=== PATIENT | female | born 1960 | race Caucasian/White ===

== ENCOUNTER 2022-07-19 08:45 | Outpatient (CLI) | payer OTHER, SELFPAY ==
--- OUTSIDE RECORDS SUMMARY | 2022-07-19 08:49 | XMS_ITS | Referral Summary ---
Author Name Unknown Organization [facility] Address [address] [place] [address]- Care Team Providers Care Maori Liaison Adviser Name Role Phone PCP, Out of State Primary Care Physician Unavail able Encounter [facility]_FIN [id number] Date(s): 05/29/19 - 05/30/19 [facility] [address] 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) - Discharge Disposition: Home/self care Attending Physician: Viraj Venegas DO Admitting Physician: Viraj Venegas DO Vital Signs Most recent to oldest [Reference Range]: 1 2 Living Situation Lives with spouse (05/29/19 11:18 PM) Sensory Deficits None (05/29/19 11:18 PM) Pain Scale Used Numeric Rating Scale (05/29/19 11:18 PM) Temperature PO [36-37.5 deg C] 36.7 deg C (05/29/19 11:18 PM) Heart Rate [51-119 bpm] 87 bpm (05/30/19 1:15 AM) 94 bpm (05/29/19 11:18 PM) Blood Pressure [91-139/50-90 mm Hg] 121/ 82mm Hg (05/30/19 1:15 AM) 128/84mm Hg (05/29/19 11:18 PM) Resp Rate (Monitor) [13-20 Breaths/Min] 16 Breaths/Min (05/30/19 1:15 AM) 20 Breaths/Min (05/29/19 11:18 PM) SPO2 [87-100 %] 98 % (05/30/19 1:15 AM) 96 % (05/29/19 11:18 PM) Oxygen Method Room air (05/29/19 11:18 PM) Glucose Level [70-99 mg/dL] 176 mg/dL *H* (05/29/19 11:34 PM) Height 170.18 cm (05/29/19 11:18 PM) Drug Calc Weight (kg) 125.8 kg (05/29/19 11:18 PM) Weight Method Actual (05/29/19 11:18 PM) BMI 43.44 kg/m2 (05/29/19 11:18 PM) Problem List Condition Effective Dates Status Health Status Inform ant Hypertension(Confirmed) Active Seasonal allergies(Confirmed) Active Allergies, Adverse Reactions, Alerts Substance Reaction Severity Status penicillin Unknown Unknown Active sulfa drugs Unknown Unknown Active Medications aspirin 81 mg, Tab, Chew, PO, Daily, Qty: 0 Tab, 0, Maintenance Start Date: 05/29/19 Status: Ordered Flonase 0.05 mg/inh nasal spray 0, Maintenance Start Date: 05/29/19 Status: Ordered hydrochlorothiazide-losartan 12.5/50 mg 0, Maintenance Start Date: 05/29/19 Status: Ordered Mirapex 0.125 mg, Tab, PO, BID, Qty: 90 Tab, 0, Maintenance Start Date: 05/29/19 Status: Ordered omeprazole 20 mg, Cap, PO, qDay, Qty: 90 Cap, 0, Maintenance Start Date: 05/29/19 Status: Ordered Pulmicort Flexhaler 90 mcg/inh 0, Maintenance Start Date: 05/29/19 Status: Ordered ZyrTEC 10 mg, Tab, PO, qDay, PRN, Allergy symptoms, Qty: 30 Tab, 0, Maintenance Start Date: 05/29/19 Status: Ordered Results Most recent to oldest [Reference Range]: 1 B-Natriuretic Peptide [0.0-100.0 pg/mL] 4.5 pg/mL (05/29/19 11:34 PM) CBC Scan Auto Diff (05/29/19 11:34 PM) Lymphs [10.0-55.0 %] 19.8 % (05/29/19 11:34 PM) Monos. [0.0-15.0 %] 5.3 % (05/29/19 11:34 PM) Baso. [0.0-3.0 %] 0.8 % (05/29/19 11:34 PM) Neuts [35.0-80.0 %] 71.6 % (05/29/19 11:34 PM) Eos. [0.0-9.0 %] 2.5 % (05/29/19 11:34 PM) Glucose Level [70-99 mg/dL] 176 mg/dL *H* (05/29/19 11:34 PM) AST [5-34 Units/L] 21 Units/L (05/29/19 11:34 PM) ABS Neut [1.7-8.6 thousand/uL] 7.9 thous and/uL (05/29/19 11:34 PM) eGFR Non- Am 52 mL/min/1.73m2 *NA* (05/29/19 11:34 PM) eGFR Afr/Amer >60 mL/min/1.73m2 *NA* (05/29/19 11:34 PM) A/G Ratio [0.8-1.6] 1.1 (05/29/19 11:34 PM) ABS Baso [0.0-0.3 thousand/uL] 0.1 thous and/uL (05/29/19 11:34 PM) ABS Eos [0.0-1.0 thousand/uL] 0.3 thousa nd/uL (05/29/19 11:34 PM) ABS Lymph [0.5-5.9 thousand/uL] 2.2 thou sand/uL (05/29/19 11:34 PM) ABS Emmet [0.0-1.6 thousand/uL] 0.6 thous and/uL (05/29/19 11:34 PM) Albumin [3.4-5.0 gm/dL] 3.9 gm/dL (05/29/19 11:34 PM) Alkphos [40-150 Units/L] 77 Units/L (05/29/19 11:34 PM) ALT [0-55 Units/L] 26 Units/L (05/29/19 11:34 PM) Anion Gap [5-15] 15 (05/29/19 11:34 PM) Bili Total [0.2-1.2 mg/dL] 0.4 mg/dL (05/29/19:34 PM) BUN [10-20 mg/dL] 22 mg/dL *H* (05/29/19 PM) Chloride [98-107 mmol/L] 102 mmol/L (05/29/1934 PM) CO2 [22-29 mmol/L] 24 mmol/L (05/29/19 PM) Creatinine [0.57-1.11 mg/dL] 1.08 mg/dL (05/29/1934 PM) Globulin [2.5-4.1 gm/dL] 3.7 gm/dL (05/29/19 PM) Hct [37.0-47.0 %] 40.3 % (05/29/19 PM) Hgb [11.5-16.0 gm/dL] 13.2 gm/dL (05/29/19 PM) Lipase [8.0-78.0 Units/L] 34.0 Units/L (05/29/19 PM) MCH [27.0-34.0 pg] 30.0 pg (05/29/19:34 PM) MCHC [32.0-37.0 gm/dL] 32.8 gm/dL (05/29/19: PM) MCV [80.0-100.0 fL] 91.5 fL (05/29/19: PM) Mg [1.6-2.6 mg/dL] 1.9 mg/dL (05/29/19 PM) Plt [130-400 thousand/uL] 399 thousand/u L (05/29/19 PM) Protein, Total [6.4-8.3 gm/dL] 7.6 gm/dL (05/29/1934 PM) RBC [4.00-5.40 million/uL] 4.41 million/ uL (05/29/19 PM) RDW [11.5-16.0 %] 14.3 % (05/29/19 PM) Sodium [134-144 mmol/L] 137 mmol/L (3/4/20 11:34 PM) Troponin I [<=0.30 ng/mL] 0.00 ng/mL (05/29/19 11:34 PM) WBC [4.8-10.8 thousand/uL] 11.0 thousand /uL *H* (05/29/19 11:34 PM) Potassium [3.5-5.1 mmol/L] 4.1 mmol/L (05/29/19 11:34 PM) Calcium [8.4-10.2 mg/dL] 10.0 mg/dL (05/29/19 11:34 PM) Social History Social History Type Response Smoking Status Never (less than 100 in lifetime) entered on: 05/29/19 Hospital Discharge Instructions Patient Education 05/29/2019 21:13:55 Near-Syncope Near-Syncope The cause of your symptoms is unclear. We discussed admission to the hospital for further evaluation and monitoring for any arrhythmia (irregular heartbeat) or other cardiac cause of your symptoms. You have declined this. If you have any worsening symptoms or change your mind please return to the ER immediately. Near-syncope is when you suddenly become weak or dizzy, or you feel like you might pass out (faint). During an episode of near-syncope, you may: ??? Feel dizzy or light-headed. ??? Feel nauseous. ??? See all white or all black in your field of vision. ??? Have cold, clammy skin. This condition is caused by a sudden decrease in blood flow to the brain. This decrease can result from various causes, but most of those causes are not dangerous. However, near-syncope can be a signof a serious medical problem, so it is important to seek medical care. If you fainted, get medical help right away.Call your local emergency services (911 in the [place] Do not drive yourself to the hospital. Follow these instructions at home: Pay attention to any changes in your symptoms. Take these actions to help with your condition: ??? Have someone stay with you until you feel stable. ??? Do not drive, use machinery, or play sports until your health care provider says it is okay. ??? Keep all follow-up visits as told by your health care provider. This is important. ??? If you start to feel like you might faint, lie down right away and raise (elevate) your feet above the level of your heart. Breathe deeply and steadily. Wait until all of the symptoms have passed. ??? Drink enough fluid to keep your urine clear or pale yellow. ??? If you are taking blood pressure or heart medicine, get up slowly and take several minutes to sit and then stand. This can reduce dizziness. ??? Take [id number] and prescription medicines only as told by your health care provider. Get help right away if: ??? You have a severe headache. ??? You have unusual pain in your chest, abdomen, or back. ??? You are bleeding from your mouth or rectum, or you have black or tarry stool. ??? You have a very fast or irregular heartbeat (palpitations). ??? You faint once or repeatedly. ??? You have a seizure. ??? You are confused. ??? You have trouble walking. ??? You have severe weakness. ??? You have vision problems. These symptoms may represent a serious problem that is an emergency. Do not wait to see if your symptoms will go away. Get medical help right away. Call your local emergency services (911 in the [place] Do not drive yourself to the hospital. This information is not intended to replace advice given to you by your health care provider. Make sure you discuss any questions you have with your health care provider. Document Released: 03/13/2006 Document Revised: 04/25/2017 Document Reviewed: 11/25/2015 [employer] Interactive Patient Education ?? 2019 [employer] Follow Up Care 05/29/2019 21:13:55 With:Follow with your PCP or our PCP on-call for recheck. Address:Unknown When:1 to 3 days Comments:Bring copies of lab results Call for follow up appointment Return to ED if symptoms worsen With:Eduarda Lucas Address: [address] [place] [address] [phone] Business (1) When:1 to 3 days Comments:Bring copies of lab results Call for follow up appointment Return to ED if symptoms worsen With:Out of State PCP Address:Unknown When:1 to 3 days
--- OUTSIDE RECORDS SUMMARY | 2022-07-19 08:49 | XMS_ITS | Continuity of Care Document ---
Author Name Unknown Organization [facility] [place] [facility] [address] [place] [address]- Care Team Providers Care Grit Removal Operator Name Role Phone PCP, Out of State Primary Care Physician Unavail able Encounter RICKIE [id number] Date(s): 03/27/99 - 04/07/20 [facility] [place] [facility] [address] [place] [address]- [facility] Allergies, Adverse Reactions, Alerts Substance Reaction Severity [...] 0, Maintenance Start Date: 05/29/19 Status: Ordered Problem List Condition Effective Dates Status Health Status Inform ant Hypertension(Confirmed) Active Seasonal allergies(Confirmed) Active Social History Social History Type Response Smoking Status Never (less than 100 in lifetime) entered on: 05/29/19 Sex
--- OUTSIDE RECORDS SUMMARY | 2022-07-19 08:49 | XMS_ITS | Continuity of Care Document ---
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 Name Role Phone Formerly [facility] Unavailable Unavailable Problems Problem Status Onset Date Classification Date Reported Comments Source Hypertensive disorder, systemic arterial (disorder) Active 04/08/2020 [facility] Internal Medicine [facility] Seasonal allergy (disorder) Active 04/08/2020 [facility] Internal [facility] Syncope and collapse 06/07/2019 [facility] Essential (primary) hypertension 06/07/2019 [facility] Type 2 diabetes mellitus without complications 06/06/2019 [facility] Other halfway (current) drug therapy 06/07/2019 [facility] Allergy status to penicillin 06/07/2019 [facility] Allergy status to sulfonamides status 06/07/2019 [facility] 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 06/07/2019 [facility] Medications Medication Details Route Status Patient Instructions Ordering Provider Order Date Source 60 ACTUAT Budesonide 0.08 MG/ACTUAT Dry Powder Inhaler [Pulmicort] 0, Maintenance Active 2019 [facility] Pulmicort Flexhaler 90 mcg/inh 0, Maintenance Active 2019 [facility] Internal [facility] Fluticasone propionate 0.05 MG/ACTUAT Metered Dose Nasal [place] [Flonase] 0, Maintenance Active 2019 [facility] Aspirin 81 mg, Tab, Chew, PO, Daily, Qty: 0 Tab, 0, Maintenance Active 2019 [facility] Internal [facility] Omeprazole 20 mg, Cap, PO, qDay, Qty: 90 Cap, 0, Maintenance Active 2019 [facility] Internal [facility] Hydrochlorothiazide 12.5 MG / Losartan Potassium 50 MG Oral Tablet 0, Maintenance Active 2019 [facility] Mirapex 0.125 mg, Tab, PO, BID, Qty: 90 Tab, 0, Maintenance Active 2019 [facility] Zyrtec 10 mg, Tab, PO, qDay, PRN, Allergy symptoms, Qty: 30 Tab, 0, Maintenance Active 2019 [facility] Allergies, Adverse Reactions, Alerts Substance Category Reaction Severity Reaction type Status Date Reported Comments Source penicillin Assertion Unknown Unknown Drug allergy Active [facility] sulfa drugs Assertion Unknown Unknown Drug allergy Active [facility] penicillin Assertion Unknown Drug allergy Active [facility] Internal [facility] sulfa drugs Assertion Unknown Drug allergy Active [facility] Internal [facility] Results Order Name Results Value Reference Range Date Interpretation Comments Source CMP Sodium 137 134 - 144 05/29 [facility] CMP Potassium 4.1 3.5 - 5.1 05/29 [facility] CMP Chloride 102 98 - 107 05/29 [facility] CMP CO2 24 22 - 29 05/29 [facility] CMP Glucose Level 176 70 - 99 05/29 [facility] [place] [employer] (ADA) Guidelines: Optimal fasting blood glucose is below 100 mg/dL. A person with pre-diabetes has a fasting blood glucose of 100-125. [facility] CMP BUN 22 10 - 20 05/29 [facility] CMP Creatinine 1.08 0.57 - 1.11 05/29 Result is ID-GC/MS standardized [facility] CMP Anion Gap 15 5 - 15 03/05 /2020 [facility] CMP Calcium 10.0 8.4 - 10.2 05/29 [facility] CMP Protein, Total 7.6 6.4 - 8.3 05/29 [facility] CMP Albumin 3.9 3.4 - 5.0 05/29 [facility] CMP Alkphos 77 40 - 150 05/29 [facility] CMP ALT 26 0 - 55 05/29 [facility] CMP AST 21 5 - 34 05/29 [facility] CMP Bili Total 0.4 0.2 - 1.2 05/29 [facility] CMP eGFR Non- Am 52 05/29 NA NORMALIZED FOR ID-GC/MS STANDARDIZED CREATININE (NON-AF AMR=NON-, AF AMR=) KIDNEY DAMAGE STAGES FROM [facility] ---- STAGE 1 and 2 >60 mL/min/1.73 square meters STAGE 3 30-59 mL/min/1.73 square meters STAGE 4 15-29 mL/min/1.73 square meters STAGE 5 <14 mL/min/1.73 square meters [facility] CMP eGFR Afr/Amer >60 05/29 NA NORMALIZED FOR ID-GC/MS STANDARDIZED CREATININE (NON-AF AMR=NON-, AF AMR=) KIDNEY DAMAGE STAGES FROM [facility] ---- STAGE 1 and 2 >60 mL/min/1.73 square meters STAGE 3 30-59 mL/min/1.73 square meters STAGE 4 15-29 mL/min/1.73 square meters STAGE 5 <14 mL/min/1.73 square meters [facility] CMP Globulin 3.7 2.5 - 4.1 05/29 [facility] CMP A/G Ratio 1.1 0.8 - 1.6 05/29 [facility] CMP Drug Calc Weight (kg) 125.800 05/29 [facility] CMP Height (cm) 170.180 05/29 - Unless otherwise noted, tests performed at the following location: - [facility] Lipase Lipase 34.0 8.0 - 78.0 05/29 - Unless otherwise noted, tests performed at the following location: - [facility] Mg Mg 1.9 1.6 - 2.6 05/29 - Unless otherwise noted, tests performed at the following location: - [facility] Troponin-I Troponin I 0.00 - <=0.30 05/29 - Unless otherwise noted, tests performed at the following location: - [facility] BNP B-Natriureti c Peptide 4.5 0.0 - 100.0 05/29 - Unless otherwise noted, tests performed at the following location: - [facility] CBC w/Diff WBC 11.0 4.8 - 10.8 05/29 H [facility] CBC w/Diff RBC 4.41 4.00 - 5.40 05/29 [facility] CBC w/Diff Hgb 13.2 11.5 - 16.0 05/29 [facility] CBC w/Diff Hct 40.3 37.0 - 47.0 05/29 [facility] CBC w/Diff MCV 91.5 80.0 - 100.0 05/29 [facility] CBC w/Diff MCH 30.0 27.0 - 34.0 05/29 [facility] CBC w/Diff MCHC 32.8 32.0 - 37.0 05/29 [facility] CBC w/Diff RDW 14.3 11.5 - 16.0 05/29 [facility] CBC w/Diff Plt 399 130 - 400 05/29 [facility] CBC w/Diff Neuts 71.6 35.0 - 80.0 05/29 [facility] CBC w/Diff Lymphs 19.8 10.0 - 55.0 05/29 [facility] CBC w/Diff Monos. 5.3 0.0 - 15.0 05/29 [facility] CBC w/Diff Eos. 2.5 0.0 - 9.0 05/29 [facility] CBC w/Diff Baso. 0.8 0.0 - 3.0 05/29 [facility] CBC w/Diff ABS Neut 7.9 1.7 - 8.6 05/29 [facility] CBC w/Diff ABS Lymph 2.2 0.5 - 5.9 05/29 [facility] CBC w/Diff ABS Treutlen 0.6 0.0 - 1.6 05/29 [facility] CBC w/Diff ABS Eos 0.3 0.0 - 1.0 05/29 [facility] CBC w/Diff ABS Baso 0.1 0.0 - 0.3 05/29 [facility] CBC w/Diff CBC Scan Auto Diff 05/29 - Unless otherwise noted, tests performed at the following location: - [facility] D Dimer Qt D-Dimer, Quant. 0.34 0.00 - 0.50 05/29 This D-dimer assay is FDA-approved to be used as a negative predictor of venous thromboembolism with a cutoff of <0.50 ug/mL FEU. Clinical correlation required. - Unless otherwise noted, tests performed at the following location: - [facility] Cardiac Troponin I 0.00 <=0.30 ng/mL 03/05 /2020 [facility] Cardiac B-Natriureti c Peptide 4.5 0.0 - 100.0 05/29 [facility] CBC CBC Scan Auto Diff (05/29/19 11:34 PM) 05/29 [facility] CBC WBC 11.0 4.8 - 10.8 05/29 [facility] CBC RBC 4.41 4.00 - 5.40 05/29 [facility] CBC Hgb 13.2 11.5 - 16.0 05/29 [facility] CBC Hct 40.3 37.0 - 47.0 05/29 [facility] CBC MCV 91.5 80.0 - 100.0 05/29 [facility] CBC MCH 30.0 27.0 - 34.0 05/29 [facility] CBC MCHC 32.8 32.0 - 37.0 05/29 [facility] CBC RDW 14.3 11.5 - 16.0 05/29 [facility] CBC Plt 399 130 - 400 05/29 [facility] CBC Neuts 71.6 35.0 - 80.0 05/29 [facility] CBC Lymphs 19.8 10.0 - 55.0 05/29 [facility] CBC Monos. 5.3 0.0 - 15.0 05/29 [facility] CBC Eos. 2.5 0.0 - 9.0 05/29 [facility] CBC Baso. 0.8 0.0 - 3.0 05/29 [facility] CBC ABS Neut 7.9 1.7 - 8.6 05/29 [facility] CBC ABS Lymph 2.2 0.5 - 5.9 05/29 [facility] CBC ABS Tre[place]len 0.6 0.0 - 1.6 05/29 [facility] CBC ABS Eos 0.3 0.0 - 1.0 05/29 [facility] CBC ABS Baso 0.1 0.0 - 0.3 05/29 [facility] General Chemistry Lipase 34.0 8.0 - 78.0 05/29 [facility] General Chemistry Mg 1.9 1.6 - 2.6 05/29 [facility] General Chemistry Glucose Level 176 70 - 99 05/29 [facility] General Chemistry BUN 22 10 - 20 05/29 [facility] General Chemistry Creatinine 1.08 0.57 - 1.11 05/29 [facility] General Chemistry Sodium 137 134 - 144 05/29 [facility] General Chemistry Potassium 4.1 3.5 - 5.1 05/29 [facility] General Chemistry Chloride 102 98 - 107 05/29 [facility] General Chemistry CO2 24 22 - 29 05/29 [facility] General Chemistry Calcium 10.0 8.4 - 10.2 05/29 [facility] General Chemistry Protein, Total 7.6 6.4 - 8.3 05/29 [facility] General Chemistry Albumin 3.9 3.4 - 5.0 05/29 [facility] General Chemistry AST 21 5 - 34 05/29 [facility] General Chemistry ALT 26 0 - 55 05/29 [facility] General Chemistry Alkphos 77 40 - 150 05/29 [facility] General Chemistry Bili Total 0.4 0.2 - 1.2 05/29 [facility] General Chemistry Anion Gap 15 5 - 15 05/29 [facility] General Chemistry Globulin 3.7 2.5 - 4.1 05/29 [facility] General Chemistry A/G Ratio 1.1 0.8 - 1.6 05/29 [facility] General Chemistry eGFR Non- Am 52 05/29 [facility] General Chemistry eGFR Afr/Amer >60 05/29 [facility] Diagnostic Reports Report Value Date Source XR Chest 2 Views Reason For Exam Atypical Chest Pain EXAM: XR Chest 2 Views CLINICAL HISTORY: Atypical Chest Pain EXAM: XR Chest 2 Views. CLINICAL HISTORY: Atypical Chest Pain. ADDITIONAL HISTORY: None. TECHNIQUE: Frontal and lateral views of the chest were obtained. FINDINGS: LUNGS: The lungs are grossly clear. No evidence of pneumonia. No pleural effusion. No evidence of pneumothorax. HEART/MEDIASTINUM: The heart is grossly normal in size and morphology. The pulmonary vasculature is grossly normal. OSSEOUS STRUCTURES: The bones are grossly intact. No acute displaced fracture is seen. IMPRESSION: 1. No radiographic evidence of acute cardiopulmonary process. 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: Ac : 1960 Requested By: Jeramie Arce Order Number: [id number] Reading MD: Jefry GUERRA Measurements Intervals Compton Rate: 88 P: 38 PA: 124 QRS: 30 QRSD: 90 T: 19 QT: 356 QTc: 432 Severity: Normal ECG Interpretive Statements SINUS RHYTHM Normal ECG No previous ECG available for comparison Electronically Signed On 05-30-2019 14:31:14 MST by Jefry GUERRA 05/30/2019 [facility] Electrocardiogram Stationary ECG Study [facility] [address] [place] [id number] Test Date: 2019-05-29 Pat Name: MAT LUCIA Department: Room: Gender: F Animal Therapist: tf : 1960 Requested By: Dano Andersen Order Number: [id number] Reading MD: Woodrow Browne MD Measurements Intervals Compton Rate: 91 P: 33 PA: 141 QRS: 39 QRSD: 92 T: 24 QT: 366 QTc: 452 Severity: Normal ECG Interpretive Statements SINUS RHYTHM Normal ECG No previous ECG available for comparison Electronically Signed On 06-05-2019 23:09:41 MST by Woodrow Browne MD 05/30/2019 [facility] Consultation Notes Results Value Date Source ED Physician Notes Patient: MAT LUCIA (EV) Age: 59 years Sex: F : 1960 Associated Diagnoses: None Author: Viraj Pedersen DO Addendum Teaching-Supervisory Addendum-Brief I participated in the following activities of this patients care: the medical history, the physical exam, medical decision making. I personally performed: supervision of the patient's care, the medical history, the physical exam, the medical decision making. The case was discussed with: the physician ophthalmic assistant. Evaluation and management service: I agree with the evaluation and management decisions made in this patient's care. Results interpretation: I agree with the study interpretation in this patient's care. Notes: 59-year-old female who presents with a near syncopal episode. She had no time had a actual loss of consciousness. She was seen in urgent care at 843 pm and stated that this occurred shortly before presenting there. She had been out to eat earlier and had some alcohol. She suddenly became flushed and felt as though she was going to pass out. She complained of jaw pain. She denies any associated chest pain or shortness of breath. Physical exam she is morbidly obese. Review of the urgent care note she was slightly hypotensive at 93/65 but she was not tachycardic her heart rate was just at 100. In our ED blood pressure was 128/84 with a pulse of 94. Awake and alert. Eyes are PERRLA. Cardiac is regular lungs are clear abdomen is soft. Neurologic speech clear and fluent. EKG done at 2253 sinus at a rate of 88 inverted T wave in lead III no gross evidence for ischemia or infarct, no evidence for malignant arrhythmia intervals are grossly unremarkable. Compton is normal. Chest x-ray no obvious infiltrates effusions bony abnormalities wide mediastinum or free air. Obese 59-year-old female with a history of hypertension who presents with a near syncopal episode. I checked orthostatics on her laying she was 127/73 with a heart rate of 97 standing she was 113/79 with a heart rate of 107. Cardiac is regular lungs are clear abdomen soft extremities are without clubbing cyanosis or edema. Neurologic speech clear fluent mentation is appropriate. Given the documented mild hypotension at the urgent care with this unexplained jaw pain and her risk factors I felt that prudent course of action would be observation. Although this may be something benign such as some intravascular volume depletion certainly concern for arrhythmia or atypical ACS is high in the concern list. I had a lengthy discussion with her and her their preference is to go home she states that it has been a number of hours since she had the symptoms and she feels perfectly fine at present. I explained to her she needs to have a very low threshold to return to the ED if she changes her mind or has any worsening symptoms she assured me that she would.. Electronically Signed By: Viraj Pedersen DO On 05/30/19 00:58 Co Signature By: Modify Signature By: Viraj Pedersen DO On 05/30/19 00:58 05/30/2019 [facility] ED Physician Notes Patient: MAT LUCIA (EV) Age: 59 years Sex: F : 1960 Associated Diagnoses: None Author: Henry Vargas Physician Commutator Tester Basic Information Time seen: Provider Initial Contact Time 05/29/2019 23:00. Patient information:: near syncope. History of Present Illness The patient presents with near syncope. This is a 59 year old female with a history of HTN who presents to the emergency department for evaluation after a near-syncopal episode this evening. Shortly after dinner the patient began feeling hot in a way that felt different from what sometimes experiences with hot flashes. She then noticed some stiffness in her jaw. While sitting in the car the patient then began to feel nauseous and clammy. She states that her vision suddenly started to go black and she felt as if she may experience a loss of consciousness. She was evaluated at an urgent care facility shortly afterward where her blood pressure was found to be decreased from her baseline at 93/65. She was advised to visit the emergency department for further evaluation. Upon ED arrival symptoms have improved. She denies chest pain or palpitations. No shortness of breath. Denies headache. Otherwise no associated symptoms. . Review of Systems Constitutional symptoms: Sweats. Skin symptoms: Negative except as documented in HPI. ENMT symptoms: Negative except as documented in HPI. Respiratory symptoms: Negative except as documented in HPI. Cardiovascular symptoms: Syncope (near). Gastrointestinal symptoms: Nausea. Genitourinary symptoms: Negative except as documented in HPI. Musculoskeletal symptoms: Negative except as documented in HPI. Neurologic symptoms: Vision changes. Hematologic/Lymphatic symptoms: Negative except as documented in HPI. Health Status Allergies: Allergic Reactions (Selected) Unknown Penicillin- Unknown. Sulfa drugs- Unknown.. Medications: Include Documented Meds (Selected) Documented Medications Documented Flonase 0.05 mg/inh nasal spray: 0 Refill(s) Mirapex: 0.125 mg, PO, BID, 90 Tab, 0 Refill(s) Pulmicort Flexhaler 90 mcg/inh: 0 Refill(s) ZyrTEC: 10 mg, PO, qDay, PRN: Allergy symptoms, 30 Tab, 0 Refill(s) aspirin: 81 mg, PO, Daily, 0 Tab, 0 Refill(s) hydrochlorothiazide-losartan 12.5/50 m Refill(s) omeprazole: 20 mg, PO, qDay, 90 Cap, 0 Refill(s), per nurse's notes. Immunizations: Per nurse's notes. Past Medical/ Family/ Social History Medical history Cardiovascular: hypertension, no deep venous thrombosis, no hyperlipidemia. Endocrine: no diabetes. Surgical history: no appendectomy, no cholecystectomy. Family history: not significant. Social history: Social and Psychosocial Habits Alcohol 05/29/2019 Use: Current Home/Environment 05/29/2019 Tenriism restrictions/concerns: None Feels unsafe at home: No Substance Abuse 05/29/2019 Use: Denies Tobacco 05/29/2019 Tobacco Use: Never (less than 100 in l , Alcohol use: Denies, Tobacco use: Denies, Drug use: Denies. Problem list: Per nurse's notes. Physical Examination Vital Signs Vital-Signs 05/29/2019 21:00 MST NIBP Systolic 107 mm Hg Normal NIBP Diastolic 73 mm Hg Normal 05/29/2019 20:43 MST SPO2 95 % Normal Heart Rate 100 bpm Normal NIBP Systolic 93 mm Hg Normal NIBP Diastolic 65 mm Hg Normal Resp Rate (Monitor) 14 Breaths/Min Normal Temperature Temporal Artery 36.5 deg C Normal Pain Intensity 0 Pain Scale Used Numeric Rating Scale . Measurements 05/29/2019 20:43 MST Drug Calc Weight (kg) 120.181 kg BMI 41.5 kg/m2 Height 170.18 cm Height In 67 Inch Weight lb 265 lbs . SPO2 05/29/2019 20:43 MST SPO2 95 % Normal . General: Alert, no acute distress, speaks full sentences, answers questions appropriately. Skin: Warm, dry, pink, intact, no pallor, no rash, normal for ethnicity, Not cyanotic, Head: Normocephalic, atraumatic. Neck: Supple, trachea midline, no tenderness, no nuchal rigidity. Eye: Pupils are equal, round and reactive to light, extraocular movements are intact, normal conjunctiva, vision unchanged, Anicteric. Ears, nose, mouth and throat: Oral mucosa moist, Throat: Normal. Cardiovascular: Regular rate and rhythm, No murmur, Normal peripheral perfusion, No edema. Respiratory: Lungs are clear to auscultation, respirations are non-labored, breath sounds are equal, Symmetrical chest wall expansion. Gastrointestinal: Soft, Nontender, Non distended, Normal bowel sounds. Back: Nontender, No CVA tenderness. Musculoskeletal: Normal ROM, normal strength, no tenderness, no swelling, no deformity. Neurological: Alert and oriented to person, place, time, and situation, No focal neurological deficit observed, CN II-XII intact, normal sensory observed, normal motor observed, normal speech observed, normal coordination observed. Psychiatric: Cooperative, appropriate mood and affect. Medical Decision Making Orders Launch Order Profile (Selected) Inpatient Orders Ordered (Dispatched) BNP (B-Type Natriuretic Peptide): CBC w/Diff* (man diff if indicated): CMP: D-Dimer Quantitative: Lipase Level: Magnesium (Mg) Level: Troponin-I: Ordered (Exam Ordered) CXR 2 Views: Completed EKG: . Reexamination/ Reevaluation Interventions: Patient's labs and x-ray and EKG were discussed. We recommend that she come into the hospital for observation and further evaluation. The patient at this time does not want to stay. We did discuss this with her if this gets worse or changes that she needs to return to emergency room for admission.. Impression and Plan Near syncope Plan Condition: Improved, Stable. Disposition: Discharged: to home. Patient was given the following educational materials: Near-Syncope. Follow up with: Follow with your PCP or our PCP on-call for recheck. Within 1 to 3 days Bring copies of lab results Call for follow up appointment Return to ED if symptoms worsen; Eduarda Lucas Within 1 to 3 days Bring copies of lab results Call for follow up appointment Return to ED if symptoms worsen; Out of State PCP Within 1 to 3 days. Counseled: Patient, Family. Notes: Jewels Willard scribe, am scribing for, and in the presence of, Henry Vargas PA-C. This chart is electronically signed by myself, angela Farah. Henry Willard PA-C, personally performed the services described in this documentation, as scribed by Jewels Lopez in my presence, and it is both accurate and complete , SEEN IN CONJUNCTION WITH DR. VIRAJ PEDERSEN (SEE ADDITIONAL NOTE FROM PHYSICIAN) . Electronically Signed By: Henry Vargas Physician Commutator Tester On 05/30/19 01:04 Co Signature By: Viraj Pedersen DO On 05/31/19 23:40 Modify Signature By: Henry Vargas Physician Commutator Tester On 05/30/19 01:04 05/30/2019 [facility] ED Physician Notes Patient: MAT LUCIA (EV) Age: 59 years Sex: F : 1960 Associated Diagnoses: None Author: Huyen Perdomo PA-C Basic Information Time seen: Provider Initial Contact Time 05/29/2019 21:05. History source: Patient, spouse. Arrival mode: Private vehicle. History limitation: None. Additional information: Chief Complaint (ST) Chief Complaint ED: blurred vision 05/29/19 20:43, Subjective Nursing Assessment: started when having dinner, got clammy and hot, dizzy, nauseated, twinges of jaw pain, Sx have mostly resolved 05/29/19 20:43 . History of Present Illness The patient presents with syncope, near syncope, dizziness and clammy, vision loss, jaw aches. The onset was just prior to arrival. The course/duration of symptoms is improving. The location where the incident occurred was in the street. The exacerbating factor is none. The relieving factor is none. Risk factors consist of hypertension, diabetes mellitus and obesity. Prior episodes: none. Therapy today: none. Preceding symptoms: lightheaded. Associated symptoms: nausea, denies fever and denies headache. Associated injury to the none. Additional history: 59 y/o femae with HTN and DM flew to [place] yesterday, and is here visiting family. She was outside much of the day, went to dinner with family, was feeling well, had two margaritas and while still seated at restaurant noticed her jaw acheing. She then felt clammy and 'hot', followed by lightheaded and feeling weak, not spinning. SHe went outside for fresh air, sat for 5 minutes, felt nauseaous, got in car to leave and while traveling had vision blurred then went black for a few minutes. she came here for evaluation. No HX of heart issues, is on RX for HTN and for DM Family HX Neg for CAD or CVA She has been feeling well, this BP is low for her , she states she has been drinking and eating normally.. Review of Systems Additional review of systems information: All other systems reviewed and otherwise negative. Health Status Allergies: Allergic Reactions (Selected) Unknown Penicillin- Unknown. Sulfa drugs- Unknown.. Medications: Include Documented Meds (Selected) Documented Medications Documented Flonase 0.05 mg/inh nasal spray: 0 Refill(s) Mirapex: 0.125 mg, PO, BID, 90 Tab, 0 Refill(s) Pulmicort Flexhaler 90 mcg/inh: 0 Refill(s) ZyrTEC: 10 mg, PO, qDay, PRN: Allergy symptoms, 30 Tab, 0 Refill(s) aspirin: 81 mg, PO, Daily, 0 Tab, 0 Refill(s) hydrochlorothiazide-losartan 12.5/50 m Refill(s) omeprazole: 20 mg, PO, qDay, 90 Cap, 0 Refill(s). Immunizations: Per nurse's notes. Menstrual history: Per nurse's notes. Past Medical/ Family/ Social History Medical history: All Problems Hypertension / [id number] / Confirmed Seasonal allergies / [id number] / Confirmed. Surgical history: No active procedure history items have been selected or recorded.. Family history: No family history items have been selected or recorded.. Social history: Social and Psychosocial Habits Alcohol 05/29/2019 Use: Current Home/Environment 05/29/2019 Tenriism restrictions/concerns: None Feels unsafe at home: No Substance Abuse 05/29/2019 Use: Denies Tobacco 05/29/2019 Tobacco Use: Never (less than 100 in l , Family/social situation: , intact family. Physical Examination Vital Signs Vital-Signs 05/29/2019 20:43 MST SPO2 95 % Normal Heart Rate 100 bpm Normal NIBP Systolic 93 mm Hg Normal NIBP Diastolic 65 mm Hg Normal Resp Rate (Monitor) 14 Breaths/Min Normal Temperature Temporal Artery 36.5 deg C Normal Pain Intensity 0 Pain Scale Used Numeric Rating Scale . Measurements 05/29/2019 20:43 MST Drug Calc Weight (kg) 120.181 kg BMI 41.5 kg/m2 Height 170.18 cm Height In 67 Inch Weight lb 265 lbs . SPO2 05/29/2019 20:43 MST SPO2 95 % Normal . General: Alert, no acute distress, morbid obesity, states she is feeling okay now, vision is normal , no pains. Skin: Warm, dry, pink, intact. Cardiovascular: Regular rate and rhythm, Normal peripheral perfusion, Edema: Bilateral, pedal, 1+. Respiratory: Lungs are clear to auscultation, respirations are non-labored, breath sounds are equal, Symmetrical chest wall expansion. Neurological: Alert and oriented to person, place, time, and situation. Psychiatric: Cooperative. Medical Decision Making Differential Diagnosis: Near syncope, orthostatic hypotension, vasovagal episode. Rationale: probable vaso vagal episode, consider dehydration , however with Medical HX and recent air travel I feel she would benefit from further medical evaluation , she agrees, to take her to [facility] by POV. Electrocardiogram: Rate 91, normal sinus rhythm, No ST-T changes, no ectopy, normal PA and QRS intervals. Impression and Plan Near syncope ([id number], Discharge, Medical) Plan Condition: Stable. Disposition: Discharged: Time 05/29/2019 21:33:00, to home. Patient was given the following educational materials: Near-Syncope, Ebtq-se-Chkl. Follow up with: GO directly to [facility]- ER for evaluation and care Within As soon as possible. Counseled: Patient, Family, Regarding diagnosis, Regarding diagnostic results, Regarding prescription, Patient indicated understanding of instructions. Orders: Launch Orders Admit/Transfer/Discharge: Discharge (Order Processing): 05/29/2019 21:34 MST, Now, Transfer to other Hospital, POV to [facility]. Electronically Signed By: Huyen Perdomo PA-C On 05/29/19 21:34 Co Signature By: Dano Andersen DO On 05/30/19 17:09 Modify Signature By: 05/30/2019 [facility] [facility] Vital Signs Vital Sign Value Date Comments Source Systolic (mm Hg) 121 05/30/2019 [facility] Diastolic (mm Hg) 82 05/30/2019 [facility] Respiratory Rate 16 Breaths/Min 05/30/2019 [facility] SPO2 98 05/30/2019 [facility] Heart Rate (bpm) 87 05/30/2019 [facility] Glucose Level (mg/dL) 176 05/30/2019 [facility] Sensory Deficits None (05/29/19 11:18 PM) 05/30/2019 [facility] Temperature (c) 36.7 05/30/2019 [facility] Systolic (mm Hg) 128 05/30/2019 [facility] Diastolic (mm Hg) 84 05/30/2019 [facility] Heart Rate (bpm) 94 05/30/2019 [facility] Respiratory Rate 20 Breaths/Min 05/30/2019 [facility] SPO2 96 05/30/2019 [facility] Oxygen Method Room air (05/29/19 11:18 PM) 05/30/2019 [facility] Pain Scale Numeric Rating Scale (05/29/19 11:18 PM) 05/30/2019 [facility] Living Situation Lives with spouse (05/29/19 11:18 PM) 05/30/2019 [facility] Height (cm) 170.18 05/30/2019 [facility] Weight Method Actual (05/29/19 11:18 PM) 05/30/2019 [facility] Drug Calc Weight (kg) 125.8 05/30/2019 [facility] BMI 43.44 05/30/2019 [facility] Systolic (mm Hg) 107 05/30[facility] Diastolic (mm Hg) 73 05[facility]30[facility] Sensory Deficits None (05/29/19 8:43 PM) 05/30/2019 [facility] Temperature (c) 36.5 05/30/2019 [facility] Systolic (mm Hg) 93 05/30/[address] [facility] Diastolic (mm Hg) 65 05/30/[address] [facility] Heart Rate (bpm) 100 05/30/2019 [facility] Respiratory Rate 14 Breaths/Min 05/30/2019 [facility] SPO2 95 05/30/[facility] Pain Scale Numeric Rating Scale (05/29/19 8:43 PM) 05/30/2019 [facility] Height (cm) 170.18 05/30/2019 [facility] Drug Calc Weight (kg) 120.181 05/30/2019 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 [id number] 03/27 [facility] Internal Medicine [facility] Emergency [id number] Agusto fernandes 05/29 [facility] Emergency [id number] Viraj Allenoud 05/29 [facility] Social History Social History Date Source Social History TypeResponse Smoking Status Never (less than 100 in lifetime) entered on: 05/29/19 05/30/2019 [facility] Care Social History TypeResponse Smoking Status Never (less than 100 in lifetime) entered on: 05/29/19 05/30/2019 [facility] nter Social History TypeResponse Smoking Status Never (less than 100 in lifetime) entered on: 05/29/19 Sex 05/30/2019 [facility] Internal Medicine - tKary Alvarado's Assessment and Plan Result Assessment and Plan Date Source Assessment and Plan No data available fo r this section 04/08/2020 [facility] Internal Medicine [facility] Assessment and Plan No data available fo r this section 05/30/2019 [facility] Assessment and Plan No data available fo r this section 05/30/2019 [facility] Urgent [facility]
--- OUTSIDE RECORDS SUMMARY | 2022-07-19 08:49 | XMS_ITS | Referral Summary ---
Author Name Unknown Organization [facility] Address [address] [address]- Care Team Providers Care Brand Development Manager Name Role Phone PCP, Out of State Primary Care Physician Unavail able Encounter EVSA_FIN [id number] Date(s): 05/29/19 - 05/29/19 [facility] [address] [address]- [facility] Encounter Diagnosis Near syncope(Discharge Diagnosis) - 05/29/19 Discharge Disposition: Home/self care Attending Physician: Agusto Mcdowell MD Vital Signs Most recent to oldest [Reference Range]: 1 2 Sensory Deficits None (05/29/19 8:43 PM) Pain Scale Used Numeric Rating Scale (05/29/19 8:43 PM) Temperature Temporal Artery [36.4-38.1 d eg C] 36.5 deg C (05/29/19 8:43 PM) Heart Rate [51-119 bpm] 100 bpm (05/29/19 8:43 PM) Blood Pressure [91-139/50-90 mm Hg] 107/ 73mm Hg (05/29/19 9:00 PM) 93/65mm Hg (05/29/19 8:43 PM) Resp Rate (Monitor) [13-20 Breaths/Min] 14 Breaths/Min (05/29/19 8:43 PM) SPO2 [87-100 %] 95 % (05/29/19 8:43 PM) Height 170.18 cm (05/29/19 8:43 PM) Drug Calc Weight (kg) 120.181 kg (05/29/19 8:43 PM) BMI 41.5 kg/m2 (05/29/19 8:43 PM) Problem List Condition Effective Dates Status [...] 0, Maintenance Start Date: 05/29/19 Status: Ordered Social History Social History Type Response Smoking Status Never (less than 100 in lifetime) entered on: 05/29/19 Hospital Discharge Instructions Patient Education 05/29/2019 19:30:13 Near-Syncope, Kfqo-fy-Xqez Near-Syncope Near-syncope is when you suddenly get weak or dizzy, or you feel like you might pass out (faint). This is due to a lack of blood flow to the brain. During an episode of near-syncope, you may: ??? Feel dizzy or light-headed. ??? Feel sick to your stomach (nauseous). ??? See all white or all black. ??? Have cold, clammy skin. This condition is caused by a sudden decrease in blood flow to the brain. This decrease can result from various causes, but most of those causes are not dangerous. However, near-syncope may be a signof a serious medical problem, so it is important to seek medical care. Follow these instructions at home: Pay attention to any changes in your symptoms. Take these actions to help with your condition: ??? Have someone stay with you until you feel stable. ??? Talk with your doctor about your symptoms. You may need to have testing to understand the causeof your near-syncope. ??? Do not drive, use machinery, or play sports until your doctor says it is okay. ??? Keep all follow-up visits as told by your doctor. This is important. ??? If you start to feel like you might pass out, lie down right away and raise (elevate) your feetabove the level of your heart. Breathe deeply and steadily. Wait until all of the symptoms are gone. ??? Drink enough fluid to keep your pee (urine) pale yellow. Medicines ??? If you are taking blood pressure or heart medicine, get up slowly and spend many minutes getting ready to sit and then stand. This can help with dizziness. ??? Take xcgd-hgt-cnpzuia and prescription medicines only as told by your doctor. Get help right away if you: ??? Have a seizure. ??? Have pain in your: ? Chest. ? Tummy, ? Back. ??? Faint. ??? Have a bad headache. ??? Are bleeding from your mouth or butt. ??? Have black or tarry poop (stool). ??? Have a very fast or uneven heartbeat (palpitations). ??? Are confused. ??? Have trouble walking. ??? Are very weak. ??? Have trouble seeing. These symptoms may represent a serious problem that is an emergency. Do not wait to see if your symptoms will go away. Get medical help right away. Call your local emergency services (911 in the [place] Do not drive yourself to the hospital. Summary ??? Near-syncope is when you suddenly get weak or dizzy, or you feel like you might pass out. ??? This condition is caused by a lack of blood flow to the brain. ??? Near-syncope may be a sign of a serious medical problem, so it is important to seek medical care. This information is not intended to replace advice given to you by your health care provider. Make sure you discuss any questions you have with your health care provider. Document Released: 08/29/2008 Document Revised: 11/06/2018 Document Reviewed: 11/25/2015 [employer] Interactive Patient Education ?? 2019 [employer]. Follow Up Care 05/29/2019 19:30:13 With:GO directly to [facility]- ER for evaluation and care Address:Unknown When:As soon as possible
--- OUTSIDE RECORDS SUMMARY | 2022-07-19 08:49 | XMS_ITS | Referral Summary ---
Author Name Unknown Organization [facility] Address [address] [address]- Care Team Providers Care Airways Control Specialist Name Role Phone PCP, Out of State Primary Care Physician Unavail able Encounter EVSA_FIN [id number] Date(s): 05/29/19 - 05/29/19 [facility] [address] [address]- [facility] Encounter Diagnosis Near syncope(Discharge Diagnosis) - 05/29/19 [...] Discharge Instructions Patient Education 05/29/2019 19:30:13 Near-Syncope, Qtih-oj-Rwxy Near-Syncope Near-syncope is when you suddenly get [...] This can help with dizziness. ??? Take fgxx-imh-zgztwgp and prescription medicines only as told by [...] 08/29/2008 Document Revised: 11/06/2018 Document Reviewed: 11/25/2015 [employer] Interactive Patient Education ?? 2019 [employer]. Follow Up Care 05/29/2019 19:30:13 With:GO directly to [facility]- ER for evaluation and care Address:Unknown When:As soon as possible
--- OUTSIDE RECORDS SUMMARY | 2022-07-19 08:49 | XMS_ITS | Referral Summary ---
Author Name Unknown Organization [facility] Car e Address [address] [address]- Care Team Providers Care Child Development Consultant Name Role Phone PCP, Out of State Primary Care Physician Unavail able Encounter EVSA_FIN [id number] Date(s): 05/29/19 - 05/29/19 [facility] [address] [id number] Encounter Diagnosis Near syncope(Discharge Diagnosis) - 05/29/19 Syncope and collapse(Discharge Diagnosis) - Essential (primary) hypertension(Discharge Diagnosis) - Type 2 diabetes mellitus without complications(Discharge Diagnosis) - Other shelter (current) drug therapy(Discharge Diagnosis) - Allergy status to penicillin(Discharge Diagnosis) - Allergy status to sulfonamides status(Discharge Diagnosis) - Discharge Disposition: Home/self care Attending Physician: Agusto [...] Discharge Instructions Patient Education 05/29/2019 19:30:13 Near-Syncope, Orhb-hb-Wuhz Near-Syncope Near-syncope is when you suddenly get [...] This can help with dizziness. ??? Take udft-evl-kghaoqs and prescription medicines only as told by [...] 08/29/2008 Document Revised: 11/06/2018 Document Reviewed: 11/25/2015 [employer] Interactive Patient Education ?? 2019 [employer] Follow Up Care 05/29/2019 19:30:13 With:GO directly to [facility] ER for evaluation and care Address:Unknown When:As soon as possible
--- NOTE | 2022-07-19 09:15 | CRLHL7_ITS ---
For Patients: As a result of the Century Cures Act, medical imaging exams and procedure reports are released immediately into your electronic medical record. You may view this report before your referring provider. If you have questions, please contact your health care provider. INDICATION: RIGHT breast mass upper outer quadrant 10 o`clock position 10 cm from the nipple. Abnormal-appearing RIGHT axillary lymph nodes. Ultrasound-guided biopsy and clip placement for further evaluation. PROCEDURE: Informed consent was obtained. Benefits and risks were discussed. The patient agreed to proceed. Risks included pain, bleeding, infection, and the possibility of an unsuccessful or nondiagnostic procedure. The possibility of clip placement was also discussed. The patient agreed to proceed. Dexter protocol was followed. TIME-OUT conducted just prior to starting procedure confirmed patient identity, site/side, procedure, patient position, and availability of correct equipment. Pause for cause was performed. Utilizing sterile technique and 1 percent lidocaine for local anesthetic, an 18-gauge Temno device was utilized for biopsy purposes. There were three adjacent lymph nodes each demonstrating cortical thickening and cortical lobulation. One of these lymph nodes was evaluated and deemed possible for biopsy. Utilizing sterile technique and 1 percent lidocaine for local anesthetic, five passes were made with the 18-gauge Temno device. The patient tolerated the procedure well. No immediate complications. A post biopsy clip placement was performed. IMPRESSION: Technically successful ultrasound-guided RIGHT axillary lymph node biopsy. Final pathology is pending. ACR not applicable Dictated by Artie West MD @ 07/19/2022 11:37:22 AM ----- ADDENDUM ----- Addendum: The final pathology result indicates metastatic carcinoma to the biopsied lymph node. This is concordant with the imaging findings. Dictated by Artie West MD @ Jul 19 2022 11:27AM Signed by:?Artie West MD @07/19/2022 11:47:11 AM (Electronically Signed)
--- NOTE | 2022-07-19 09:15 | CRLHL7_ITS ---
For Patients: As a result of the Century Cures Act, medical imaging exams and procedure reports are released immediately into your electronic medical record. You may view this report before your referring provider. If you have questions, please contact your health care provider. ULTRASOUND-GUIDED RIGHT BREAST BIOPSY WITH CLIP PLACEMENT INDICATION: RIGHT breast mass. TECHNIQUE: Ultrasound-guided RIGHT breast biopsy. Informed consent was obtained. Benefits and risks were discussed. The risks included pain, bleeding, infection, and the possibility of an unsuccessful or nondiagnostic biopsy. Post biopsy clip placement was also discussed. The patient agreed to proceed. [place] protocol was followed. TIME-OUT conducted just prior to starting procedure confirmed patient identity, site/side, procedure, patient position, and availability of correct equipment. Pause for cause was performed. Utilizing sterile technique 1 percent lidocaine for local anesthetic, an 18-gauge Bard biopsy gun was utilized for biopsy of an ill-defined hypoechoic shadowing lesion in the upper outer RIGHT breast 10 o`clock position 10 cm from the nipple. Eight passes were made. Dough Cutter tissue samples were obtained. A post biopsy clip was placed. The patient tolerated this biopsy well. No immediate complications. The final pathology is pending. IMPRESSION: Technically successful ultrasound-guided biopsy of a hypoechoic shadowing lesion in the upper outer RIGHT breast 10 o`clock position 10 cm from the nipple. Final pathology is pending. ACR not applicable Dictated by: Artie West MD @07/19/2022 11:25:26 AM jj/Dictated by: Artie West MD @ 07/19/2022 11:25:00 AM ----- ADDENDUM ----- Addendum: The final pathology indicates invasive lobular carcinoma Rosanna grade 2 of 3 with a Rosanna score 6 of 9. This is concordant and with the imaging findings. Dictated by Artie West MD @ Jul 19 2022 11:25AM Signed by:?Artie West MD @07/19/2022 11:47:34 AM (Electronically Signed)
--- NOTE | 2022-07-19 10:00 | CRLHL7_ITS ---
For Patients: As a result of the Cures Act, medical imaging exams and procedure reports are released immediately into your electronic medical record. You may view this report before your referring provider. If you have questions, please contact your health care provider. POST-BIOPSY RIGHT MAMMOGRAM FOR CLIP PLACEMENT INDICATION: Follow up RIGHT breast biopsy. Follow-up RIGHT axillary lymph node biopsy. TECHNIQUE: Unilateral RIGHT breast mammogram for clip placement. CC and ML views were obtained. FINDINGS: A clip is identified within one of the mildly prominent RIGHT axillary lymph nodes. A second clip was placed in the upper-outer quadrant RIGHT breast 10 o`clock position 10 cm from the nipple. The lesion biopsied in question is not well seen on this post-procedure mammogram given that there is some perilesional hemorrhage in the upper outer RIGHT breast. IMPRESSION: Biopsy clips as described. ACR not applicable Dictated by: Artie West MD @07/19/2022 11:28:42 AM jj/Dictated by: Artie West MD @ 07/19/2022 11:28:00 AM (Electronically Signed)
== END 2022-07-19 08:46 | disposition home or self-care (01) ==
LOC: US 08:46
PROVIDERS: PCP Physician Assistant; Visit Provider Physician Assistant
DX: N63.10 Unspecified lump in the right breast, unspecified quadrant (principal); C50.911 Malignant neoplasm of unspecified site of right female breast; R92.8 Other abnormal and inconclusive findings on diagnostic imaging of breast; C77.3 Secondary and unspecified malignant neoplasm of axilla and upper limb lymph nodes
CPT/HCPCS: 19083; 38505; 76942; 77065; 88305; 88360; 88361; 88377; A4648; A4649

== ENCOUNTER 2022-07-27 09:57 | Outpatient (CLI) | payer OTHER, SELFPAY ==
--- NOTE | 2022-07-27 10:15 | CRLHL7_ITS ---
For Patients: As a result of the 21st Century Cures Act, medical imaging exams and procedure reports are released immediately into your electronic medical record. You may view this report before your referring provider. If you have questions, please contact your health care provider. BILATERAL BREAST MRI WITHOUT AND WITH GADOLINIUM CLINICAL HISTORY: 62-year-old female newly diagnosed right breast invasive lobular carcinoma with right axillary metastasis INDICATION FOR BREAST MRI: (1) Staging of newly diagnosed breast cancer and screening of contralateral breast. Regional lymph nodes will also be assessed. COMPARISON STUDIES: Mammogram and ultrasound dated 07/19/2022 CONTRAST: 15 cc dotarem TECHNIQUE: The patient was positioned prone using a breast coil. Multiple imaging sequences were obtained using 1-1.5 mm thick slices with no gap. The image sequences include T2-weighted STIR in the axial plane, T1-weighted nonfat-saturated gradient echo in the axial plane, pre- and post-contrast T1-weighted FLASH 3D with fat suppression in the axial plane, and T1-weighted FLASH high resolution 3D with fat suppression in the sagittal plane. Image post-processing was performed on a [employer] workstation. Complex 3D rendering including maximum intensity projections (MIPS) and volumetric renderings were obtained to optimize visualization of the extent of pathology and relationship to the nipple, skin, and chest wall. This aids in determining feasibility of breast conservation surgery. Subtraction, multiplanar reconstruction, mean curve determination, and angiogenesis mapping were also performed. The study was technically adequate. FINDINGS: Amount of Fibroglandular Tissue: Scattered fibroglandular tissue. Breast Background Enhancement: Moderate. RIGHT Breast: Mass and non mass enhancement in the right upper outer 10 cm x 7.3 8.6 cm with washout kinetic curve. This includes the area of biopsied cancer. The biopsy clip is questionably seen along the lateral, superior, mid aspect of the area of enhancement. Multiple abnormal axillary lymph nodes in the right axilla including the biopsied lymph node which measures 1.7 x 2.1 centimeters. Largest lymph node measures 3.6 x 1.7 centimeters. At least 3 or 4 other abnormal lymph nodes are seen. 2nd largest lymph node measures 1.5 x 3 centimeters. No abnormal axillary lymph nodes on the left. LEFT Breast: No suspicious findings. IMPRESSIONS AND RECOMMENDATIONS: 1. Mass and non mass enhancement in the right upper outer breast spanning 10 centimeters x 7.3 x 8.6 centimeters in the anterior to posterior breast reflecting the biopsied cancer. Biopsy clip questionably seen along the lateral, superior mid aspect of the ring of enhancement. If the patient wishes for breast conservation 2nd site MRI biopsy recommended. Biopsy could be performed along the anterior aspect of the enhancement. 2. Multiple abnormal right axillary level 1 and level 2 lymph nodes which includes the biopsied lymph node. 3. No suspicious findings within the left breast. No abnormal axillary lymph nodes on the left. Surgical on oncological management per referring physician. BI-RADS: 6 Dictated by Patricia Sharp MD @ 07/28/2022 9:01:39 AM (Electronically Signed)
== END 2022-07-27 09:58 | disposition home or self-care (01) ==
LOC: MRI 09:58
PROVIDERS: PCP Family Medicine; Visit Provider Surgery
DX: C50.411 Malignant neoplasm of upper-outer quadrant of right female breast (principal); C77.3 Secondary and unspecified malignant neoplasm of axilla and upper limb lymph nodes
CPT/HCPCS: 77049; C8908; C8937; A9575

== ENCOUNTER 2022-08-15 07:24 | Day surgery (SDC) | payer OTHER, SELFPAY ==
[2022-08-15 07:45] VITALS: BMI 45.1
[2022-08-15 07:51] VITALS: BP 147/88; PULSE 80; RESP 16; TEMP 36.4; O2SAT 94
[2022-08-15] MEDS: SODIUM CHLORIDE 0.9 % (FLUSH) 10 ML SYRINGE IVF (08:10)
[2022-08-15] MEDS: LACTATED RINGERS 1000 ML 1,000 ML 100 ML IV (08:10)
--- NOTE | 2022-08-15 08:32 | W.ANESCHARGE ---
Anesthesia Charges Start Date/Time Anesthesia Start Date: 08/15/22 Anesthesia Start Time: 09:15 Stop Date/Time Anesthesia Stop Date: 08/15/22 Anesthesia Stop Time: 10:22
--- NOTE | 2022-08-15 08:45 | CRLHL7_ITS ---
For Patients: As a result of the Cures Act, medical imaging exams and procedure reports are released immediately into your electronic medical record. You may view this report before your referring provider. If you have questions, please contact your health care provider. Indication: Port-A-Cath placement Technique: Single fluoroscopic image of the upper chest. Fluoroscopic time 1 minute 26.8 seconds. IMPRESSION: Fluoroscopic guidance for Port-A-Cath placement. Dictated by Wesley Connor MD @ 08/15/2022 10:13:21 AM (Electronically Signed)
--- NOTE | 2022-08-15 09:01 | PM.GSCN ---
History of Present Illness Consult details Date Seen: 08/15/22 Consult date: 08/15/22 Narrative: The patient is a 62-year-old female with right-sided breast cancer metastatic to her axillary lymph nodes. She is here today for port placement for neoadjuvant chemotherapy. She has never had a port before. She does not take blood thinners. No chest pain or shortness of breath. She does have possibly a lipoma in her subcutaneous tissue on the right upper chest. 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 - Chondromalacia, unspecified site (ICD-10) Adenomatous polyp of colon ?D12.6 - Benign neoplasm of colon, unspecified (ICD-10) Vitamin D deficiency ?E55.9 - Vitamin D deficiency, unspecified (ICD-10) Restless leg syndrome ?G25.81 - Restless legs syndrome (ICD-10) Allergic asthma ?J45.909 - Unspecified asthma, uncomplicated (ICD-10) Seasonal allergies ?J30.2 - Other seasonal allergic rhinitis (ICD-10) Dyslipidemia ?E78.5 - Hyperlipidemia, unspecified (ICD-10) Hypertension ?I10 - Essential (primary) hypertension (ICD-10) Surgical History (Updated 08/11/22 @ 12:41 by Bharti Roper RN) History of dilation and curettage ?Z98.890 - Other specified postprocedural states (ICD-10) History of ankle surgery ?Z98.890 - Other specified postprocedural states (ICD-10) Social History Smoking Status: Former smoker How often do you have a drink containing alcohol: 2-4 times a month Alcohol type: beer and hard liquor How many standard drinks containing alcohol do you have on a typical day: 1 or 2 How often do you have six or more drinks on one occasion: Never AUDIT-C Alcohol total score: 2 Non-prescribed substance use: denies use Caffeine: Yes (1-2c/day) Are you using contraception or practicing any form of control: No Meds Home Medications and Allergies Home Medications Medication Instructions Recorded Confirmed Type CBD oil PO 08/08/22 History acetaminophen 500 mg oral powder 1,000 mg PO Q6H PRN 08/08/22 08/15/22 History packet (Tylenol Extra Strength) albuterol sulfate 90 mcg/actuation 90 mcg inhalation QID PRN 08/08/22 08/15/22 History aerosol inhaler allergy shots subcut (via wearable injectr) 08/08/22 08/08/22 History blood sugar diagnostic (Accu-Chek #10 ea 08/08/22 08/08/22 History Guide test strips) ezetimibe 10 mg tablet 10 mg PO DAILY 08/08/22 08/15/22 History fluticasone furoate 200 1 inh inhalation DAILY 08/08/22 08/15/22 History mcg/actuation blister powder for inhalation (Arnuity Ellipta) hydrochlorothiazide 25 mg tablet 25 mg PO DAILY 08/08/22 08/15/22 History ibuprofen 200 mg tablet (Advil) 400 - 600 mg PO Q6H 08/08/22 08/15/22 History lancets (Accu-Chek Softclix #100 ea 08/08/22 08/08/22 History Lancets) lisinopril 40 mg tablet 40 mg PO DAILY 08/08/22 08/15/22 History omeprazole 20 mg capsule,delayed 20 mg PO DAILY 08/08/22 08/15/22 History release ropinirole 0.25 mg tablet 0.25 mg PO QPM 08/08/22 08/15/22 History ropinirole 1 mg tablet 1 mg PO QPM 08/08/22 08/15/22 History fexofenadine 180 mg tablet 180 mg PO DAILY 08/15/22 08/15/22 History (Sole Allergy) fluticasone propionate 50 1 spray intranasal DAILY PRN 08/15/22 08/15/22 History mcg/actuation nasal spray,suspension (24 Hour Allergy Relief) Allergies Allergy/AdvReac Type Severity Reaction Status Date / Time hope Allergy Severe Anaphalytic Verified 08/15/22 07:39 levofloxacin [From Levaquin] Allergy Mild Verified 08/15/22 07:39 Penicillins Allergy Mild Verified 08/15/22 07:39 Wtzwnxb-BUN-RlA Reductase Allergy Mild Verified 08/15/22 07:39 Inhibitor Sulfa (Sulfonamide AdvReac Intermediate Rash Verified 08/15/22 07:39 Antibiotics) Exam Narrative: Exam Narrative: General: No acute distress CV: Regular rate and rhythm Chest: Rubbery mass just medial to the sternum on the right upper chest. Respiratory: Clear to auscultation bilaterally Const: Vital Signs, click to edit/add: Vital Signs - 24 hr 08/15/22 07:51 Temperature 97.6 F Pulse Rate 80 Respiratory Rate 16 Blood Pressure 147/88 H Pulse Oximetry 94 Oxygen Delivery Me thod Room Air Results Labs Labs: All other labs normal. Imaging Additional studies: CT chest abdomen pelvis images reviewed. No abnormal anatomy or lung pathology which would interfere with port placement. Assessment and Plan Assessment and plan (1) Chemotherapy management, encounter for: Status: Acute (2) Invasive lobular carcinoma of breast in female: Status: Acute Plan The patient is a 62-year-old female who presents today for port placement. We discussed risks and benefits of the pre it seizure including anesthesia complication, bleeding, infection, port malfunction and pneumothorax. She has agreed to proceed and signed informed consent. There are no contraindications to proceeding.
[2022-08-15] MEDS: CLINDAMYCIN 900 MG/50 ML-D5W IVPB (09:25)
[2022-08-15] MEDS: BUPIVACAINE 0.5 % 10 ML VIAL INJECTION (09:38)
[2022-08-15] MEDS: LIDOCAINE 1% MDV 20 ML INJECTION (09:38)
[2022-08-15 10:20] VITALS: BP 122/74; PULSE 83; RESP 16; TEMP 36.3; O2SAT 94
--- NOTE | 2022-08-15 10:23 | W.ANESCHARGE ---
Anesthesia Charges Start Date/Time Anesthesia Start Date: 08/15/22 Anesthesia Start Time: 09:15 Stop Date/Time Anesthesia Stop Date: 08/15/22 Anesthesia Stop Time: 10:22
--- NOTE | 2022-08-15 10:26 | P.GSOP_ITS ---
Operative Note Date of procedure: 08/15/22 Pre-op diagnosis: Right breast cancer metastatic to axillary lymph nodes Post-op diagnosis: Same Type of Procedure: Right IJ port placement with ultrasound and fluoroscopic guidance. Indications: The patient is a 62-year-old female who presents for port placement for right breast cancer which was found to be metastatic to her axillary lymph nodes. After discussion of options she agreed to proceed with port placement. Procedure Description: After discussing the risks and benefits of the procedure, the patient signed informed consent.? The operative site was marked and the patient was brought to the operating room and placed on the operating table in supine position.? Care was taken to pad the patient's pressure points.?? The patient was then given sedation by anesthesia.?? The operative site was then prepped and draped in the usual sterile fashion.? A time-out was then performed. The patient's right internal jugular vein was visualized using ultrasound. Local anesthetic was injected into the skin overlying the vein. This was accessed percutaneously using ultrasound guidance, confirming location in the vein with nonpulsatile dark blood. Using Seldinger technique, a guidewire was threaded through the needle. A skin abdi was made around the wire. Next, local anesthetic was injected into the skin below the clavicle and along the proposed tract to the neck incision. A skin incision was then made with a 15 blade and a pocket created in the subcutaneous tissue with cautery. A tunneler was then used to thread the catheter from the chest wall pocket to the neck incision. Once this was done fluoroscopy was brought into the field. A mounting machine operator film was shot and it showed that the wire was extending to the left crossing midline all the way into the left subclavian vein. Using fluoroscopy, I pulled the wire back to the IJ/SVC junction on the right and attempted to advance it, however it continued to want to go across the midline to the left. I removed the needle and the wire and again, using ultrasound attempted to access the jugular vein. This was again done easily, confirming presence in the vein by aspirating dark nonpulsatile blood. This time, advancing the wire with fluoroscopy, and making sure that the needle was aimed more laterally, I was able to easily advance the wire in to the IVC. Over the wire the tract was dilated using fluoroscopy. The wire and the dilator were then removed leaving the sheath in the vein. Through this, the catheter was threaded. Using fluoroscopy, the catheter was positioned into the distal SVC. The catheter was noted to flush and aspirate easily. The catheter was then connected to the port. The port was placed in the pocket and secured in place with 2 0 Prolene sutures. It was noted to flush and aspirate easily. The skin was closed with absorbable suture. Sterile dressings were applied. The port was then accessed and left this way for chemotherapy later today. Instrument sponge and needle counts were correct at the end of the case. The patient was woken and taken to the PACU in stable condition. ? The patient tolerated the procedure well. Findings: Right IJ power port placed in the low SVC. Implants: Right IJ PowerPort Anesthesia: MAC Surgeon: Tasha Crouch MD Estimated blood loss (mL): 10 Condition: stable Disposition: PACU
--- NOTE | 2022-08-15 10:27 | CRLHL7_ITS ---
For Patients: As a result of the Cures Act, medical imaging exams and procedure reports are released immediately into your electronic medical record. You may view this report before your referring provider. If you have questions, please contact your health care provider. INDICATION: Status post port placement TECHNIQUE: Chest 1 view COMPARISON: 08/04/2022 CT FINDINGS: Right IJ approach Port-A-Cath is present with the tip in the distal SVC. No pneumothorax or pleural effusion. Mediastinum similar. IMPRESSION: Placement of Port-A-Cath without pneumothorax. Dictated by Wesley Connor MD @ 08/15/2022 3:21:08 PM (Electronically Signed)
[2022-08-15 10:30] VITALS: BP 118/83; PULSE 80; RESP 16; O2SAT 95
[2022-08-15 10:48] VITALS: BP 129/84; PULSE 78; RESP 16; O2SAT 94
[2022-08-15 11:00] VITALS: BP 127/84; PULSE 80; RESP 16; O2SAT 95
[2022-08-15] MEDS: ACETAMINOPHEN 325 MG TABLET 650 MG PO (11:09)
--- NOTE | 2022-08-15 11:27 | SUR.PHASEII ---
Patient taken to [facility] at 1020, port remained accessed at d/c.
== END 2022-08-15 11:20 | disposition home or self-care (01) ==
PROVIDERS: PCP Family Medicine; Visit Provider Surgery
PROC: (CPT 36561; principal; 2022-08-15 08:45)
DX: Z45.2 Encounter for adjustment and management of vascular access device (principal); C50.911 Malignant neoplasm of unspecified site of right female breast; C77.3 Secondary and unspecified malignant neoplasm of axilla and upper limb lymph nodes; Z17.0 Estrogen receptor positive status [ER+]
CPT/HCPCS: 36561; 00532; 36415; 36591; 71045; 76000; 80053; 82962; 85025; 96376; 96377; 96411; 96413; 99211; 99215; G0463; J2506; J9000; J9073; A9270; C1788; J1100; J1453; J2250; J2405; J2469; J2704; J3010; J3490; J7050; J7120; S0020; S0077

== ENCOUNTER 2022-10-10 08:59 | Outpatient (CLI) | payer OTHER, SELFPAY ==
--- OUTSIDE RECORDS SUMMARY | 2022-10-10 09:03 | XMS_ITS | Continuity of Care Document ---
Author Name Work4[facility] Work4[facility] Care Team Providers Care Clinical Data Associate Name Role Phone Formerly [facility], [facility] Unavailable Unavailable Problems Problem Status Onset Date Classification Date Reported Comments Source Hypertensive disorder, systemic arterial (disorder) Active 04/08/2020 [facility] Internal Medicine [facility] Seasonal allergy (disorder) Active 04/08/2020 [facility] Internal [facility] Syncope and collapse 06/07/2019 [facility] [place] Essential (primary) hypertension 06/07/2019 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 [place] Allergy status to penicillin 06/07/2019 [facility] [place] Allergy status to sulfonamides status 06/07/2019 [facility] [place] long-term (current) use of aspirin 06/07/2019 [facility] Medications Medication Details Route Status Patient Instructions Ordering Provider Order Date Source 60 ACTUAT Budesonide 0.08 MG/ACTUAT Dry Powder Inhaler [Pulmicort] 0, Maintenance Active 2019 [facility] Pulmicort Flexhaler 90 mcg/inh 0, Maintenance Active 2019 [facility] Internal Medicine [facility] Fluticasone propionate 0.05 MG/ACTUAT Metered Dose Nasal [place] [Flonase] 0, Maintenance Active 2019 [facility] Aspirin 81 mg, Tab, Chew, PO, Daily, Qty: 0 Tab, 0, Maintenance Active 2019 [facility] Omeprazole 20 mg, Cap, PO, qDay, Qty: 90 Cap, 0, Maintenance Active 2019 [facility] Hydrochlorothiazide 12.5 MG / Losartan Potassium 50 MG Oral Tablet 0, Maintenance Active 2019 [facility] Mirapex 0.125 mg, Tab, PO, BID, Qty: 90 Tab, 0, Maintenance Active 2019 [facility] Zyrtec 10 mg, Tab, PO, qDay, PRN, Allergy symptoms, Qty: 30 Tab, 0, Maintenance Active 2019 [facility] Allergies, Adverse Reactions, Alerts Substance Category Reaction Severity Reaction type Status Date Reported Comments Source penicillin Assertion Unknown Unknown Drug allergy Active [facility] sulfa drugs Assertion Unknown Unknown Drug allergy Active [facility] Results Order Name Results Value Reference Range Date Interpretation Comments Source CMP Sodium 137 134 - 144 05/29 [facility] [place] CMP Potassium 4.1 3.5 - 5.1 05/29 [facility] [place] CMP Chloride 102 98 - 107 05/29 [facility] [place] CMP CO2 24 22 - 29 05/29 [facility] [place] CMP Glucose Level 176 70 - 99 05/29 [facility] [place] [employer] (ADA) Guidelines: Optimal fasting blood glucose is below 100 mg/dL. A person with pre-diabetes has a fasting blood glucose of 100-125. [facility] [place] CMP BUN 22 10 - 20 05/29 H [facility] [place] CMP Creatinine 1.08 0.57 - 1.11 05/29 Result is ID-GC/MS standardized [facility] [place] CMP Anion Gap 15 5 - 15 05/29 [facility] [place] CMP Calcium 10.0 8.4 - 10.2 05/29 [facility] [place] CMP Protein, Total 7.6 6.4 - 8.3 05/29 [facility] [place] CMP Albumin 3.9 3.4 - 5.0 05/29 [facility] [place] CMP Alkphos 77 40 - 150 05/29 [facility] [place] CMP ALT 26 0 - 55 05/29 [facility] [place] CMP AST 21 5 - 34 05/29 [facility] [place] CMP Bili Total 0.4 0.2 - 1.2 05/29 [facility] [place] CMP eGFR Non- Am 52 05/29 NA NORMALIZED FOR ID-GC/MS STANDARDIZED CREATININE (NON-AF AMR=NON-, AF AMR=) KIDNEY DAMAGE STAGES FROM [facility] ---- STAGE 1 and 2 >60 mL/min/1.73 square meters STAGE 3 30-59 mL/min/1.73 square meters STAGE 4 15-29 mL/min/1.73 square meters STAGE 5 <14 mL/min/1.73 square meters [facility] [place] CMP eGFR Afr/Amer >60 05/29 NA NORMALIZED FOR ID-GC/MS STANDARDIZED CREATININE (NON-AF AMR=NON-, AF AMR=) KIDNEY DAMAGE STAGES FROM [facility] ---- STAGE 1 and 2 >60 mL/min/1.73 square meters STAGE 3 30-59 mL/min/1.73 square meters STAGE 4 15-29 mL/min/1.73 square meters STAGE 5 <14 mL/min/1.73 square meters [facility] [place] CMP Globulin 3.7 2.5 - 4.1 05/29 [facility] [place] CMP A/G Ratio 1.1 0.8 - 1.6 05/29 [facility] [place] CMP Drug Calc Weight (kg) 125.800 05/29 [facility] [place] CMP Height (cm) 170.180 05/29 - Unless otherwise noted, tests performed at the following location: - [facility] [place] Lipase Lipase 34.0 8.0 - 78.0 05/29 - Unless otherwise noted, tests performed at the following location: - [facility] [place] Mg Mg 1.9 1.6 - 2.6 05/29 - Unless otherwise noted, tests performed at the following location: - [facility] [place] Troponin-I Troponin I 0.00 - <=0.30 05/29 - Unless otherwise noted, tests performed at the following location: - [facility] [place] BNP B-Natriureti c Peptide 4.5 0.0 - 100.0 05/29 - Unless otherwise noted, tests performed at the following location: - [facility] [place] CBC w/Diff WBC 11.0 4.8 - 10.8 05/29 H [facility] [place] CBC w/Diff RBC 4.41 4.00 - 5.40 05/29 [facility] [place] CBC w/Diff Hgb 13.2 11.5 - 16.0 05/29 [facility] [place] CBC w/Diff Hct 40.3 37.0 - 47.0 05/29 [facility] [place] CBC w/Diff MCV 91.5 80.0 - 100.0 05/29 [facility] [place] CBC w/Diff MCH 30.0 27.0 - 34.0 05/29 [facility] [place] CBC w/Diff MCHC 32.8 32.0 - 37.0 05/29 [facility] [place] CBC w/Diff RDW 14.3 11.5 - 16.0 05/29 [facility] [place] CBC w/Diff Plt 399 130 - 400 05/29 [facility] [place] CBC w/Diff Neuts 71.6 35.0 - 80.0 05/29 [facility] [place] CBC w/Diff Lymphs 19.8 10.0 - 55.0 05/29 [facility] [place] CBC w/Diff Monos. 5.3 0.0 - 15.0 05/29 [facility] [place] CBC w/Diff Eos. 2.5 0.0 - 9.0 05/29 [facility] [place] CBC w/Diff Baso. 0.8 0.0 - 3.0 05/29 [facility] [place] CBC w/Diff ABS Neut 7.9 1.7 - 8.6 05/29 [facility] [place] CBC w/Diff ABS Lymph 2.2 0.5 - 5.9 05/29 [facility] [place] CBC w/Diff ABS [place] 0.6 0.0 - 1.6 05/29 [facility] [place] CBC w/Diff ABS Eos 0.3 0.0 - 1.0 05/29 [facility] [place] CBC w/Diff ABS Baso 0.1 0.0 - 0.3 05/29 [facility] [place] CBC w/Diff CBC Scan Auto Diff 05/29 - Unless otherwise noted, tests performed at the following location: - [facility] [place] D Dimer Qt D-Dimer, Quant. 0.34 0.00 - 0.50 05/29 This D-dimer assay is FDA-approved to be used as a negative predictor of venous thromboembolism with a cutoff of <0.50 ug/mL FEU. Clinical correlation required. - Unless otherwise noted, tests performed at the following location: - [facility] [place] Cardiac Troponin I 0.00 <=0.30 ng/mL 05/29 [facility] [place] Cardiac B-Natriureti c Peptide 4.5 0.0 - 100.0 05/29 [facility] [place] CBC CBC Scan Auto Diff (05/29/19 11:34 PM) 05/29 [facility] [place] CBC WBC 11.0 4.8 - 10.8 05/29 [facility] [place] CBC RBC 4.41 4.00 - 5.40 05/29 [facility] [place] CBC Hgb 13.2 11.5 - 16.0 05/29 [facility] [place] CBC Hct 40.3 37.0 - 47.0 05/29 [facility] [place] CBC MCV 91.5 80.0 - 100.0 05/29 [facility] [place] CBC MCH 30.0 27.0 - 34.0 05/29 [facility] [place] CBC MCHC 32.8 32.0 - 37.0 05/29 [facility] [place] CBC RDW 14.3 11.5 - 16.0 05/29 [facility] [place] CBC Plt 399 130 - 400 05/29 [facility] [place] CBC Neuts 71.6 35.0 - 80.0 05/29 [facility] [place] CBC Lymphs 19.8 10.0 - 55.0 05/29 [facility] [place] CBC Monos. 5.3 0.0 - 15.0 05/29 [facility] [place] CBC Eos. 2.5 0.0 - 9.0 05/29 [facility] [place] CBC Baso. 0.8 0.0 - 3.0 05/29 [facility] [place] CBC ABS Neut 7.9 1.7 - 8.6 05/29 [facility] [place] CBC ABS Lymph 2.2 0.5 - 5.9 05/29 [facility] [place] CBC ABS [place] 0.6 0.0 - 1.6 05/29 [facility] [place] CBC ABS Eos 0.3 0.0 - 1.0 05/29 [facility] [place] CBC ABS Baso 0.1 0.0 - 0.3 05/29 [facility] [place] General Chemistry Lipase 34.0 8.0 - 78.0 05/29 [facility] [place] General Chemistry Mg 1.9 1.6 - 2.6 05/29 [facility] [place] General Chemistry Glucose Level 176 70 - 99 05/29 [facility] [place] General Chemistry BUN 22 10 - 20 05/29 [facility] [place] General Chemistry Creatinine 1.08 0.57 - 1.11 05/29 [facility] [place] General Chemistry Sodium 137 134 - 144 05/29 [facility] [place] General Chemistry Potassium 4.1 3.5 - 5.1 05/29 [facility] [place] General Chemistry Chloride 102 98 - 107 05/29 [facility] [place] General Chemistry CO2 24 22 - 29 05/29 [facility] [place] General Chemistry Calcium 10.0 8.4 - 10.2 05/29 [facility] [place] General Chemistry Protein, Total 7.6 6.4 - 8.3 05/29 [facility] [place] General Chemistry Albumin 3.9 3.4 - 5.0 05/29 [facility] [place] General Chemistry AST 21 5 - 34 05/29 [facility] [place] General Chemistry ALT 26 0 - 55 05/29 [facility] [place] General Chemistry Alkphos 77 40 - 150 05/29 [facility] [place] General Chemistry Bili Total 0.4 0.2 - 1.2 05/29 [facility] [place] General Chemistry Anion Gap 15 5 - 15 05/29 [facility] [place] General Chemistry Globulin 3.7 2.5 - 4.1 05/29 [facility] [place] General Chemistry A/G Ratio 1.1 0.8 - 1.6 05/29 [facility] [place] General Chemistry eGFR Non- Am 52 05/29 [facility] [place] General Chemistry eGFR Afr/Amer >60 05/29 [facility] [place] Diagnostic Reports Report Value Date Source XR [...] N A L * * * 05/30/2019 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 Evaluation and management service: I agree [...] for malignant arrhythmia intervals are grossly unremarkable. Grayling is normal. Chest x-ray no obvious infiltrates [...] Viraj Pedersen DO On 05/30/19 00:58 05/30/2019 [facility] [place] ED Physician Notes Patient: MAT LUCIA (EV) Age: 59 years Sex: F : 1960 Associated Diagnoses: None Author: Henry Vargas Physician Houseperson Basic Information Time seen: Provider Initial Contact [...] Habits Alcohol 05/29/2019 Use: Current Home/Environment 05/29/2019 Orthodoxy restrictions/concerns: None Feels unsafe at home: No [...] . Electronically Signed By: Henry Vargas Physician Houseperson On 05/30/19 01:04 Co Signature By: Viraj Pedersen DO On 05/31/19 23:40 Modify Signature By: Henry Vargas Physician Houseperson On 05/30/19 01:04 05/30/2019 [facility] [place] ED Physician Notes Patient: MAT LUCIA (EV) [...] femae with HTN and DM flew to [place] yesterday, and is here visiting family. She [...] History Medical history: All Problems Hypertension / [id number] / Confirmed Seasonal allergies / [id number] / Confirmed. Surgical history: No active procedure history items have been selected or recorded.. Family history: No family history items have been selected or recorded.. Social history: Social and Psychosocial Habits Alcohol 05/29/2019 Use: Current Home/Environment 05/29/2019 Orthodoxy restrictions/concerns: None Feels unsafe at home: No [...] , she agrees, to take her to [facility] by POV. Electrocardiogram: Rate 91, normal sinus rhythm, No ST-T changes, no ectopy, normal SD and QRS intervals. Impression and Plan Near syncope ([id number], Discharge, Medical) Plan Condition: Stable. Disposition: Discharged: Time 05/29/2019 21:33:00, to home. Patient was given the following educational materials: Near-Syncope, [id number]. Follow up with: GO directly to [facility]- ER for evaluation and care Within As soon as possible. Counseled: Patient, Family, Regarding diagnosis, Regarding diagnostic results, Regarding prescription, Patient indicated understanding of instructions. Orders: Launch Orders Admit/Transfer/Discharge: Discharge (Order Processing): 05/29/2019 21:34 MST, Now, Transfer to other Hospital, POV to [facility]. Electronically Signed By: Huyen Perdomo PA-C On 05/29/19 21:34 Co Signature By: Dano Andersen DO On 05/30/19 17:09 Modify Signature By: 05/30/2019 [facility] [facility] Vital Signs Vital Sign Value Date Comments Source Systolic (mm Hg) 121 05/30/2019 [facility] [place] Diastolic (mm Hg) 82 05/30/2019 [facility] Respiratory Rate 16 Breaths/Min 05/30/2019 [facility] SPO2 98 05/30/2019 [facility] Heart Rate (bpm) 87 05/30/2019 [facility] [place] Glucose Level (mg/dL) 176 05/30/2019 [facility] Sensory Deficits None (05/29/19 11:18 PM) 05/30/2019 [facility] [place] Temperature (c) 36.7 05/30/2019 [facility] [place] Systolic (mm Hg) 128 05/30/2019 [facility] [place] Diastolic (mm Hg) 84 05/30/2019 [facility] Heart Rate (bpm) 94 05/30/2019 [facility] [place] Respiratory Rate 20 Breaths/Min 05/30/2019 [facility] SPO2 96 05/30/2019 [facility] Oxygen Method Room air (05/29/19 11:18 PM) 05/30/2019 [facility] [place] Pain Scale Numeric Rating Scale (05/29/19 11:18 PM) 05/30/2019 [facility] [place] Living Situation Lives with spouse (05/29/19 11:18 PM) 05/30/2019 [facility] [place] Height (cm) 170.18 05/30/2019 [facility] Weight Method Actual (05/29/19 11:18 PM) 05/30/2019 [facility] [place] Drug Calc Weight (kg) 125.8 05/30/2019 [facility] BMI 43.44 05/30/2019 [facility] Systolic (mm Hg) 107 05/30/2019 [facility] Diastolic (mm Hg) 73 05/30/2019 [facility] Sensory Deficits None (05/29/19 8:43 PM) 05/30/2019 [facility] Temperature (c) 36.5 05/30/2019 [facility] Systolic (mm Hg) 93 05/30/2019 [facility] Diastolic (mm Hg) 65 05/30/2019 [facility] Urgent [facility] Heart Rate (bpm) 100 05/30/2019 [facility] Respiratory Rate 14 Breaths/Min 05/30/2019 [facility] SPO2 95 05/30/2019 [facility] Pain Scale Numeric Rating Scale (05/29/19 8:43 PM) 05/30/2019 [facility] Car e Height (cm) 170.18 05/30/2019 [facility] Urg ent Care Drug Calc Weight (kg) 120.181 05/30/2019 [facility] BMI 41.5 05/30/2019 [facility] Encounters Location Location Details Encounter Type Encounter Number Reason For Visit Attending Provider ADM Date DC Date Status Source [facility] Internal Medicine [facility]' History EXHIBIT PREPARATOR [id number] 03/27 [facility] Internal Medicine [facility] Emergency [id number] Agusto Whitneyjenna fernandes 05/29 [facility] Urgent Care [facility] [place] Emergency [id number] Viraj Allenoud 05/29 [facility] [place] Social History Social History Date Source Social History TypeResponse Smoking Status Never (less than 100 in lifetime) entered on: 05/29/19 05/30/2019 [facility] Care Social History TypeResponse Smoking Status Never (less than 100 in lifetime) entered on: 05/29/19 05/30/2019 [facility] nter Social History TypeResponse Smoking Status Never (less than 100 in lifetime) entered on: 05/29/19 Sex 05/30/2019 [facility] - Internal Medicine - S tKary Alvarado's Assessment and Plan Result Assessment and Plan Date Source Assessment and Plan No data available fo r this section 04/08/2020 [facility] Internal Medicine [facility]'s Assessment and Plan No data available fo r this section 05/30/2019 [facility] [place] Assessment and Plan No data available fo r this section 05/30/2019 [facility]
--- NOTE | 2022-10-10 09:15 | CRLHL7_ITS ---
For Patients: As a result of the Century Cures Act, medical imaging exams and procedure reports are released immediately into your electronic medical record. You may view this report before your referring provider. If you have questions, please contact your health care provider. INDICATION: Lobular carcinoma RIGHT breast. Four cycles of chemotherapy. Followup. TECHNIQUE : Directed RIGHT axillary ultrasound with this radiologist present. FINDINGS: The previously biopsied RIGHT axillary lymph node is now smaller. It measures 2.5 x 1.1 x 1.4 cm previously 2.1 x 4.7 cm. The cortex today measures 0.5 cm previously nearly 1 cm. There is a biopsy clip within this lymph node. There are a few other adjacent smaller lymph nodes nearby. Multiple enlarged lymph nodes were identified on the prior CT 08/04/2022. IMPRESSION: Smaller RIGHT axillary lymph node status post chemotherapy. A biopsy clip is in place. ACR not applicable Dictated by Artie West MD @ 10/10/2022 12:52:03 PM (Electronically Signed)
--- NOTE | 2022-10-10 09:15 | CRLHL7_ITS ---
For Patients: As a result of the Cures Act, medical imaging exams and procedure reports are released immediately into your electronic medical record. You may view this report before your referring provider. If you have questions, please contact your health care provider. RIGHT BREAST ULTRASOUND INDICATION: RIGHT breast cancer. Biopsy proven lobular carcinoma. Evaluate response to chemotherapy. Four cycles. TECHNIQUE: Ultrasound of the RIGHT breast with this radiologist present. COMPARISON: Mammogram July 05, 2022. Correlation is made with a RIGHT breast biopsy July 19, 2022. FINDINGS: The RIGHT breast is carefully scanned from the 8:00 to 12:00 position. Skip Operator images were obtained. Ill-defined heterogeneous breast tissue without a discrete mass. The biopsy clip placed previously cannot be identified despite multiple attempts. Specifically, at the 10 o`clock position 10 cm from the nipple, there is an area of relative subtle shadowing but no discrete mass can be measured. These findings were discussed in detail with the patient. IMPRESSION: 1. The biopsy clip in the upper outer RIGHT breast 10 o`clock position 10 cm from the nipple cannot be identified. 2. Heterogeneous and hypoechoic ill-defined breast tissue without a discrete measurable mass. ACR not applicable. A lay language report of this examination will be provided to the patient. Dictated by: Artie West MD @10/10/2022 10:51:54 AM PT/Dictated by: Artie West MD @ 10/10/2022 10:51:00 AM (Electronically Signed)
== END 2022-10-10 09:00 | disposition home or self-care (01) ==
PROVIDERS: PCP Family Medicine; Visit Provider Physician Assistant
DX: C50.911 Malignant neoplasm of unspecified site of right female breast (principal)
CPT/HCPCS: 76642; 76882

== ENCOUNTER 2022-12-14 09:27 | Outpatient (CLI) | payer OTHER, SELFPAY ==
--- OUTSIDE RECORDS SUMMARY | 2022-12-14 09:30 | XMS_ITS | Continuity of Care Document ---
Author Name Unknown Organization [facility] Address [address] [place] [address] Phone Care Team Providers Care Telephone Information Supervisor Name Role Phone Chay Engel DO Unavailable Unavailable Results Test Name Date and Time Measure Units Reference Range Abnormal Flag Status Comments Panel Description: Calcium, Serum Final Calcium, Serum 18:06:00 9.3 mg/dL 8.7-10.2 Final Panel Description: Aldolase Final Aldolase 18:06:00 4.3 U/L 1.2-7.6 Final Panel Description: LIBERTAD Dir+LIBERTAD IFA Final LIBERTAD Direct 18:06:00 Negative Negative Final Antinuclear Antibodies, IFA 18:06:00 Negative Final Negative <1:80 Borderline 1:80 Positive >1:80 Panel Description: Lyme, Total Ab Test/Reflex F inal Lyme IgG/IgM Ab 18:06:00 <0.91 index 0.00-0.90 Final Negative <0.91 Equivocal 0.91 - 1.09 Positive >1.09 Note: The CDC currently advises that Western blot testing be performed following all equivocal or positive EIA results. Final diagnosis should include appropriate clinical findings and a positive EIA which is also positive by Western blot. Lyme Ab Interp.,EIA 18:06:00 Comment Final Lyme Ab Interp.,EIA 18:06:00 Comment Final Panel Description: Vitamin D, 25-Hydroxy Final Vitamin D, 25-Hydroxy 18:06:00 9.5 ng/mL 30.0-100.0 L Final Vitamin D deficiency has been defined by the [place] of[employer] and an Endocrine Society practice guideline as alevel of serum 25-OH vitamin D less than 20 ng/mL (1,2).The Endocrine Society went on to further define vitamin Dinsufficiency as a level between 21 and 29 ng/mL (2).1. IOM ([place] of [employer]). 2010. Dietary reference intakes for calcium and D. [place]: The National Academies Press.2. Tylor MF, Yu WILKINS, Vy CASSIDY, et al. Evaluation, treatment, and prevention of vitamin D deficiency: an Endocrine Society clinical practice guideline. JCEM. 2010; 96(7):1911-30. .Effective May 30, 2011, Vitamin D, 25 Hydroxy specimen requirements will change to serum only. Panel Description: CPK Final CK 012 12:25:00 81 U/L 26-140 Final Advance Directives Directive Yes / No Effective Date File Name No Information Encounters Encounter Description Practice Location Reason(s) For Visit Diagnoses Date Provider Providers Copied on Encounter [facility], [address], [place], [place], [facility], tel:[phone] No Information 3 Toro Cartwright. [facility] [address], [place], [address], . tel:[phone] Family History Family Member Type Diagnosis Age At Onset No Information Payers Payer name Insurance type Covered alliance party ID Authoriza tion(s) No Information Social History Type Description Quantity Date Captured Comments Sex Female Smoking Status No Information Chief Complaint And Reason For Visit No Information Reason For Referral Reason For Referral No Information History Of Present Illness Encounter Date Complaint History Of Prese nt Illness No Information Functional Status Date Functional Assessmen t No Information Instructions Date Instruction Additional Infor mation No Information Assessments Type Assessment Date No Information Patient Care Teams Name Effective Dates (start - stop) Status Members No Information
--- OUTSIDE RECORDS SUMMARY | 2022-12-14 09:30 | XMS_ITS | Continuity of Care Document ---
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 Name Role Phone [facility] Unavailable Unavailable Problems Problem Status Onset Date Classification Date Reported Comments Source Hypertensive disorder, systemic arterial (disorder) Active 04/08/2020 [facility] Internal Medicine [facility] Seasonal allergy (disorder) Active 04/08/2020 [facility] Internal [facility] Syncope and collapse 06/07/2019 [facility] Essential (primary) hypertension 06/07/2019 [facility] Type 2 diabetes mellitus without complications 06/06/2019 [facility] Other screw cutter (current) drug therapy 06/07/2019 [facility] Allergy status to penicillin 06/07/2019 [facility] Allergy status to sulfonamides status 06/07/2019 [facility] retirement (current) use of aspirin 06/07/2019 [facility] Medications Medication Details Route Status Patient Instructions Ordering Provider Order Date Source 60 ACTUAT Budesonide 0.08 MG/ACTUAT Dry Powder Inhaler [Pulmicort] 0, Maintenance Active 2019 [facility] Pulmicort Flexhaler 90 mcg/inh 0, Maintenance Active 2019 [facility] Internal Medicine [facility] Fluticasone propionate 0.05 MG/ACTUAT Metered Dose Nasal [place] [Flonase] 0, Maintenance Active 2019 [facility] Aspirin 81 mg, Tab, Chew, PO, Daily, Qty: 0 Tab, 0, Maintenance Active 2019 [facility] Omeprazole 20 mg, Cap, PO, qDay, Qty: 90 Cap, 0, Maintenance Active 2019 [facility] Hydrochlorothiazide 12.5 MG / Losartan Potassium 50 MG Oral Tablet 0, Maintenance Active 2019 [facility] Mirapex 0.125 mg, Tab, PO, BID, Qty: 90 Tab, 0, Maintenance Active 2019 [facility] Zyrtec 10 mg, Tab, PO, qDay, PRN, Allergy symptoms, Qty: 30 Tab, 0, Maintenance Active 2019 [facility] Allergies, Adverse Reactions, Alerts Substance Category Reaction Severity Reaction type Status Date Reported Comments Source penicillin Assertion Unknown Unknown Drug allergy Active [facility] sulfa drugs Assertion Unknown Unknown Drug allergy Active [facility] Results Order Name Results Value Reference Range Date Interpretation Comments Source CMP Sodium 137 134 - 144 05/29 [facility] CMP Potassium 4.1 3.5 - 5.1 05/29 [facility] CMP Chloride 102 98 - 107 05/29 [facility] CMP CO2 24 22 - 29 05/29 [facility] CMP Glucose Level 176 70 - 99 05/29 [facility] [place] [employer] (ADA) Guidelines: Optimal fasting blood glucose is below 100 mg/dL. A person with pre-diabetes has a fasting blood glucose of 100-125. [facility] CMP BUN 22 10 - 20 05/29 H [facility] CMP Creatinine 1.08 0.57 - 1.11 05/29 Result is ID-GC/MS standardized [facility] CMP Anion Gap 15 5 - 15 05/29 [facility] CMP Calcium 10.0 8.4 - 10.2 05/29 [facility] CMP Protein, Total 7.6 6.4 - 8.3 05/29 [facility] CMP Albumin 3.9 3.4 - 5.0 05/29 [facility] CMP Alkphos 77 40 - 150 05/29 [facility] CMP ALT 26 0 - 55 05/29 [facility] CMP AST 21 5 - 34 05/29 [facility] CMP Bili Total 0.4 0.2 - 1.2 05/29 [facility] CMP eGFR Non- Am 52 05/29 NA NORMALIZED FOR ID-GC/MS STANDARDIZED CREATININE (NON-AF AMR=NON-, AF AMR=) KIDNEY DAMAGE STAGES FROM [facility] ---- STAGE 1 and 2 >60 mL/min/1.73 square meters STAGE 3 30-59 mL/min/1.73 square meters STAGE 4 15-29 mL/min/1.73 square meters STAGE 5 <14 mL/min/1.73 square meters [facility] CMP eGFR Afr/Amer >60 05/29 NA NORMALIZED FOR ID-GC/MS STANDARDIZED CREATININE (NON-AF AMR=NON-, AF AMR=) KIDNEY DAMAGE STAGES FROM [facility] ---- STAGE 1 and 2 >60 mL/min/1.73 square meters STAGE 3 30-59 mL/min/1.73 square meters STAGE 4 15-29 mL/min/1.73 square meters STAGE 5 <14 mL/min/1.73 square meters [facility] CMP Globulin 3.7 2.5 - 4.1 05/29 [facility] CMP A/G Ratio 1.1 0.8 - 1.6 05/29 [facility] CMP Drug Calc Weight (kg) 125.800 05/29 [facility] CMP Height (cm) 170.180 05/29 - Unless otherwise noted, tests performed at the following location: - [facility] Lipase Lipase 34.0 8.0 - 78.0 05/29 - Unless otherwise noted, tests performed at the following location: - [facility] Mg Mg 1.9 1.6 - 2.6 05/29 - Unless otherwise noted, tests performed at the following location: - [facility] Troponin-I Troponin I 0.00 - <=0.30 05/29 - Unless otherwise noted, tests performed at the following location: - [facility] BNP B-Natriureti c Peptide 4.5 0.0 - 100.0 05/29 - Unless otherwise noted, tests performed at the following location: - [facility] CBC w/Diff WBC 11.0 4.8 - 10.8 05/29 H [facility] CBC w/Diff RBC 4.41 4.00 - 5.40 05/29 [facility] CBC w/Diff Hgb 13.2 11.5 - 16.0 05/29 [facility] CBC w/Diff Hct 40.3 37.0 - 47.0 05/29 [facility] CBC w/Diff MCV 91.5 80.0 - 100.0 05/29 [facility] CBC w/Diff MCH 30.0 27.0 - 34.0 05/29 [facility] CBC w/Diff MCHC 32.8 32.0 - 37.0 05/29 [facility] CBC w/Diff RDW 14.3 11.5 - 16.0 05/29 [facility] CBC w/Diff Plt 399 130 - 400 05/29 [facility] CBC w/Diff Neuts 71.6 35.0 - 80.0 05/29 [facility] CBC w/Diff Lymphs 19.8 10.0 - 55.0 05/29 [facility] CBC w/Diff Monos. 5.3 0.0 - 15.0 05/29 [facility] CBC w/Diff Eos. 2.5 0.0 - 9.0 05/29 [facility] CBC w/Diff Baso. 0.8 0.0 - 3.0 05/29 [facility] CBC w/Diff ABS Neut 7.9 1.7 - 8.6 05/29 [facility] CBC w/Diff ABS Lymph 2.2 0.5 - 5.9 05/29 [facility] CBC w/Diff ABS [place] 0.6 0.0 - 1.6 05/29 [facility] CBC w/Diff ABS Eos 0.3 0.0 - 1.0 05/29 [facility] CBC w/Diff ABS Baso 0.1 0.0 - 0.3 05/29 [facility] CBC w/Diff CBC Scan Auto Diff 05/29 - Unless otherwise noted, tests performed at the following location: - [facility] D Dimer Qt D-Dimer, Quant. 0.34 0.00 - 0.50 05/29 This D-dimer assay is FDA-approved to be used as a negative predictor of venous thromboembolism with a cutoff of <0.50 ug/mL FEU. Clinical correlation required. - Unless otherwise noted, tests performed at the following location: - [facility] Cardiac Troponin I 0.00 <=0.30 ng/mL 05/29 [facility] Cardiac B-Natriureti c Peptide 4.5 0.0 - 100.0 05/29 [facility] CBC CBC Scan Auto Diff (05/29/19 11:34 PM) 05/29 [facility] CBC WBC 11.0 4.8 - 10.8 05/29 [facility] CBC RBC 4.41 4.00 - 5.40 05/29 [facility] CBC Hgb 13.2 11.5 - 16.0 05/29 [facility] CBC Hct 40.3 37.0 - 47.0 05/29 [facility] CBC MCV 91.5 80.0 - 100.0 05/29 [facility] CBC MCH 30.0 27.0 - 34.0 05/29 [facility] CBC MCHC 32.8 32.0 - 37.0 05/29 [facility] CBC RDW 14.3 11.5 - 16.0 05/29 [facility] CBC Plt 399 130 - 400 05/29 [facility] CBC Neuts 71.6 35.0 - 80.0 05/29 [facility] CBC Lymphs 19.8 10.0 - 55.0 05/29 [facility] CBC Monos. 5.3 0.0 - 15.0 05/29 [facility] CBC Eos. 2.5 0.0 - 9.0 05/29 [facility] CBC Baso. 0.8 0.0 - 3.0 05/29 [facility] CBC ABS Neut 7.9 1.7 - 8.6 05/29 [facility] CBC ABS Lymph 2.2 0.5 - 5.9 05/29 [facility] CBC ABS [place] 0.6 0.0 - 1.6 05/29 [facility] CBC ABS Eos 0.3 0.0 - 1.0 05/29 [facility] CBC ABS Baso 0.1 0.0 - 0.3 05/29 [facility] General Chemistry Lipase 34.0 8.0 - 78.0 05/29 [facility] General Chemistry Mg 1.9 1.6 - 2.6 05/29 [facility] General Chemistry Glucose Level 176 70 - 99 05/29 [facility] General Chemistry BUN 22 10 - 20 05/29 [facility] General Chemistry Creatinine 1.08 0.57 - 1.11 05/29 [facility] General Chemistry Sodium 137 134 - 144 05/29 [facility] General Chemistry Potassium 4.1 3.5 - 5.1 05/29 [facility] General Chemistry Chloride 102 98 - 107 05/29 [facility] General Chemistry CO2 24 22 - 29 05/29 [facility] General Chemistry Calcium 10.0 8.4 - 10.2 05/29 [facility] General Chemistry Protein, Total 7.6 6.4 - 8.3 05/29 [facility] General Chemistry Albumin 3.9 3.4 - 5.0 05/29 [facility] General Chemistry AST 21 5 - 34 05/29 [facility] General Chemistry ALT 26 0 - 55 05/29 [facility] General Chemistry Alkphos 77 40 - 150 05/29 [facility] General Chemistry Bili Total 0.4 0.2 - 1.2 05/29 [facility] General Chemistry Anion Gap 15 5 - 15 05/29 [facility] General Chemistry Globulin 3.7 2.5 - 4.1 05/29 [facility] General Chemistry A/G Ratio 1.1 0.8 - 1.6 05/29 [facility] General Chemistry eGFR Non- Am 52 05/29 [facility] General Chemistry eGFR Afr/Amer >60 05/29 [facility] Diagnostic Reports Report Value Date Source XR [...] N A L * * * 05/30/2019 [facility] Electrocardiogram Ordered in ED- [facility] Stationary ECG Study CRM [address] [place] [address] Test Date: 2019-05-29 Pat Name: MAT LUCIA Department: Room: Gender: F 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 : 1960 Requested By: Jeramie Arce Order Number: [id number] Reading MD: Jefry GUERRA Measurements Intervals [place] Rate: 88 P: 38 VT: 124 QRS: 30 QRSD: 90 T: 19 QT: 356 QTc: 432 Severity: Normal ECG Interpretive Statements SINUS RHYTHM Normal ECG No previous ECG available for comparison Electronically Signed On 05-30-2019 14:31:14 MST by Jefry GUERRA 05/30/2019 [facility] Electrocardiogram Stationary ECG Study AUC [address] [place] [id number] Test Date: 2019-05-29 Pat Name: MAT LUCIA Department: Room: Gender: F 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 Evaluation and management service: I agree [...] for malignant arrhythmia intervals are grossly unremarkable. [place] is normal. Chest x-ray no obvious infiltrates [...] Viraj Pedersen DO On 05/30/19 00:58 05/30/2019 [facility] ED Physician Notes Patient: MAT LUCIA (EV) Age: 59 years Sex: F : 1960 Associated Diagnoses: None Author: Henry Vargas Physician Scale Tank Operator Basic Information Time seen: Provider Initial Contact [...] Habits Alcohol 05/29/2019 Use: Current Home/Environment 05/29/2019 Rastafari restrictions/concerns: None Feels unsafe at home: No [...] . Electronically Signed By: Henry Vargas Physician Scale Tank Operator On 05/30/19 01:04 Co Signature By: Viraj Pedersen DO On 05/31/19 23:40 Modify Signature By: Henry Vargas Physician Scale Tank Operator On 05/30/19 01:04 05/30/2019 [facility] ED Physician Notes Patient: MAT LUCIA (EV) [...] femae with HTN and DM flew to [place] yesterday, and is here visiting family. She [...] History Medical history: All Problems Hypertension / [id number] / Confirmed Seasonal allergies / [id number] / Confirmed. Surgical history: No active procedure history items have been selected or recorded.. Family history: No family history items have been selected or recorded.. Social history: Social and Psychosocial Habits Alcohol 05/29/2019 Use: Current Home/Environment 05/29/2019 Rastafari restrictions/concerns: None Feels unsafe at home: No [...] , she agrees, to take her to [facility] by POV. Electrocardiogram: Rate 91, normal sinus rhythm, No ST-T changes, no ectopy, normal VT and QRS intervals. Impression and Plan Near syncope ([id number], Discharge, Medical) Plan Condition: Stable. Disposition: Discharged: Time 05/29/2019 21:33:00, to home. Patient was given the following educational materials: Near-Syncope, [id number]. Follow up with: GO directly to [facility]- ER for evaluation and care Within As soon as possible. Counseled: Patient, Family, Regarding diagnosis, Regarding diagnostic results, Regarding prescription, Patient indicated understanding of instructions. Orders: Launch Orders Admit/Transfer/Discharge: Discharge (Order Processing): 05/29/2019 21:34 MST, Now, Transfer to other Hospital, POV to [facility]. Electronically Signed By: Huyen Perdomo PA-C On 05/29/19 21:34 Co Signature By: Dano Andersen DO On 05/30/19 17:09 Modify Signature By: 05/30/2019 [facility] [facility] Vital Signs Vital Sign Value Date Comments Source Systolic (mm Hg) 121 05/30/2019 [facility] Diastolic (mm Hg) 82 05/30/2019 [facility] Respiratory Rate 16 Breaths/Min 05/30/2019 [facility] SPO2 98 05/30/2019 [facility] Heart Rate (bpm) 87 05/30/2019 [facility] Glucose Level (mg/dL) 176 05/30/2019 [facility] Sensory Deficits None (05/29/19 11:18 PM) 05/30/2019 [facility] Temperature (c) 36.7 05/30/2019 [facility] Systolic (mm Hg) 128 05/30/2019 [facility] Diastolic (mm Hg) 84 05/30/2019 [facility] Heart Rate (bpm) 94 05/30/2019 [facility] Respiratory Rate 20 Breaths/Min 05/30/2019 [facility] SPO2 96 05/30/2019 [facility] Oxygen Method Room air (05/29/19 11:18 PM) 05/30/2019 [facility] Pain Scale Numeric Rating Scale (05/29/19 11:18 PM) 05/30/2019 [facility] Living Situation Lives with spouse (05/29/19 11:18 PM) 05/30/2019 [facility] Height (cm) 170.18 05/30/2019 [facility] Weight Method Actual (05/29/19 11:18 PM) 05/30/2019 [facility] Drug Calc Weight (kg) 125.8 05/30/2019 [facility] BMI 43.44 05/30/2019 [facility] Systolic (mm Hg) 107 05/30/2019 [facility] Diastolic (mm Hg) 73 05/30/2019 [facility] Sensory Deficits None (05/29/19 8:43 PM) 05/30/2019 [facility] Temperature (c) 36.5 05/30/2019 [facility] Systolic (mm Hg) 93 05/30/2019 [facility] Diastolic (mm Hg) 65 05/30/2019 [facility] Heart Rate (bpm) 100 05/30/2019 [facility] Respiratory Rate 14 Breaths/Min 05/30/[facility] SPO2 95 05/30/2019 [facility] Pain Scale Numeric Rating Scale (05/29/19 8:43 PM) 05/30/2019 [facility] Height (cm) 170.18 05/30/2019 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 Emergency [id number] Viraj Allenoud 05/29 [facility] Social History Social History Date Source Social History TypeResponse Smoking Status Never (less than 100 in lifetime) entered on: 05/29/19 05/30/2019 [facility] Care Social History TypeResponse Smoking Status Never (less than 100 in lifetime) entered on: 05/29/19 05/30/2019 [facility] nter Social History TypeResponse Smoking Status Never (less than 100 in lifetime) entered on: 05/29/19 Sex 05/30/2019 [facility] Internal Medicine - S tKary Alvarado's Assessment and Plan Result Assessment and Plan Date Source Assessment and Plan No data available fo r this section 04/08/2020 [facility] Internal Medicine [facility]'s Assessment and Plan No data available fo r this section 05/30/2019 [facility] Assessment and Plan No data available fo r this section 05/30/2019 [facility]
--- NOTE | 2022-12-14 09:45 | CRLHL7_ITS ---
For Patients: As a result of the Cures Act, medical imaging exams and procedure reports are released immediately into your electronic medical record. You may view this report before your referring provider. If you have questions, please contact your health care provider. DIGITAL DIAGNOSTIC RIGHT MAMMOGRAM WITH COMPUTER-AIDED DETECTION CLINICAL HISTORY: RIGHT breast malignancy follow-up. COMPARISON: MRI 07/27/2022, mammogram 07/05/2022. TECHNIQUE: Digital RIGHT mammogram in two projections. CAD utilized. BREAST COMPOSITION: There are areas of scattered fibroglandular density. FINDINGS: Decreased size mass within the upper outer quadrant of the RIGHT breast. Biopsy clip is located superficial to the large mass. The biopsy clip is unchanged compared to the breast MRI. Decreased adenopathy in the RIGHT axilla. IMPRESSION: Post neoadjuvant chemotherapy changes to the RIGHT breast mass and the RIGHT axillary lymph nodes. Biopsy clip is located superficial to the large mass and unchanged. Because of the large area of suspicious enhancement on the MRI, I would favor mastectomy rather than conservative treatment with lumpectomy. If lumpectomy is considered, I would recommend a repeat breast MRI and breast MRI-guided biopsies to evaluate residual disease elsewhere within the breast. RECOMMENDATIONS: Appropriate treatment recommended. Discussed at length with the patient. BI-RADS Category 6: Known Biopsy-Proven Malignancy A lay language report of this examination will be provided to the patient. Dictated by Wesley Connor MD @ 12/14/2022 12:00:59 PM mellissa/Dictated by: Wesley Connor MD @ 12/14/2022 12:00:00 PM (Electronically Signed)
== END 2022-12-14 09:28 | disposition home or self-care (01) ==
LOC: MAMMO 09:28
PROVIDERS: PCP Family Medicine; Visit Provider Surgery
DX: N63.10 Unspecified lump in the right breast, unspecified quadrant (principal); R92.8 Other abnormal and inconclusive findings on diagnostic imaging of breast
CPT/HCPCS: 77065

== ENCOUNTER 2022-12-26 08:30 | Outpatient (RCR) | payer OTHER, SELFPAY ==
--- NOTE | 2022-08-09 12:37 | URNOTE ---
Request received for authorization for?Doxorubicin (J9000), Cyclophosphamide (J9070), Pegfilgrastim (J2506) Palonosetron (Taxol) (J9267), Fosaprepitant (J1453) Palonosetron (J2469). Prior authorization is approved 08/15/22 to 08/16/2023 per [facility]-Ref#[id number].
[2022-08-10 14:43] LABS: Basophils Absolute Auto 0.04 K/uL (0.00-0.30); Basophils Percent Auto 0.4 % (0.0-3.0); Eosinophils Absolute Auto 0.29 K/uL (0.00-0.50); Eosinophils Percent Auto 2.8 % (0.0-7.0); Hematocrit 40.3 % (33.0-51.0); Hemoglobin* 13.1 gm/dL (12.0-16.0); Immature Granulocytes Abs Auto 0.06 K/uL (0.00-0.30); Immature Granulocytes Pct Auto 0.6 %; Lymphocytes Absolute Auto 2.37 K/uL (0.90-2.90); Lymphocytes Percent Auto 22.7 % (20-44); Mean Corpuscular HGB Conc 33 gm/dL (32-36); Mean Corpuscular Hemoglobin 29 pg (26-34); Mean Corpuscular Volume 89 fL (80-100); Monocytes Percent Auto 6.8 % (0.0-11.0); Neutrophils Absolute Auto 6.97 K/uL (1.7-7.0); Neutrophils Percent Auto 66.7 % (42.0-72.0); Platelet Count* 412 K/uL (140-440); RDW Coefficient of Variation % 13.9 % (11.5-15.5); Red Blood Count 4.52 m/uL (4.00-5.20); White Blood Count* 10.44 K/uL (4.50-11.00)
[2022-08-10 14:55] LABS: Albumin* 4.6 g/dL (3.3-5.0); Chloride* 101 mmol/L (96-114); Sodium* 138 mmol/L (135-149)
[2022-08-10 14:57] LABS: Creatinine* 0.6 mg/dL (0.5-1.5); Est. Creatinine Clearance* 54.61; Estimated Glomerular Filt Rate 101 ml/min
[2022-08-10 14:58] LABS: Alanine Aminotransferase* 26 U/L (4-35); Alkaline Phosphatase* 66 U/L (40-150); Aspartate Amino Transferase* 22 U/L (12-35); Bilirubin Total* 0.6 mg/dL (0.1-1.5); Blood Urea Nitrogen* 15 mg/dL (7-30); Carbon Dioxide* 26 mmol/L (20-32); Glucose* 156 mg/dL (60-115)
[2022-08-10 14:59] LABS: Calcium* 9.5 mg/dL (8.4-10.6)
[2022-08-10 15:04] LABS: Slide Review Reflex No
--- NOTE | 2022-08-10 16:39 | ONC.NURNOTE ---
I met with patient and her spouse for chemotherapy teaching. Contents of the chemotherapy binder were discussed. Side effects of chemotherapy reviewed. Patient instructed on what to report to MD and how to contact the provider during office hours and after hours. All of patients questions were answered. Patient verbalizes understanding of plan and will call with questions or concerns.
[2022-08-15 11:20] VITALS: BP 141/84; PULSE 83; RESP 16; TEMP 36.1; O2SAT 97
[2022-08-15] MEDS: PALONOSETRON 0.25 MG/5 ML inj IV (13:04)
[2022-08-15] MEDS: dexAMETHasone 10 MG in 0.9 % SODIUM CHLORIDE 100 ml 100 ML 404 MG IVPB (13:04)
[2022-08-15] MEDS: FOSAPREPITANT 150 MG inj 150 MG in 0.9 % SODIUM CHLORIDE 250 ml 250 ML 510 MG IVPB (13:28)
[2022-08-15] MEDS: DOXOrubicin 2 MG/ML inj 150 MG IVP (14:10)
[2022-08-15 15:15] VITALS: BP 130/74; PULSE 79; RESP 16; TEMP 36.1; O2SAT 97
[2022-08-15 15:45] VITALS: BP 130/74; PULSE 76; RESP 14; TEMP 36.1; O2SAT 97
--- NOTE | 2022-08-15 16:03 | ONC.NURNOTE ---
1120 Arrived to [facility] post port placement via w/c. Alert and oriented, vs wnl. steady when up to void at 1230. ls clear. heart reg. dressing dry and intact. port accessed in OR. flushes well. good blood return. denies nausea or emesis. denies pain. antonieta po. 1515 Cytoxan just finished. pt states feels a bit foggy. wavey. vs wnl. denies any nausea or other discomfort. denies airway issues. LS clear. NS hung at 100cc hr. Debbie THOMAS did see and assess pt. vs rechecked at 1540. wnl. pt feeling 90 percent better. 1610 pt states feels normal. port deaccessed and pt discharged to home with .
--- NOTE | 2022-08-16 12:29 | ONC.NURNOTE ---
Day after 1st chemo check in: Pt feeling well overall. She notes insomnia overnight, describing this as something she's been managing the last several weeks with her PCP, Dr. Cooper. She sleeps in bed until 1-3am and then moves to her recliner. This morning she woke herself up snoring, citing that it is difficult to bring her CPAP to the recliner, but stephane will set up her portable CPAP to have ready to go by the recliner. Reviewed that this is also a common side effect of IV Dex premed. Pt notes she did have some nausea this morning. After waking, she took her Omeprazole on an empty stomach per usual, then had nausea after a bit. She took prochlorperazine per her antiemetic calendar with relief and was able to eat oatmeal and blueberries for breakfast. She notes low appetite; encourage to eat small snacks throughout the day and to continue prochloperazine with addition of ondansetron to alternate next 1-2 days. She reports her port site is feeling tender but not painful. She notices the tenderness when she was showering/washing her hair and with tasks like cooking. Otherwise she is feeling well. Petar On-Pro intact. Pt to call with any questions.
[2022-08-29 08:18] VITALS: BP 123/82; PULSE 90; RESP 16; TEMP 36.3; O2SAT 95
[2022-08-29 08:34] LABS: Basophils Percent Auto 0.6 % (0.0-3.0); Eosinophils Percent Auto 0.8 % (0.0-7.0); Hematocrit 36.9 % (33.0-51.0); Hemoglobin* 12.1 gm/dL (12.0-16.0); Immature Granulocytes Pct Auto 22.1 %; Lymphocytes Percent Auto 15.1 % (20-44); Mean Corpuscular HGB Conc 33 gm/dL (32-36); Mean Corpuscular Hemoglobin 29 pg (26-34); Mean Corpuscular Volume 89 fL (80-100); Monocytes Percent Auto 5.3 % (0.0-11.0); Neutrophils Percent Auto 56.1 % (42.0-72.0); Platelet Count* 284 K/uL (140-440); RDW Coefficient of Variation % 14.2 % (11.5-15.5); Red Blood Count 4.17 m/uL (4.00-5.20); White Blood Count* 11.81 K/uL (4.50-11.00)
[2022-08-29 08:39] LABS: Slide Review Reflex Yes
[2022-08-29 08:47] LABS: Albumin* 4.2 g/dL (3.3-5.0); Chloride* 100 mmol/L (96-114); Potassium* 3.7 mmol/L (3.6-5.1); Sodium* 137 mmol/L (135-149)
[2022-08-29 08:50] LABS: Alanine Aminotransferase* 26 U/L (4-35); Alkaline Phosphatase* 67 U/L (40-150); Aspartate Amino Transferase* 23 U/L (12-35); Bilirubin Total* 0.3 mg/dL (0.1-1.5); Blood Urea Nitrogen* 17 mg/dL (7-30); Carbon Dioxide* 27 mmol/L (20-32); Creatinine* 0.5 mg/dL (0.5-1.5); Est. Creatinine Clearance* 54.61; Estimated Glomerular Filt Rate 106 ml/min; Glucose* 181 mg/dL (60-115); Total Protein* 7.1 g/dL (6.0-8.3)
[2022-08-29 08:51] LABS: Calcium* 8.9 mg/dL (8.4-10.6)
[2022-08-29 09:04] LABS: Slide Review Acceptable Review (Acceptable)
[2022-08-29] MEDS: PALONOSETRON 0.25 MG/5 ML inj IV (10:44)
[2022-08-29] MEDS: dexAMETHasone 10 MG in 0.9 % SODIUM CHLORIDE 100 ml 100 ML 404 MG IVPB (10:44)
[2022-08-29] MEDS: diphenhydrAMINE 25 MG CAPSULE PO (10:45)
[2022-08-29] MEDS: FOSAPREPITANT 150 MG inj 150 MG in 0.9 % SODIUM CHLORIDE 250 ml 250 ML 510 MG IVPB (11:05)
[2022-08-29] MEDS: DOXOrubicin 2 MG/ML inj 150 MG IVP (11:51)
[2022-08-30 09:47] LABS: Magnesium* 1.6 mg/dL (1.5-2.6)
[2022-09-12 08:46] LABS: Basophils Percent Auto 0.7 % (0.0-3.0); Eosinophils Percent Auto 0.4 % (0.0-7.0); Hematocrit 33.7 % (33.0-51.0); Hemoglobin* 11.1 gm/dL (12.0-16.0); Immature Granulocytes Pct Auto 23.5 %; Lymphocytes Percent Auto 10.6 % (20-44); Mean Corpuscular HGB Conc 33 gm/dL (32-36); Mean Corpuscular Hemoglobin 30 pg (26-34); Mean Corpuscular Volume 90 fL (80-100); Neutrophils Percent Auto 57.8 % (42.0-72.0); Platelet Count* 267 K/uL (140-440); Red Blood Count 3.76 m/uL (4.00-5.20); White Blood Count* 11.46 K/uL (4.50-11.00)
[2022-09-12 08:58] LABS: Slide Review Reflex No
[2022-09-12 09:08] LABS: Chloride* 102 mmol/L (96-114); Sodium* 132 mmol/L (135-149)
[2022-09-12 09:09] LABS: Potassium* 3.7 mmol/L (3.6-5.1)
[2022-09-12 09:11] LABS: Alanine Aminotransferase* 24 U/L (4-35); Alkaline Phosphatase* 75 U/L (40-150); Aspartate Amino Transferase* 23 U/L (12-35); Bilirubin Total* 0.3 mg/dL (0.1-1.5); Blood Urea Nitrogen* 11 mg/dL (7-30); Carbon Dioxide* 27 mmol/L (20-32); Creatinine* 0.6 mg/dL (0.5-1.5); Est. Creatinine Clearance* 50.37; Estimated Glomerular Filt Rate 101 ml/min; Glucose* 175 mg/dL (60-115); Total Protein* 6.7 g/dL (6.0-8.3)
[2022-09-12 09:12] LABS: Calcium* 8.7 mg/dL (8.4-10.6)
[2022-09-12] MEDS: dexAMETHasone 10 MG in 0.9 % SODIUM CHLORIDE 100 ml 100 ML 404 MG IVPB (10:42)
[2022-09-12] MEDS: PALONOSETRON 0.25 MG/5 ML inj IV (10:42)
[2022-09-12] MEDS: diphenhydrAMINE 25 MG CAPSULE PO (10:43)
[2022-09-12] MEDS: FOSAPREPITANT 150 MG inj 150 MG in 0.9 % SODIUM CHLORIDE 250 ml 250 ML 800 MG IVPB (11:01)
[2022-09-12] MEDS: DOXOrubicin 2 MG/ML inj 150 MG IVP (11:32)
[2022-09-14 11:25] VITALS: BP 137/82; PULSE 96; RESP 18; TEMP 36.6; O2SAT 96
[2022-09-14] MEDS: 0.9 % SODIUM CHLORIDE 1000 ml 1,000 ML IV (11:57)
--- NOTE | 2022-09-21 12:41 | URNOTE ---
Request received for authorization for?Paclitaxel ([id number]). Prior authorization is approved start 10/13/2022 to 10/14/2023, per [facility] Ref#[id number].
--- NOTE | 2022-09-23 13:03 | ONC.NURNOTE ---
Pt called reporting sore areas in bilateal nares d/t CPAP nasal pillows. She would occasionally get this soreness prior to chemo and would treat with 3-4x/day saline nasal rinses. She tried this yesterday and notes improvement today. Encouraged pt to continue saline rinses of nares QID for prevention, suggesting nasal sprays vs Pierre Med pot for ease of use at this frequency. Also, recommended pt try Aquaphor to sores in the day time. She notes she has had a non-medicated saline gel in the past to use in conjunction with her CPAP and may also try that. Pt to notify if signs of infection.
[2022-09-28 08:30] VITALS: BP 129/86; PULSE 85; RESP 16; TEMP 35.9; O2SAT 98
[2022-09-28 08:46] LABS: Basophils Percent Auto 2.8 % (0.0-3.0); Eosinophils Percent Auto 2.1 % (0.0-7.0); Hematocrit 34.2 % (33.0-51.0); Hemoglobin* 11.1 gm/dL (12.0-16.0); Lymphocytes Percent Auto 27.3 % (20-44); Mean Corpuscular HGB Conc 33 gm/dL (32-36); Mean Corpuscular Hemoglobin 30 pg (26-34); Mean Corpuscular Volume 91 fL (80-100); Monocytes Percent Auto 22.3 % (0.0-11.0); Neutrophils Percent Auto 40.5 % (42.0-72.0); Platelet Count* 355 K/uL (140-440); RDW Coefficient of Variation % 16.8 % (11.5-15.5); Red Blood Count 3.75 m/uL (4.00-5.20); White Blood Count* 2.82 K/uL (4.50-11.00)
[2022-09-28 08:57] LABS: Slide Review Reflex Yes
[2022-09-28 09:05] LABS: Albumin* 4.1 g/dL (3.3-5.0); Chloride* 100 mmol/L (96-114)
[2022-09-28 09:06] LABS: Potassium* 4.2 mmol/L (3.6-5.1); Sodium* 137 mmol/L (135-149)
[2022-09-28 09:08] LABS: Bilirubin Total* 0.3 mg/dL (0.1-1.5); Carbon Dioxide* 30 mmol/L (20-32); Creatinine* 0.6 mg/dL (0.5-1.5); Est. Creatinine Clearance* 50.37; Estimated Glomerular Filt Rate 101 ml/min; Total Protein* 6.9 g/dL (6.0-8.3)
[2022-09-28 09:09] LABS: Alanine Aminotransferase* 25 U/L (4-35); Alkaline Phosphatase* 62 U/L (40-150); Aspartate Amino Transferase* 21 U/L (12-35); Blood Urea Nitrogen* 11 mg/dL (7-30); Calcium* 9.1 mg/dL (8.4-10.6); Glucose* 185 mg/dL (60-115)
[2022-09-28] MEDS: diphenhydrAMINE 25 MG CAPSULE PO (09:32)
[2022-09-28] MEDS: PALONOSETRON 0.25 MG/5 ML inj IV (09:40)
[2022-09-28] MEDS: dexAMETHasone 10 MG in 0.9 % SODIUM CHLORIDE 100 ml 100 ML 420 MG IVPB (09:40)
[2022-09-28] MEDS: FOSAPREPITANT 150 MG inj 150 MG in 0.9 % SODIUM CHLORIDE 250 ml 250 ML 510 MG IVPB (10:00)
[2022-09-28 10:50] LABS: Slide Review Acceptable Review (Acceptable)
[2022-09-28] MEDS: DOXOrubicin 2 MG/ML inj 150 MG IVP (10:52)
[2022-10-13 08:34] LABS: Basophils Absolute Auto 0.09 K/uL (0.00-0.30); Basophils Percent Auto 0.9 % (0.0-3.0); Eosinophils Absolute Auto 0.05 K/uL (0.00-0.50); Eosinophils Percent Auto 0.5 % (0.0-7.0); Hematocrit 33.3 % (33.0-51.0); Hemoglobin* 10.9 gm/dL (12.0-16.0); Immature Granulocytes Abs Auto 1.89 K/uL (0.00-0.30); Immature Granulocytes Pct Auto 19.3 %; Mean Corpuscular HGB Conc 33 gm/dL (32-36); Mean Corpuscular Hemoglobin 30 pg (26-34); Mean Corpuscular Volume 92 fL (80-100); Monocytes Percent Auto 7.3 % (0.0-11.0); Neutrophils Absolute Auto 6.15 K/uL (1.7-7.0); Platelet Count* 247 K/uL (140-440); RDW Coefficient of Variation % 17.3 % (11.5-15.5); Red Blood Count 3.64 m/uL (4.00-5.20); White Blood Count* 9.77 K/uL (4.50-11.00)
[2022-10-13 08:53] LABS: Albumin* 4.2 g/dL (3.3-5.0); Chloride* 100 mmol/L (96-114); Potassium* 3.7 mmol/L (3.6-5.1); Sodium* 135 mmol/L (135-149)
[2022-10-13 08:55] LABS: Creatinine* 0.5 mg/dL (0.5-1.5); Est. Creatinine Clearance* 50.37; Estimated Glomerular Filt Rate 106 ml/min
[2022-10-13 08:56] LABS: Alanine Aminotransferase* 24 U/L (4-35); Alkaline Phosphatase* 67 U/L (40-150); Aspartate Amino Transferase* 23 U/L (12-35); Bilirubin Total* 0.3 mg/dL (0.1-1.5); Blood Urea Nitrogen* 13 mg/dL (7-30); Calcium* 8.6 mg/dL (8.4-10.6); Carbon Dioxide* 27 mmol/L (20-32); Glucose* 205 mg/dL (60-115); Total Protein* 6.9 g/dL (6.0-8.3)
[2022-10-13 09:04] LABS: Slide Review Reflex No
[2022-10-13] MEDS: ONDANSETRON 2 MG/ML inj 8 MG IVP (09:56)
[2022-10-13] MEDS: dexAMETHasone 20 MG in 0.9 % SODIUM CHLORIDE 100 ml 100 ML 420 MG IVPB (09:56)
[2022-10-13] MEDS: FAMOTIDINE 20 MG, diphenhydrAMINE 50 MG in 0.9 % SODIUM CHLORIDE 100 ml 100 ML 315 MG IVPB (10:15)
--- NOTE | 2022-10-14 14:18 | ONC.NURNOTE ---
Called pt to f/u [address] [place] [address] yesterday. Pt is feeling well overall. She reports her nausea is managing better with the alternation of Compazine and Zofran. She feels she has a good routine with foods she can eat to manage nausea. She will call with any concerns.
[2022-10-19 08:37] VITALS: BP 116/79; PULSE 105; RESP 16; TEMP 35.9; O2SAT 96
[2022-10-19 08:45] LABS: Basophils Absolute Auto 0.06 K/uL (0.00-0.30); Basophils Percent Auto 0.9 % (0.0-3.0); Eosinophils Absolute Auto 0.03 K/uL (0.00-0.50); Eosinophils Percent Auto 0.5 % (0.0-7.0); Hematocrit 32.2 % (33.0-51.0); Hemoglobin* 10.9 gm/dL (12.0-16.0); Immature Granulocytes Abs Auto 0.09 K/uL (0.00-0.30); Immature Granulocytes Pct Auto 1.4 %; Lymphocytes Percent Auto 12.8 % (20-44); Mean Corpuscular HGB Conc 34 gm/dL (32-36); Mean Corpuscular Hemoglobin 31 pg (26-34); Mean Corpuscular Volume 91 fL (80-100); Monocytes Percent Auto 8.2 % (0.0-11.0); Neutrophils Percent Auto 76.2 % (42.0-72.0); Platelet Count* 364 K/uL (140-440); RDW Coefficient of Variation % 17.2 % (11.5-15.5); Red Blood Count 3.55 m/uL (4.00-5.20); White Blood Count* 6.46 K/uL (4.50-11.00)
[2022-10-19 09:00] LABS: Slide Review Reflex No
[2022-10-19 09:02] LABS: Albumin* 4.2 g/dL (3.3-5.0)
[2022-10-19 09:03] LABS: Chloride* 99 mmol/L (96-114); Potassium* 3.8 mmol/L (3.6-5.1); Sodium* 134 mmol/L (135-149)
[2022-10-19 09:05] LABS: Bilirubin Total* 0.5 mg/dL (0.1-1.5); Carbon Dioxide* 26 mmol/L (20-32); Creatinine* 0.6 mg/dL (0.5-1.5); Est. Creatinine Clearance* 50.37; Estimated Glomerular Filt Rate 101 ml/min
[2022-10-19 09:06] LABS: Alanine Aminotransferase* 27 U/L (4-35); Alkaline Phosphatase* 61 U/L (40-150); Aspartate Amino Transferase* 22 U/L (12-35); Blood Urea Nitrogen* 15 mg/dL (7-30); Calcium* 9.2 mg/dL (8.4-10.6); Glucose* 214 mg/dL (60-115)
[2022-10-19] MEDS: dexAMETHasone 20 MG in 0.9 % SODIUM CHLORIDE 100 ml 100 ML 408 MG IVPB (09:51)
[2022-10-19] MEDS: ONDANSETRON 2 MG/ML inj 8 MG IVP (09:51)
[2022-10-19] MEDS: FAMOTIDINE 20 MG, diphenhydrAMINE 50 MG in 0.9 % SODIUM CHLORIDE 100 ml 100 ML 412 MG IVPB (10:12)
[2022-10-19] MEDS: SODIUM CHLORIDE 0.9 % (FLUSH) 10 ML SYRINGE IVF (10:41)
[2022-10-19] MEDS: 0.9 % SODIUM CHLORIDE 250 ml IV (10:41)
[2022-10-31 10:22] VITALS: BP 137/86; PULSE 83; RESP 16; TEMP 36.3; O2SAT 96
[2022-10-31 10:41] LABS: Basophils Absolute Auto 0.06 K/uL (0.00-0.30); Basophils Percent Auto 1.1 % (0.0-3.0); Eosinophils Absolute Auto 0.22 K/uL (0.00-0.50); Hemoglobin* 10.7 gm/dL (12.0-16.0); Immature Granulocytes Abs Auto 0.09 K/uL (0.00-0.30); Immature Granulocytes Pct Auto 1.6 %; Lymphocytes Percent Auto 14.1 % (20-44); Mean Corpuscular HGB Conc 32 gm/dL (32-36); Mean Corpuscular Hemoglobin 30 pg (26-34); Mean Corpuscular Volume 94 fL (80-100); Monocytes Percent Auto 10.4 % (0.0-11.0); Neutrophils Absolute Auto 3.75 K/uL (1.7-7.0); Neutrophils Percent Auto 68.8 % (42.0-72.0); Platelet Count* 331 K/uL (140-440); RDW Coefficient of Variation % 18.6 % (11.5-15.5); Red Blood Count 3.53 m/uL (4.00-5.20); White Blood Count* 5.46 K/uL (4.50-11.00)
[2022-10-31 10:44] LABS: Slide Review Reflex No
[2022-10-31 10:54] LABS: Chloride* 105 mmol/L (96-114); Potassium* 3.2 mmol/L (3.6-5.1); Sodium* 137 mmol/L (135-149)
[2022-10-31 10:56] LABS: Creatinine* 0.6 mg/dL (0.5-1.5); Est. Creatinine Clearance* 50.37; Estimated Glomerular Filt Rate 101 ml/min
[2022-10-31 10:57] LABS: Alanine Aminotransferase* 32 U/L (4-35); Alkaline Phosphatase* 59 U/L (40-150); Aspartate Amino Transferase* 26 U/L (12-35); Bilirubin Total* 0.5 mg/dL (0.1-1.5); Blood Urea Nitrogen* 10 mg/dL (7-30); Calcium* 8.7 mg/dL (8.4-10.6); Carbon Dioxide* 27 mmol/L (20-32); Glucose* 136 mg/dL (60-115); Total Protein* 6.7 g/dL (6.0-8.3)
[2022-10-31] MEDS: POTASSIUM CHLORIDE 10 MEQ/100 ML PIGGYBACK 100 MEQ IVPB ×2 (12:06→13:10)
[2022-10-31] MEDS: dexAMETHasone 20 MG in 0.9 % SODIUM CHLORIDE 100 ml 100 ML 408 MG IVPB (14:40)
[2022-10-31] MEDS: ONDANSETRON 2 MG/ML inj 8 MG IVP (14:40)
[2022-10-31] MEDS: POTASSIUM CHLORIDE 10 MEQ CAPSULE ER 20 MEQ PO (15:11)
[2022-10-31] MEDS: FAMOTIDINE 20 MG, diphenhydrAMINE 50 MG in 0.9 % SODIUM CHLORIDE 100 ml 100 ML 309 MG IVPB (15:13)
[2022-10-31] MEDS: SODIUM CHLORIDE 0.9 % (FLUSH) 10 ML SYRINGE IVF (16:32)
[2022-10-31] MEDS: 0.9 % SODIUM CHLORIDE 250 ml IV (16:33)
--- NOTE | 2022-10-31 18:13 | ONC.NURNOTE ---
states history orf restless legs. Just returned from long ride in car last night. states joints ache. . usual swollen lt ankle. serum K 3.[address] Zapata and Debbie Ramos APRN. Pt received 20meq Kcl Iv over 2 hr then 20meq po before treatment. Ok to treat per Dr. Curry after potassium. Pt antonieta well.
[2022-11-07 08:18] VITALS: BP 133/83; PULSE 86; RESP 18; TEMP 36.6; O2SAT 97
[2022-11-07 08:43] LABS: Basophils Absolute Auto 0.06 K/uL (0.00-0.30); Basophils Percent Auto 0.7 % (0.0-3.0); Eosinophils Absolute Auto 0.28 K/uL (0.00-0.50); Eosinophils Percent Auto 3.3 % (0.0-7.0); Hematocrit 35.4 % (33.0-51.0); Hemoglobin* 11.7 gm/dL (12.0-16.0); Immature Granulocytes Pct Auto 1.2 %; Lymphocytes Percent Auto 12.4 % (20-44); Mean Corpuscular HGB Conc 33 gm/dL (32-36); Mean Corpuscular Hemoglobin 31 pg (26-34); Mean Corpuscular Volume 94 fL (80-100); Monocytes Percent Auto 6.2 % (0.0-11.0); Neutrophils Percent Auto 76.2 % (42.0-72.0); Platelet Count* 348 K/uL (140-440); RDW Coefficient of Variation % 17.7 % (11.5-15.5); Red Blood Count 3.76 m/uL (4.00-5.20); White Blood Count* 8.38 K/uL (4.50-11.00)
[2022-11-07 08:49] LABS: Slide Review Reflex No
[2022-11-07 09:01] LABS: Albumin* 4.2 g/dL (3.3-5.0)
[2022-11-07 09:02] LABS: Chloride* 102 mmol/L (96-114); Potassium* 3.8 mmol/L (3.6-5.1); Sodium* 135 mmol/L (135-149)
[2022-11-07 09:04] LABS: Aspartate Amino Transferase* 26 U/L (12-35); Bilirubin Total* 0.6 mg/dL (0.1-1.5); Carbon Dioxide* 26 mmol/L (20-32); Creatinine* 0.6 mg/dL (0.5-1.5); Est. Creatinine Clearance* 52.49; Estimated Glomerular Filt Rate 101 ml/min; Total Protein* 7.2 g/dL (6.0-8.3)
[2022-11-07 09:05] LABS: Alanine Aminotransferase* 34 U/L (4-35); Alkaline Phosphatase* 63 U/L (40-150); Blood Urea Nitrogen* 14 mg/dL (7-30); Calcium* 9.2 mg/dL (8.4-10.6); Glucose* 130 mg/dL (60-115)
[2022-11-07 10:01] LABS: Magnesium* 1.7 mg/dL (1.5-2.6)
[2022-11-07] MEDS: ONDANSETRON 2 MG/ML inj 8 MG IVP (10:56)
[2022-11-07] MEDS: dexAMETHasone 20 MG in 0.9 % SODIUM CHLORIDE 100 ml 100 ML 408 MG IVPB (10:56)
[2022-11-07] MEDS: FAMOTIDINE 20 MG, diphenhydrAMINE 25 MG in 0.9 % SODIUM CHLORIDE 100 ml 100 ML 410 MG IVPB (11:16)
[2022-11-14 08:32] VITALS: BP 124/79; PULSE 81; RESP 18; TEMP 36.2; O2SAT 95
[2022-11-14 08:56] LABS: Basophils Absolute Auto 0.04 K/uL (0.00-0.30); Basophils Percent Auto 0.6 % (0.0-3.0); Eosinophils Absolute Auto 0.18 K/uL (0.00-0.50); Eosinophils Percent Auto 2.7 % (0.0-7.0); Hematocrit 35.9 % (33.0-51.0); Hemoglobin* 11.6 gm/dL (12.0-16.0); Immature Granulocytes Abs Auto 0.07 K/uL (0.00-0.30); Immature Granulocytes Pct Auto 1.1 %; Mean Corpuscular HGB Conc 32 gm/dL (32-36); Mean Corpuscular Hemoglobin 31 pg (26-34); Mean Corpuscular Volume 96 fL (80-100); Neutrophils Percent Auto 75.6 % (42.0-72.0); Platelet Count* 368 K/uL (140-440); Red Blood Count 3.75 m/uL (4.00-5.20); White Blood Count* 6.62 K/uL (4.50-11.00)
[2022-11-14 09:03] LABS: Slide Review Reflex No
[2022-11-14 09:06] LABS: Albumin* 4.2 g/dL (3.3-5.0); Chloride* 102 mmol/L (96-114); Sodium* 136 mmol/L (135-149)
[2022-11-14 09:08] LABS: Creatinine* 0.6 mg/dL (0.5-1.5); Est. Creatinine Clearance* 52.49; Estimated Glomerular Filt Rate 101 ml/min
[2022-11-14 09:09] LABS: Alanine Aminotransferase* 36 U/L (4-35); Alkaline Phosphatase* 60 U/L (40-150); Aspartate Amino Transferase* 29 U/L (12-35); Bilirubin Total* 0.6 mg/dL (0.1-1.5); Blood Urea Nitrogen* 21 mg/dL (7-30); Carbon Dioxide* 24 mmol/L (20-32); Total Protein* 7.1 g/dL (6.0-8.3)
[2022-11-14 09:10] LABS: Glucose* 160 mg/dL (60-115)
[2022-11-14] MEDS: ONDANSETRON 2 MG/ML inj 8 MG IVP (09:58)
[2022-11-14] MEDS: 0.9 % SODIUM CHLORIDE 250 ml IV (09:58)
[2022-11-14] MEDS: SODIUM CHLORIDE 0.9 % (FLUSH) 10 ML SYRINGE IVF (09:59)
[2022-11-14] MEDS: dexAMETHasone 20 MG in 0.9 % SODIUM CHLORIDE 100 ml 100 ML 408 MG IVPB (10:02)
[2022-11-14] MEDS: FAMOTIDINE 20 MG, diphenhydrAMINE 25 MG in 0.9 % SODIUM CHLORIDE 100 ml 100 ML 410 MG IVPB (10:20)
[2022-11-14 11:18] LABS: Anion Gap 10 mEq/L (7-15)
--- NOTE | 2022-11-14 12:09 | ONC.NURNOTE ---
Pt here for #5 weekly Taxol. Attached below is Debbie Ramos APRN's note from last week with multifactorial plan. Plan changes for this week: Myalgias: Severity improved but starting earlier, ~3pm beginning 2nd day after chemo and continuing until next chemo. Denies restlessness in legs, cites increased achiness in Bilat LE extremity joints and right hand/wrist. New plan: 1300: Tramadol/Tylenol 500mg 1800: Requip 2mg 1900: Tramadol/Tylenol 500mg 0100: Tramadol/Tylenol 500mg Continue 1-2 doses 500mg Tylenol and 400mg Ibuprofen alternating with above schedule as needed; pt has used ~1x/daily this week. Continue Claritin in AM and Sole in PM. Omit Medrol Dosepak. May restart at 1/2 dose (as previously used) if needed. Diabetes: Metformin will increase from 500mg daily to 500mg BID on 11/17. AM blood sugars this week: 135, 146, 142, 156, 129. Pt to continue to monitor AM levels. Restless Legs: Continue increased dose of Requip 2mg. Denies mucositis, peripheral neuropathy and constipation; will continue to monitor with current plan. Excerpt from Debbie Ramos APRN's note from 11/07 visit last week: Plan Proceed with dose 4 of 12 weekly paclitaxel treatments today. - tramadol 1 tab mid-afternoon in anticipation of worsening daily leg pains and restless leg syndrome. Continue with requip around 6pm and another dose of tramadol at bedtime. OK to take tylenol with tramadol for additive pain control Max tylenol in 24 hours is 3000mg or 6 tabs. Refill for tramadol sent to pharmacy on file. - continue with medrol dose pack at half dose as previously prescribed by Dr. Curry. Refill sent to pharmacy on file. - continue to work with Dr. Cooper as she titrates her metformin, considering that she is also taking low dose methylprednisolone. - continue to work with Dr. Cooper as she titrates requip to help manage her restless leg syndrome. - continue with antihistamines for adjunct pain control in addition to seasonal allergy management. - continue with good oral hygiene and soda or salt water rinses prn. 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 - Senna colace prn constipation. OK to add miralax if needed. Push fluids and fresh fruit.
[2022-11-17 19:43] LABS: Calcium* 9.1 mg/dL (8.4-10.6)
[2022-11-21 08:33] VITALS: BP 117/78; PULSE 98; RESP 16; TEMP 35.9; O2SAT 95
[2022-11-21 08:57] LABS: Basophils Absolute Auto 0.03 K/uL (0.00-0.30); Basophils Percent Auto 0.5 % (0.0-3.0); Eosinophils Absolute Auto 0.13 K/uL (0.00-0.50); Eosinophils Percent Auto 2.1 % (0.0-7.0); Hematocrit 34.5 % (33.0-51.0); Hemoglobin* 11.3 gm/dL (12.0-16.0); Immature Granulocytes Abs Auto 0.09 K/uL (0.00-0.30); Immature Granulocytes Pct Auto 1.5 %; Lymphocytes Percent Auto 15.9 % (20-44); Mean Corpuscular HGB Conc 33 gm/dL (32-36); Mean Corpuscular Hemoglobin 31 pg (26-34); Mean Corpuscular Volume 95 fL (80-100); Monocytes Percent Auto 8.1 % (0.0-11.0); Neutrophils Absolute Auto 4.42 K/uL (1.7-7.0); Neutrophils Percent Auto 71.9 % (42.0-72.0); Platelet Count* 372 K/uL (140-440); RDW Coefficient of Variation % 16.2 % (11.5-15.5); Red Blood Count 3.63 m/uL (4.00-5.20); White Blood Count* 6.15 K/uL (4.50-11.00)
[2022-11-21 09:02] LABS: Slide Review Reflex No
[2022-11-21 09:15] LABS: Chloride* 98 mmol/L (96-114)
[2022-11-21 09:16] LABS: Albumin* 4.2 g/dL (3.3-5.0); Potassium* 4.3 mmol/L (3.6-5.1); Sodium* 134 mmol/L (135-149)
[2022-11-21 09:19] LABS: Alanine Aminotransferase* 40 U/L (4-35); Alkaline Phosphatase* 62 U/L (40-150); Anion Gap 8 mEq/L (7-15); Aspartate Amino Transferase* 28 U/L (12-35); Bilirubin Total* 0.5 mg/dL (0.1-1.5); Blood Urea Nitrogen* 17 mg/dL (7-30); Calcium* 9.6 mg/dL (8.4-10.6); Carbon Dioxide* 28 mmol/L (20-32); Creatinine* 0.6 mg/dL (0.5-1.5); Est. Creatinine Clearance* 52.49; Estimated Glomerular Filt Rate 101 ml/min; Glucose* 118 mg/dL (60-115); Total Protein* 7.2 g/dL (6.0-8.3)
[2022-11-21] MEDS: dexAMETHasone 20 MG in 0.9 % SODIUM CHLORIDE 100 ml 100 ML 408 MG IVPB (09:57)
[2022-11-21] MEDS: ONDANSETRON 2 MG/ML inj 8 MG IVP (09:57)
[2022-11-21] MEDS: FAMOTIDINE 20 MG, diphenhydrAMINE 25 MG in 0.9 % SODIUM CHLORIDE 100 ml 100 ML 309 MG IVPB (10:31)
[2022-11-21] MEDS: 0.9 % SODIUM CHLORIDE 250 ml IV (13:45)
[2022-11-21] MEDS: SODIUM CHLORIDE 0.9 % (FLUSH) 10 ML SYRINGE IVF (13:46)
[2022-11-29 09:44] LABS: Eosinophils Percent Auto 2.7 % (0.0-7.0); Hematocrit 34.5 % (33.0-51.0); Hemoglobin* 11.3 gm/dL (12.0-16.0); Immature Granulocytes Pct Auto 3.1 %; Lymphocytes Percent Auto 17.1 % (20-44); Mean Corpuscular HGB Conc 33 gm/dL (32-36); Mean Corpuscular Hemoglobin 31 pg (26-34); Mean Corpuscular Volume 96 fL (80-100); Monocytes Percent Auto 8.2 % (0.0-11.0); Neutrophils Percent Auto 67.9 % (42.0-72.0); Platelet Count* 326 K/uL (140-440); RDW Coefficient of Variation % 15.9 % (11.5-15.5); Red Blood Count 3.61 m/uL (4.00-5.20); White Blood Count* 4.15 K/uL (4.50-11.00)
[2022-11-29 09:47] LABS: Slide Review Reflex Yes
[2022-11-29 10:10] LABS: Albumin* 4.2 g/dL (3.3-5.0)
[2022-11-29 10:11] LABS: Chloride* 100 mmol/L (96-114); Sodium* 134 mmol/L (135-149)
[2022-11-29 10:13] LABS: Anion Gap 7 mEq/L (7-15); Aspartate Amino Transferase* 33 U/L (12-35); Bilirubin Total* 0.5 mg/dL (0.1-1.5); Carbon Dioxide* 27 mmol/L (20-32); Creatinine* 0.6 mg/dL (0.5-1.5); Est. Creatinine Clearance* 52.49; Estimated Glomerular Filt Rate 101 ml/min; Total Protein* 7.2 g/dL (6.0-8.3)
[2022-11-29 10:14] LABS: Alanine Aminotransferase* 41 U/L (4-35); Alkaline Phosphatase* 64 U/L (40-150); Blood Urea Nitrogen* 9 mg/dL (7-30); Calcium* 9.6 mg/dL (8.4-10.6); Glucose* 157 mg/dL (60-115)
[2022-11-29 10:33] LABS: Slide Review Acceptable Review (Acceptable)
[2022-11-29] MEDS: ONDANSETRON 2 MG/ML inj 8 MG IVP (11:33)
[2022-11-29] MEDS: dexAMETHasone 20 MG in 0.9 % SODIUM CHLORIDE 100 ml 100 ML 420 MG IVPB (11:33)
[2022-11-29] MEDS: FAMOTIDINE 20 MG, diphenhydrAMINE 25 MG in 0.9 % SODIUM CHLORIDE 100 ml 100 ML 420 MG IVPB (12:00)
[2022-11-29] MEDS: SODIUM CHLORIDE 0.9 % (FLUSH) 10 ML SYRINGE IVF (14:00)
[2022-12-05 09:26] VITALS: BP 133/82; PULSE 107; RESP 16; TEMP 36.4; O2SAT 95
[2022-12-05 09:45] LABS: Basophils Absolute Auto 0.05 K/uL (0.00-0.30); Basophils Percent Auto 0.9 % (0.0-3.0); Eosinophils Absolute Auto 0.07 K/uL (0.00-0.50); Eosinophils Percent Auto 1.3 % (0.0-7.0); Hematocrit 34.6 % (33.0-51.0); Hemoglobin* 11.6 gm/dL (12.0-16.0); Immature Granulocytes Abs Auto 0.12 K/uL (0.00-0.30); Immature Granulocytes Pct Auto 2.1 %; Lymphocytes Percent Auto 15.4 % (20-44); Mean Corpuscular HGB Conc 34 gm/dL (32-36); Mean Corpuscular Hemoglobin 32 pg (26-34); Mean Corpuscular Volume 94 fL (80-100); Monocytes Percent Auto 6.8 % (0.0-11.0); Neutrophils Percent Auto 73.5 % (42.0-72.0); Platelet Count* 359 K/uL (140-440); Red Blood Count 3.67 m/uL (4.00-5.20)
[2022-12-05] MEDS: SODIUM CHLORIDE 0.9 % (FLUSH) 10 ML SYRINGE IVF ×2 (09:45→12:45)
[2022-12-05 09:55] LABS: Slide Review Reflex No
[2022-12-05 10:25] LABS: Albumin* 4.2 g/dL (3.3-5.0); Chloride* 98 mmol/L (96-114); Sodium* 134 mmol/L (135-149)
[2022-12-05 10:27] LABS: Bilirubin Total* 0.5 mg/dL (0.1-1.5); Creatinine* 0.6 mg/dL (0.5-1.5); Est. Creatinine Clearance* 52.49; Estimated Glomerular Filt Rate 101 ml/min
[2022-12-05 10:28] LABS: Alanine Aminotransferase* 39 U/L (4-35); Alkaline Phosphatase* 61 U/L (40-150); Anion Gap 10 mEq/L (7-15); Aspartate Amino Transferase* 28 U/L (12-35); Blood Urea Nitrogen* 13 mg/dL (7-30); Calcium* 9.5 mg/dL (8.4-10.6); Carbon Dioxide* 26 mmol/L (20-32); Glucose* 120 mg/dL (60-115); Total Protein* 7.3 g/dL (6.0-8.3)
[2022-12-05] MEDS: 0.9 % SODIUM CHLORIDE 250 ml IV (10:45)
[2022-12-05] MEDS: ONDANSETRON 2 MG/ML inj 8 MG IVP (11:01)
[2022-12-05] MEDS: dexAMETHasone 20 MG in 0.9 % SODIUM CHLORIDE 100 ml 100 ML 420 MG IVPB (11:01)
[2022-12-05] MEDS: FAMOTIDINE 20 MG, diphenhydrAMINE 25 MG in 0.9 % SODIUM CHLORIDE 100 ml 100 ML 420 MG IVPB (11:19)
[2022-12-13 08:30] VITALS: BP 114/76; PULSE 106; RESP 16; TEMP 36.6; O2SAT 96
[2022-12-13 08:40] LABS: Basophils Percent Auto 0.9 % (0.0-3.0); Eosinophils Percent Auto 1.6 % (0.0-7.0); Hematocrit 33.3 % (33.0-51.0); Hemoglobin* 11.1 gm/dL (12.0-16.0); Lymphocytes Percent Auto 15.3 % (20-44); Mean Corpuscular HGB Conc 33 gm/dL (32-36); Mean Corpuscular Hemoglobin 32 pg (26-34); Mean Corpuscular Volume 95 fL (80-100); Monocytes Percent Auto 8.6 % (0.0-11.0); Neutrophils Percent Auto 71.1 % (42.0-72.0); Platelet Count* 368 K/uL (140-440); RDW Coefficient of Variation % 14.8 % (11.5-15.5); Red Blood Count 3.51 m/uL (4.00-5.20); White Blood Count* 5.69 K/uL (4.50-11.00)
[2022-12-13 08:41] LABS: Basophils Absolute Auto 0.05 K/uL (0.00-0.30); Eosinophils Absolute Auto 0.09 K/uL (0.00-0.50); Immature Granulocytes Abs Auto 0.14 K/uL (0.00-0.30); Immature Granulocytes Pct Auto 2.5 %; Neutrophils Absolute Auto 4.05 K/uL (1.7-7.0)
[2022-12-13 08:53] LABS: Albumin* 4.2 g/dL (3.3-5.0); Chloride* 101 mmol/L (96-114); Potassium* 3.7 mmol/L (3.6-5.1); Slide Review Reflex No; Sodium* 135 mmol/L (135-149)
[2022-12-13 08:56] LABS: Alanine Aminotransferase* 41 U/L (4-35); Alkaline Phosphatase* 60 U/L (40-150); Anion Gap 10 mEq/L (7-15); Aspartate Amino Transferase* 34 U/L (12-35); Bilirubin Total* 0.5 mg/dL (0.1-1.5); Blood Urea Nitrogen* 15 mg/dL (7-30); Carbon Dioxide* 24 mmol/L (20-32); Creatinine* 0.7 mg/dL (0.5-1.5); Est. Creatinine Clearance* 52.49; Estimated Glomerular Filt Rate 98 ml/min; Glucose* 134 mg/dL (60-115); Total Protein* 7.3 g/dL (6.0-8.3)
[2022-12-13 08:57] LABS: Calcium* 9.2 mg/dL (8.4-10.6)
[2022-12-13] MEDS: FAMOTIDINE 20 MG, diphenhydrAMINE 25 MG in 0.9 % SODIUM CHLORIDE 100 ml 100 ML 307.5 MG IVPB (09:39)
[2022-12-13] MEDS: dexAMETHasone 20 MG in 0.9 % SODIUM CHLORIDE 100 ml 100 ML 408 MG IVPB (09:40)
[2022-12-13] MEDS: ONDANSETRON 2 MG/ML inj 8 MG IVP (09:40)
[2022-12-13] MEDS: SODIUM CHLORIDE 0.9 % (FLUSH) 10 ML SYRINGE IVF (10:50)
[2022-12-13] MEDS: HEPARIN 500 UNIT/5 ML SYRINGE IVF (10:51)
[2022-12-13] MEDS: 0.9 % SODIUM CHLORIDE 250 ml IV (12:44)
[2022-12-19 09:37] LABS: Basophils Absolute Auto 0.05 K/uL (0.00-0.30); Basophils Percent Auto 0.9 % (0.0-3.0); Eosinophils Absolute Auto 0.09 K/uL (0.00-0.50); Eosinophils Percent Auto 1.6 % (0.0-7.0); Hematocrit 33.2 % (33.0-51.0); Hemoglobin* 11.2 gm/dL (12.0-16.0); Immature Granulocytes Pct Auto 1.8 %; Lymphocytes Percent Auto 16.4 % (20-44); Mean Corpuscular HGB Conc 34 gm/dL (32-36); Mean Corpuscular Hemoglobin 32 pg (26-34); Mean Corpuscular Volume 93 fL (80-100); Monocytes Percent Auto 7.1 % (0.0-11.0); Neutrophils Percent Auto 72.2 % (42.0-72.0); Platelet Count* 378 K/uL (140-440); RDW Coefficient of Variation % 14.4 % (11.5-15.5); Red Blood Count 3.56 m/uL (4.00-5.20); White Blood Count* 5.61 K/uL (4.50-11.00)
[2022-12-19 09:38] LABS: Slide Review Reflex No
[2022-12-19 09:55] LABS: Albumin* 4.2 g/dL (3.3-5.0); Chloride* 98 mmol/L (96-114); Potassium* 3.5 mmol/L (3.6-5.1); Sodium* 137 mmol/L (135-149)
[2022-12-19 09:57] LABS: Creatinine* 0.6 mg/dL (0.5-1.5); Est. Creatinine Clearance* 52.49; Estimated Glomerular Filt Rate 101 ml/min
[2022-12-19 09:58] LABS: Alanine Aminotransferase* 44 U/L (4-35); Alkaline Phosphatase* 64 U/L (40-150); Anion Gap 11 mEq/L (7-15); Aspartate Amino Transferase* 32 U/L (12-35); Bilirubin Total* 0.6 mg/dL (0.1-1.5); Blood Urea Nitrogen* 13 mg/dL (7-30); Calcium* 9.5 mg/dL (8.4-10.6); Carbon Dioxide* 28 mmol/L (20-32); Total Protein* 7.1 g/dL (6.0-8.3)
[2022-12-19 10:35] LABS: Glucose* 107 mg/dL (60-115)
[2022-12-19] MEDS: ONDANSETRON 2 MG/ML inj 8 MG IVP (11:16)
[2022-12-19] MEDS: dexAMETHasone 20 MG in 0.9 % SODIUM CHLORIDE 100 ml 100 ML 408 MG IVPB (11:16)
[2022-12-19] MEDS: HEPARIN 500 UNIT/5 ML SYRINGE IVF (11:17)
[2022-12-19] MEDS: 0.9 % SODIUM CHLORIDE 250 ml IV (11:17)
[2022-12-19] MEDS: SODIUM CHLORIDE 0.9 % (FLUSH) 10 ML SYRINGE IVF (11:17)
[2022-12-19] MEDS: FAMOTIDINE 20 MG, diphenhydrAMINE 25 MG in 0.9 % SODIUM CHLORIDE 100 ml 100 ML 309 MG IVPB (11:42)
[2022-12-19] MEDS: PACLITAXEL IV (12:07)
[2022-12-19] MEDS: IN LINE IV (12:07)
[2022-12-19] MEDS: MICRON FILTER SET IV (12:07)
[2022-12-19] MEDS: TUBING PRIMARY IV (12:07)
[2022-12-19] MEDS: [UNRECOGNIZED DRUG - OTHER] IV (12:07)
== END 2023-02-04 23:59 | disposition home or self-care (01) ==
LOC: CCIC 08:30
PROVIDERS: Clinical Nurse Specialist; Internal Medicine Hematology & Oncology; PCP Family Medicine; Referring Provider Family Medicine; Visit Provider Physician Assistant
DX: C50.911 Malignant neoplasm of unspecified site of right female breast (principal); Z17.0 Estrogen receptor positive status [ER+]
CPT/HCPCS: 36415; 36591; 80053; 83735; 85025; 96360; 96361; 96366; 96374; 96376; 96377; 96401; 96409; 96411; 96413; 96417; 99204; 99211; 99212; 99214; 99215; G0463; J2506; J9000; J9070; J9073; A9270; J1100; J1200; J1453; J1642; J2405; J2469; J3480; J7030; J7050; J9267; S0028

== ENCOUNTER 2023-01-24 06:27 | Inpatient (IN) | payer OTHER, SELFPAY ==
[2023-01-24] VITALS (20 sets, daily range): BP systolic 108–144; BP diastolic 69–95; PULSE 88–101; RESP 14–18; TEMP 36.1–37.4; O2SAT 90–99; BMI 48.1
--- NOTE | 2023-01-24 | CRLHL7_ITS ---
For Patients: As a result of the Cures Act, medical imaging exams and procedure reports are released immediately into your electronic medical record. You may view this report before your referring provider. If you have questions, please contact your health care provider. PLEASE SEE ULTRASOUND-GUIDED RIGHT BREAST WIRE LOCALIZATION PERFORMED SAME DAY CRL:[email or web address] malloy/Dictated by: Wesley Connor MD @ 01/24/2023 9:43:00 AM (Electronically Signed)
--- OUTSIDE RECORDS SUMMARY | 2023-01-24 06:30 | XMS_ITS | Continuity of Care Document ---
Author Name [facility] Care Team Providers Care Trauma Manager Name Role Phone [facility] Unavailable Unavailable Problems Problem Status Onset Date Classification Date Reported Comments Source Hypertensive disorder, systemic arterial (disorder) Active 04/08/2020 [facility] Internal Medicine [facility] Seasonal allergy (disorder) Active 04/08/2020 [facility] Internal [facility] Syncope and collapse 06/07/2019 [facility] Essential (primary) hypertension 06/07/2019 [facility] Type 2 diabetes mellitus without complications 06/06/2019 [facility] 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 06/07/2019 [facility] Allergy status to penicillin 06/07/2019 [facility] Allergy status to sulfonamides status 06/07/2019 [facility] shelter (current) use of aspirin 06/07/2019 [facility] Medications Medication Details Route Status Patient Instructions Ordering Provider Order Date Source 60 ACTUAT Budesonide 0.08 MG/ACTUAT Dry Powder Inhaler [Pulmicort] 0, Maintenance Active 2019 [facility] Pulmicort Flexhaler 90 mcg/inh 0, Maintenance Active 2019 [facility] Internal Medicine [facility] Fluticasone propionate 0.05 MG/ACTUAT Metered Dose Nasal [place] [Flonase] 0, Maintenance Active 2019 [facility] Aspirin 81 mg, Tab, Chew, PO, Daily, Qty: 0 Tab, 0, Maintenance Active 2019 [facility] Omeprazole 20 mg, Cap, PO, qDay, Qty: 90 Cap, 0, Maintenance Active 2019 [facility] Hydrochlorothiazide 12.5 MG / Losartan Potassium 50 MG Oral Tablet 0, Maintenance Active 2019 [facility] Mirapex 0.125 mg, Tab, PO, BID, Qty: 90 Tab, 0, Maintenance Active 2019 [facility] Zyrtec 10 mg, Tab, PO, qDay, PRN, Allergy symptoms, Qty: 30 Tab, 0, Maintenance Active 2019 [facility] Allergies, Adverse Reactions, Alerts Substance Category Reaction Severity Reaction type Status Date Reported Comments Source penicillin Assertion Unknown Unknown Drug allergy Active [facility] sulfa drugs Assertion Unknown Unknown Drug allergy Active [facility] Results Order Name Results Value Reference Range Date Interpretation Comments Source CMP Sodium 137 134 - 144 05/29 [facility] CMP Potassium 4.1 3.5 - 5.1 05/29 [facility] CMP Chloride 102 98 - 107 05/29 [facility] CMP CO2 24 22 - 29 05/29 [facility] CMP Glucose Level 176 70 - 99 05/29 [facility] [place] [employer] (ADA) Guidelines: Optimal fasting blood glucose is below 100 mg/dL. A person with pre-diabetes has a fasting blood glucose of 100-125. [facility] CMP BUN 22 10 - 20 05/29 H [facility] CMP Creatinine 1.08 0.57 - 1.11 05/29 Result is ID-GC/MS standardized [facility] CMP Anion Gap 15 5 - 15 05/29 [facility] CMP Calcium 10.0 8.4 - 10.2 05/29 [facility] CMP Protein, Total 7.6 6.4 - 8.3 05/29 [facility] CMP Albumin 3.9 3.4 - 5.0 05/29 [facility] CMP Alkphos 77 40 - 150 05/29 [facility] CMP ALT 26 0 - 55 05/29 [facility] CMP AST 21 5 - 34 05/29 [facility] CMP Bili Total 0.4 0.2 - 1.2 05/29 [facility] CMP eGFR Non- Am 52 05/29 NA NORMALIZED FOR ID-GC/MS STANDARDIZED CREATININE (NON-AF AMR=NON-, AF AMR=) KIDNEY DAMAGE STAGES FROM THE [facility] ---- STAGE 1 and 2 >60 mL/min/1.73 square meters STAGE 3 30-59 mL/min/1.73 square meters STAGE 4 15-29 mL/min/1.73 square meters STAGE 5 <14 mL/min/1.73 square meters [facility] CMP eGFR Afr/Amer >60 05/29 NA NORMALIZED FOR ID-GC/MS STANDARDIZED CREATININE (NON-AF AMR=NON-, AF AMR=) KIDNEY DAMAGE STAGES FROM THE [facility] ---- STAGE 1 and 2 >60 mL/min/1.73 square meters STAGE 3 30-59 mL/min/1.73 square meters STAGE 4 15-29 mL/min/1.73 square meters STAGE 5 <14 mL/min/1.73 square meters [facility] CMP Globulin 3.7 2.5 - 4.1 05/29 [facility] CMP A/G Ratio 1.1 0.8 - 1.6 05/29 [facility] CMP Drug Calc Weight (kg) 125.800 05/29 [facility] CMP Height (cm) 170.180 05/29 - Unless otherwise noted, tests performed at the following location: - [facility] Lipase Lipase 34.0 8.0 - 78.0 05/29 - Unless otherwise noted, tests performed at the following location: - [facility] Mg Mg 1.9 1.6 - 2.6 05/29 - Unless otherwise noted, tests performed at the following location: - [facility] Troponin-I Troponin I 0.00 - <=0.30 05/29 - Unless otherwise noted, tests performed at the following location: - [facility] BNP B-Natriureti c Peptide 4.5 0.0 - 100.0 05/29 - Unless otherwise noted, tests performed at the following location: - [facility] CBC w/Diff WBC 11.0 4.8 - 10.8 05/29 H [facility] CBC w/Diff RBC 4.41 4.00 - 5.40 05/29 [facility] CBC w/Diff Hgb 13.2 11.5 - 16.0 05/29 [facility] CBC w/Diff Hct 40.3 37.0 - 47.0 05/29 [facility] CBC w/Diff MCV 91.5 80.0 - 100.0 05/29 [facility] CBC w/Diff MCH 30.0 27.0 - 34.0 05/29 [facility] CBC w/Diff MCHC 32.8 32.0 - 37.0 05/29 [facility] CBC w/Diff RDW 14.3 11.5 - 16.0 05/29 [facility] CBC w/Diff Plt 399 130 - 400 05/29 [facility] CBC w/Diff Neuts 71.6 35.0 - 80.0 05/29 [facility] CBC w/Diff Lymphs 19.8 10.0 - 55.0 05/29 [facility] CBC w/Diff Monos. 5.3 0.0 - 15.0 05/29 [facility] CBC w/Diff Eos. 2.5 0.0 - 9.0 05/29 [facility] CBC w/Diff Baso. 0.8 0.0 - 3.0 05/29 [facility] CBC w/Diff ABS Neut 7.9 1.7 - 8.6 05/29 [facility] CBC w/Diff ABS Lymph 2.2 0.5 - 5.9 05/29 [facility] CBC w/Diff ABS [place] 0.6 0.0 - 1.6 05/29 [facility] CBC w/Diff ABS Eos 0.3 0.0 - 1.0 05/29 [facility] CBC w/Diff ABS Baso 0.1 0.0 - 0.3 05/29 [facility] CBC w/Diff CBC Scan Auto Diff 05/29 - Unless otherwise noted, tests performed at the following location: - [facility] D Dimer Qt D-Dimer, Quant. 0.34 0.00 - 0.50 05/29 This D-dimer assay is FDA-approved to be used as a negative predictor of venous thromboembolism with a cutoff of <0.50 ug/mL FEU. Clinical correlation required. - Unless otherwise noted, tests performed at the following location: - [facility] Cardiac Troponin I 0.00 <=0.30 ng/mL 05/29 [facility] Cardiac B-Natriureti c Peptide 4.5 0.0 - 100.0 05/29 [facility] CBC CBC Scan Auto Diff (05/29/19 11:34 PM) 05/29 [facility] CBC WBC 11.0 4.8 - 10.8 05/29 [facility] CBC RBC 4.41 4.00 - 5.40 05/29 [facility] CBC Hgb 13.2 11.5 - 16.0 05/29 [facility] CBC Hct 40.3 37.0 - 47.0 05/29 [facility] CBC MCV 91.5 80.0 - 100.0 05/29 [facility] CBC MCH 30.0 27.0 - 34.0 05/29 [facility] CBC MCHC 32.8 32.0 - 37.0 05/29 [facility] CBC RDW 14.3 11.5 - 16.0 05/29 [facility] CBC Plt 399 130 - 400 05/29 [facility] CBC Neuts 71.6 35.0 - 80.0 05/29 [facility] CBC Lymphs 19.8 10.0 - 55.0 05/29 [facility] CBC Monos. 5.3 0.0 - 15.0 05/29 [facility] CBC Eos. 2.5 0.0 - 9.0 05/29 [facility] CBC Baso. 0.8 0.0 - 3.0 05/29 [facility] CBC ABS Neut 7.9 1.7 - 8.6 05/29 [facility] CBC ABS Lymph 2.2 0.5 - 5.9 05/29 [facility] CBC ABS [place] 0.6 0.0 - 1.6 05/29 [facility] CBC ABS Eos 0.3 0.0 - 1.0 05/29 [facility] CBC ABS Baso 0.1 0.0 - 0.3 05/29 [facility] General Chemistry Lipase 34.0 8.0 - 78.0 05/29 [facility] General Chemistry Mg 1.9 1.6 - 2.6 05/29 [facility] General Chemistry Glucose Level 176 70 - 99 05/29 [facility] General Chemistry BUN 22 10 - 20 05/29 [facility] General Chemistry Creatinine 1.08 0.57 - 1.11 05/29 [facility] General Chemistry Sodium 137 134 - 144 05/29 [facility] General Chemistry Potassium 4.1 3.5 - 5.1 05/29 [facility] General Chemistry Chloride 102 98 - 107 05/29 [facility] General Chemistry CO2 24 22 - 29 05/29 [facility] General Chemistry Calcium 10.0 8.4 - 10.2 05/29 [facility] General Chemistry Protein, Total 7.6 6.4 - 8.3 05/29 [facility] General Chemistry Albumin 3.9 3.4 - 5.0 05/29 [facility] General Chemistry AST 21 5 - 34 05/29 [facility] General Chemistry ALT 26 0 - 55 05/29 [facility] General Chemistry Alkphos 77 40 - 150 05/29 [facility] General Chemistry Bili Total 0.4 0.2 - 1.2 05/29 [facility] General Chemistry Anion Gap 15 5 - 15 05/29 [facility] General Chemistry Globulin 3.7 2.5 - 4.1 05/29 [facility] General Chemistry A/G Ratio 1.1 0.8 - 1.6 05/29 [facility] General Chemistry eGFR Non- Am 52 05/29 [facility] General Chemistry eGFR Afr/Amer >60 05/29 [facility] Diagnostic Reports Report Value Date Source [...] N A L * * * 05/30/2019 [facility] Electrocardiogram Ordered in ED- [facility] Stationary ECG Study CRM [address] [place] [address] Test Date: 2019-05-29 Pat Name: MAT LUCIA Department: Room: 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1960 Requested By: Jeramie Arce Order Number: [id number] Reading MD: Jefry GUERRA Measurements Intervals [place] Rate: 88 P: 38 [place]: 124 QRS: 30 QRSD: 90 T: 19 QT: 356 QTc: 432 Severity: Normal ECG Interpretive Statements SINUS RHYTHM Normal ECG No previous ECG available for comparison Electronically Signed On 05-30-2019 14:31:14 MST by Jefry GUERRA 05/30/2019 [facility] Electrocardiogram Stationary ECG Study AUC [address] [place] [address] Test Date: 2019-05-29 Pat Name: MAT LUCIA Department: Room: 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 Evaluation and management service: I agree [...] for malignant arrhythmia intervals are grossly unremarkable. [place] is normal. Chest x-ray no obvious infiltrates [...] Viraj Pedersen DO On 05/30/19 00:58 05/30/2019 [facility] ED Physician Notes Patient: MAT LUCIA (EV) Age: 59 years Sex: F : 1960 Associated Diagnoses: None Author: Henry Vargas Physician Saw Grinder Basic Information Time seen: Provider Initial Contact [...] . Electronically Signed By: Henry Vargas Physician Saw Grinder On 05/30/19 01:04 Co Signature By: Viraj Pedersen DO On 05/31/19 23:40 Modify Signature By: Henry Vargas Physician Saw Grinder On 05/30/19 01:04 05/30/2019 [facility] ED Physician Notes Patient: MAT LUCIA [...] femae with HTN and DM flew to [place] yesterday, and is here visiting family. She [...] History Medical history: All Problems Hypertension / [id number] / Confirmed Seasonal allergies / [id number] / Confirmed. Surgical history: No active procedure [...] , she agrees, to take her to [facility] by POV. Electrocardiogram: Rate 91, normal sinus rhythm, No ST-T changes, no ectopy, normal [place] and QRS intervals. Impression and Plan Near syncope ([id number], Discharge, Medical) Plan Condition: Stable. Disposition: Discharged: Time 05/29/2019 21:33:00, to home. Patient was given the following educational materials: Near-Syncope, [id number]. Follow up with: GO directly to [facility]- ER for evaluation and care Within As soon as possible. Counseled: Patient, Family, Regarding diagnosis, Regarding diagnostic results, Regarding prescription, Patient indicated understanding of instructions. Orders: Launch Orders Admit/Transfer/Discharge: Discharge (Order Processing): 05/29/2019 21:34 MST, Now, Transfer to other Hospital, POV to [facility]. Electronically Signed By: Huyen Perdomo PA-C On 05/29/19 21:34 Co Signature By: Dano Andersen DO On 05/30/19 17:09 Modify Signature By: 05/30/2019 [facility] Vital Signs Vital Sign Value Date Comments Source Systolic (mm Hg) 121 05/30/2019 [facility] Diastolic (mm Hg) 82 05/30/2019 [facility] Respiratory Rate 16 Breaths/Min 05/30/2019 [facility] SPO2 98 05/30/2019 [facility] Heart Rate (bpm) 87 05/30/2019 [facility] Glucose Level (mg/dL) 176 05/30/2019 [facility] Sensory Deficits None (05/29/19 11:18 PM) 05/30/2019 [facility] Temperature (c) 36.7 05/30/2019 [facility] Systolic (mm Hg) 128 05/30/2019 [facility] Diastolic (mm Hg) 84 05/30/2019 [facility] Heart Rate (bpm) 94 05/30/2019 [facility] Respiratory Rate 20 Breaths/Min 05/30/2019 [facility] SPO2 96 05/30/2019 [facility] Oxygen Method Room air (05/29/19 11:18 PM) 05/30/2019 [facility] Pain Scale Numeric Rating Scale (05/29/19 11:18 PM) 05/30/2019 [facility] Living Situation Lives with spouse (05/29/19 11:18 PM) 05/30/2019 [facility] Height (cm) 170.18 05/30/2019 [facility] Weight Method Actual (05/29/19 11:18 PM) 05/30/2019 [facility] Drug Calc Weight (kg) 125.8 05/30/2019 [facility] BMI 43.44 05/30/2019 [facility] Systolic (mm Hg) 107 05/30/2019 [facility] Diastolic (mm Hg) 73 [facility] Sensory Deficits None (05/29/19 8:43 PM) 05/30/2019 [facility] Temperature (c) 36.5 05/30/[facility] Systolic (mm Hg) 93 05/30[facility]2019 [facility] Diastolic (mm Hg) 65 05/30/2019 [facility] Heart Rate (bpm) 100 05/30/2019 [facility] Respiratory Rate 14 Breaths/Min 05/30/2019 [facility] SPO2 95 05/30[facility] Pain Scale Numeric Rating Scale (05/29/19 8:43 PM) 05/30/2019 [facility] Height (cm) 170.18 05/30/2019 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 Emergency [id number] Viraj Allenoud 05/29 [facility] Social History Social History Date Source Social History TypeResponse Smoking Status Never (less than 100 in lifetime) entered on: 05/29/19 05/30/2019 [facility] Care Social History TypeResponse Smoking Status Never (less than 100 in lifetime) entered on: 05/29/19 05/30/2019 [facility] nter Social History TypeResponse Smoking Status Never (less than 100 in lifetime) entered on: 05/29/19 Sex 05/30/2019 [facility] - S tKary Alvarado's Assessment and Plan Result Assessment and Plan Date Source Assessment and Plan No data available fo r this section 04/08/2020 [facility] Internal Medicine [facility]'s Assessment and Plan No data available fo r this section 05/30/2019 [facility] Assessment and Plan No data available fo r this section 05/30/2019 [facility]
--- OUTSIDE RECORDS SUMMARY | 2023-01-24 06:30 | XMS_ITS | Continuity of Care Document ---
Author Name Unknown Organization [facility] Address [address] [address] [place] [address] Phone Care Team Providers Care Photovoltaic Technician Name Role Phone Ramakrishna Rodriguez MD Unavailable Unavailable Advance Directives Directive Yes / No Effective Date File Name No Information Encounters Encounter Description Practice Location Reason(s) For Visit Diagnoses Date Provider Providers Copied on Encounter [facility], [address] [address], [place], [place], [id number], [place] tel:[phone] [facility] No Information Michael Durbin. [address], [place], [place], [id number] , [place]. tel:[phone] Referring Provider: Kavitha CHAVEZ , [address] [place], [address]. tel:[phone] Family History Family Member Type Diagnosis Age At Onset No Information Payers Payer name Insurance type Covered libertarian ID Authoriza tion(s) No Information Social History [...]
--- OUTSIDE RECORDS SUMMARY | 2023-01-24 06:30 | XMS_ITS | Continuity of Care Document ---
Author Name Unknown Organization [facility] Address [address] [place] [address] Phone Care Team Providers Care Production Lead Name Role Phone Chay Engel DO Unavailable [...] D deficiency has been defined by the [place] ofMedicine and an Endocrine Society practice guideline as alevel of serum 25-OH vitamin D less than 20 ng/mL (1,2).The Endocrine Society went on to further define vitamin Dinsufficiency as a level between 21 and 29 ng/mL (2).1. IOM ([place] of Medicine). 2010. Dietary reference intakes for [...] [facility], [address], [place], [place], [facility], tel:[phone] No Information 3 Toro Cartwright. [facility] [address], [place], [address], . tel:[phone] Family History Family Member Type Diagnosis Age [...]
--- NOTE | 2023-01-24 08:00 | CRLHL7_ITS ---
For Patients: As a result of the Century Cures Act, medical imaging exams and procedure reports are released immediately into your electronic medical record. You may view this report before your referring provider. If you have questions, please contact your health care provider. 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 Injection for sentinel lymph node scintigraphy. FINDINGS: The on-site staff obtained informed consent. The on-site staff discussed the risks and benefits of the procedure. The patient agreed to proceed. The on-site staff utilized sterile technique. Subsequently, 820 microcuries technetium filtered sulfur colloid was injected within an intradermal location superior and lateral to the right nipple-areolar complex. The patient tolerated the injection well. No immediate complications. No subsequent imaging. IMPRESSION: Technically successful right breast injection for sentinel lymph node scintigraphy. Dictated by Artie West MD @ 01/24/2023 1:49:18 PM (Electronically Signed)
--- NOTE | 2023-01-24 08:05 | SUR.PREOP ---
0800: PATIENT WAITING TO SEE DR. ANGELES BEFORE BEING TAKEN TO [facility]
--- NOTE | 2023-01-24 08:15 | CRLHL7_ITS ---
For Patients: As a result of the Cures Act, medical imaging exams and procedure reports are released immediately into your electronic medical record. You may view this report before your referring provider. If you have questions, please contact your health care provider. RIGHT AXILLARY LYMPH NODE WIRE LOCALIZATION USING ULTRASOUND GUIDANCE CLINICAL HISTORY: Breast cancer, presents for mastectomy and axillary node dissection. LATERALITY: RIGHT axilla. LESION: Enlarged RIGHT axillary lymph node previously biopsied. LOCALIZATION WIRE: [place] hookwire. TECHNIQUE: The localization wire was placed using real-time ultrasound guidance with image documentation. Medial-lateral digital mammogram was obtained after localization wire placement. CONSENT and TIME OUT: The procedure, risks, and alternatives were explained to the patient and a consent was signed. [place] Protocol was followed including pre-procedure verification that relevant information/documentation was available, reviewed and properly matched to the patient; consent accurate and complete; and equipment and supplies available. Time Out was conducted just prior to starting procedure to verify the four required elements: patient identity, correct side/site marked (if applicable), procedure, relevant images/results properly labeled and displayed (if applicable). PROCEDURE: The skin was prepped with ChloraPrep. 6 cc 1 percent lidocaine used for local anesthesia. The localization wire was placed within or near the targeted RIGHT axillary lymph node lesion using ultrasound guidance. The patient tolerated the procedure well. PROXIMITY OF WIRE TO LESION: The wire is within the lesion. IMPRESSION: Successful RIGHT axillary lymph node wire localization. ACR not applicable Dictated by Wesley Connor MD @ 01/24/2023 9:42:45 AM jj/Dictated by: Wesley Connor MD @ 01/24/2023 9:42:00 AM (Electronically Signed)
[2023-01-24] MEDS: ISOSULFAN BLUE 5 ML VIAL INJECTION (09:45)
[2023-01-24] MEDS: CEFAZOLIN 1 GM inj 3 GM IVP (10:00)
[2023-01-24] MEDS: LACTATED RINGERS 1000 ML 1,000 ML 100 ML IV (10:30)
--- NOTE | 2023-01-24 11:41 | CRLHL7_ITS ---
For Patients: As a result of the Cures Act, medical imaging exams and procedure reports are released immediately into your electronic medical record. You may view this report before your referring provider. If you have questions, please contact your health care provider. RIGHT BREAST SPECIMEN RADIOGRAPH CLINICAL HISTORY: RIGHT breast cancer, axillary node dissection. COMPARISON: 10/10/2022. FINDINGS: Two views of the specimen demonstrate the biopsied lymph node, the biopsy clip and the localization wire. IMPRESSION: The specimen contains the biopsied lymph node, biopsy clip and the localization wire. ACR not applicable Dictated by Wesley Connor MD @ 01/24/2023 12:23:09 PM jj/Dictated by: Wesley Connor MD @ 01/24/2023 12:23:00 PM (Electronically Signed)
--- NOTE | 2023-01-24 12:18 | W.ANESCHARGE ---
Anesthesia Charges Start Date/Time Anesthesia Start Date: 01/24/23 Anesthesia Start Time: 09:35 Stop Date/Time Anesthesia Stop Date: 01/24/23 Anesthesia Stop Time: 14:32
--- NOTE | 2023-01-24 12:19 | W.PM.NB ---
Nerve Block Nerve Block Time Seen by Provider: 09:40 Date Seen: 01/24/23 Type of block requested by surgeon for post-operative analgesia: intercostal (PECS 1 & 2) and intercostal add on Side: bilateral Time out performed: Yes Verification of patient name: Yes Verification of date of : Yes Site marking: site marked Name of person performing procedure: Henrique Continuous monitoring Was continuous monitoring of O2 sat, B/P, quality assurance monitor body, recorded every 15 minutes?: Yes Procedure Checklist: sterile prep, needles and gloves Ultrasound guided. Images saved: Yes Medications given in 5ml increments after negative aspiration: Marcaine %: 0.25 mL: 30 Needle gauge: 20 and Exparel mL: 20 Needle gauge: 20 Patient tolerated procedure well: Yes Block Charges Block Charge (with Pro Fee): Intercostal Nerve Block Use of Ultrasound Machine for Block: Yes- US Guidance/pain block
--- NOTE | 2023-01-24 13:49 | W.ANESCHARGE ---
Anesthesia Charges Start Date/Time Anesthesia Start Date: 01/24/23 Anesthesia Start Time: 09:35 Stop Date/Time Anesthesia Stop Date: 01/24/23 Anesthesia Stop Time: 14:32
--- NOTE | 2023-01-24 14:44 | P.GSOP_ITS ---
Operative Note Pre-op diagnosis: 1. Right invasive lobular carcinoma metastatic to right axilla s/p neoadjuvant chemotherapy. Post-op diagnosis: Same Type of Procedure: 1. Left prophylactic matti wing mastectomy. 2. Right therapeutic matti wing mastectomy. 3. Excision of previously biopsied wire localized right axillary node. 4. Right sentinel lymph node biopsy. 5. Right axillary node dissection. Indications: 62-year-old female with right breast invasive lobular carcinoma diagnosed in June 2022 s/p neoadjuvant chemotherapy was seen in clinic for discussion of surgical treatment her breast cancer. Patient's right breast cancer was located at 10:00 10 cm from the nipple and was characterized as 2.4 x 2.0 spiculated lesion. Pathology showed this to be invasive lobular carcinoma with associated LCIS, ER/IN positive and HER2 negative. She also had enlarged right axillary lymph nodes, and biopsy of one of the larger nodes showed metastatic focus of lobular carcinoma measuring up to 9 mm. Patient's bilateral breast MRI in July 2022 showed mass and non-mass enhancement in the right upper outer breast that was measuring 10 x 7.3 cm. The biopsy clip was questionably seen along the lateral right and mid aspect of the area of enhancement. Patient also had right lymphadenopathy. Patient's neoadjuvant chemotherapy was stopped short of one treatment due to side effects of chemo. Discussion of surgical options was held with the patient. Patient elected to proceed with bilateral mastectomy without reconstruction and right sentinel lymph node biopsy. We were also planning to excise the right axillary lymph node that was previously biopsied. The procedure was discussed in detail. The risks associated procedure including infection, bleeding, the need for additional procedures, and lymphedema were all discussed with the patient. 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 Procedure Description: After discussing the risks and benefits of the procedure, the patient signed informed consent.? The operative site was marked and the patient was brought to the operating room and placed on the operating table in supine position.? Care was taken to pad the patient's pressure points.?? The patient was then intubated by anesthesia.??Bilateral PEC blocks were administered by Anesthesia. The operative site was then prepped and draped in the usual sterile fashion.? A time-out was then performed. I first proceeded with the left prophylactic matti wing mastectomy. An elliptical skin incision was made in the left breast along the previously marked incisions around the nipple-areolar complex using a scalpel. This incision was carried laterally to the superior flank to create Matti wing mastectomy.? Dermis was divided with cautery.? Rakes and Sincere retractors were used for retraction throughout the case.? Skin flaps were developed circumferentially in a relatively avascular placed between subcutaneous fat and breast tissue using manual traction between the skin flaps and breast tissue.? Dissection was performed to just below the clavicle superiorly, to the lateral border of pectoralis major muscle laterally, to the sternal border medially, and to the inframammary fold inferiorly.? Laterally the skin and subcutaneous fat was dissected down to the muscle fascia. This was included with the mastectomy. All of the dissection was done with cautery. Hemostasis throughout the case was achieved with cautery and Vicryl ties. An enlarged but soft to palpation lymph node was identified in the left axilla. This was excised with cautery and sent to pathology. ? When the breast tissue was dissected circumferentially, it was then removed in a medial to lateral fashion from Pectoralis using electrocautery. The pectoralis major fascia was included with the specimen. The specimen was labeled for orientation with a single stitch at 12:00 and sent to pathology. On gross examination by pathology no abnormalities were noted in the left breast. Mastectomy cavity was irrigated with normal saline.? Hemostasis was achieved with cautery.? A 15F Jas drain was placed inferior and lateral to the breast through a small stab incision and secured in place with nylon suture. The edges of surgical incision were re-approximated using interrupted 2-0 and 3-0 Vicryl sutures.? The skin was closed with a running subcuticular 4-0 Monocryl stitch. I then proceeded with the right therapeutic mastectomy. Similarly, an marshall ptical skin incision was made in the right breast along the previously marked incisions around the nipple-areolar complex using a scalpel. This incision was carried laterally to the superior flank to create Matti wing mastectomy.? Dermis was divided with cautery.? Rakes and Sincere retractors were used for retraction throughout the case.? Skin flaps were developed circumferentially in a relatively avascular placed between subcutaneous fat and breast tissue using manual traction between the skin flaps and breast tissue.? Dissection was performed to just below the clavicle superiorly, to the lateral border of pectoralis major muscle laterally, to the sternal border medially, and to the inframammary fold inferiorly.? Laterally, the skin and subcutaneous fat was dissected down to the muscle fascia. This was included with the mastectomy. All of the dissection was done with cautery. Hemostasis throughout the case was achieved with cautery and Vicryl ties. I then proceeded with excision of the previously biopsied right axillary lymph node that was wire localized preoperatively by Radiology. Axillary fat was divided with cautery. The dissection was guided by the wire down to the axill marlon tissue that was firm on palpation. The axillary tissue around the wire was excised with cautery. The lymph node was firm on palpation. This was sent to mammography to confirm presence of the clip and the wire, and both of them were confirmed by mammography. The lymph node was then sent to pathology for frozen section. I then proceeded with right axillary sentinel lymph node biopsy. Radioactive tracer was personally injected by me near the right nipple at least an hour prior to patient's surgery. Five ml (milliliters) of Lymphazurin blue was personally injected by me near the right nipple for sentinel lymph node identification. A Nitish counter was brought onto the field in the right axilla through the mastectomy incision to identify the best area for the sentinel node biopsy. Weeks seek no was noted in the right axilla. However matted firm to palpation nodes were palpable. I was finally able to find a lymph node with a count of 126. This was excised with cautery and sent to pathology as sentinel lymph node 1. This node was not green. Axillary nancy tissue was examined again with the Nitish counter and and no additional significant signal was identified. Additional enlarged right axillary node was palpated. This was excised with cautery and sent to pathology. No radioactive signal was noted in this node. Hemostasis was achieved with cautery. Additional enlarged firm to palpation lymph node was excised and sent to pathology for frozen section. While pathology was examined in the lymph nodes, we proceeded with removing the right breast off the pectoralis fascia. This was done with cautery. The right breast was then marked with a stitch at 12:00 and sent to pathology for examination of margins. When the breast was removed, it was sent to pathology. Pathologist was able to identify the tumor and felt that the margins were negative. The sentinel lymph node and previously biopsied right axillary nodes were examined grossly and was frozen section and both contained evidence of cancer cells. Given this finding, I elected to proceed with axillary node dissection on the right. The superior border of the axilla was identified as a right axillary vein. Axillary fat below the axillary vein was placed under tension and carefully dissected off with cautery. Axillary fat posterior to the pectoralis minor was also pulled out and dissected off to be included with the specimen. Thoracodorsal bundle was identified and retracted laterally. Long thoracic nerve was identified medially and was overlying serratus anterior muscle. This was left undisturbed. Care was taken not to injure those structures during the dissection. The attempts were made to spare the intercostal brachial cutaneous nerves during this dissection but I was not able to spare those. Axillary fat was then further mobilized with cautery and when it was free, it was then removed. This was sent to pathology as the right axillary node dissection. Two drains were placed in the right axillary space and the right mastectomy space through a separate skin incisions just inferior to the lateral mastectomy incision. The lateral right drain was the axillary drain. The drains were secured in place with nylon sutures. The mastectomy cavity was then irrigated with normal saline. Hemostasis was achieved with cautery. The incision was then closed in layers with interrupted 2-0 in 3-0 Vicryl sutures. The skin was closed with a running 4-0 Monocryl stitch. Steri-Strips were placed over bilateral mastectomy incisions. The incisions were then covered with Kerlix fluffs and ABD pads. The drain sponges were placed under the drains, and the chest was wrapped with an Mack wrap. All counts were correct at the end of the case. The patient tolerated this procedure well and was transferred to the?PACU in stable condition. Findings: Matted firm to palpation right axillary nodes. Frozen section confirmed presence of tumor in the axillary nodes. Anesthesia: GETA Surgeon: Dawson Marshall MD Estimated blood loss (mL): 30 Additional Specimen Information: 1. Left breast (2254 g). 2. Left axillary lymph node. 3. Previously biopsied right axillary node (wire localized). 4. Right axillary sentinel lymph node #1. 5. Right breast (2354 g). 6. Additional enlarged right axillary node. 7. Right axillary node dissection. Condition: stable Disposition: PACU Date of procedure: 01/24/23
--- NOTE | 2023-01-24 15:28 | P.IMCN_ITS ---
Date of Consult Patient: [facility] Patient Consult date: 01/24/23 Requesting Physician: General Surgery Primary Care Provider: Lyly Cooper, Consult Narrative Reason for consult: Medical management Narrative: Evita Benjamin is a 62 year old female past medical history significant for diabetes mellitus with neuropathy, hypertension, dyslipidemia, restless legs syndrome, allergic asthma, right breast cancer is POD#0 s/p bilateral mastectomy with right sentinel lymph node biopsy and Right axillary node dissection (Dr. Marshall). Patient reports pain is currently 2/10 with mild burning pain. Is still tired postoperatively. Denies nausea or vomiting. Tolerating ice chips. Review of Systems Narrative: Insert review of systems PFSH PFSH Medical History Peripheral sensory neuropathy due to type 2 diabetes mellitus ?E11.42 - Type 2 diabetes mellitus with diabetic polyneuropathy (ICD-10) Cataract ?H26.9 - Unspecified cataract (ICD-10) Primary cancer of right breast ?C50.911 - Malignant neoplasm of unspecified site of right female breast (ICD-10) Osteopenia ?M85.80 - Other specified disorders of bone density and structure, unspecified site (ICD-10) Controlled diabetes mellitus ?E11.9 - Type 2 diabetes mellitus without complications (ICD-10) Synovial cyst ?M71.30 - Other bursal cyst, unspecified site (ICD-10) Chondromalacia ?M94.20 - Chondromalacia, unspecified site (ICD-10) Adenomatous polyp of colon ?D12.6 - Benign neoplasm of colon, unspecified (ICD-10) Vitamin D deficiency ?E55.9 - Vitamin D deficiency, unspecified (ICD-10) Restless leg syndrome ?G25.81 - Restless legs syndrome (ICD-10) Allergic asthma ?J45.909 - Unspecified asthma, uncomplicated (ICD-10) Seasonal allergies ?J30.2 - Other seasonal allergic rhinitis (ICD-10) Dyslipidemia ?E78.5 - Hyperlipidemia, unspecified (ICD-10) Hypertension ?I10 - Essential (primary) hypertension (ICD-10) Surgical History [place] teeth extracted ?K08.409 - Partial loss of teeth, unspecified cause, unspecified class (ICD- 10) H/O detached retina repair ?Z98.890 - Other specified postprocedural states (ICD-10) ?Z86.69 - Personal history of other diseases of the nervous system and sense organs (ICD-10) H/O cataract extraction ?Z98.49 - Cataract extraction status, unspecified eye (ICD-10) History of dilation and curettage ?Z98.890 - Other specified postprocedural states (ICD-10) History of ankle surgery ?Z98.890 - Other specified postprocedural states (ICD-10) Family History Father Multiple myeloma Social History Narrative: Social history 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 She lives [place] with her . They have 2 adult sons and 5 grandchildren; they all live within a few hours of her home. She quit smoking 30 years ago and previously had only smoked socially in bars. She has 1-2 drinks a month. No vaping, tobacco use, other drug use. Physical activity is limited by si gnificant ankle pain; she ambulates with a cane as needed. Smoking Status: Former smoker How often do you have a drink containing alcohol: 2-4 times a month Alcohol type: beer and hard liquor How many standard drinks containing alcohol do you have on a typical day: 1 or 2 How often do you have six or more drinks on one occasion: Never AUDIT-C Alcohol total score: 2 Non-prescribed substance use: denies use Caffeine: Yes (1-2c/day) Are you using contraception or practicing any form of control: No Meds Home Medications and Allergies Home Medications Medication Instructions Recorded Confirmed Type CBD oil PO 08/08/22 12/19/22 History acetaminophen 500 mg oral powder 1,000 mg PO Q6H PRN 08/08/22 01/24/23 History packet (Tylenol Extra Strength) albuterol sulfate 90 mcg/actuation 90 mcg inhalation QID PRN 08/08/22 01/20/23 History aerosol inhaler ezetimibe 10 mg tablet 10 mg PO HS 08/08/22 01/24/23 History fluticasone furoate 200 1 inh inhalation DAILY 08/08/22 01/20/23 History mcg/actuation blister powder for inhalation (Arnuity Ellipta) hydrochlorothiazide 25 mg tablet 25 mg PO DAILY 08/08/22 01/20/23 History lisinopril 40 mg tablet 40 mg PO DAILY 08/08/22 01/20/23 History omeprazole 20 mg capsule,delayed 20 mg PO DAILY 08/08/22 01/24/23 History release fexofenadine 180 mg tablet 180 mg PO DAILY 08/15/22 01/20/23 History (Sole Allergy) loratadine 10 mg tablet (Claritin) 10 mg PO DAILY PRN 11/07/22 01/24/23 History ropinirole 1 mg tablet 2 mg PO QPM 11/07/22 01/20/23 History metformin 500 mg tablet 1,000 mg PO BIDWM 11/29/22 01/24/23 History aspirin 81 mg tablet,delayed 81 mg PO DAILY 01/24/23 01/24/23 History release (Adult Aspirin Regimen) gabapentin 100 mg capsule 100 - 300 mg PO TID 01/24/23 01/24/23 History ropinirole 0.25 mg tablet 0.25 mg PO QPM PRN 01/24/23 01/24/23 History Allergies Allergy/AdvReac Type Severity Reaction Status Date / Time hope Allergy Severe Anaphalytic Verified 01/24/23 06:57 levofloxacin [From Levaquin] Allergy Mild Verified 01/24/23 06:57 Penicillins Allergy Mild Verified 01/24/23 06:57 [id number] Reductase Allergy Mild Verified 01/24/23 06:57 Inhibitor Sulfa (Sulfonamide AdvReac Intermediate Rash Verified 01/24/23 06:57 Antibiotics) Exam Narrative: Exam Narrative: PHYSICAL EXAM General: Lying in bed, in no acute distress HEENT: Normocephalic, atraumatic, sclera white, EOMI, oral mucosa moist Cardiovascular: RRR, S1S2. Pulmonary: CTA bilaterally without rhonchi, rales, expiratory wheezes. No dyspnea. Chest: Drains in place with serosanguineous drainage. Postoperative dressings in place, dry. Abdominal: Soft, nondistended, NTTP Neurological: Alert, answering questions appropriately, cranial nerves intact, no focal findings Extremities: No gross joint deformity or swelling. AROMI. Neurovascularly intact Skin: Warm, dry. Const: Vital Signs, click to edit/add: Vital Signs - 24 hr 01/24/23 07:53 01/24/23 14:27 01/24/23 14:30 Temperature 99.2 F 97.8 F Pulse Rate 100 98 94 Respiratory Rate 16 16 16 Blood Pressure 129/94 H 110/69 108/71 Pulse Oximetry 93 98 93 Oxygen Delivery Me thod Room Air Nasal Cannula Nasal Cannula Oxygen Flow Rate 4 4 01/24/23 14:35 01/24/23 14:40 01/24/23 14:45 Temperature Pulse Rate 96 94 98 Respiratory Rate 16 14 16 Blood Pressure 118/78 124/78 130/78 Pulse Oximetry 99 97 98 Oxygen Delivery Me thod Nasal Cannula Nasal Cannula Nasal Cannula Oxygen Flow Rate 4 4 2 01/24/23 14:50 01/24/23 14:55 01/24/23 15:00 Temperature Pulse Rate 100 100 100 Respiratory Rate 16 16 16 Blood Pressure 127/83 129/79 136/79 Pulse Oximetry 93 99 99 Oxygen Delivery Me thod Nasal Cannula Nasal Cannula Room Air Oxygen Flow Rate 2 2 Assessment and Plan Assessment and plan (1) Invasive lobular carcinoma of breast in female: Problem comment: -Right invasive lobular carcinoma metastatic to right axilla s/p neoadjuvant chemotherapy -POD#0 s/p bilateral mastectomy and Right sentinel lymph node biopsy, Right axillary node dissection -perioperative management, including pain management, and discharge recommendations per General surgery Status: Acute (2) Controlled diabetes mellitus: Problem comment: -with peripheral neuropathy. Does not routinely check blood sugars at home, A1c reported as <7 -diabetic diet when tolerated, glucose checks ACHS, low insulin sliding scale if needed -hold metformin Status: Acute (3) Hypertension: Problem comment: -blood pressure is appropriate postoperatively -home meds include lisinopril - may resume tomorrow. Plan to resume hydrochlorothiazide upon discharge Status: Acute (4) Allergic asthma: Problem comment: -encourage postoperative pulmonary hygiene, incentive spirometry, pulse oximetry checks Status: Acute Assessment and Plan: Additional chronic medical comorbidities including dyslipidemia, seasonal allergies, restless leg syndrome-continued on scheduled home medications. Otherwise plan to resume home medications upon discharge. Hospital Medicine will sign off at this time. Available for questions or concerns as they arise.
[2023-01-24] MEDS: HYDROmorphone 0.5 mg/0.5 ml inj IVP (16:10)
[2023-01-24] MEDS: ONDANSETRON 2 MG/ML inj IVP (16:19)
[2023-01-24] MEDS: ROPINIROLE HCL 1 MG TABLET 2 MG PO (18:33)
--- NOTE | 2023-01-24 19:49 | PC.NURSE ---
End of Shift.. Patient arrived to the unit @ 1520... Post bilateral mastectomy.. wrap in place... 3 LULA drains 2 on the R and 1 on the L... drainage recorded in Electronic health record... No nausea.. tolerating intake no nausea.. Administered Diluadid 1x.. with nausea after so Zofran was given... Ice pack to chest.. Varela is patent and draining blue urine.... Iv is infusing @ 100 ML hr in L Hand. Restricted extremity BP in L arm only. Patient's and sister are in the room.. they watched me strip her LULA and empty them and put them back to suction.. NO reports of pain this evening when at rest.
[2023-01-24] MEDS: GABAPENTIN 100 MG CAPSULE PO (21:06)
[2023-01-24] MEDS: MAGNESIUM OXIDE 400 MG TABLET PO (21:07)
[2023-01-24] MEDS: ACETAMINOPHEN 325 MG TABLET 650 MG PO (21:11)
--- NOTE | 2023-01-24 22:55 | PC.NURSE ---
Shift note 19-23: Pt with moderate amt of bloody drainage around L LULA site @ 1999, drsg changed, when checked again @ 2229, just scant amt noted. IV infiltrated to L radha, ok stopping fluids as po intake/UOP more than adequate, infiltration caught early as just a small amount swelling under IV site which was mostly gone 2 hours later.
[2023-01-25] MEDS: HYDROCODONE-ACETAMIN 5-325 MG 1 TAB PO (02:51)
[2023-01-25 02:55] VITALS: BP 142/81; PULSE 91; RESP 16; TEMP 36.9; O2SAT 95
[2023-01-25] MEDS: OMEPRAZOLE 20 MG CAPSULE DR PO (06:44)
--- NOTE | 2023-01-25 07:51 | PC.NURSE ---
Pt is alert and oriented x3. Pt reports 4/10 pain in left and right breast, managed with PRN medications and ice pack. Pt's chest dressings are CDI and ASHLY wraps around chest with scant dried blood on left side at bottom of ASHLY wrap.?Pt has 3 LULA drains that are patent and draining, with bloody and drainage, left LULA had some blood clots in drain. Pt?s chan catheter is patent and draining, urine is green.?Pt is up ad artur in room, and tolerating regular diet. Pt slept intermittently throughout night.?
[2023-01-25 08:00] VITALS: BP 135/91; PULSE 112; RESP 16; TEMP 37.1; O2SAT 96
--- NOTE | 2023-01-25 08:57 | PM.GSPN ---
Subjective Subjective Date Seen: 01/25/23 Interval history: Patient is doing well. Her pain is controlled with pain medication. Her drains had minimal output. She had good urine output overnight. Patient complains of crampy abdominal pain. She feels like she needs to have a bowel movement. Last bowel movement was 2 days ago. Exam Narrative: Exam Narrative: Chest: Bilateral mastectomy incisions are with dry Steri-Strips. There were no expanding hematomas in bilateral mastectomy incisions. The drains with minimal amount of bloody serosanguineous drainage. Const: Vital Signs, click to edit/add: Vital Signs - 24 hr 01/24/23 14:27 01/24/23 14:30 01/24/23 14:35 Temperature 97.8 F Pulse Rate 98 94 96 Pulse Rate [Right Pulse Oximeter] Respiratory Rate 16 16 16 Blood Pressure 110/69 108/71 118/78 Blood Pressure [Le ft Arm] Pulse Oximetry 98 93 99 Oxygen Delivery Me thod Nasal Cannula Nasal Cannula Nasal Cannula Oxygen Flow Rate 4 4 4 01/24/23 14:40 01/24/23 14:45 01/24/23 14:50 Temperature Pulse Rate 94 98 100 Pulse Rate [Right Pulse Oximeter] Respiratory Rate 14 16 16 Blood Pressure 124/78 130/78 127/83 Blood Pressure [Le ft Arm] Pulse Oximetry 97 98 93 Oxygen Delivery Me thod Nasal Cannula Nasal Cannula Nasal Cannula Oxygen Flow Rate 4 2 2 01/24/23 14:55 01/24/23 15:00 01/24/23 15:00 Temperature 97.0 F L Pulse Rate 100 100 94 Pulse Rate [Right Pulse Oximeter] Respiratory Rate 16 16 16 Blood Pressure 129/79 136/79 Blood Pressure [Le ft Arm] 134/89 Pulse Oximetry 99 99 Oxygen Delivery Me thod Nasal Cannula Room Air Nasal Cannula Oxygen Flow Rate 2 3 01/24/23 15:45 01/24/23 16:00 01/24/23 16:15 Temperature 97.0 F L 97.0 F L 97.0 F L Pulse Rate Pulse Rate [Right Pulse Oximeter] 89 90 Respiratory Rate 18 16 16 Blood Pressure Blood Pressure [Le ft Arm] 132/87 141/91 H 136/95 H Pulse Oximetry 93 98 93 Oxygen Delivery Me thod Nasal Cannula Nasal Cannula Room Air Oxygen Flow Rate 3 2 01/24/23 16:30 01/24/23 17:00 01/24/23 17:30 Temperature 97.0 F L 97.0 F L 97.0 F L Pulse Rate Pulse Rate [Right Pulse Oximeter] 90 93 96 Respiratory Rate 16 16 16 Blood Pressure Blood Pressure [Le ft Arm] 133/89 132/88 143/88 H Pulse Oximetry 93 96 98 Oxygen Delivery Me thod Room Air Room Air Room Air Oxygen Flow Rate 0 01/24/23 18:30 01/24/23 19:00 01/24/23 20:00 Temperature 97.3 F L 97.4 F L 97.7 F Pulse Rate Pulse Rate [Right Pulse Oximeter] 95 101 H 98 Respiratory Rate 18 18 18 Blood Pressure Blood Pressure [Le ft Arm] 137/91 H 144/88 H 137/79 Pulse Oximetry 95 97 98 Oxygen Delivery Me thod Room Air Room Air Room Air Oxygen Flow Rate 01/24/23 21:00 01/24/23 23:45 01/25/23 02:55 Temperature 98.6 F 99.3 F 98.4 F Pulse Rate Pulse Rate [Right Pulse Oximeter] 88 92 91 Respiratory Rate 18 18 16 Blood Pressure Blood Pressure [Le ft Arm] 142/78 H 123/75 142/81 H Pulse Oximetry 94 90 95 Oxygen Delivery Me thod Room Air Room Air Room Air Oxygen Flow Rate Progress Note: A&P Assessment and plan (1) S/P bilateral mastectomy: Status: Acute Plan 62-year-old female s/p bilateral mastectomy and right axillary node dissection POD 1. Patient is doing well postoperatively. We will add senna and milk of magnesia given patient's constipation. We will remove her Varela catheter today. Patient has a history of hypokalemia and hypomagnesemia. Will check her labs today and if those are normal, possibly home discharge today. I will also restart her home dose of hydrochlorothiazide.
[2023-01-25 09:36] LABS: Chloride* 97 mmol/L (96-114)
[2023-01-25 09:37] LABS: Potassium* 3.9 mmol/L (3.6-5.1); Sodium* 137 mmol/L (135-149)
[2023-01-25 09:39] LABS: Creatinine* 0.8 mg/dL (0.5-1.5); Est. Creatinine Clearance* 50.37; Estimated Glomerular Filt Rate 83 ml/min
[2023-01-25 09:40] LABS: Anion Gap 13 mEq/L (7-15); Blood Urea Nitrogen* 13 mg/dL (7-30); Calcium* 8.7 mg/dL (8.4-10.6); Carbon Dioxide* 27 mmol/L (20-32); Glucose* 138 mg/dL (60-115); Magnesium* 2.5 mg/dL (1.5-2.6)
[2023-01-25] MEDS: SENNOSIDES/DOCUSATE TABLET 2 TAB PO (09:50)
[2023-01-25] MEDS: GABAPENTIN 100 MG CAPSULE PO (09:51)
[2023-01-25] MEDS: lisinopriL 20 MG TABLET 40 MG PO (09:51)
[2023-01-25] MEDS: MAGNESIUM OXIDE 400 MG TABLET PO (09:51)
[2023-01-25] MEDS: hydroCHLOROthiazide 25 MG TABLET PO (09:51)
[2023-01-25] MEDS: ACETAMINOPHEN 325 MG TABLET 650 MG PO (09:52)
[2023-01-25 12:00] VITALS: BP 114/73; PULSE 94; RESP 16; TEMP 36.8; O2SAT 95
--- NOTE | 2023-01-25 14:10 | PC.NURSE ---
Discharge note: Pt alert and oriented, vitals stable, on RA. Pt rates pain 1-4/10 this shift, PRN Tylenol admin, pt declined need for PRN [place] this shift. Ice pack applied to chest throughout day, effective in treating pt's pain. Pt up SBA to bathroom. Chan removed, catheter tip intact, in AM, pt able to void 600ml within a couple hours after chan removal. Pt pleasant and cooperative. Wound dressing supplies given to pt, instructions provided to pt, pt's and pt's [id number], all questions answered for discharge paperwork, including LULA cares. Drainage recording chart given to pt as well. Pt denies concerns w/ d/c. Pt given WC ride to private car and d/c home.
--- NOTE | 2023-01-25 14:27 | P.DS_ITS ---
DS: Providers Provider Date Seen: 01/25/23 Date of admission: 01/24/23 06:27 Primary care physician: Lyly Cooper DO Admitting Clinician: Dawson Marshall MD Attending Physician on discharge: Dawson Marshall MD DS: Diagnosis Discharge Diagnosis (1) S/P bilateral mastectomy: Status: Acute DS: Summary Hospital Course Hospital Course: Patient was admitted to the hospital after she underwent bilateral mastectomy and right axillary node dissection. Patient did well postoperatively. Her drains had minimal amount of output. She did not have any expanding hematomas. Pain was controlled with p.o. medication. She was tolerating regular diet. Time Spent with Patient Time attestation: Total time spent providing and/or coordinating discharge services: Exam Narrative: Exam Narrative: Chest: Bilateral mastectomy incisions are healing well and covered by clean Steri-Strips. There is no evidence of expanding hematoma. LULA drains with minimal amount of bloody serosanguineous fluid. Const: Vital Signs, click to edit/add: Vital Signs - 24 hr 01/24/23 14:30 01/24/23 14:35 01/24/23 14:40 Temperature Pulse Rate 94 96 94 Pulse Rate [Right Pulse Oximeter] Respiratory Rate 16 16 14 Blood Pressure 108/71 118/78 124/78 Blood Pressure [Le ft Arm] Pulse Oximetry 93 99 97 Oxygen Delivery Me thod Nasal Cannula Nasal Cannula Nasal Cannula Oxygen Flow Rate 4 4 4 01/24/23 14:45 01/24/23 14:50 01/24/23 14:55 Temperature Pulse Rate 98 100 100 Pulse Rate [Right Pulse Oximeter] Respiratory Rate 16 16 16 Blood Pressure 130/78 127/83 129/79 Blood Pressure [Le ft Arm] Pulse Oximetry 98 93 99 Oxygen Delivery Me thod Nasal Cannula Nasal Cannula Nasal Cannula Oxygen Flow Rate 2 2 2 01/24/23 15:00 01/24/23 15:00 01/24/23 15:45 Temperature 97.0 F L 97.0 F L Pulse Rate 100 94 Pulse Rate [Right Pulse Oximeter] 89 Respiratory Rate 16 16 18 Blood Pressure 136/79 Blood Pressure [Le ft Arm] 134/89 132/87 Pulse Oximetry 99 93 Oxygen Delivery Me thod Room Air Nasal Cannula Nasal Cannula Oxygen Flow Rate 3 3 01/24/23 16:00 01/24/23 16:15 01/24/23 16:30 Temperature 97.0 F L 97.0 F L 97.0 F L Pulse Rate Pulse Rate [Right Pulse Oximeter] 90 90 Respiratory Rate 16 16 16 Blood Pressure Blood Pressure [Le ft Arm] 141/91 H 136/95 H 133/89 Pulse Oximetry 98 93 93 Oxygen Delivery Me thod Nasal Cannula Room Air Room Air Oxygen Flow Rate 2 01/24/23 17:00 01/24/23 17:30 01/24/23 18:30 Temperature 97.0 F L 97.0 F L 97.3 F L Pulse Rate Pulse Rate [Right Pulse Oximeter] 93 96 95 Respiratory Rate 16 16 18 Blood Pressure Blood Pressure [Le ft Arm] 132/88 143/88 H 137/91 H Pulse Oximetry 96 98 95 Oxygen Delivery Me thod Room Air Room Air Room Air Oxygen Flow Rate 0 01/24/23 19:00 01/24/23 20:00 01/24/23 21:00 Temperature 97.4 F L 97.7 F 98.6 F Pulse Rate Pulse Rate [Right Pulse Oximeter] 101 H 98 88 Respiratory Rate 18 18 18 Blood Pressure Blood Pressure [Le ft Arm] 144/88 H 137/79 142/78 H Pulse Oximetry 97 98 94 Oxygen Delivery Me thod Room Air Room Air Room Air Oxygen Flow Rate 01/24/23 23:45 01/25/23 02:55 01/25/23 08:00 Temperature 99.3 F 98.4 F Pulse Rate Pulse Rate [Right Pulse Oximeter] 92 91 112 H Respiratory Rate 18 16 16 Blood Pressure Blood Pressure [Le ft Arm] 123/75 142/81 H Pulse Oximetry 90 95 Oxygen Delivery Me thod Room Air Room Air Oxygen Flow Rate 01/25/23 08:00 01/25/23 12:00 Temperature 98.8 F 98.2 F Pulse Rate Pulse Rate [Right Pulse Oximeter] 112 H 94 Respiratory Rate 16 16 Blood Pressure Blood Pressure [Le ft Arm] 135/91 H 114/73 Pulse Oximetry 96 95 Oxygen Delivery Me thod Room Air Room Air Oxygen Flow Rate 0 DS: Data Data Completed and Pending Labs on day of discharge: Labs from last 24 hours 01/25/23 09:17 Sodium 137 Potassium 3.9 Chloride 97 Carbon Dioxide 27 Anion Gap 13 BUN 13 Creatinine 0.8 Estimated Creat Clear 50.37 Estimated GFR 83 Glucose 138 H Calcium 8.7 Magnesium 2.5 Discharge Plan Discharge Disposition: Home, Self-Care Date of Admission: 01/24/23 06:27 Attending Provider on Discharge: Dawson Marshall Primary Care Provider: Lyly Cooper Condition: Stable Anticipated Discharge Date/Time: 01/25/23 10:10 Discharge Medications: New hydrocodone-acetaminophen 5-325 mg tablet 1 tab PO Q6H PRN (Reason: pain) Qty: 25 0RF Continued magnesium oxide 400 mg magnesium tablet 400 mg PO BID Qty: 60 6RF albuterol sulfate 90 mcg/actuation HFA aerosol inhaler 90 mcg inhalation QID PRN Arnuity Ellipta 200 mcg/actuation blister with device 1 inh inhalation DAILY ezetimibe 10 mg tablet 10 mg PO HS lisinopril 40 mg tablet 40 mg PO DAILY hydrochlorothiazide 25 mg tablet 25 mg PO DAILY omeprazole 20 mg capsule,delayed release(DR/EC) 20 mg PO DAILY CBD oil PO Tylenol Extra Strength 500 mg powder in packet 1,000 mg PO Q6H PRN ropinirole 1 mg tablet 2 mg PO QPM prochlorperazine maleate [Compazine] 5 mg tablet 5 mg PO Q4-6H PRN (Reason: nausea and vomiting) Qty: 60 0RF ondansetron HCl 4 mg tablet 4 mg PO Q6H PRN (Reason: nausea and vomiting) Qty: 60 0RF loratadine [Claritin] 10 mg tablet 10 mg PO DAILY PRN metformin 500 mg tablet 1,000 mg PO BIDWM ropinirole 0.25 mg tablet 0.25 mg PO QPM PRN gabapentin 100 mg capsule 100 - 300 mg PO TID Rx Instructions: 100mg BID, 300MG HS aspirin [Adult Aspirin Regimen] 81 mg tablet,delayed release (DR/EC) 81 mg PO DAILY fexofenadine [Sole Allergy] 180 mg tablet 180 mg PO DAILY Discontinued tramadol 50 mg tablet 50 mg PO Q6H PRN (Reason: pain) Qty: 60 0RF Discharge Orders: Discharge Order (Routine); Ordered 01/25/23 Ordered By: Dawson Marshall Patient Education: Hydrocodone/Acetaminophen (By mouth), Jovan-Alfaro Drain Care (DC), Deep Sedation (DC), Mastectomy (DC), Post-Operative Instructions: Breast Surgery Activity Level: No strenuous activity Activity Detail: Avoid lifting your right arm above the shoulder level or lifting anything more than 10 lb with the right arm for 4 weeks. Discharge Diet: Regular Follow Up Appointments: Dawson Marshall MD [Staff Physician] - 02/06/23 1:00 pm ([facility] for follow-up.) Forms: [facility] Info Instructions Discharge Comments: Patient should continue taking laxatives such as MiraLax daily and senna twice a day until she has bowel movements every day or every other day. She can then start to wean off laxatives. Patient should do drain stripping with family member assistance at least 3 times a day. Please provide patient with dressing supplies to do daily dressing changes to her chest and drains. Patient should continue keeping her chest wrapped all the time until follow-up appointment in clinic.
== END 2023-01-25 13:55 | disposition home or self-care (01) | DRG 580 ==
PROVIDERS: Admitting Provider Surgery; PCP Family Medicine; Visit Provider Surgery
PROC: 0HTV0ZZ Resection of Bilateral Breast, Open Approach (ICD-10-PCS; CPT 19303; principal; 2023-01-24 09:00)
PROC: 0HTV0ZZ Resection of Bilateral Breast, Open Approach (ICD-10-PCS; CPT 19303; 2023-01-24 09:00)
DX: C50.411 Malignant neoplasm of upper-outer quadrant of right female breast (principal); C77.3 Secondary and unspecified malignant neoplasm of axilla and upper limb lymph nodes; Z17.0 Estrogen receptor positive status [ER+]; G89.18 Other acute postprocedural pain; E11.42 Type 2 diabetes mellitus with diabetic polyneuropathy; I10 Essential (primary) hypertension; G25.81 Restless legs syndrome; J45.909 Unspecified asthma, uncomplicated; E78.5 Hyperlipidemia, unspecified; Z79.84 Long term (current) use of oral hypoglycemic drugs; K59.00 Constipation, unspecified
CPT/HCPCS: 19303; 38525; 10035; 1610; 36415; 38792; 404; 64420; 76942; 77065; 80048; 82962; 83735; 88307; 88309; 88342; A9270; A9541; C1769; C9290; J0330; J0665; J0690; J1100; J1170; J2250; J2371; J2405; J2704; J3010; J3490; J7120

== ENCOUNTER 2023-03-02 08:37 | Outpatient (CLI) | payer OTHER, SELFPAY ==
--- OUTSIDE RECORDS SUMMARY | 2023-03-02 08:40 | XMS_ITS | Continuity of Care Document ---
[facility] Name [facility] Care Team Providers Care Engineer Rf Deployment Name Role Phone [facility] Unavailable Unavailable Problems Problem Status Onset Date Classification Date Reported Comments Source Hypertensive disorder, systemic arterial (disorder) Active 04/08/2020 [facility] Internal Medicine [facility] Seasonal allergy (disorder) Active 04/08/2020 [facility] Internal [facility] Syncope and collapse 06/07/2019 [facility] Essential (primary) hypertension 06/07/2019 [facility] Type 2 diabetes mellitus without complications 06/06/2019 [facility] 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 06/07/2019 [facility] Allergy status to penicillin 06/07/2019 [facility] Allergy status to sulfonamides status 06/07/2019 [facility] prison (current) use of aspirin 06/07/2019 [facility] Medications Medication Details Route Status Patient Instructions Ordering Provider Order Date Source 60 ACTUAT Budesonide 0.08 MG/ACTUAT Dry Powder Inhaler [Pulmicort] 0, Maintenance Active 2019 [facility] Pulmicort Flexhaler 90 mcg/inh 0, Maintenance Active 2019 [facility] Internal Medicine [facility] Fluticasone propionate 0.05 MG/ACTUAT Metered Dose Nasal [place] [Flonase] 0, Maintenance Active 2019 [facility] Aspirin 81 mg, Tab, Chew, PO, Daily, Qty: 0 Tab, 0, Maintenance Active 2019 [facility] Omeprazole 20 mg, Cap, PO, qDay, Qty: 90 Cap, 0, Maintenance Active 2019 [facility] Hydrochlorothiazide 12.5 MG / Losartan Potassium 50 MG Oral Tablet 0, Maintenance Active 2019 [facility] Mirapex 0.125 mg, Tab, PO, BID, Qty: 90 Tab, 0, Maintenance Active 2019 [facility] Zyrtec 10 mg, Tab, PO, qDay, PRN, Allergy symptoms, Qty: 30 Tab, 0, Maintenance Active 2019 [facility] Allergies, Adverse Reactions, Alerts Substance Category Reaction Severity Reaction type Status Date Reported Comments Source penicillin Assertion Unknown Unknown Drug allergy Active [facility] sulfa drugs Assertion Unknown Unknown Drug allergy Active [facility] Results Order Name Results Value Reference Range Date Interpretation Comments Source CMP Sodium 137 134 - 144 05/29 [facility] CMP Potassium 4.1 3.5 - 5.1 05/29 [facility] CMP Chloride 102 98 - 107 05/29 [facility] CMP CO2 24 22 - 29 05/29 [facility] CMP Glucose Level 176 70 - 99 05/29 [facility] [place] [employer] (ADA) Guidelines: Optimal fasting blood glucose is below 100 mg/dL. A person with pre-diabetes has a fasting blood glucose of 100-125. [facility] CMP BUN 22 10 - 20 05/29 H [facility] CMP Creatinine 1.08 0.57 - 1.11 05/29 Result is ID-GC/MS standardized [facility] CMP Anion Gap 15 5 - 15 05/29 [facility] CMP Calcium 10.0 8.4 - 10.2 05/29 [facility] CMP Protein, Total 7.6 6.4 - 8.3 05/29 [facility] CMP Albumin 3.9 3.4 - 5.0 05/29 [facility] CMP Alkphos 77 40 - 150 05/29 [facility] CMP ALT 26 0 - 55 05/29 [facility] CMP AST 21 5 - 34 05/29 [facility] CMP Bili Total 0.4 0.2 - 1.2 05/29 [facility] CMP eGFR Non- Am 52 05/29 NA NORMALIZED FOR ID-GC/MS STANDARDIZED CREATININE (NON-AF AMR=NON-, AF AMR=) KIDNEY DAMAGE STAGES FROM THE [facility] ---- STAGE 1 and 2 >60 mL/min/1.73 square meters STAGE 3 30-59 mL/min/1.73 square meters STAGE 4 15-29 mL/min/1.73 square meters STAGE 5 <14 mL/min/1.73 square meters [facility] CMP eGFR Afr/Amer >60 05/29 NA NORMALIZED FOR ID-GC/MS STANDARDIZED CREATININE (NON-AF AMR=NON-, AF AMR=) KIDNEY DAMAGE STAGES FROM [facility] ---- STAGE 1 and 2 >60 mL/min/1.73 square meters STAGE 3 30-59 mL/min/1.73 square meters STAGE 4 15-29 mL/min/1.73 square meters STAGE 5 <14 mL/min/1.73 square meters [facility] CMP Globulin 3.7 2.5 - 4.1 05/29 [facility] CMP A/G Ratio 1.1 0.8 - 1.6 05/29 [facility] CMP Drug Calc Weight (kg) 125.800 05/29 [facility] CMP Height (cm) 170.180 05/29 - Unless otherwise noted, tests performed at the following location: - [facility] Lipase Lipase 34.0 8.0 - 78.0 05/29 - Unless otherwise noted, tests performed at the following location: - [facility] Mg Mg 1.9 1.6 - 2.6 05/29 - Unless otherwise noted, tests performed at the following location: - [facility] Troponin-I Troponin I 0.00 - <=0.30 05/29 - Unless otherwise noted, tests performed at the following location: - [facility] BNP B-Natriureti c Peptide 4.5 0.0 - 100.0 05/29 - Unless otherwise noted, tests performed at the following location: - [facility] CBC w/Diff WBC 11.0 4.8 - 10.8 05/29 H [facility] CBC w/Diff RBC 4.41 4.00 - 5.40 05/29 [facility] CBC w/Diff Hgb 13.2 11.5 - 16.0 05/29 [facility] CBC w/Diff Hct 40.3 37.0 - 47.0 05/29 [facility] CBC w/Diff MCV 91.5 80.0 - 100.0 05/29 [facility] CBC w/Diff MCH 30.0 27.0 - 34.0 05/29 [facility] CBC w/Diff MCHC 32.8 32.0 - 37.0 05/29 [facility] CBC w/Diff RDW 14.3 11.5 - 16.0 05/29 [facility] CBC w/Diff Plt 399 130 - 400 05/29 [facility] CBC w/Diff Neuts 71.6 35.0 - 80.0 05/29 [facility] CBC w/Diff Lymphs 19.8 10.0 - 55.0 05/29 [facility] CBC w/Diff Monos. 5.3 0.0 - 15.0 05/29 [facility] CBC w/Diff Eos. 2.5 0.0 - 9.0 05/29 [facility] CBC w/Diff Baso. 0.8 0.0 - 3.0 05/29 [facility] CBC w/Diff ABS Neut 7.9 1.7 - 8.6 05/29 [facility] CBC w/Diff ABS Lymph 2.2 0.5 - 5.9 05/29 [facility] CBC w/Diff ABS [place] 0.6 0.0 - 1.6 05/29 [facility] CBC w/Diff ABS Eos 0.3 0.0 - 1.0 05/29 [facility] CBC w/Diff ABS Baso 0.1 0.0 - 0.3 05/29 [facility] CBC w/Diff CBC Scan Auto Diff 05/29 - Unless otherwise noted, tests performed at the following location: - [facility] D Dimer Qt D-Dimer, Quant. 0.34 0.00 - 0.50 05/29 This D-dimer assay is FDA-approved to be used as a negative predictor of venous thromboembolism with a cutoff of <0.50 ug/mL FEU. Clinical correlation required. - Unless otherwise noted, tests performed at the following location: - [facility] Cardiac Troponin I 0.00 <=0.30 ng/mL 05/29 [facility] Cardiac B-Natriureti c Peptide 4.5 0.0 - 100.0 05/29 [facility] CBC CBC Scan Auto Diff (05/29/19 11:34 PM) 05/29 [facility] CBC WBC 11.0 4.8 - 10.8 05/29 [facility] CBC RBC 4.41 4.00 - 5.40 05/29 [facility] CBC Hgb 13.2 11.5 - 16.0 05/29 [facility] CBC Hct 40.3 37.0 - 47.0 05/29 [facility] CBC MCV 91.5 80.0 - 100.0 05/29 [facility] CBC MCH 30.0 27.0 - 34.0 05/29 [facility] CBC MCHC 32.8 32.0 - 37.0 05/29 [facility] CBC RDW 14.3 11.5 - 16.0 05/29 [facility] CBC Plt 399 130 - 400 05/29 [facility] CBC Neuts 71.6 35.0 - 80.0 05/29 [facility] CBC Lymphs 19.8 10.0 - 55.0 05/29 [facility] CBC Monos. 5.3 0.0 - 15.0 05/29 [facility] CBC Eos. 2.5 0.0 - 9.0 05/29 [facility] CBC Baso. 0.8 0.0 - 3.0 05/29 [facility] CBC ABS Neut 7.9 1.7 - 8.6 05/29 [facility] CBC ABS Lymph 2.2 0.5 - 5.9 05/29 [facility] CBC ABS [place] 0.6 0.0 - 1.6 05/29 [facility] CBC ABS Eos 0.3 0.0 - 1.0 05/29 [facility] CBC ABS Baso 0.1 0.0 - 0.3 05/29 [facility] General Chemistry Lipase 34.0 8.0 - 78.0 05/29 [facility] General Chemistry Mg 1.9 1.6 - 2.6 05/29 [facility] General Chemistry Glucose Level 176 70 - 99 05/29 [facility] General Chemistry BUN 22 10 - 20 05/29 [facility] General Chemistry Creatinine 1.08 0.57 - 1.11 05/29 [facility] General Chemistry Sodium 137 134 - 144 05/29 [facility] General Chemistry Potassium 4.1 3.5 - 5.1 05/29 [facility] General Chemistry Chloride 102 98 - 107 05/29 [facility] General Chemistry CO2 24 22 - 29 05/29 [facility] General Chemistry Calcium 10.0 8.4 - 10.2 05/29 [facility] General Chemistry Protein, Total 7.6 6.4 - 8.3 05/29 [facility] General Chemistry Albumin 3.9 3.4 - 5.0 05/29 [facility] General Chemistry AST 21 5 - 34 05/29 [facility] General Chemistry ALT 26 0 - 55 05/29 [facility] General Chemistry Alkphos 77 40 - 150 05/29 [facility] General Chemistry Bili Total 0.4 0.2 - 1.2 05/29 [facility] General Chemistry Anion Gap 15 5 - 15 05/29 [facility] General Chemistry Globulin 3.7 2.5 - 4.1 05/29 [facility] General Chemistry A/G Ratio 1.1 0.8 - 1.6 05/29 [facility] General Chemistry eGFR Non- Am 52 05/29 [facility] General Chemistry eGFR Afr/Amer >60 05/29 [facility] Diagnostic Reports Report Value Date Source XR [...] N A L * * * 05/30/2019 [facility] Electrocardiogram Ordered in ED- [facility] Stationary ECG Study CRM [id number] [place] [address] Test Date: 2019-05-29 Pat Name: MAT LUCIA Department: Room: Gender: F Emergency Medical Technician: Ac : 1960 Requested By: Jeramie Arce Order Number: [id number] Reading MD: Jefry GUERRA Measurements Intervals [place] Rate: 88 P: 38 MA: 124 QRS: 30 QRSD: 90 T: 19 QT: 356 QTc: 432 Severity: Normal ECG Interpretive Statements SINUS RHYTHM Normal ECG No previous ECG available for comparison Electronically Signed On 05-30-2019 14:31:14 MST by Jefry GUERRA 05/30/2019 [facility] Electrocardiogram Stationary ECG Study AUC [address] [place] [id number] Test Date: 2019-05-29 Pat Name: MAT LUCIA Department: Room: Gender: F Emergency Medical Technician: tf : 1960 Requested By: Dano Andersen Order Number: [id number] Reading MD: Woodrow Browne MD Measurements Intervals [place] Rate: 91 P: 33 MA: 141 QRS: 39 QRSD: 92 T: 24 QT: 366 QTc: 452 Severity: Normal ECG Interpretive Statements SINUS RHYTHM Normal ECG No previous ECG available for comparison Electronically Signed On 06-05-2019 23:09:41 MST by Woodrow Browne MD 05/30/2019 [facility] [facility] Consultation Notes Results [...] The case was discussed with: the physician laboratory assistant. Evaluation and management service: I agree [...] for malignant arrhythmia intervals are grossly unremarkable. [place]iance is normal. Chest x-ray no obvious infiltrates [...] Viraj Pedersen DO On 05/30/19 00:58 05/30/2019 [facility] ED Physician Notes Patient: MAT LUCIA (EV) Age: 59 years Sex: F : 1960 Associated Diagnoses: None Author: Henry Vargas Physician Field Contact Person Basic Information Time seen: Provider Initial Contact [...] Habits Alcohol 05/29/2019 Use: Current Home/Environment 05/29/2019 Confucianism restrictions/concerns: None Feels unsafe at home: No [...] . Electronically Signed By: Henry Vargas Physician Field Contact Person On 05/30/19 01:04 Co Signature By: Viraj Pedersen DO On 05/31/19 23:40 Modify Signature By: Henry Vargas Physician Field Contact Person On 05/30/19 01:04 05/30/2019 [facility] ED Physician Notes Patient: MAT LUCIA (EV) [...] femae with HTN and DM flew to [place] yesterday, and is here visiting family. She [...] History Medical history: All Problems Hypertension / [id number] / Confirmed Seasonal allergies / [id number] / Confirmed. Surgical history: No active procedure history items have been selected or recorded.. Family history: No family history items have been selected or recorded.. Social history: Social and Psychosocial Habits Alcohol 05/29/2019 Use: Current Home/Environment 05/29/2019 Confucianism restrictions/concerns: None Feels unsafe at home: No [...] , she agrees, to take her to [facility] by POV. Electrocardiogram: Rate 91, normal sinus rhythm, No ST-T changes, no ectopy, normal MA and QRS intervals. Impression and Plan Near syncope ([id number] R55, Discharge, Medical) Plan Condition: Stable. Disposition: Discharged: Time 05/29/2019 21:33:00, to home. Patient was given the following educational materials: Near-Syncope, [facility]. Follow up with: GO directly to [facility]- ER for evaluation and care Within As soon as possible. Counseled: Patient, Family, Regarding diagnosis, Regarding diagnostic results, Regarding prescription, Patient indicated understanding of instructions. Orders: Launch Orders Admit/Transfer/Discharge: Discharge (Order Processing): 05/29/2019 21:34 MST, Now, Transfer to other Hospital, POV to [facility]. Electronically Signed By: Huyen Perdomo PA-C On 05/29/19 21:34 Co Signature By: Dano Andersen DO On 05/30/19 17:09 Modify Signature By: 05/30/2019 [facility] [facility] Vital Signs Vital Sign Value Date Comments Source Systolic 121 mm[Hg] 05/30/2019 [facility] Diastolic 82 mm[Hg] 05/30/2019 [facility] Respiratory Rate 16 Breaths/Min 05/30/2019 [facility] SPO2 98 % 05/30/2019 [facility] Heart Rate 87 bpm 05/30/2019 [facility] Glucose Level 176 mg/dL 05/30/2019 [facility] Sensory Deficits None (05/29/19 11:18 PM) 05/30/2019 [facility] Temperature PO 36.7 Nelly 05/30/2019 [facility] Systolic 128 mm[Hg] 05/30/2019 [facility] Diastolic 84 mm[Hg] 05/30/2019 [facility] Heart Rate 94 bpm 05/30/2019 [facility] Respiratory Rate 20 Breaths/Min 05/30/2019 [facility] SPO2 96 % 05/30/2019 [facility] Oxygen Method Room air (05/29/19 11:18 PM) 05/30/2019 [facility] Pain Scale Numeric Rating Scale (05/29/19 11:18 PM) 05/30/2019 [facility] Living Situation Lives with spouse (05/29/19 11:18 PM) 05/30/2019 [facility] Height 170.18 cm 05/30/2019 [facility] Weight Method Actual (05/29/19 11:18 PM) 05/30/2019 [facility] Drug Calc Weight (kg) 125.8 kg 05/30/[address] [facility] BMI 43.44 kg/m2 05/30/2019 [facility] Systolic 107 mm[Hg] 05/30/2019 [facility] Diastolic 73 mm[Hg] [facility]/30/[facility] Sensory Deficits None (05/29/19 8:43 PM) 05/30/2019 [facility] Temperature Temporal Artery 36.5 Nelly 05/30/2019 [facility] Systolic 93 mm[Hg] 05/30/2019 [facility] Diastolic 65 mm[Hg] 05/30/2019 [facility] Heart Rate 100 bpm 05/30/[facility] Respiratory Rate 14 Breaths/Min 05/30/2019 [facility] SPO2 95 % 05/30/2019 [facility] Pain Scale Numeric Rating Scale (05/29/19 8:43 PM) 05/30/2019 [facility] Height 170.18 cm 05/30/2019 [facility] nt Care Drug Calc Weight (kg) 120.181 kg 05/30/2019 [facility] BMI 41.5 kg/m2 05/30/2019 [facility] Encounters Location Location Details Encounter Type Encounter Number Reason For Visit Attending Provider ADM Date DC Date Status Source [facility] [place] [facility]' 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 03/27 [facility] Internal Medicine [facility] Emergency [id number] Agusto fernandes 05/29 [facility]gent [facility] Emergency [id number] Viraj Allenoud 05/29 [facility] Social History Social History Date Source Social History TypeResponse Smoking Status Never (less than 100 in lifetime) entered on: 05/29/19 05/30/2019 [facility] Social History TypeResponse Smoking Status Never (less than 100 in lifetime) entered on: 05/29/19 05/30/2019 [facility] nter Social History TypeResponse Smoking Status Never (less than 100 in lifetime) entered on: 05/29/19 Sex 05/30/2019 [facility] [place] - S george Christiano's Assessment and Plan Result Assessment and Plan Date Source Assessment and Plan No data available fo r this section 04/08/2020 [facility] Internal Medicine [facility]' Assessment and Plan No data available fo r this section 05/30/2019 [facility] Assessment and Plan No data available fo r this section 05/30/2019 [facility]
--- OUTSIDE RECORDS SUMMARY | 2023-03-02 08:41 | XMS_ITS | Continuity of Care Document ---
Author Name Unknown Organization [facility] Address [address] [place] [address] Phone Care Team Providers Care Briquette Machine Operator Helper Name Role Phone Chay Engel DO Unavailable [...] D deficiency has been defined by the [place] of[employer] and an Endocrine Society practice guideline as alevel of serum 25-OH vitamin D less than 20 ng/mL (1,2).The Endocrine Society went on to further define vitamin Dinsufficiency as a level between 21 and 29 ng/mL (2).1. IOM ([place] [employer]). 2010. Dietary reference intakes for [...] [facility], [address], [place], [place], [facility], tel:[phone] No Information 3 Toro Cartwright. [facility] [address], [place], [address], . tel:[phone] Family History Family Member Type Diagnosis Age [...]
--- NOTE | 2023-03-02 09:00 | CRLHL7_ITS ---
For Patients: As a result of the Century Cures Act, medical imaging exams and procedure reports are released immediately into your electronic medical record. You may view this report before your referring provider. If you have questions, please contact your health care provider. NM whole-body bone Scan: Technique: Whole-body bone scan per protocol. Radiopharmaceutical: 25.9 millicuries technetium 99 M MDP. Clinical information: Breast cancer Comparison: Whole-body bone scan August 04, 2022, report only/images are not available secondary to unknown technical air Findings: There are no focal areas of increased activity concerning for osteoblastic metastatic disease. Degenerative type uptake is present within the shoulders, sternoclavicular joints, midthoracic spine, hips and knees. Significant activity is noted within the right midfoot which may be posttraumatic or significant degenerative changes. There is normal renal and urinary bladder activity. There is no abnormal focal soft tissue uptake. Impression: No scintigraphic evidence of osteoblastic metastatic disease. Dictated by Victor M Iverson MD @ 03/03/2023 11:08:28 AM (Electronically Signed)
[2023-03-02 09:15] LABS: Creatinine* 0.7 mg/dL (0.5-1.5); Estimated Glomerular Filt Rate 98 ml/min
--- NOTE | 2023-03-02 10:00 | CRLHL7_ITS ---
For Patients: As a result of the Century Cures Act, medical imaging exams and procedure reports are released immediately into your electronic medical record. You may view this report before your referring provider. If you have questions, please contact your health care provider. Indication: Polyneuropathy, unspecified hx: breast cancer Technique: CT Chest/Abd/Pelvis w/ 132cc [id number] Please note that all CT scans at this facility use dose modulation, iterative reconstruction, and/or weight-based dosing when appropriate to reduce radiation dose to as low as reasonably achievable. Comparison: CT 08/04/2022 Findings: In the chest, right-sided Port-A-Cath is present. No mediastinal, hilar or axillary adenopathy. No pleural or pericardial effusion. Postop changes to the chest wall. No destructive osseous lesion or fracture. Degenerative changes. Mild dependent areas of atelectasis/scarring. No suspicious pulmonary nodule. In the abdomen, the liver is enlarged with diffuse low attenuation. No suspicious intrahepatic mass. The gallbladder is within normal limits. Incidental hyperdense material in the stomach. Spleen is normal. No hiatal hernia. Adrenal glands normal. Normal kidneys. No mesenteric or retroperitoneal adenopathy. Stable subcentimeter central mesenteric lymph node. In the pelvis, the bladder is normal. Normal uterus. Ovaries unremarkable. No bowel obstruction, free air, free fluid or abscess. No adenopathy. No fracture. Mild anterolisthesis of L4 on L5. Impression: No evidence of metastatic disease. Hepatomegaly and hepatic steatosis. Please note that all CT scans at this facility use dose modulation, iterative reconstruction, and/or weight-based dosing when appropriate to reduce radiation dose to as low as reasonably achievable. Dictated by Wesley Connor MD @ 03/03/2023 2:39:56 PM (Electronically Signed)
== END 2023-03-02 08:38 | disposition home or self-care (01) ==
LOC: NM 08:38
PROVIDERS: PCP Family Medicine; Visit Provider Internal Medicine Hematology & Oncology
DX: G62.9 Polyneuropathy, unspecified (principal); K76.0 Fatty (change of) liver, not elsewhere classified; R16.0 Hepatomegaly, not elsewhere classified; C50.919 Malignant neoplasm of unspecified site of unspecified female breast
CPT/HCPCS: 36415; 71260; 74177; 78306; 82565; A9503; Q9967

== ENCOUNTER 2023-03-16 14:36 | Outpatient (CLI) | payer OTHER, SELFPAY ==
--- OUTSIDE RECORDS SUMMARY | 2023-03-16 14:39 | XMS_ITS | Continuity of Care Document ---
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 06/07/2019 [facility] Allergy status to penicillin 06/07/2019 [facility] Allergy status to sulfonamides status 06/07/2019 [facility] group home (current) use of aspirin 06/07/2019 [facility] Medications Medication Details Route Status Patient Instructions Ordering Provider Order Date Source 60 ACTUAT Budesonide 0.08 MG/ACTUAT Dry Powder Inhaler [Pulmicort] 0, Maintenance Active 2019 [facility] Pulmicort Flexhaler 90 mcg/inh 0, Maintenance Active 2019 [facility] Internal Medicine [facility] Fluticasone propionate 0.05 MG/ACTUAT Metered Dose Nasal [place] [Flonase] 0, Maintenance Active 2019 [facility] Aspirin 81 mg, Tab, Chew, PO, Daily, Qty: 0 Tab, 0, Maintenance Active 2019 [facility] Omeprazole 20 mg, Cap, PO, qDay, Qty: 90 Cap, 0, Maintenance Active 2019 [facility] Hydrochlorothiazide 12.5 MG / Losartan Potassium 50 MG Oral Tablet 0, Maintenance Active 2019 [facility] Mirapex 0.125 mg, Tab, PO, BID, Qty: 90 Tab, 0, Maintenance Active 2019 [facility] Zyrtec 10 mg, Tab, PO, qDay, PRN, Allergy symptoms, Qty: 30 Tab, 0, Maintenance Active 2019 [facility] Allergies, Adverse Reactions, Alerts Substance Category Reaction Severity Reaction type Status Date Reported Comments Source penicillin Assertion Unknown Unknown Drug allergy Active [facility] sulfa drugs Assertion Unknown Unknown Drug allergy Active [facility] Results Order Name Results Value Reference Range Date Interpretation Comments Source CMP Sodium 137 134 - 144 05/29 [facility] CMP Potassium 4.1 3.5 - 5.1 05/29 [facility] CMP Chloride 102 98 - 107 05/29 [facility] CMP CO2 24 22 - 29 05/29 [facility] CMP Glucose Level 176 70 - 99 05/29 [facility] [place] [employer] (ADA) Guidelines: Optimal fasting blood glucose is below 100 mg/dL. A person with pre-diabetes has a fasting blood glucose of 100-125. [facility] CMP BUN 22 10 - 20 05/29 H [facility] CMP Creatinine 1.08 0.57 - 1.11 05/29 Result is ID-GC/MS standardized [facility] CMP Anion Gap 15 5 - 15 05/29 [facility] CMP Calcium 10.0 8.4 - 10.2 05/29 [facility] CMP Protein, Total 7.6 6.4 - 8.3 05/29 [facility] CMP Albumin 3.9 3.4 - 5.0 05/29 [facility] CMP Alkphos 77 40 - 150 05/29 [facility] CMP ALT 26 0 - 55 05/29 [facility] CMP AST 21 5 - 34 05/29 [facility] CMP Bili Total 0.4 0.2 - 1.2 05/29 [facility] CMP eGFR Non- Am 52 05/29 NA NORMALIZED FOR ID-GC/MS STANDARDIZED CREATININE (NON-AF AMR=NON-, AF AMR=) KIDNEY DAMAGE STAGES FROM THE [facility] ---- STAGE 1 and 2 >60 mL/min/1.73 square meters STAGE 3 30-59 mL/min/1.73 square meters STAGE 4 15-29 mL/min/1.73 square meters STAGE 5 <14 mL/min/1.73 square meters [facility] CMP eGFR Afr/Amer >60 05/29 NA NORMALIZED FOR ID-GC/MS STANDARDIZED CREATININE (NON-AF AMR=NON-, AF AMR=) KIDNEY DAMAGE STAGES FROM THE [facility] ---- STAGE 1 and 2 >60 mL/min/1.73 square meters STAGE 3 30-59 mL/min/1.73 square meters STAGE 4 15-29 mL/min/1.73 square meters STAGE 5 <14 mL/min/1.73 square meters [facility] CMP Globulin 3.7 2.5 - 4.1 05/29 [facility] CMP A/G Ratio 1.1 0.8 - 1.6 05/29 [facility] CMP Drug Calc Weight (kg) 125.800 05/29 [facility] CMP Height (cm) 170.180 05/29 - Unless otherwise noted, tests performed at the following location: - [facility] Lipase Lipase 34.0 8.0 - 78.0 05/29 - Unless otherwise noted, tests performed at the following location: - [facility] Mg Mg 1.9 1.6 - 2.6 05/29 - Unless otherwise noted, tests performed at the following location: - [facility] Troponin-I Troponin I 0.00 - <=0.30 05/29 - Unless otherwise noted, tests performed at the following location: - [facility] BNP B-Natriureti c Peptide 4.5 0.0 - 100.0 05/29 - Unless otherwise noted, tests performed at the following location: - [facility] CBC w/Diff WBC 11.0 4.8 - 10.8 05/29 H [facility] CBC w/Diff RBC 4.41 4.00 - 5.40 05/29 [facility] CBC w/Diff Hgb 13.2 11.5 - 16.0 05/29 [facility] CBC w/Diff Hct 40.3 37.0 - 47.0 05/29 [facility] CBC w/Diff MCV 91.5 80.0 - 100.0 05/29 [facility] CBC w/Diff MCH 30.0 27.0 - 34.0 05/29 [facility] CBC w/Diff MCHC 32.8 32.0 - 37.0 05/29 [facility] CBC w/Diff RDW 14.3 11.5 - 16.0 05/29 [facility] CBC w/Diff Plt 399 130 - 400 05/29 [facility] CBC w/Diff Neuts 71.6 35.0 - 80.0 05/29 [facility] CBC w/Diff Lymphs 19.8 10.0 - 55.0 05/29 [facility] CBC w/Diff Monos. 5.3 0.0 - 15.0 05/29 [facility] CBC w/Diff Eos. 2.5 0.0 - 9.0 05/29 [facility] CBC w/Diff Baso. 0.8 0.0 - 3.0 05/29 [facility] CBC w/Diff ABS Neut 7.9 1.7 - 8.6 05/29 [facility] CBC w/Diff ABS Lymph 2.2 0.5 - 5.9 05/29 [facility] CBC w/Diff ABS Licking 0.6 0.0 - 1.6 05/29 [facility] CBC w/Diff ABS Eos 0.3 0.0 - 1.0 05/29 [facility] CBC w/Diff ABS Baso 0.1 0.0 - 0.3 05/29 [facility] CBC w/Diff CBC Scan Auto Diff 05/29 - Unless otherwise noted, tests performed at the following location: - [facility] D Dimer Qt D-Dimer, Quant. 0.34 0.00 - 0.50 05/29 This D-dimer assay is FDA-approved to be used as a negative predictor of venous thromboembolism with a cutoff of <0.50 ug/mL FEU. Clinical correlation required. - Unless otherwise noted, tests performed at the following location: - [facility] Cardiac Troponin I 0.00 <=0.30 ng/mL 05/29 [facility] Cardiac B-Natriureti c Peptide 4.5 0.0 - 100.0 05/29 [facility] CBC CBC Scan Auto Diff (05/29/19 11:34 PM) 05/29 [facility] CBC WBC 11.0 4.8 - 10.8 05/29 [facility] CBC RBC 4.41 4.00 - 5.40 05/29 [facility] CBC Hgb 13.2 11.5 - 16.0 05/29 [facility] CBC Hct 40.3 37.0 - 47.0 05/29 [facility] CBC MCV 91.5 80.0 - 100.0 05/29 [facility] CBC MCH 30.0 27.0 - 34.0 05/29 [facility] CBC MCHC 32.8 32.0 - 37.0 05/29 [facility] CBC RDW 14.3 11.5 - 16.0 05/29 [facility] CBC Plt 399 130 - 400 05/29 [facility] CBC Neuts 71.6 35.0 - 80.0 05/29 [facility] CBC Lymphs 19.8 10.0 - 55.0 05/29 [facility] CBC Monos. 5.3 0.0 - 15.0 05/29 [facility] CBC Eos. 2.5 0.0 - 9.0 05/29 [facility] CBC Baso. 0.8 0.0 - 3.0 05/29 [facility] CBC ABS Neut 7.9 1.7 - 8.6 05/29 [facility] CBC ABS Lymph 2.2 0.5 - 5.9 05/29 [facility] CBC ABS [place] 0.6 0.0 - 1.6 05/29 [facility] CBC ABS Eos 0.3 0.0 - 1.0 05/29 [facility] CBC ABS Baso 0.1 0.0 - 0.3 05/29 [facility] General Chemistry Lipase 34.0 8.0 - 78.0 05/29 [facility] General Chemistry Mg 1.9 1.6 - 2.6 05/29 [facility] General Chemistry Glucose Level 176 70 - 99 05/29 [facility] General Chemistry BUN 22 10 - 20 05/29 [facility] General Chemistry Creatinine 1.08 0.57 - 1.11 05/29 [facility] General Chemistry Sodium 137 134 - 144 05/29 [facility] General Chemistry Potassium 4.1 3.5 - 5.1 05/29 [facility] General Chemistry Chloride 102 98 - 107 05/29 [facility] General Chemistry CO2 24 22 - 29 05/29 [facility] General Chemistry Calcium 10.0 8.4 - 10.2 05/29 [facility] General Chemistry Protein, Total 7.6 6.4 - 8.3 05/29 [facility] General Chemistry Albumin 3.9 3.4 - 5.0 05/29 [facility] General Chemistry AST 21 5 - 34 05/29 [facility] General Chemistry ALT 26 0 - 55 05/29 [facility] General Chemistry Alkphos 77 40 - 150 05/29 [facility] General Chemistry Bili Total 0.4 0.2 - 1.2 05/29 [facility] General Chemistry Anion Gap 15 5 - 15 05/29 [facility] General Chemistry Globulin 3.7 2.5 - 4.1 05/29 [facility] General Chemistry A/G Ratio 1.1 0.8 - 1.6 05/29 [facility] General Chemistry eGFR Non- Am 52 05/29 [facility] General Chemistry eGFR Afr/Amer >60 05/29 [facility] Diagnostic Reports Report Value Date Source XR [...] N A L * * * 05/30/2019 [facility] Electrocardiogram Ordered in ED- [facility] Stationary ECG Study CRM [address] [place] [address] Test Date: 2019-05-29 Pat Name: MAT LUCIA Department: Room: 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1960 Requested By: Jeramie Arce Order Number: [id number] Reading MD: Jefry GUERRA Measurements Intervals [place] Rate: 88 P: 38 CO: 124 QRS: 30 QRSD: 90 T: 19 QT: 356 QTc: 432 Severity: Normal ECG Interpretive Statements SINUS RHYTHM Normal ECG No previous ECG available for comparison Electronically Signed On 05-30-2019 14:31:14 MST by Jefry GUERRA 05/30/2019 [facility] Electrocardiogram Stationary ECG Study AUC [address] [place] [id number] Test Date: 2019-05-29 Pat Name: MAT LUCIA Department: Room: 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 Evaluation and management service: I agree with [...] for malignant arrhythmia intervals are grossly unremarkable. [place] is normal. Chest x-ray no obvious infiltrates [...] Viraj Pedersen DO On 05/30/19 00:58 05/30/2019 [facility] ED Physician Notes Patient: MAT LUCIA (EV) Age: 59 years Sex: F : 1960 Associated Diagnoses: None Author: Henry Vargas Physician Temperature Control Inspector Basic Information Time seen: Provider Initial Contact [...] Habits Alcohol 05/29/2019 Use: Current Home/Environment 05/29/2019 Amish restrictions/concerns: None Feels unsafe at home: No [...] . Electronically Signed By: Henry Vargas Physician Temperature Control Inspector On 05/30/19 01:04 Co Signature By: Viraj Pedersen DO On 05/31/19 23:40 Modify Signature By: Henry Vargas Physician Temperature Control Inspector On 05/30/19 01:04 05/30/2019 [facility] ED Physician Notes Patient: MAT LUCIA (EV) [...] femae with HTN and DM flew to [place] yesterday, and is here visiting family. She [...] History Medical history: All Problems Hypertension / [id number] / Confirmed Seasonal allergies / [id number] / Confirmed. Surgical history: No active procedure history items have been selected or recorded.. Family history: No family history items have been selected or recorded.. Social history: Social and Psychosocial Habits Alcohol 05/29/2019 Use: Current Home/Environment 05/29/2019 Amish restrictions/concerns: None Feels unsafe at home: No [...] , she agrees, to take her to [facility] by POV. Electrocardiogram: Rate 91, normal sinus rhythm, No ST-T changes, no ectopy, normal CO and QRS intervals. Impression and Plan Near syncope ([id number], Discharge, Medical) Plan Condition: Stable. Disposition: Discharged: Time 05/29/2019 21:33:00, to home. Patient was given the following educational materials: Near-Syncope, [id number]. Follow up with: GO directly to [facility]- ER for evaluation and care Within As soon as possible. Counseled: Patient, Family, Regarding diagnosis, Regarding diagnostic results, Regarding prescription, Patient indicated understanding of instructions. Orders: Launch Orders Admit/Transfer/Discharge: Discharge (Order Processing): 05/29/2019 21:34 MST, Now, Transfer to other Hospital, POV to [facility]. Electronically Signed By: Huyen Perdomo PA-C On 05/29/19 21:34 Co Signature By: Dano Andersen DO On 05/30/19 17:09 Modify Signature By: 05/30/2019 [facility] [facility] Vital Signs Vital Sign Value Date Comments Source Systolic 121 mm[Hg] 05/30/2019 [facility] Diastolic 82 mm[Hg] 05/30/2019 [facility] Respiratory Rate 16 Breaths/Min 05/30/2019 [facility] SPO2 98 % 05/30/2019 [facility] Heart Rate 87 bpm 05/30/2019 [facility] Glucose Level 176 mg/dL 05/30/2019 [facility] Sensory Deficits None (05/29/19 11:18 PM) 05/30/2019 [facility] Temperature PO 36.7 Nelly 05/30/2019 [facility] Systolic 128 mm[Hg] 05/30/2019 [facility] Diastolic 84 mm[Hg] 05/30/2019 [facility] Heart Rate 94 bpm 05/30/2019 [facility] Respiratory Rate 20 Breaths/Min 05/30/2019 [facility] SPO2 96 % 05/30/2019 [facility] Oxygen Method Room air (05/29/19 11:18 PM) 05/30/2019 [facility] Pain Scale Numeric Rating Scale (05/29/19 11:18 PM) 05/30/2019 [facility] Living Situation Lives with spouse (05/29/19 11:18 PM) 05/30/2019 [facility] Height 170.18 cm 05/30/2019 [facility] Weight Method Actual (05/29/19 11:18 PM) 05/30/2019 [facility] Drug Calc Weight (kg) 125.8 kg 05/30/2019 [facility] BMI 43.44 kg/m2 05/30/2019 [facility] Systolic 107 mm[Hg] 05/30/2019 [facility] Diastolic 73 mm[Hg] 05/30/2019 [facility] Sensory Deficits None (05/29/19 8:43 PM) 05/30/2019 [facility] Temperature Temporal Artery 36.5 Nelly 05/30/2019 [facility] Systolic 93 mm[Hg] 05/30/2019 [facility] Diastolic 65 mm[Hg] 05/30/2019 [facility] Heart Rate 100 bpm 05/30/2019 [facility] Respiratory Rate 14 Breaths/Min 05/30/2019 [facility] SPO2 95 % 05/30/2019 [facility] Pain Scale Numeric Rating Scale (05/29/19 8:43 PM) 05/30/2019 [facility] Height 170.18 cm 05/30/2019 [facility] Drug Calc Weight (kg) 120.181 kg 05/30/2019 [facility] BMI 41.5 kg/m2 05/30/2019 [facility] Encounters Location Location Details Encounter Type Encounter Number Reason For Visit Attending Provider ADM Date DC Date Status Source [facility] - Internal [facility] History 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 [id number] 03/27 [facility] Internal Medicine [facility] Emergency [id number] Agusto fernandes 05/29 [facility] Urgent Care [facility] Emergency [id number] Viraj Allenoud 05/29 [facility] Social History Social History Date Source Social History TypeResponse Smoking Status Never (less than 100 in lifetime) entered on: 05/29/19 05/30/2019 [facility] Social History TypeResponse Smoking Status Never (less than 100 in lifetime) entered on: 05/29/19 05/30/2019 [facility] nter Social History TypeResponse Smoking Status Never (less than 100 in lifetime) entered on: 05/29/19 Sex 05/30/2019 [facility] - Internal Medicine - S george [facility] Assessment and Plan Result Assessment and Plan Date Source Assessment and Plan No data available fo r this section 04/08/2020 [facility] Internal Medicine [facility] Assessment and Plan No data available fo r this section 05/30/2019 [facility] Assessment and Plan No data available fo r this section 05/30/2019 [facility]
--- NOTE | 2023-03-16 15:00 | CRLHL7_ITS ---
For Patients: As a result of the Century Cures Act, medical imaging exams and procedure reports are released immediately into your electronic medical record. You may view this report before your referring provider. If you have questions, please contact your health care provider. DXA BONE MINERAL DENSITY STUDY Reason for exam: Breast cancer. Current height (in): 66.5. Weight (lb): 277. Menopause age: 50. Ethnicity: White. 1. Have you had a previous hip or vertebral fracture? No. 2. Have you had any fractures during your adult life which did not result from significant trauma (e.g., auto accident)? No. 3. Did either of your parents have a hip fracture? No. 4. Do you smoke? No. 5. Have you ever taken Glucocorticoids? No. 6. Do you have rheumatoid arthritis? No. 7. Do you have secondary osteoporosis? No. 8. Do you drink 3 or more alcoholic drinks per day? No. 9. Are you being treated for osteoporosis? No. 10. Have you ever taken any of the following medications: Actonel, Evista, Fosamax, Miacalcin, Reclast, Boniva, Forteo, HRT (i.e. estrogen/hormone therapy), Protelos, Prolia, Vitamin D, Calcium, other ??? please specify. ANSWER: Yes, vitamin D, calcium. 11. Do you have any of the following medical conditions: Anorexia or bulimia, asthma or emphysema, end stage renal disease, hyperparathyroidism, any seizure disorders, cancer, inflammatory bowel diseases, hysterectomy, other ??? please specify. ANSWER: Yes, cancer. 12. What was your maximum height (inches)? 67. 13. Do you perform weight bearing exercise regularly? No. 14. Do you regularly consume dairy products? No. 15. Do you drink caffeinated beverages? Yes. 16. At what age did your period start? 13. 17. Are you premenopausal? No. 18. How many full term pregnancies have you had? 2. 19. Have you ever missed your period for more than 6 months in a row (not including or menopause)? No. TECHNIQUE: Bone mineral density study was performed using the [employer]. FINDINGS: The results of the study expressed as bone mineral density (BMD) are as follows: Lumbar spine L1 to L4: BMD: 0.878 g/cm2. T-score: -1.5. Z-score: 0.1. Neck Left: BMD: 0.735 g/cm2. T-score: -1.0. Z-score: 0.4. Right: BMD: 0.732 g/cm2. T-score: -1.1. Z-score: 0.4. Total Left: BMD: 1.002 g/cm2. T-score: 0.5. Z-score: 1.6. Right: BMD: 0.975 g/cm2. T-score: 0.3. Z-score: 1.4. IMPRESSION: Osteopenia. *Comparison exams done prior to 08/2019 were performed on different unit, [employer]. FRAX 10-year Fracture Risk Major Osteoporotic Fracture: 6.6 percent Hip Fracture: 0.4 percent Reported Risk Factors: [place] () Neck BMD=0.732, BMI=43.8 Wesley Connor M.D. Diagnostic Radiologist [email or web address] JOSE M/Dictated by: Wesley Connor MD @ 03/21/2023 12:58:00 PM (Electronically Signed)
== END 2023-03-16 14:37 | disposition home or self-care (01) ==
LOC: RAD 14:37
PROVIDERS: PCP Family Medicine; Visit Provider Internal Medicine Hematology & Oncology
DX: C50.919 Malignant neoplasm of unspecified site of unspecified female breast (principal); M85.89 Other specified disorders of bone density and structure, multiple sites
CPT/HCPCS: 77080

== ENCOUNTER 2023-07-19 09:00 | Outpatient (RCR) | payer OTHER, SELFPAY ==
[2023-02-13] MEDS: HEPARIN 500 UNIT/5 ML SYRINGE IVF (10:12)
[2023-02-13] MEDS: SODIUM CHLORIDE 0.9 % (FLUSH) 10 ML SYRINGE IVF (10:12)
--- NOTE | 2023-04-19 14:37 | ONC.NURNOTE ---
Patient called to report headaches. She states they started the end of last week and Tylenol isn't touching it. They start in the mornings and last into the evenings. Patient saw Dr. Barreto today and he suggested that she reach out to us. Naya informed that Dr. Curry recommends she hold the Anastrazole until her follow up on 05/03. Patient instructed to call if her symptoms worsen or do not begin to improve. Patient informed that Dr. Curry may consider ordering a scan if the headaches continue and/or worsen. Patient verbalizes understanding.
--- NOTE | 2023-05-11 14:49 | ONC.NURNOTE ---
Approval for Tia obtained through 05/09/2024. When the pharmacy tried to run the script, they received a denial for quantity exceeds limits. New PA for quantity limitation initiated and supportive documentation faxed.
--- NOTE | 2023-05-18 16:51 | ONC.NURNOTE ---
I spoke with patient today to discuss plan of care. Patient informed that we did get authorization for her Verzenio 100 mg daily and we will plan to titrate to patients tolerance. Patient plans to take it in two divided dose of 50 mg BID. She has great concerns about her tolerance due to the Verzenio containing lactose. Patient also informed me that they are leaving for [place] on May 27 and will return sometime the beginning of June. She is very adamant that she will not start the Verzenio until she returns. Patient did resume her Anastrozole on 05/15 and so far the headaches have not returned but she is having a harder time sleeping. Patient will return call to [facility] if side effects worsen and to update [facility] on return travel dates. Patient will need baseline labs prior to initiating Verzenio and will need Dr. Curry follow up around Day 15. Patient will wait to hear from [facility] pharmacy to arrange shipment.
--- NOTE | 2023-05-22 17:18 | ONC.NURNOTE ---
Patient called to report that she stopped her Anastrozole over the weekend due to headaches, nausea, leg cramps and generalized joint pains. Discussed with Dr. Curry and she recommends that Naya try taking it every other day. Patient verbalizes understanding and will call with questions or concerns.
--- NOTE | 2023-06-22 08:32 | ONC.NURNOTE ---
Addendum entered by Misty Lowry RN 06/27/23 15:13: Per Dr. Curry, continue to hold AI. Will discuss AI options at visit 07/19/23. Reviewed with pt; she is agreeable to this plan. Original Note: Patient called [facility] to discuss side effects from Anastrozole. The end of April she was instructed to decrease her dose to every other day due to headaches, nausea, leg cramps and generalized joint pains. She continues to have severe joint pain, particularly in her feet and she is only getting 3-4 hours of sleep at night. She states I am living on Tylenol and Ibuprofen. She is wondering if she can try a different aromatase inhibitor. Patient is going to stop the Anastrozole for now to see if her symptoms improve. Patient is still in [place] and will return to [place] mid June. She is scheduled for follow up on 07/18 to discuss initiation of Verzenio. I assured patient I would discuss her side effects with Dr. Curry next week and return her call with recommendations.
[2023-07-19 09:08] LABS: Basophils Absolute Auto 0.02 K/uL (0.00-0.30); Basophils Percent Auto 0.2 % (0.0-3.0); Eosinophils Absolute Auto 0.14 K/uL (0.00-0.50); Eosinophils Percent Auto 1.7 % (0.0-7.0); Hematocrit 39.1 % (33.0-51.0); Hemoglobin* 12.6 gm/dL (12.0-16.0); Immature Granulocytes Abs Auto 0.13 K/uL (0.00-0.30); Immature Granulocytes Pct Auto 1.6 %; Lymphocytes Absolute Auto 1.76 K/uL (0.90-2.90); Lymphocytes Percent Auto 21.8 % (20-44); Mean Corpuscular HGB Conc 32 gm/dL (32-36); Mean Corpuscular Hemoglobin 30 pg (26-34); Mean Corpuscular Volume 92 fL (80-100); Monocytes Percent Auto 6.2 % (0.0-11.0); Neutrophils Absolute Auto 5.51 K/uL (1.7-7.0); Neutrophils Percent Auto 68.5 % (42.0-72.0); Platelet Count* 255 K/uL (140-440); RDW Coefficient of Variation % 15.7 % (11.5-15.5); Red Blood Count 4.26 m/uL (4.00-5.20); White Blood Count* 8.06 K/uL (4.50-11.00)
[2023-07-19 09:18] LABS: Slide Review Reflex No
[2023-07-19 09:29] LABS: Albumin* 4.4 g/dL (3.3-5.0); Chloride* 105 mmol/L (96-114); Sodium* 137 mmol/L (135-149)
[2023-07-19 09:30] LABS: Potassium* 3.7 mmol/L (3.6-5.1)
[2023-07-19 09:32] LABS: Alkaline Phosphatase* 82 U/L (40-150); Anion Gap 11 mEq/L (7-15); Aspartate Amino Transferase* 33 U/L (12-35); Bilirubin Total* 0.5 mg/dL (0.1-1.5); Blood Urea Nitrogen* 21 mg/dL (7-30); Carbon Dioxide* 21 mmol/L (20-32); Creatinine* 0.6 mg/dL (0.5-1.5); Estimated Glomerular Filt Rate 101 ml/min; Total Protein* 8.8 g/dL (6.0-8.3)
[2023-07-19 09:33] LABS: Alanine Aminotransferase* 40 U/L (4-35); Calcium* 9.6 mg/dL (8.4-10.6); Glucose* 151 mg/dL (60-115)
--- NOTE | 2023-07-31 16:27 | ONC.NURNOTE ---
Patient called to report side effects from Letrozole. She states her feet are burning, aching and throbbing so bad that she can hardly walk. Right greater than left. She is taking Tylenol and Ibuprofen around the clock but they don't seem to be helping. She also reports mild swelling in her hands and feet. This has all been progressively getting worse since she started the Letrozole. Patient did start her Verzenio 50 mg this morning and plans to take it BID. Concerns reviewed with Dr. Curry and patient instructed to hold Letrozole. We will discuss at her follow up appointment 08/15. Patient verbalizes understanding of plan.
== END 2023-08-12 23:59 | disposition home or self-care (01) ==
LOC: CCIC 09:00
PROVIDERS: PCP Family Medicine; Referring Provider Family Medicine; Visit Provider Internal Medicine Hematology & Oncology
DX: C50.911 Malignant neoplasm of unspecified site of right female breast (principal); Z17.0 Estrogen receptor positive status [ER+]; Z79.811 Long term (current) use of aromatase inhibitors; G47.00 Insomnia, unspecified; L59.8 Other specified disorders of the skin and subcutaneous tissue related to radiation; G62.9 Polyneuropathy, unspecified; Z90.13 Acquired absence of bilateral breasts and nipples
CPT/HCPCS: 36415; 80053; 85025; 99211; 99212; 99214; 99215; G0463; J1642

== ENCOUNTER 2023-09-05 10:00 | Outpatient (RCR) | payer OTHER, SELFPAY | END 2023-11-30 10:56 | disposition home or self-care (01) | PROVIDERS: PCP Family Medicine; Visit Provider Family Medicine | DX: M79.671 Pain in right foot (principal); M25.572 Pain in left ankle and joints of left foot; M25.571 Pain in right ankle and joints of right foot; Z51.89 Encounter for other specified aftercare; R26.81 Unsteadiness on feet; R26.9 Unspecified abnormalities of gait and mobility | CPT/HCPCS: 97140; 97162 ==

== ENCOUNTER 2023-10-20 07:55 | Outpatient (CLI) | payer OTHER, SELFPAY ==
--- OUTSIDE RECORDS SUMMARY | 2023-10-20 07:57 | XMS_ITS | Clinical Summary ---
Author Organization [facility] Address [address] [place] [address] Care Team Providers Care Public Relations Analyst Name Role Phone Unavailable Primary Care Provider Unavailabl e Source Comments Patient records contain information from all sites at [facility]. For routine questions regarding patient records, call [phone] during business hours, M-F 8:00 AM - 5:00 PM Central Time. Record requests for emergency care only can be directed to [phone] at any time.[facility] Allergies Active Allergy Reactions Criticality Noted Date Comments Levofloxacin Myalgia Low 02/13/2018 Penicillins Itching,Rash Low 09/07/2009 Sandra Anaphylaxis,Itching High 08/02/2012 Other reaction(s): Throat Swelling/Closing Pfmwjjr-Vcw-Qzr Reductase Inhibitors Myalgia Low 02/04/2013 Simvastatin, Lipitor, and Crestor Sulfa (Sulfonamide Antibiotics) Rash Low 09/07/2009 Medications Medication Sig Dispensed Refills Start Date End Date Status omeprazole (PriLOSEC) [address] capsule Take 20 mg by mouth. 08/08/2022 Active albuterol 90 mcg/actuation inhaler Inhale 2 puffs 4 (four) times a day as needed. 12/24/2018 Active fluticasone propionate (FLONASE) 50 mcg/actuation nasal spray Administer 1 spray into nostril(s). 02/13/2018 Active anastrozole (ARIMIDEX) 1 mg tablet Take 1 tablet by mouth daily. 02/13/2023 Active hydroCHLOROthiazide (HYDRODIURIL) 25 mg tablet Take 25 mg by mouth. 07/31/2018 Active lisinopriL (PRINIVIL,ZESTRIL) 40 mg tablet Take 40 mg by mouth. 07/31/2018 Active gabapentin (NEURONTIN) 300 mg capsule Take 1 capsule by mouth 3 (three) times a day with meals. 02/13/2023 Active metFORMIN (GLUCOPHAGE) 1,000 mg tablet Take 1,000 mg by mouth. 11/23/2022 Active magnesium oxide (MAG-OX) 400 mg (241.3 mg magnesium) tablet Take 400 mg by mouth 2 (two) times a day. Active Arnuity Ellipta 200 mcg/actuation diskus inhaler Inhale 1 puff daily. 06/18/2020 Active sennosides-docusate sodium (SENOKOT-S) 8.6-50 mg per tablet Take 1 tablet by mouth daily. 01/17/2023 Active rOPINIRole (REQUIP) 0.25 mg tablet Take 0.25 mg as needed (in addition to 2 mg tablet) for restless leg syndrome 11/23/2022 Active ezetimibe (ZETIA) 10 mg tablet Take 10 mg by mouth. 09/25/[address] tablet Take 81 mg by mouth. 01/17/2023 Active ketotifen (ZADITOR) 0.025 % (0.035 %) ophthalmic solution Administer 1 drop into affected eye(s). Active loratadine (CLARITIN) 10 mg tablet Take 10 mg by mouth. 11/07/2022 Active ondansetron ODT (ZOFRAN-ODT) 4 mg disintegrating tablet 08/08/2022 Act dionisio prochlorperazine (COMPAZINE) 5 mg tablet 08/08/2022 Active rOPINIRole (REQUIP) 2 mg tablet Take 2 mg 2-3 hours before bedtime 11/25/2022 Active cyanocobalamin (VITAMIN B12) 1,000 mcg tablet Take 1 tablet by mouth daily. 03/31/2023 Active mometasone (ELOCON) 0.1 % cream Apply 1 Application topically 2 (two) times a day. Apply to right neck. 45 g 04/19/2023 Active Active Problems Problem Noted Date Diagnosed Date Malignant Neoplasm Of Breast Upper Outer Quadrant Female Right 02/13/2023 Cancer Staging:Clinical stage from 08/04/2022:Stage IIA(cT3, cN2(f), cM0, G2, ER+, WA+, HER2-) - Unsigned Pathologic stage from 01/24/2023: ypT3, pN3a, cM0, G2, ER+, WA+, HER2- - Unsigned Family History Medical History Relation Name Comments Multiple myeloma Father Relation Name Status Comments Father Social History Tobacco Use Types Packs/Day Years Used Date Smoking Tobacco: Former Cigarettes Smokeless Tobacco: Never Comments:Minimal Alcohol Use Standard Drinks/Week Comments Yes 0 (1 standard drink = 0.6 oz pur e alcohol) Occasional Overall Financial Resource Strain (CARDIA) Answe r Date Recorded How hard is it for you to pa y for the very basics like food, housing, medical care, and heating? Not hard at all 02/14/2023 Exercise Vital Sign Answer Date Recorde d On average, how many days pe r week do you engage in moderate to strenuous exercise (like a brisk walk)? 0 days 02/14/2023 On average, how many minutes do you engage in exercise at this level? 0 min 02/14/2023 Hunger Vital Sign Answer Date Recorded Within the past 12 months, y ou worried that your food would run out before you got the money to buy more. Never true 02/15/20 Within the past 12 months, t he food you bought just didn't last and you didn't have money to get more. Never true 02/14/2023 PRAPARE - Transportation Answer Date Re corded In the past 12 months, has l ack of transportation kept you from medical appointments or from getting medications? No 01/26 In the past 12 months, has l ack of transportation kept you from meetings, work, or from getting things needed for daily living? No 02/14/2023 Nutrition Answer Date Recorded Nutrition: EVOO Fat Source Unknown 02/14 On average, how many serving s of fruits and vegetables do you eat per day (serving size is equal to 1 cup or approximately the size of a tennis ball)? 3-5 02/14/2023 Dental Answer Date Recorded Dental: Regular Dentist Yes 02/15/20 Employment Answer Date Recorded Employment status Retired 02/14/2023 Housing Stability Answer Date Recorded What is your living situation today? I have a [employer] place to live 02/14/2023 Sex and Gender Information Value Date Recorded Sex Assigned at Female 02/14/2023 11:13 AM FAT PRESSROOM WORKER Gender Identity Female 02/14/2023 11:13 AM FAT PRESSROOM WORKER Sexual Orientation Straight 02/14/2023 11 :13 AM FAT PRESSROOM WORKER Last Filed Vital Signs Vital Sign Reading Time Taken Comments Blood Pressure 151/93 03/30/2023 12:55 PM FAT PRESSROOM WORKER Pulse 109 03/30/2023 12:55 PM FAT PRESSROOM WORKER Temperature 36.4 ??C (97.5 ??F) 05/10/2023 10:[address] Respiratory Rate - - Oxygen Saturation - - Inhaled Oxygen Concentration - - Weight 127 kg (279 lb 12.2 oz) 05/10/2023 10:12 AM FAT PRESSROOM WORKER Height - - Body Mass Index - - Plan of Treatment Health Maintenance Due Date Last Done Comments CT Colonography 1960 Cervical Cancer Screening 1960 Cologuard 1960 Colonoscopy 1960 Colorectal Cancer Screening 1960 FIT 1960 HIV Screening 1960 Hepatitis C Screening 1960 DTaP,Tdap,and Td Vaccines (2 - Td or Tdap) 08/02/2022 08/02/2012, 04/27/2005 COVID-19 Vaccine (3 - 2022- season) 2022 03/02/2021, 06/06/2020 Depression Screening (Annual PHQ-2) 03/27/2023 Influenza Vaccine (#1) 2023 , 12/24/2020, 01/21/2020, Additional history exists Creatinine Level (Kidney Function Test) 05/08/2024 05/08/2023, 08/09/2022, 07/08/2022, Additional history exists Potassium Level 05/08/2024 05/08/2023, 12/26, 08/09/2022, Additional history exists Sodium Level 05/08/2024 05/08/2023, 06/25, 12/08/2021, Additional history exists Fasting Glucose for Diabetes Screening 05/08/2026 05/08/2023, 07/08/2022, 12/08/2021, Additional history exists Lipid (Cholesterol) Screening 12/08/2026 12/08/2021, 01/20/2021, 05/22/2020, Additional history exists Zoster Vaccines Completed 03/24/2019, 10/26/2018 Mammogram Discontinued 01/24/2023, 12/27, 12/14/2022, Additional history exists Pneumococcal vaccine (0-64 years) Completed 05/08/2023, 12/30/2008 HPV Vaccines Aged Out No longer eligi ble based on patient's age to complete this topic Procedures Procedure Name Priority Date/Time Associated Diagnosis Comments OUTSIDE MG MAMMOGRAM Routine 01/24/2023 9:05 AM CDT from Last 3 Months or Most Recently Relevant to Health Maintenance Results * MM clip placement RT-Outside Mammogram (01/24/2023 9:05 AM CDT) Narrative [facility] - 02/13/2023 9:45 AM FAT PRESSROOM WORKER This order has been created and auto-finalized to support the import of outside images. If available, original interpretation can be found on the Media Tab in Chart Review, in Document Viewer, or as an image in QREADS. If a re-interpretation or overread is required please follow defined workflow. ?? Provider Not In System IMG BI PROCEDURES [facility] NA from Last 3 Months or Most Recently Relevant to Health Maintenance
--- OUTSIDE RECORDS SUMMARY | 2023-10-20 07:57 | XMS_ITS | Clinical Summary ---
Author Organization [facility] Address [address] [place] [id number] Care Team Providers Care Web Portal Developer Name Role Phone [facility], [facility] [place] Primary Care Provider Jillian Bethea MD Unavailable Kofi Mora OD Unavailable [phone] Jillian Bethea MD Unavailable Allergies Active Allergy Reactions Criticality Noted Date Comments Levofloxacin Muscle Pain (Myalgia) 02/13/2018 Penicillins 09/07/2009 Sandra Oil 08/02/2012 Other reaction(s): Throat Swelling/Closing Statins Muscle Pain (Myalgia) 02/04/2013 Simvastatin, Lipitor, and Crestor Sulfa Antibiotics 09/07/2009 Medications Medication Sig Dispensed Refills Start Date End Date Status pramipexole (MIRAPEX) 0.25 MG tablet Take 2 tablets by mouth daily Two tabs 'staggered' at bedtime 07/31/2018 Active lisinopril (PRINIVIL/ZESTRIL) 40 MG tablet Take 40 mg by mouth 07/31/2018 Activ e hydrochlorothiazide (HYDRODIURIL) 25 MG tablet Take 25 mg by mouth 07/31/2018 Activ e omeprazole (PRILOSEC) [address] capsule Take 1 tablet by mouth daily 08/11/2015 Active fluticasone (FLONASE) 50 MCG/ACT nasal spray [place] 1 spray in nostril 02/13/2018 Active albuterol (PROAIR HFA/PROVENTIL HFA/VENTOLIN HFA) 108 (90 Base) MCG/ACT inhaler Inhale 2 puffs into the lungs as needed 12/24/2018 Active Carboxymethylcellulos e Sodium (ARTIFICIAL TEARS OP) Apply 1 drop to eye as needed Active ketotifen (ZADITOR) 0.025 % ophthalmic solution Place 1 drop into both eyes every morning Sometimes second dose at night time Active Fexofenadine-Pseudoep hedrine (HALEY-D 24 HOUR PO) Take 1 tablet by mouth daily Active ezetimibe (ZETIA) 10 MG tablet Take 10 mg by mouth At Bedtime 09/25/2021 Active fluticasone (ARNUITY ELLIPTA) 200 MCG/ACT inhaler Inhale 1 puff into the lungs daily 06/18/2020 Active Family History Medical History Relation Comments Glaucoma Father Macular Degeneration No family hx of Relation Status Comments Father Social History Tobacco Use Types Packs/Day Years Used Date Smoking Tobacco: Former Cigarettes Smokeless Tobacco: Never Alcohol Use Standard Drinks/Week Comments Yes 0 (1 standard drink = 0.6 oz pur e alcohol) occasionally PHQ-2 Answer Date Recorded PHQ-2 Score 0 10/06/2021 Adolescent Education Answer Date Record ed Getting School Help Needed Not on file 12/26 Sex and Gender Information Value Date Recorded Sex Assigned at Not on file Gender Identity Not on file Sexual Orientation Not on file Last Filed Vital Signs Vital Sign Reading Time Taken Comments Blood Pressure 136/88 01/20/2019 10:26 PM CDT Pulse 89 01/20/2019 10:26 PM CDT Temperature 36.9 ??C (98.5 ??F) 01/20/2019 1 0:26 PM CDT Respiratory Rate 16 01/20/2019 10:2 6 PM CDT Oxygen Saturation 99% 01/20/2019 12: 32 AM CDT Inhaled Oxygen Concentration - - Weight 121.8 kg (268 lb 9.6 oz) 019 10:07 PM CDT Height 168.9 cm (5' 6.5) 01/19/2019 8:22 PM CDT Body Mass Index 42.7 01/19/2019 8:22 PM CDT Plan of Treatment Health Maintenance Due Date Last Done Comments A1C 1960 ADVANCE CARE PLANNING 1960 ANNUAL REVIEW OF HM ORDERS [address] COLONOGRAPHY 1960 DIABETIC FOOT EXAM 1960 FIT 1960 FLEX SIG 1960 LIPID 1960 MICROALBUMIN 1960 sDNA (Cologuard) 1960 COLONOSCOPY 1970 COLORECTAL CANCER SCREENING 1970 HIV SCREENING 1975 HEPATITIS C SCREENING 1978 PAP 1981 Pneumococcal Vaccine: Pediatrics (0 to 5 Years) and At-Risk Patients (6 to 64 Years) (2 of 2 - PCV) 12/30/2009 12/30/2008 LUNG CANCER SCREENING 2010 RSV VACCINE ( & 60+) (1 - 1-dose 60+ series) 2020 DTAP/TDAP/TD IMMUNIZATION (2 - Td or Tdap) 08/02/2022 08/02/2012, 04/27/2005 COVID-19 Vaccine ( season) 2022 03/02/2021, 06/06/2020 PHQ-2 (once per calendar year) 2023 10/06/2021, 11/12/2020, 03/28/2019, Additional history exists YEARLY PREVENTIVE VISIT 07/09/2023 07/08/2022, 01/20 EYE EXAM 07/29/2023 07/28/2022, 0506/2022, 07/28/2022, Additional history exists INFLUENZA VACCINE (#1) 2023 , 12/24/2020, 01/21/2020, Additional history exists MAMMO SCREENING 07/12/2024 07/12/2022, 06/25, 11/20/2015 ZOSTER IMMUNIZATION Completed 03/24/2019, 9 HPV IMMUNIZATION Aged Out No longer e ligible based on patient's age to complete this topic IPV IMMUNIZATION Aged Out No longer e ligible based on patient's age to complete this topic MENINGITIS IMMUNIZATION Aged Out No l onger eligible based on patient's age to complete this topic RSV MONOCLONAL ANTIBODY Aged Out No l onger eligible based on patient's age to complete this topic Procedures Procedure Name Priority Date/Time Associated Diagnosis Comments MA DIAGNOSTIC RIGHT W DAVID Routine 11/20/2015 10:59 AM CDT Abnormal mammogram from Last 3 Months or Most Recently Relevant to Health Maintenance Results * MA Diagnostic Right w/David (11/20/2015 10:59 AM CDT) Anatomical Region Laterality Modality Breast Bilateral Mammography Impressions 11/20/2015 11:53 AM CDT IMPRESSION: BI-RADS CATEGORY: 2 - Benign Finding(s). Right breast 2:00 simple cyst. RECOMMENDED FOLLOW-UP: Annual Mammography. Recommend routine annual screening mammography. The results and recommendation were communicated to the patient at the conclusion of today's appointment. MICH MEDINA MD Narrative 11/20/2015 11:53 AM CDT DIAGNOSTIC MAMMOGRAM, RIGHT, DIGITAL w/CAD AND TOMOSYNTHESIS - 11/20/2015 10:59 AM ULTRASOUND RIGHT BREAST HISTORY: ??Call back for focal asymmetry in the right upper inner breast on recent screening mammogram. COMPARISON: ??Screening mammogram dated November 16, 2015. BREAST DENSITY: Heterogeneously dense. FINDINGS: ??Additional mammographic views demonstrate the persistence of a small round mass in the right upper inner breast. Targeted ultrasound evaluation of the right breast at 2:00 1 cm from the nipple demonstrates a 5 mm simple cyst, corresponding to the mammographic finding. Kavitha Baum PA-C [facility] MAMMOGRAPHY ORDERABLES from Last 3 Months or Most Recently Relevant to Health Maintenance Care Teams Web Portal Developer Relationship Specialty Start Date End Date [facility], [address] [address] PCP - General 01/19/19 Jillian Bethea MD [address] [place] [address] [phone] Assigned Surgical Provider 11/22/20 Kofi Mora OD [address] [place] [id number] Optometry 07/07/22 Jillian Bethea MD [address] [place] [address] [phone] Ophthalmology 07/07/22
--- OUTSIDE RECORDS SUMMARY | 2023-10-20 07:57 | XMS_ITS ---
Author Organization [facility] Address [address] [place] [address] Care Team Providers Care Director Graphics Name Role Phone Unavailable Unavailable Unavailable Surgery Details Not on file Complications Check Surgery Details section. Procedure Estimated Blood Loss Check Surgery Details section. Procedure Findings Check Surgery Details section. Procedure Specimens Taken Check Surgery Details section.
--- OUTSIDE RECORDS SUMMARY | 2023-10-20 07:57 | XMS_ITS | Referral Summary ---
Author Organization [facility] Address [address] [place] [address] Care Team Providers Care Crm Marketing Analyst Name Role Phone Unavailable Primary Care Provider Unavailabl e Source Comments Patient records contain information from all sites at [facility]. For routine questions regarding patient records, call [phone] during business hours, M-F 8:00 AM - 5:00 PM Central Time. Record requests for emergency care only can be directed to [phone] at any time.[facility] Allergies Active Allergy Reactions Criticality Noted Date Comments Levofloxacin Myalgia Low 02/13/2018 Penicillins Itching,Rash Low 09/07/2009 Sandra Anaphylaxis,Itching High 08/02/2012 Other reaction(s): Throat Swelling/Closing Qfiztlz-Mht-Rtn Reductase Inhibitors Myalgia Low 02/04/2013 Simvastatin, Lipitor, [...] from 08/04/2022:Stage IIA(cT3, cN2(f), cM0, G2, ER+, CT+, HER2-) - Unsigned Pathologic stage from 01/24/2023: ypT3, pN3a, cM0, G2, ER+, CT+, HER2- - Unsigned Social History Tobacco Use Types Packs/Day Years [...] your living situation today? I have a [facility] place to live 02/14/2023 Sex and Gender Information Value Date Recorded Sex Assigned at Female 02/14/2023 11:13 AM AIR ANALYST Gender Identity Female 02/14/2023 11:13 AM AIR ANALYST Sexual Orientation Straight 02/14/2023 11 :13 AM AIR ANALYST Last Filed Vital Signs Vital Sign Reading Time Taken Comments Blood Pressure 151/93 03/30/2023 12:55 PM AIR ANALYST Pulse 109 03/30/2023 12:55 PM AIR ANALYST Temperature 36.4 ??C (97.5 ??F) 05/10/2023 10:[address] Respiratory Rate - - Oxygen Saturation - - Inhaled Oxygen Concentration - - Weight 127 kg (279 lb 12.2 oz) 05/10/2023 10:12 AM AIR ANALYST Height - - Body Mass Index - - Plan of Treatment Not on file Procedures Procedure Name Priority Date/Time Associated Diagnosis Comments OUTSIDE MG MAMMOGRAM Routine 01/24/2023 9:05 AM CDT from Last 3 Months or Most Recently Relevant to Health Maintenance Results * MM clip placement RT-Outside Mammogram (01/24/2023 9:05 AM CDT) Narrative [facility] - 02/13/2023 9:45 AM AIR ANALYST This order has been created and auto-finalized [...]
--- OUTSIDE RECORDS SUMMARY | 2023-10-20 07:57 | XMS_ITS ---
Author Organization [facility] Address [address] [place] [address] Care Team Providers Care Soldering Machine Feeder Name Role Phone Unavailable Primary Care Provider Unavailabl e Active Problems Problem Noted Date Diagnosed Date Malignant Neoplasm Of Breast Upper Outer Quadrant Female Right 02/13/2023 Cancer Staging:Clinical stage from 08/04/2022:Stage IIA(cT3, cN2(f), cM0, G2, ER+, HI+, HER2-) - Unsigned Pathologic stage from 01/24/2023: ypT3, pN3a, cM0, G2, ER+, HI+, HER2- - Unsigned Current Oncology Plans No current plan information found. Past Plans No past plan information found. Radiation Treatments * Plan Last Treated On Elapsed Days Fractions Treated Prescribed Fraction Dose Prescribed Total Dose [id number] 05/12/2023 32 8 of 8 220 cGy 1,760 cGy [id number] 05/02/2023 22 17 of 17 220 cGy 3,740 cGy Reference Point Last Treated On Elapsed Days Session Dose Total Dose [id number] 05/12/2023 32 220 cGy 5,500 cGy
--- OUTSIDE RECORDS SUMMARY | 2023-10-20 07:57 | XMS_ITS | Referral Summary ---
Author Organization [place] Address [address] [place] [id number] Care Team Providers Care Economic Development Coordinator Name Role Phone Clinic, [facility] [place] Primary Care Provider Jillian Bethea MD Unavailable Kofi Mora OD Unavailable [phone] Jillian Bethea MD Unavailable Allergies Active Allergy [...] Active fluticasone (FLONASE) 50 MCG/ACT nasal spray [place] 1 spray in nostril 02/13/2018 Active albuterol [...] puff into the lungs daily 06/18/2020 Active Social History Tobacco Use Types Packs/Day Years [...] 01/19/2019 8:22 PM CDT Plan of Treatment Not on file Procedures [...] Recently Relevant to Health Maintenance Care Teams Economic Development Coordinator Relationship Specialty Start Date End Date [facility], [address] [address] PCP - General 01/19/19 Jillian Bethea MD [address] [place] [id number] Assigned Surgical Provider 11/22/20 Kofi Mora OD [address] [place] [id number] Optometry 07/07/22 Jillian Bethea MD [address] [place] [id number] Ophthalmology 07/07/22
--- OUTSIDE RECORDS SUMMARY | 2023-10-20 07:57 | XMS_ITS | Clinical Summary ---
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 For home use. 1 unit 0 10/25/2011 Active fluticasone (50 mcg per actuation) nasal solution (FLONASE) Inhale 1 [place] in the nostril(s) once daily. 1 Bottle 02/13/2018 Active albuterol HFA 90 mcg/actuation inhalerIndications: Acute bronchitis, unspecified organism Inhale 2 Puffs by mouth 4 times daily if needed. 1 Inhaler 12/24/2018 Active diabetic supplies, miscellan.Indicatio ns:Controlled type 2 diabetes mellitus without complication, without long-term current use of insulin (HC) Dispense glucose meter, test strips and lancets covered by patient insurance. Test 3 times per day. 1 Kit 6 06/19/2020 Active Arnuity Ellipta 200 mcg/actuation inhaler Inhale 1 Puff by mouth once daily. 06/18/2020 Active Accu-Chek Guide Glucose Meter 3 times daily. 06/20/2020 Active fexofenadine HCl (HALEY ALLERGY ORAL) Take 1 tablet. by mouth once daily in the evening. Active prochlorperazine (COMPAZINE) 5 mg tablet Take 5 mg by mouth every 8 hours if needed for Nausea/Vomiting. 08/08/2022 Active ondansetron (ZOFRAN ODT) [address] 4 mg on the tongue every 8 hours if needed. 08/08/2022 Active lancets (Accu-Chek Softclix Lancets)Indications :Controlled type 2 diabetes mellitus without complication, without long-term current use of insulin (HC) As directed three times daily. Dispense item covered by pt ins. E11.65 NIDDM type II, uncontrolled - Test 2 times/day. Reason: New diabetes 300 Each 3 11/09/2022 Active blood sugar diagnostic (Accu-Chek Guide test strips) stripIndications:Co ntrolled type 2 diabetes mellitus without complication, without long-term current use of insulin (HC) Test blood sugar once daily. 50 Each 6 11/09/2022 Active traMADoL (ULTRAM) 50 mg tablet Take 50 mg by mouth every 6 hours if needed for Pain. 11/09/2022 Active loratadine (CLARITIN) 10 mg tablet Take 1 Tablet (10 mg) by mouth once daily. 0 11/23/2022 Active gabapentin (NEURONTIN) 300 mg capsule Take 300 mg by mouth. 300 mg in the morning, 300 mg at noon, 600mg at 7pm 11/29/2022 Active magnesium oxide (MAG-OX 400) 400 mg tablet Take 400 mg by mouth two times daily. 01/12/2023 Active aspirin (ECOTRIN) 81 mg enteric coated tablet Take 1 Tablet (81 mg) by mouth once daily. 0 01/17/2023 Active HYDROcodone-acetami nophen (5-325 mg/tablet) Take 1 Tablet by mouth every 6 hours if needed for Pain. 01/25/2023 Active durable medical equipment (DME)Indications:Ar thritis of right ankle Custom brace to right foot/ankle for ankle immobility for activity 1 Each 02/03/2023 Active cyanocobalamin (VITAMIN B12) 1,000 mcg tablet Take 1 Tablet by mouth once daily. 03/31/2023 Active Verzenio 50 mg tablet Take 50 mg by mouth two times daily. 05/18/2023 Active rOPINIRole (REQUIP) 2 mg tabletIndications:r estless leg syndrome Take 2 mg by mouth once daily in the evening. At 5pm Active lactase (LACTAID ORAL) Take 1 Tablet by mouth two times daily. Take with Verzenio Active CALCIUM-VITAMIN D3-MAGNESIUM ORAL Take 1 Tablet by mouth once daily in the evening. Active cannabidiol, CBD, (CANNABIDIOL ORAL) Take by mouth each time if needed. CBD oil in the morning as needed. CBD gummy at bedtime as needed. Active olopatadine (Pataday Twice Daily Relief) 0.1 % ophthalmic solution Place 1-2 Drops into both eyes 2 times daily if needed. Active lisinopriL (PRINIVIL; ZESTRIL) 40 mg tabletIndications:H ypertension TAKE 1 TABLET(40 MG) BY MOUTH EVERY DAY 90 Tablet 3 08/24/2023 Active omeprazole (PRILOSEC) 20 mg Delayed-Release capsuleIndications: Chronic GERD TAKE 1 CAPSULE(20 MG) BY MOUTH ONCE DAILY BEFORE A MEAL 90 Capsule 3 08/24/2023 Active hydroCHLOROthiazide 25 mg tabletIndications:H ypertension TAKE 1 TABLET(25 MG) BY MOUTH ONCE DAILY 90 Tablet 3 08/24/2023 Active ezetimibe (ZETIA) 10 mg tabletIndications:D yslipidemia TAKE 1 TABLET(10 MG) BY MOUTH AT BEDTIME 90 Tablet 3 08/24/2023 Active metFORMIN (GLUCOPHAGE) 1,000 mg tabletIndications:C ontrolled type 2 diabetes mellitus without complication, without long-term current use of insulin (HC) Take 1 Tablet (1,000 mg) by mouth two times daily with meals. 180 Tablet 09/02/2023 Active rOPINIRole (REQUIP) 0.25 mg tabletIndications:R estless legs syndrome (RLS) Take 0.25 mg as needed (in addition to 2 mg tablet) for restless leg syndrome 90 Tablet 10/18/2023 Active rOPINIRole (REQUIP) 0.25 mg tabletIndications:R estless legs syndrome (RLS) Take 0.25 mg as needed (in addition to 2 mg tablet) for restless leg syndrome 90 Tablet 1 07/11/2023 10/18/19 24 Discontinu ed(*Availa bility/For mulary change/Cos t of medication ) Active Problems Problem Noted Date Diagnosed Date MELVA (acute kidney injury) 08/18/2023 Severe sepsis 08/18/2023 UTI (urinary tract infection) 08/18/2023 Metastasis from breast cancer 02/03/2023 Primary cancer of right breast 07/26/2022 Osteopenia 01/25/2021 Overview: Bone density December 2020. Repeat 3-5 years. Controlled type 2 diabetes m ellitus without complication, without long-term current use of insulin 05/26/2020 Overview: Diagnosed April 2020, A1C 6.9. Chondromalacia of left knee 03/01/2016 Mild semimembranosus bursitis, left 03/01/2016 Synovial cyst of left knee 03/01/2016 Adenomatous colon polyp 10/11/2013 Overview: Colonoscopy 09/2013 polyps repeat in 5 years Vitamin D deficiency 08/02/2012 Seasonal allergies 06/30/2010 Allergic asthma without complication 06/30/2010 Overview: Allergy induced Restless legs syndrome (RLS) 06/30/2010 Hypertension 09/07/2009 Dyslipidemia 09/07/2009 Encounters Date Type Department Care Team Description 10/17/2023 [facility] [address] [place] [address] Oscarqra, Lyly Leidy, DO Refill Request (Ropinirole) 08/31/2023 Refill [facility] [address] [place] [address] Oscarqra Lyly Leidy, DO Refill Request (Metformin) 08/25/2023 11:25 AM CDT Office Visit [facility] [address] [place] [address] Oscarqra Lyly Leidy, DO Hospital F/U (polynephritis) 08/25/2023 Travel 08/22/2023 Travel 08/22/2023 Patient Outreach [facility] [address] [place] [address] Solomon, Magaly S, RN Primary RN Care Management; Hospital F/U ([facility]) 08/22/2023 Refill [facility] [address] [place] [address] Lyly Cooper DO Refill Request (Lisinopril, Omeprazole, Hydrochlorothiazide, Ezetimibe) 08/17/2023 8:41 PM CDT - 08/19/2023 2:35 PM CDT Emergency [facility] [address] [place] [address] Damian Talbert, Rina Haynes MD Cudak, Austin Christopher, DO Nguyen, Thao Nguyen Le, NP Lapham, Renae Ann, NP Pyelonephritis (Primary Dx); Primary malignant neoplasm of right breast (HC); Lactic acidosis; MELVA (acute kidney injury) (HC) Discharge Disposition: Home Self Care 08/17/2023 6:50 PM CDT Office Visit [facility] [address] [place] [address] Mary Perry NP UTI 08/17/2023 Travel 08/09/2023 11:15 AM CDT Ancillary Procedure [facility] [address] [place] [address] 08/09/2023 Telephone [facility] [address] [place] [address] Lyly Cooper DO Physical Therapy (Foot ) 08/09/2023 Travel 08/07/2023 9:20 AM CDT [facility] [address] [place] [address] Lyly Cooper DO Diabetes (3 month check); Dizziness (Pt reports near syncope - first episode in 2019, nothing until January 2023 - has had 3 episodes since then 2 in the last 3 weeks. Patient reports malaise, diaphoresis, feeling faint, muffled hearing, vision changes/loss. ) 08/07/2023 Travel from Last 3 Months Immunizations Name Administration Dates Next Due COVID-19 vaccine ([employer]J& J) PF, MDV 06/06/2020 Influenza Virus, Unspecified 12/09/2009 Influenza, IIV3 (Age >=3 years) 01/01/2013,01/06,01/05/2007 Influenza, IIV4 01/08/2015,12/26/2013 Influenza, IIV4 (=>6mos) MDV 12/24/2020, 01/21/2020,02/01/2019,2017,01/03/2017,01/04/2016 Pneumococcal Conj 20-valent (Prevnar 20) 05/08/2023 Pneumococcal Poly,23-Valent (Pneumovax) 12/30/2008 Td (Age >=7 Years) 04/27/2005 Tdap 08/02/2012 Zoster (Shingrix-RZV, recombinant) 03/24/2019, Family History Medical History Relation Name Comments Good Health Brother 1 Good Health Brother 2 Arthritis Father OA Cancer Father multiple myelom a Diabetes Maternal Grandfather Unknown Maternal Grandmother Allergies Mother Arthritis Mother OA Asthma Mother Hypertension Mother Cancer Paternal Grandfather unknown Unknown Paternal Grandfather Genetic Paternal Grandmother Alpha a ntitrypsin Disease Other Paternal Grandmother Emphyse ma 2nd to Alpha Anititrypsin disease Unknown Paternal Grandmother Cancer-breast No Family History Cancer-ovarian No Family History Relation Name Status Comments Brother 1 Brother 2 Father Maternal Grandfather Maternal Grandmother Mother Paternal Grandfather Paternal Grandmother Social History Tobacco Use Types Packs/Day Years Used Date Smoking Tobacco: Former Cigarettes 0.1 9 0 05/02/1987 - 05/02/1996 Smokeless Tobacco: Never Tobacco Cessation:Counseling Given: Yes Comments:had been a social smoker Alcohol Use Standard Drinks/Week Comments Yes 0 (1 standard drink = 0.6 oz pur e alcohol) occasional PHQ-2 Answer Date Recorded PHQ-2 TOTAL SCORE 0 07/08/2022 Social Connections Answer Date Recorded Frequency of Communication with Friends and Fami ly 0 07/11/2023 Financial Resource Strain Answer Date R ecorded Difficulty of Paying Living Expenses 3 07/11/2023 Difficulty of Paying Living Expenses Not on file 07/11/2023 Food Insecurity Answer Date Recorded Worried About Running Out of Food in the Last Ye ar 1 07/11/2023 Transportation Needs Answer Date Record ed Lack of Transportation (Medical) 1 07/11/2023 Housing Stability Answer Date Recorded Unable to Pay for Housing in the Last Year 1 07/11/2023 Sex and Gender Information Value Date Recorded Sex Assigned at Not on file Gender Identity Not on file Sexual Orientation Not on file Obstetrics History Para Term AB IAB SAB Ectopic Multiple Livin g Live Births 2 2 2 Date Outcome GA Total Labor Labor/2nd/3rd Weight Sex Type Anes PTL Leidy A1 A5 Name Clin Para Para Last Filed Vital Signs Vital Sign Reading Time Taken Comments Blood Pressure 153/76 08/25/2023 11:27 AM CDT Pulse 95 08/25/2023 11:27 AM CDT Temperature 36.8 ??C (98.2 ??F) 08/19/2023 8:22 AM CD T Respiratory Rate 18 08/19/2023 8:22 AM CDT Oxygen Saturation 99% 08/25/2023 11: 27 AM CDT Inhaled Oxygen Concentration - - Weight 124.5 kg (274 lb 6.4 oz) 024 11:27 AM CDT Height 167.6 cm (5' 6) 08/17/2023 8:45 PM CDT Body Mass Index 44.29 08/17/2023 8:45 PM CDT Plan of Treatment Upcoming Encounters Date Type Department Care Team (Late st Contact Info) Description 11/07/2023 9:00 AM CDT Orders Only [facility] [address] [place] [address] [place], [place] 11/07/2023 9:20 AM CDT Office [facility] [address] [place] [address] Lyly Cooper, DO [address] [place] [address] Health Maintenance Due Date Last Done Comments Fecal testing sDNA-FIT (Zenda guard) for age 45-75 2005 Tetanus booster 08/02/2022 08/02/2012, 04/27/2005 COVID-19 vaccine series ( season) 2022 03/02/2021, 06/06/2020 Depression screening for age 12+ 07/09/2023 07/08/2022, 12/08/2021, 08/12/2020, Additional history exists Mammogram for age 45-75 07/13/2023 07/13/19 23, 07/05/2022, 01/08/2021, Additional history exists Influenza for age 50-64 11/26/2023 12/25/19 21, 01/21/2020, 02/01/2019, Additional history exists BMI (ht and wt on same day) for age 18+ 01/18/2024 01/17/2023, 07/08/2022, 12/08/2021, Additional history exists Pap test for age 21-65 01/20/2026 , 01/20/2021, 10/27/2015, Additional history exists Lipids for age 45-75 12/08/2026 12/08/2021, 01/20/2021, 05/22/2020, Additional history exists Tdap Completed 08/02/2012 Hepatitis C screening for ag e 18-79 Completed 08/06/2013 Zoster (shingles) series for age 50+ Completed 03/24/2019, 10/26/2018 HIV for age 15-65 Completed 05/08/2023 Pneumococcal series for age 6-64 Completed 05/08/19, 12/30/2008 Medical Devices Implanted Type Area Alcoholism Worker Device Identifier Shelf Expiration Date Model / Serial / Lot Strip Silcn [id number] [employer] - [id number] Implanted:Qty: 1 on 01/21/2019 by Jillian Bethea MD at [facility] Opthalmology Implants Right: Eye [employer] 08/21/2025 [id number] / / [id number] Sleeve Oval [id number] - [id number] Implanted:Qty: 1 on 01/21/2019 by Jillian Bethea MD at [facility] Opthalmology Implants Right: Eye [employer] 11/21/2024 [id number]# / / [id number] Procedures Procedure Name Priority Date/Time Associated Diagnosis Comments HEMOGLOBIN Routine 08/25/2023 12:06 PM CDT Hospital discharge follow-up BASIC METABOLIC PANEL Routine 08/25/2023 12:06 PM CDT Hospital discharge follow-up LACTATE VENOUS Today 08/19/2023 12:40 PM CDT LACTATE VENOUS Timed 08/19/2023 9:41 AM CDT LACTATE VENOUS Today 08/19/2023 7:38 AM CDT HEMOGLOBIN Today 08/19/2023 6:53 AM CDT CREATININE Today 08/19/2023 6:53 AM CDT POTASSIUM Today 08/19/2023 6:53 AM CDT SODIUM Today 08/19/2023 6:53 AM CDT GLUCOSE METER Routine 08/19/2023 6:53 AM CDT GLUCOSE METER Routine 08/18/2023 9:12 PM CDT LACTATE VENOUS Timed 08/18/2023 7:05 AM CDT GLUCOSE METER Routine 08/18/2023 7:03 AM CDT HEPATIC FUNCTION PANEL FRANCK 08/18/2023 4:57 AM CDT LACTATE VENOUS Timed 08/18/2023 4:57 AM CDT PLATELET COUNT Early AM 08/18/2023 4:57 AM CDT HEMOGLOBIN Early AM 08/18/2023 4:57 AM CDT WHITE BLOOD COUNT Early AM 08/18/2023 4:5 7 AM CDT MAGNESIUM Early AM 08/18/2023 4:57 AM CDT CREATININE Early AM 08/18/2023 4:57 AM CDT POTASSIUM Early AM 08/18/2023 4:57 AM CDT SODIUM Early AM 08/18/2023 4:57 AM CDT LACTATE VENOUS STAT 08/17/2023 11:00 PM CDT BLOOD CULTURE STAT 08/17/2023 9:16 PM CDT PROCALCITONIN STAT 08/17/2023 9:11 PM CDT LACTATE VENOUS STAT 08/17/2023 9:11 PM CDT BLOOD CULTURE STAT 08/17/2023 9:11 PM CDT CBC WITH AUTO DIFFERENTIAL STAT 08/17/2023 7:50 PM CDT Urgency of urination Chills LACTATE VENOUS STAT 08/17/2023 7:50 PM CDT Urgency of urination Chills BASIC METABOLIC PANEL STAT 08/17/2023 7:50 PM CDT Urgency of urination Chills CBC WITH AUTO DIFFERENTIAL STAT 08/17/2023 7:50 PM CDT Urgency of urination Chills URINE CULTURE FRANCK 08/17/2023 7:45 PM CDT URINALYSIS MICROSCOPIC STAT 08/17/2023 7:45 PM CDT Urgency of urination UA W/ SEDIMENT EXAM REFLEXED PER CRITERIA STAT 08/17/2023 7:45 PM CDT Urgency of urination XR FOOT 3 VIEWS RIGHT Routine 08/09/2023 11:10 AM CDT Foot pain, right URINE ALBUMIN TO CREATININE RATIO, RANDOM Routine 08/07/2023 9:20 AM CDT Controlled type 2 diabetes mellitus without complication, without long-term current use of insulin (HC) HEMOGLOBIN A1C Routine 08/07/2023 9:15 AM CDT Controlled type 2 diabetes mellitus without complication, without long-term current use of insulin (HC) ANTI HIV 1/2 Routine 05/08/2023 9:08 AM MANAGER MSW Screening for HIV (human immunodeficiency virus) XR MAMMO TAMERA UNI ADDL VIEWS RIGHT FRANCK 07/12/2022 2:35 PM CDT Abnormal mammogram LIPID PANEL W REFLEX MEASURED LDL Routine 12/08/2021 9:17 AM CDT Dyslipidemia HPV THIN PREP Routine 01/20/2021 9:47 AM CDT Screening for malignant neoplasm of cervix ANTI HCV Routine 08/06/2013 8:36 AM CDT Need for hepatitis C screening test from Last 3 Months or Most Recently Relevant to Health Maintenance Results * HEMOGLOBIN (08/25/2023 12:06 PM CDT) Only the most recent of3 resultswithin the time period is included. HEMOGLOBIN 12.2 12.0 - 16.0 g/dL 08/25/2023 12:21 PM CDT [facility] MCV 94 80 - 100 fL 08/25/2023 12:21 PM CDT [facility] Blood BLOOD SPECIMEN / Unknown Venipuncture / Unknown 08/25/2023 12:06 PM CDT 08/25/2023 12:11 PM CDT Lyly Cooper DO HEMATOLOGY [facility] [address] [place] [address], [place] [phone] * (ABNORMAL) BASIC METABOLIC PANEL (08/25/2023 12:06 PM CDT) Only the most recent of2 resultswithin the time period is included. SODIUM 139 136 - 145 mmol/L 08/25/2023 11:33 PM CDT [facility] POTASSIUM 4.8 3.5 - 5.1 mmol/L 08/25/2023 11:33 PM CDT [facility] CHLORIDE 101 98 - 107 mmol/L 08/25/2023 11:33 PM CDT [facility] CO2,TOTAL 25 22 - 29 mmol/L 08/25/2023 11:33 PM CDT [facility] ANION GAP 13 5 - 18 08/25/2023 11:33 PM CDT [facility] GLUCOSE 94 70 - 99 mg/dL 08/25/2023 11:33 PM CDT [facility] CALCIUM 9.9 8.8 - 10.2 mg/dL 08/25/2023 11:33 PM T [facility] BUN 12 8 - 23 mg/dL 08/25/2023 11:33 PM T [facility] CREATININE 0.81 0.50 - 0.90 mg/dL 08/25/2023 11:33 PM T [facility] BUN/CREAT RATIO 15 10 - 20 11:33 PM T [facility] eGFR 82(L) >90 mL/min/1.7 3m2 08/25/2023 11:33 PM T [facility] Comment:As of 2021, eG FR is calculated by the CKD-EPI creatinine equation without race adjustment. ??eGFR can be influenced by muscle mass, exercise, and diet. ??The reported eGFR is an estimation only and is only applicable if the renal function is stable. Blood BLOOD SPECIMEN / Unknown Venipuncture / Unknown 08/25/2023 12:06 PM CDT 08/25/2023 12:11 PM CDT Lyly Cooper DO CHEMISTRY [facility] [address] [place] [id number], * LACTATE VENOUS (08/19/2023 12:40 PM CDT) Only the most recent of8 resultswithin the time period is included. LACTATE,VENOUS 1.8 0.5 - 2.0 mmol/L 08/19/2023 1:14 PM CDT [facility] Blood BLOOD SPECIMEN / Unknown Venipuncture / Unknown 08/19/2023 12:40 PM CDT 08/19/2023 12:51 PM CDT Sunita Armando NP CHEMISTRY [facility] [address] [place] [address] * SODIUM (08/19/2023 6:53 AM CDT) Only the most recent of2 resultswithin the time period is included. SODIUM 137 136 - 145 mmol/L 08/19/2023 8:11 AM CDT [facility] Blood BLOOD SPECIMEN / Unknown Add On / Unknown 08/19/2023 6:53 AM CDT 08/19/2023 7:58 AM CDT Bobby De Paz DO CHEMISTRY Performing Organization Address City/[facility]/ZIP Co de Phone Number [facility] [address] [place], [place] [id number] * POTASSIUM (08/19/2023 6:53 AM CDT) Only the most recent of2 resultswithin the time period is included. POTASSIUM 4.1 3.5 - 5.1 mmol/L 08/19/2023 8:11 AM CDT [facility] Blood BLOOD SPECIMEN / Unknown Add On / Unknown 08/19/2023 6:53 AM CDT 08/19/2023 7:58 AM CDT Bobby De Paz DO CHEMISTRY [facility] [address] [place] [address] * (ABNORMAL) CREATININE (08/19/2023 6:53 AM CDT) Only the most recent of2 resultswithin the time period is included. eGFR 75(L) >90 mL/min/1.7 3m2 08/19/2023 8:11 AM CDT [facility] Comment:As of 2021, eG FR is calculated by the CKD-EPI creatinine equation without race adjustment. ??eGFR can be influenced by muscle mass, exercise, and diet. ??The reported eGFR is an estimation only and is only applicable if the renal function is stable. CREATININE 0.87 0.50 - 0.90 mg/dL 08/19/2023 8:11 AM CDT [facility] Blood BLOOD SPECIMEN / Unknown Add On / Unknown 08/19/2023 6:53 AM CDT 08/19/2023 7:58 AM CDT Bobby De Paz DO CHEMISTRY Performing Organization Address City/[facility]/ZIP Co de Phone Number [facility] [address] [place] [address] * (ABNORMAL) GLUCOSE METER (08/19/2023 6:53 AM CDT) Only the most recent of3 resultswithin the time period is included. GLUCOSE METER 170(H) 65 - 100 mg/dL 08/19/2023 6:57 AM CDT [facility] Blood BLOOD SPECIMEN / Unknown 08/19/2023 6:53 AM CDT 08/19/2023 6:57 AM CDT Rina Newman MD CHEMISTRY Performing Organization Address City/[facility]/ZIP Co de Phone Number [facility] [address] [place] [address] * PLATELET COUNT (08/18/2023 4:57 AM CDT) PLATELET COUNT 246 140 - 440 thou/cu mm 08/18/2023 5:39 AM CDT [facility] MPV 9.0 6.5 - 11.0 fL 08/18/2023 5:39 AM CDT [facility] Blood BLOOD SPECIMEN / Unknown Butterfly / Unknown 08/18/2023 4:57 AM CDT 08/18/2023 5:03 AM CDT Rina Newman MD HEMATOLOGY Performing Organization Address City/[facility]/ZIP Co de Phone Number [facility] [address] [place] [address] * WHITE BLOOD COUNT (08/18/2023 4:57 AM CDT) WHITE BLOOD COUNT 7.4 4.5 - 11.0 thou/cu mm 08/18/2023 5:39 AM CDT [facility] Blood BLOOD SPECIMEN / Unknown Butterfly / Unknown 08/18/2023 4:57 AM CDT 08/18/2023 5:03 AM CDT Rina Newman MD HEMATOLOGY Performing Organization Address [facility] Co de Phone Number [facility] [address] [place] [address] * MAGNESIUM (08/18/2023 4:57 AM CDT) MAGNESIUM 1.9 1.6 - 2.4 mg/dL 08/18/2023 6:38 AM CDT [facility] Blood BLOOD SPECIMEN / Unknown Butterfly / Unknown 08/18/2023 4:57 AM CDT 08/18/2023 5:03 AM CDT Rina Newman MD CHEMISTRY Performing Organization Address [facility] Co de Phone Number [facility] [address] [place] [address] * (ABNORMAL) HEPATIC FUNCTION PANEL (08/18/2023 4:57 AM CDT) ALBUMIN 3.7(L) 4.0 - 4.9 g/dL 08/18/2023 9:16 AM CDT [facility] PROTEIN,TOTAL 6.9 6.0 - 8.0 g/dL 08/18/2023 9:16 AM CDT [facility] BILIRUBIN,TOTAL 0.6 0.0 - 1.2 mg/dL 08/18/2023 9:16 AM CDT [facility] BILIRUBIN,DIRECT <0.2 0.0 - 0.3 mg/dL 08/18/2023 9:16 AM CDT [facility] BILIRUBIN,INDIRE CT 08/18/2023 9:16 AM T [facility] Comment:Unable to calculate, Direct Bili <0.2 ALK PHOSPHATASE 56 35 - 104 IU/L 08/18/2023 9:16 AM T [facility] ALT (SGPT) 21 10 - 35 IU/L 08/18/2023 9:16 AM T [facility] AST (SGOT) 18 10 - 35 IU/L 08/18/2023 9:16 AM T [facility] Blood BLOOD SPECIMEN / Unknown Butterfly / Unknown 08/18/2023 4:57 AM CDT 08/18/2023 5:03 AM CDT Bobby De Paz DO CHEMISTRY Performing Organization Address [facility]/State/[facility] Co de Phone Number [facility] [address] [place] [address] * BLOOD CULTURE X2 (08/17/2023 9:16 PM CDT) Only the most recent of2 resultswithin the time period is included. CULTURE No Growth. 08/22/2023 9:45 PM CDT [facility] Blood BLOOD SPECIMEN / Unknown Butterfly / Unknown 08/17/2023 9:16 PM CDT 08/17/2023 9:19 PM CDT Damian Talbert DO MICROBIOLOGY [facility] [address] [place] [address] * PROCALCITONIN (08/17/2023 9:11 PM CDT) PROCALCITONIN 0.12 ng/ml 08/17/2023 9:56 PM CDT [facility] Blood BLOOD SPECIMEN / Unknown Butterfly / Unknown 08/17/2023 9:11 PM CDT 08/17/2023 9:19 PM CDT Narrative [facility] - 08/17/2023 9:56 PM CDT Procalcitonin for initial assessment of Lower Respiratory Tract Infection: Results Interpretation <0.10 ng/mL Antibiotic therapy strongly discoraged. ??Indicates absent of bacterial infection. * 0.10 - 0.25 ng/mL Antibiotic therapy discouraged. ??Bacterial infection unlikely. * 0.26 - 0.50 ng/mL Antibiotic therapy encouraged. ??Bacterial infection possible. >0.50 ng/mL Antibiotic therapy strongly encouraged. ??Suggestive of presence of bacterial infection. *Antibiotic therapy should be considered regardless of PCT result if the patient is clinically unstable, is at high risk for adverse outcome, has strong evidence of bacterial pathogen, or the clinical context indicates antibiotic therapy is warranted. ??If antibiotics are withheld, reassess if symptoms persist/worsen and/or repeat PCT measurement within 6-24 hours. ? In order to assess treatment success and to support a decision to discontinue antibiotic therapy, follow up samples should be tested once every 1-2 days, based upon physician discretion taking into account patient's evolution and progress. Procalcitonin for initial assessment of severe sepsis risk: Results Interpretation <0.5 ng/ml A PCT level below 0.5 ng/ml on the first day of ICU admission is associated with a low risk for progression to severe sepsis and/or septic shock. > 2.0 ng/mL A PCT level above 2.0 ng/mL on the first day of ICU admission is associated with a high risk for progression to severe sepsis and/or septic shock. Note: Concentrations < 0.5 ng/mL do not exclude an infection, on account of localized infections (without systemic signs) which can be associated with such low concentrations, or a systemic infection in its initial stages(< 6 hours). Furthermore, increased procalcitonin can occur without infection. PCT concentrations between 0.5 and 2.0 ng/mL should be interpreted taking into account the patient's history. It is recommended to retest PCT within 6-24 hours if any concentrations < 2 ng/mL are obtained. Damian Talbert DO SEND OUTS [facility] [address] [place] [address] * (ABNORMAL) CBC WITH AUTO DIFFERENTIAL (08/17/2023 7:50 PM CDT) WHITE BLOOD COUNT 12.5(H) 4.5 - 11.0 thou/cu mm 08/17/2023 7:58 PM CDT [facility] RED BLOOD COUNT 4.30 4.00 - 5.20 mil/cu mm 08/17/2023 7:58 PM T [facility] HEMOGLOBIN 13.2 12.0 - 16.0 g/dL 08/17/2023 7:58 PM T [facility] HEMATOCRIT 40.5 33.0 - 51.0 % 08/17/2023 7:58 PM T [facility] MCV 94 80 - 100 fL 08/17/2023 7:58 PM CDT [facility] MCH 30.7 26.0 - 34.0 pg 08/17/2023 7:58 PM T [facility] MCHC 32.6 32.0 - 36.0 g/dL 08/17/2023 7:58 PM T [facility] RDW 15.4 11.5 - 15.5 % 08/17/2023 7:58 PM [facility] PLATELET COUNT 350 140 - 440 thou/cu mm 08/17/2023 7:58 PM T [facility] MPV 9.1 6.5 - 11.0 fL 08/17/2023 7:58 PM CDT [facility] % NEUT 78.0 % 08/17/2023 7:58 PM CDT [facility] % LYMPH 16.3 % 08/17/2023 7:58 PM CDT [facility] % MONO 4.6 % 08/17/2023 7:58 PM T [facility] % EOS 0.7 % 08/17/2023 7:58 PM CDT [facility] % BASO 0.4 % 08/17/2023 7:58 PM CDT [facility] ABSOLUTE NEUTROPHILS 9.7(H) 1.7 - 7.0 thou/cu mm 08/17/2023 7:58 PM T [facility] ABSOLUTE LYMPHOCYTES 2.0 0.9 - 2.9 thou/cu mm 08/17/2023 7:58 PM T [facility] ABSOLUTE MONOCYTES 0.6 <0.9 thou/cu mm 08/17/2023 7:58 PM T [facility] ABSOLUTE EOSINOPHILS 0.1 <0.5 thou/cu mm 08/17/2023 7:58 PM T [facility] ABSOLUTE BASOPHILS 0.1 <0.3 thou/cu mm 08/17/2023 7:58 PM T [facility] Blood BLOOD SPECIMEN / Unknown Butterfly / Unknown 08/17/2023 7:50 PM CDT 08/17/2023 7:50 PM CDT Mary Perry NP HEMATOLOGY [facility] [address] [place] [address] * (ABNORMAL) URINALYSIS MICROSCOPIC (08/17/2023 7:45 PM CDT) RBC 6-10(A) 0-2, None Seen /HPF 08/17/2023 8:35 PM CDT [facility] WBC >100(A) 0-2, 3-5, None Seen /HPF 08/17/2023 8:35 PM T [facility] BACTERIA Many(A) None Seen, Rare, Few Bacteria/ HPF 08/17/2023 8:35 PM CDT [facility] EPITHELIAL CELLS Few None Seen, Few Epi/HPF 08/17/2023 8:35 PM CDT [facility] WHITE CELL CLUMPS Present(A) (none) 08/17/2023 8:35 PM CDT [facility] Urine URINE SPECIMEN / Unknown Non-Blood / Unknown 08/17/2023 7:45 PM CDT 08/17/2023 7:46 PM CDT Mary Perry NP URINE [facility] [address] [place] [address] * (ABNORMAL) URINE CULTURE (08/17/2023 7:45 PM CDT) CULTURE RESULT(A) 08/19/2023 12:32 PM CDT [facility] CULTURE >100,000 CFU/mL Escherichia coli 08/19/2023 12:32 PM CDT [facility] Urine URINE SPECIMEN / Unknown Non-Blood / Unknown 08/17/2023 7:45 PM CDT 08/17/2023 7:46 PM CDT Narrative Organism Antibiotic Method Susceptibility Escherichia coli TRIMETHOPRIM/SULF >=16/304: R Escherichia coli AMPICILLIN >=32: R Escherichia coli CEFAZOLIN-UC <=4: S Comment:Cefazolin-UC interpretations are for therapy of uncomplicated UTIs due to E.coli, K.pneumoniae, or P.mirablis. Cefazolin breakpoint is used as a surrogate to predict results for the oral agents - cefdinir, cefuroxime, and cephalexin, when used for therapy of uncomplicated UTIs due to E coli, K, pneumoniae, and P. mirabilis. The FDA recommends cefadroxil susceptibility can be deduced from cefazolin. Escherichia coli GENTAMICIN <=1: S Escherichia coli CEFTRIAXONE <=1: S Escherichia coli CEFTAZIDIME <=1: S Escherichia coli LEVOFLOXACIN 0.5: S Escherichia coli CIPROFLOXACIN <=0.25: S Escherichia coli PIPERACILLIN/TAZO <=4: S Escherichia coli AMPICILLIN/SULBACTAM >=32: R Escherichia coli CEFEPIME <=1: S Escherichia coli TOBRAMYCIN <=1: S Escherichia coli MEROPENEM <=0.25: S Escherichia coli NITROFURANTOIN <=16: S Damian Talbert DO MICROBIOLOGY [facility] [address] [place] [address], [place] * (ABNORMAL) UA W/ SEDIMENT EXAM REFLEXED PER CRITERIA (08/17/2023 7:45 PM CDT) COLOR Yellow Yellow Color 08/17/2023 8:10 PM [facility] CLARITY Clear Clear Clarity 08/17/2023 8:10 PM [facility] SPECIFIC GRAVITY,URINE 1.010 1.010, 1.015, 1.020, 1.025 08/17/2023 8:10 PM [facility] PH,URINE 6.0 6.0, 7.0, 8.0, 5.5, 6.5, 7.5, 8.5 08/17/2023 8:10 PM [facility] UROBILINOGEN, QUALITATIVE Normal Normal EU/dl 08/17/2023 8:10 PM [facility] PROTEIN, URINE 30(A) Negative mg/dL 08/17/2023 8:10 PM [facility] GLUCOSE, URINE Negative Negative mg/dL 08/17/2023 8:10 PM [facility] KETONES,URINE Negative Negative mg/dL 08/17/2023 8:10 PM [facility] BILIRUBIN,URI NE Negative Negative 08/17/2023 8:10 PM [facility] OCCULT BLOOD,URINE Moderate(A) Negative 08/17/2023 8:10 PM [facility] NITRITE Positive(A) Negative 08/17/2023 8:10 PM [facility] LEUKOCYTE ESTERASE Moderate(A) Negative 08/17/2023 8:10 PM CDT [facility] Urine URINE SPECIMEN / Unknown Non-Blood / Unknown 08/17/2023 7:45 PM CDT 08/17/2023 7:46 PM CDT Mary Perry EMETERIO URINE [facility] [address] [place] [address] * XR FOOT 3 VIEWS RIGHT (08/09/2023 11:10 AM CDT) Anatomical Region Laterality Modality FEET, FOOT R Computed Radiogr aphy 08/11/2023 5:48 AM CDT Narrative 08/11/2023 5:48 AM CDT For Patients: ??As a result of the Cures Act, medical imaging exams and procedure reports are released immediately into your electronic medical record. ??You may view this report before your referring provider. ??If you have questions, please contact your health care provider. Indication: Right foot pain. Technique: Right foot 3 views Comparison: None Findings: Osteopenia. Pes planus. No fracture. Mild degenerative changes at the midfoot and interphalangeal joints. 26 degrees hallux valgus and bunion. Impression: Hallux valgus and bunion with pes planus. Mild multifocal degenerative changes most prominent at the 1st MTP joint. Dictated by Wesley Connor MD @ 08/11/2023 5:48:40 AM (Electronically Signed) Procedure Note Wesley Connor MD - 08/11/2023 For Patients: As a result of the Cures Act, medical imagingexams and procedure reports are released immediately into your electronicmedical record. You may view this report before your referring provider.If you have questions, please contact your health care provider. Indication: Right foot pain. Technique: Right foot 3 views Comparison: None Findings: Osteopenia. Pes planus. No fracture. Mild degenerative changes at themidfoot and interphalangeal joints. 26 degrees hallux valgus and bunion. Impression: Hallux valgus and bunion with pes planus. Mild multifocal degenerativechanges most prominent at the 1st MTP joint. Dictated by Wesley Connor MD @ 08/11/2023 5:48:40 AM (Electronically Signed) Lyly Forbes Kenneth DO GENERAL IMAGING * URINE ALBUMIN TO CREATININE RATIO, RANDOM (08/07/2023 9:20 AM CDT) ALB RAND URINE <12.0 mg/L 08/08/2023 1:05 AM CDT [facility] CREATININE,URINE 0.99 g/L 08/08/19 1:05 AM CDT [facility] ALBUMIN TO CREATININE RATIO,RAND UR 08/08/2023 1:05 AM CDT [facility] Comment:Urine Albumin below measurement range, unable to calculate. Urine URINE SPECIMEN / Unknown Non-Blood / Unknown 08/07/2023 9:20 AM CDT 08/07/2023 9:20 AM CDT Narrative [facility] - 08/08/2023 1:05 AM CDT If Albumin to Creatinine Ratio is elevated, consider the following: ? Elevations seen with incipient nephropathy associated ?? with diabetes mellitus or hypertension. Stress, exercise,hematuria, ?? and urinary tract infection may also produce elevated results. If clinically indicated, confirm with ?24 Hour Albumin to Creatinine Ratio. ?? Lyly Mooreadiel DO URINE [facility] [address] [place] [address], * (ABNORMAL) HEMOGLOBIN A1C MONITORING (POCT) (08/07/2023 9:15 AM CDT) HEMOGLOBIN A1C MONITORING (POCT) 6.6(H) <=6.4 % 08/07/2023 9:28 AM CDT [facility] Blood BLOOD SPECIMEN / Unknown Capillary / Unknown 08/07/2023 9:15 AM CDT 08/07/2023 9:18 AM CDT Narrative [facility] - 08/07/2023 9:28 AM CDT ? (<=6.9%) ? Indicates good control ? (7.0% to 7.9%) ? Indicates fair control ? (>=8.0%) ? Indicates poor control ?? NOTE: ??These thresholds are guidelines and ?individual targets may vary. Falsely low levels may be seen with: Recent Transfusion, Recent Significant Blood Loss, Hemolytic Diseases, or Falsely elevated levels may be seen with: Untreated Anemias, Splenectomy ? Lyly Cooper DO CHEMISTRY [facility] [address] [place] [address], [place] [phone] * ANTI HIV 1/2 [69098.0] (05/08/2023 9:08 AM MANAGER MSW) HIV-1/HIV-2 SCREEN Non-Reacti ve Non-Reacti ve 05/08/2023 5:50 PM MANAGER MSW [facility] Comment:HIV-1 p24 and HIV-1/ HIV-2 Ab Not Detected. Blood BLOOD SPECIMEN / Unknown Venipuncture / Unknown 05/08/2023 9:08 AM MANAGER MSW 05/08/2023 9:09 AM MANAGER MSW Lyly Cooper DO SEND OUTS [facility] [address] [place] [address], [place] * XR MAMMO TAMERA UNI ADDL VIEWS RIGHT (07/12/2022 2:35 PM CDT) Anatomical Region Laterality Modality BREASTS, Breast Right Mammograph y Impressions 07/12/2022 3:52 PM CDT Suspicious mass RIGHT breast 10 o'clock 10 cm from the nipple measuring 2.4 cm and suspicious RIGHT axillary lymph nodes measuring up to 2.8 cm. RECOMMENDATIONS: Ultrasound-guided core needle biopsy of the breast mass and the largest RIGHT axillary lymph node. Results and recommendations discussed with the patient. BI-RADS Category 4: Suspicious Dictated by: Wesley Connor MD @07/12/2022 3:20:51 PM / Patsy PATIENTS: You will also receive a letter with your examination results in an easy to read format. ??If you have questions about your results, please contact your referring provider. Narrative 07/12/2022 3:52 PM CDT For Patients: As a result of the Cures Act, medical imaging exams and procedure reports are released immediately into your electronic medical record. ??You may view this report before your referring provider. ?? If you have questions, please contact your health care provider. ADDITIONAL VIEWS RIGHT DIGITAL MAMMOGRAM USING TOMOSYNTHESIS, 07/12/2022 RIGHT BREAST ULTRASOUND, 07/12/2022 CLINICAL HISTORY: RIGHT breast mass/asymmetry. COMPARISON: 07/05/2022. TECHNIQUE: Digital RIGHT mammogram in two projections. Tomosynthesis utilized. Real-time ultrasound imaging of RIGHT breast with imaging documentation. Scanning was performed by both the technologist and the radiologist. BREAST COMPOSITION: The breast is heterogeneously dense, which may obscure small masses. FINDINGS: 3D spot-compression CC/MLO RIGHT breast mammogram images submitted. Increased conspicuity of an irregular mass within the lateral RIGHT breast. Targeted RIGHT breast ultrasound performed. At 10 o'clock 10 cm from the nipple, there is an irregular somewhat ill-defined hypoechoic and shadowing mass with areas of heterogeneous echotexture measuring 2.4 x 1.2 x 2.0 cm. RIGHT axillary adenopathy also present with lymph nodes measuring up to 2.8 cm. Veronica CHAVEZ MAMMO * (ABNORMAL) LIPID PANEL W REFLEX MEASURED LDL (12/08/2021 9:17 AM CDT) CHOLESTEROL,TOTAL 258(H) 100 - 199 mg/dL 12/08/2021 5:13 PM CDT [facility] TRIGLYCERIDES 349(H) <150 mg/dL 12/08/2021 5:13 PM CDT [facility] HDL CHOLESTEROL 35(L) >40 mg/dL 5:13 PM CDT [facility] NON-HDL CHOLESTEROL 223(H) <145 mg/dl 12/08/2021 5:13 PM CDT [facility] CHOL/HDL RATIO 7.37(H) <4.50 12/08/2021 5:13 PM CDT [facility] LDL CHOLESTEROL 153(H) <=130 mg/dL 12/08/2021 5:13 PM CDT [facility] VLDL CHOLESTEROL 70(H) <=30 mg/dL 12/08/2021 5:13 PM CDT [facility] PROVIDER ORDERED STATUS RANDOM 12/08/2021 5:13 PM CDT [facility] Blood BLOOD SPECIMEN / Unknown Venipuncture / Unknown 12/08/2021 9:17 AM CDT 12/08/2021 9:20 AM CDT Veronica CHAVEZ CHEMISTRY [facility] [address] [place] [address], * HPV HIGH RISK (01/20/2021 9:47 AM CDT) TYPE 16 Negative Negative 01/23/2021 2:11 PM CDT [facility] TYPE 18 Negative Negative 01/23/2021 2:11 PM CDT [facility] OTHER HIGH RISK TYPES Negative Negative 01/23/2021 2:11 PM CDT [facility] Other (Cervical) Non-Blood / Unknown 01/20/2021 9:47 AM CDT 01/20/2021 4:51 PM CDT Narrative [facility] - 01/23/2021 2:11 PM CDT HPV types 16, 18, 31, 33, 35, 39, 45, 51, 52, 56, 58, 59, 66 and 68 DNA were undetectable or below the pre-set threshold. Methodology: Jacinto Aashish 4800 HPV Test Veronica CHAVEZ MICROBIOLOGY [facility] [employer] [address] [place] [address], * ANTI HCV (08/06/2013 8:36 AM CDT) HEPATITIS C ANTIBODY Non-Reacti ve Non-Reacti ve 08/06/2013 6:12 PM CDT [facility] Blood specimen (specimen) BLOOD SPECIMEN / Unknown Butterfly / Unknown 08/06/2013 8:36 AM CDT 08/06/2013 8:36 AM CDT Narrative [facility] - 08/06/2013 6:12 PM CDT Antibodies to HCV not detected; does not exclude the possibility of exposure to HCV. Kavitha CHAVEZ SEND OUTS Performing Organization Address City/[facility]/ZIP Co de Phone Number [facility] [employer] [address] [place] [address], from Last 3 Months or Most Recently Relevant to Health Maintenance Advance Directives * Full Code (Latest Code Status on File) Date Activated Date Inactivated Comments 08/18/2023 1:27 AM 08/19/2023 4:46 PM Question Answer Comments Code Status Discussion: Reviewed Preferences * Full Code Date Activated Date Inactivated Comments 01/21/2019 7:39 AM 01/21/2019 2:46 PM Care Teams Sheet Metal Roofer Relationship Specialty Start Date End Date Lyly Cooper DO [address] [place] [address] PCP - General Family Practice 08/08/22 All/Asthma, Lyndontadt 07/08/11
--- OUTSIDE RECORDS SUMMARY | 2023-10-20 07:58 | XMS_ITS | Continuity of Care Document ---
Author Organization [facility] Address [address] [address] [place] [address] Phone Care Team Providers Care Log Preparer Name Role Phone Ramakrishna Rodriguez MD Unavailable Unavailable Advance Directives Directive Yes / No Effective Date File Name No Information Encounters Encounter Description Practice Location Reason(s) For Visit Diagnoses Date Provider Providers Copied on Encounter [facility], [address] [address], [place], [place], [id number], [place] tel:[phone] [facility] No Information Michael Durbin. [address] [facility], [facility] [address], [place], [id number] , [place]. tel:[phone] Referring Provider: Kavitha CHAVEZ , [address] [place], [address]. tel:[phone] Family History Family Member Type Diagnosis Age At Onset No Information Payers Payer name Insurance type Covered democrat ID Authoriza tion(s) No Information Social History [...]
--- OUTSIDE RECORDS SUMMARY | 2023-10-20 07:58 | XMS_ITS | Encounter Summary ---
Author Organization [place] Address [address] [place] [address]. [place] [address] Care Team Providers Care Bicycle Repair Technician Name Role Phone Clinic, [facility] Primary Care Provider Jillian Bethea MD Unavailable Jillian Bethea MD Unavailable [phone] Kofi Mora OD Unavailable [phone] Kofi Mora OD Unavailable [phone] Jillian Bethea MD Unavailable [phone] Encounter Details Date Type Department Care Team (Late st Contact Info) Description 04/15/2019 MyC Medical Advice [facility] [address] [facility] [address] [facility] [address] [place] [phone] Jillian Bethea MD [address] [facility] [address] [place], [place] [id number] Social History Tobacco Use Types Packs/Day Years Used Date Smoking Tobacco: Former Cigarettes Smokeless Tobacco: Never Alcohol Use Standard Drinks/Week Comments Yes 0 (1 standard drink = 0.6 oz pur e alcohol) occasionally PHQ-2 Answer Date Recorded PHQ-2 Score 0 03/28/2019 Sex and Gender Information Value Date Recorded Sex Assigned at Not on file Gender Identity Not on file Sexual Orientation Not on file documented as of this encounter Plan of Treatment Not on file documented as of this encounter Visit Diagnoses Not on filedocumented in this encounter Care Teams Bicycle Repair Technician Relationship Specialty Start Date End Date Clinic, [address] [id number] PCP - General 01/19/19 Jillian Bethea MD [address] [id number] Assigned Surgical Provider 01/17/2010/31/20 Jillian Bethea MD [address] 149835 Assigned Surgical Provider 11/22/20 Kofi Mora, OD [address] [place], [place] [address] Assigned Surgical Provider 11/01/20 Kofi Mora, OD [address] [place], [place] [address] Optometry 07/07/22 Jillian Bethea MD [address] [place] [address] [id number] Ophthalmology 07/07/22 documented as of this encounter
--- OUTSIDE RECORDS SUMMARY | 2023-10-20 07:58 | XMS_ITS | Encounter Summary ---
Author Organization [place] Address [address] [place] [address]. [place] [address] Care Team Providers Care Welt Rougher Name Role Phone Clinic, [facility] Primary Care Provider Jillian Bethea MD Unavailable Jillian Bethea MD Unavailable Kofi Mora OD Unavailable [phone] Kofi Mora OD Unavailable [phone] Jillian Bethea MD Unavailable Encounter Details Date Type Department Care Team (Late st Contact Info) Description 06/16/2020 MyC Medical Advice [facility] Eye [facility] [address] [facility] [address] [facility] [address] [place] [phone] Jillian Bethea MD [address] [facility] [address] [place], [place] [address] Social History Tobacco Use Types Packs/Day Years [...] on file Sexual Orientation Not on file COVID-19 Exposure Response Date Recorded In the last month, have you been in contact with someone who was confirmed or suspected to have Coronavirus / COVID-19? No / Unsure 06/11/2020 8:49 AM CDT documented as of this encounter Plan of Treatment Not on file documented as of this encounter Visit Diagnoses Not on filedocumented in this encounter Care Teams Welt Rougher Relationship Specialty Start Date End Date [facility], [address] [address] PCP - General 01/19/19 Jillian Bethea MD [address] [place] [address] [phone] Assigned Surgical Provider 01/17/2010/31/20 Jillian Bethea MD [address] [place] [address] [phone] Assigned Surgical Provider 11/22/20 Kofi Mora, OD [address] [place] [address] Assigned Surgical Provider 11/01/20 Kofi Mora, OD [address] [place], [place] [address] Optometry 07/07/22 Jillian Bethea MD [address] [place] [address] [phone] Ophthalmology 07/07/22 documented as of this encounter
--- OUTSIDE RECORDS SUMMARY | 2023-10-20 07:58 | XMS_ITS | Continuity of Care Document ---
Author Organization [facility] Address [address] [facility] [address] [address] [place] [address] Phone Care Team Providers Care Registered Medical Assistant Name Role Phone Chay Engel DO Unavailable [...] D deficiency has been defined by the [place] ofMedicine and an Endocrine Society practice guideline as alevel of serum 25-OH vitamin D less than 20 ng/mL (1,2).The Endocrine Society went on to further define vitamin Dinsufficiency as a level between 21 and 29 ng/mL (2).1. IOM ([place] of Medicine). 2010. Dietary reference intakes for [...] [facility], [address], [place], [place], [facility], tel:[phone] No Information 3 Toro Cartwright. [facility] [address], [place], [address], . tel:[phone] Family History Family Member Type Diagnosis Age [...]
--- OUTSIDE RECORDS SUMMARY | 2023-10-20 07:58 | XMS_ITS | Encounter Summary ---
Author Organization [place] Address [address] [place] [address]. [place] [address] Care Team Providers Care Flash Drier Operator Name Role Phone [facility], [facility] Primary Care Provider Jillian Bethea MD Unavailable Jillian Bethea MD Unavailable [phone] Kofi Mora OD Unavailable [phone] Kofi Mora OD Unavailable [phone] Jillian Bethea MD Unavailable [phone] Encounter Details Date Type Department Care Team (Late st Contact Info) Description 01/19/2019 Ophth Exam [facility] Services - Eye Care Service Line [address] [place] [phone] Lisbet Gallegos MD [address] [place] [address] Social History Tobacco Use Types Packs/Day Years Used Date Smoking Tobacco: Never Smokeless Tobacco: Never Alcohol Use Standard Drinks/Week Comments Yes 0 (1 standard drink = 0.6 oz pur e alcohol) occasionally Sex and Gender Information Value Date Recorded Sex Assigned at Not on file Gender Identity Not on file Sexual Orientation Not on file documented as of this encounter Plan of Treatment Not on file documented as of this encounter Visit Diagnoses Not on filedocumented in this encounter Care Teams Flash Drier Operator Relationship Specialty Start Date End Date [address] [address] [phone] PCP - General 01/19/19 Jillian Bethea MD [address] [place] [address] Assigned Surgical Provider 01/17/2010/31/20 Jillian Bethea MD [address] [place] [address] Assigned Surgical Provider 11/22/20 Kofi Mora, OD [address] [place] [address] 20014 Assigned Surgical Provider 11/01/20 Kofi Mora, OD [address] [place] [address] Optometry 07/07/22 Jillian Bethea MD [address] [place] [address] Ophthalmology 07/07/22 documented as of this encounter
--- OUTSIDE RECORDS SUMMARY | 2023-10-20 07:58 | XMS_ITS | Encounter Summary ---
Author Organization [place] Address [address] [place] [address] Care Team Providers Care Foster Care Case Manager Name Role Phone Clinic, [facility] Primary Care Provider Jillian Bethea MD Unavailable Jillian Bethea MD Unavailable Kofi Mora OD Unavailable [phone] Kofi Mora OD Unavailable [phone] Jillian Bethea MD Unavailable Encounter Details Date Type Department Care Team (Late st Contact Info) Description 06/18/2020 MyC Medical Advice [facility] Darryl Kaur [facility] 9 [facility] Clinic [address] [place] [address] Kofi Mora, OD [address] [place], [place] [phone] Social History Tobacco Use Types Packs/Day Years [...] on filedocumented in this encounter Care Teams Foster Care Case Manager Relationship Specialty Start Date End Date [facility], [address] [address] PCP - General 01/19/19 Jillian Bethea MD [address] [place] [address] [phone] Assigned Surgical Provider 01/17/2010/31/20 Jillian Bethea MD [address] [place] [address] 365315 Assigned Surgical Provider 11/22/20 Kofi Mora, OD [address] [place] [address] Assigned Surgical Provider 11/01/20 Kofi Mora, OD 9 [place], [place] 151285 Optometry 07/07/22 Jillian Bethea MD [address] [place] [address] 410805 Ophthalmology 07/07/22 documented as of this encounter
--- NOTE | 2023-10-20 08:15 | CRLHL7_ITS ---
For Patients: As a result of the Century Cures Act, medical imaging exams and procedure reports are released immediately into your electronic medical record. You may view this report before your referring provider. If you have questions, please contact your health care provider. Indication: lump of supraclavicular region Technique: Grayscale and color Doppler ultrasound of the right supraclavicular soft tissues performed. Comparison: 03/02/2023 Findings: Mildly prominent right supraclavicular lymph node is present measuring 1.2 x 0.7 x 0.9 cm. Central fatty hilum is present. Cortex measures 2.6 millimeters. Impression: Mildly prominent right supraclavicular lymph node. Dictated by Wesley Connor MD @ 10/20/2023 11:03:15 AM (Electronically Signed)
== END 2023-10-20 07:56 | disposition home or self-care (01) ==
LOC: US 07:55
PROVIDERS: PCP Family Medicine; Visit Provider Internal Medicine Hematology & Oncology
DX: C50.919 Malignant neoplasm of unspecified site of unspecified female breast (principal)
CPT/HCPCS: 76536

== ENCOUNTER 2024-01-01 09:55 | Outpatient (CLI) | payer OTHER, SELFPAY ==
--- OUTSIDE RECORDS SUMMARY | 2024-01-01 09:57 | XMS_ITS | Referral Summary ---
Author Organization [place] Address [address] [place] [address] Care Team Providers Care Clothes Model Name Role Phone [facility] Primary Care Provider Jillian Bethea MD Unavailable Kofi Mora OD Unavailable [phone] Jillian Bethea MD Unavailable [phone] Allergies Active Allergy Reactions Criticality Noted Date [...] Active fluticasone (FLONASE) 50 MCG/ACT nasal spray Rex 1 spray in nostril 02/13/2018 Active albuterol [...] to the mammographic finding. Kavitha Baum PA-C [facility] MAMMOGRAPHY ORDERABLES from Last 3 Months or Most Recently Relevant to Health Maintenance Care Teams Clothes Model Relationship Specialty Start Date End Date [facility], [address] [address] PCP - General 01/19/19 Jillian Bethea MD [address] [place] [address] Assigned Surgical Provider 11/22/20 Kofi Mora OD [address] [place] [address] Optometry 07/07/22 Jillian Bethea MD [address] [place] [address] Ophthalmology 07/07/22
--- OUTSIDE RECORDS SUMMARY | 2024-01-01 09:57 | XMS_ITS | Encounter Summary ---
Author Organization [place] Address [address] [place] [address] Care Team Providers Care Preparation Operator Name Role Phone Clinic, [facility] Primary Care Provider Jillian Bethea MD Unavailable Jillian Bethea MD Unavailable Kofi Mora OD Unavailable [phone] Kofi Mora OD Unavailable [phone] Jillian Bethea MD Unavailable Encounter Details Date Type Department Care Team (Late st Contact Info) Description 06/18/2020 MyC Medical Advice [facility] Darryl Kaur [facility] 9 Co Clinic [address]A [address] [place] [address] Kofi Mora, OD [address] [place], [place] [phone] Social History Tobacco Use Types Packs/Day Years [...] on filedocumented in this encounter Care Teams Preparation Operator Relationship Specialty Start Date End Date [facility], [address] [address] PCP - General 01/19/19 Jillian Bethea MD [address] [place] [address] [phone] Assigned Surgical Provider 01/17/2010/31/20 Jillian Bethea MD [address] [place] [address] 669195 Assigned Surgical Provider 11/22/20 Kofi Mora, OD [address] [place] [address] Assigned Surgical Provider 11/01/20 Kofi Mora, OD 9 [place], [place] 092925 Optometry 07/07/22 Jillian Bethea MD [address] [place] [address] [phone] Ophthalmology 07/07/22 documented as of this encounter
--- OUTSIDE RECORDS SUMMARY | 2024-01-01 09:57 | XMS_ITS | Encounter Summary ---
Author Organization [place] Address [address] [place] [address]. [place] [address] Care Team Providers Care Tow Boat Captain Name Role Phone [facility], [facility] Primary Care Provider Jillian Bethea MD Unavailable Jillian Bethea MD Unavailable Kofi Mora OD Unavailable [phone] Kofi Mora OD Unavailable [phone] Jillian Bethea MD Unavailable [phone] Encounter Details Date Type Department Care Team (Late st Contact Info) Description 01/19/2019 Ophth Exam [facility] Services - Eye Care Service Line [address] [place] [phone] Lisbet Gallegos MD [address] [place] [address] Social History Tobacco Use Types Packs/Day [...] on filedocumented in this encounter Care Teams Tow Boat Captain Relationship Specialty Start Date End Date [address] [address] [phone] PCP - General 01/19/19 Jillian Bethea MD [address] [place] [address] Assigned Surgical Provider 01/17/2010/31/20 Jillian Bethea MD [address] [place] [address] Assigned Surgical Provider 11/22/20 Kofi Mora, OD [address] [place] [address] Assigned Surgical Provider 11/01/20 Kofi Mora, OD [address] [place] [address] Optometry 07/07/22 Jillian Bethea MD [address] [place] [address] Ophthalmology 07/07/22 documented as of this encounter
--- OUTSIDE RECORDS SUMMARY | 2024-01-01 09:57 | XMS_ITS | Encounter Summary ---
Author Organization [place] Address [address] [place] [address]. [place] [address] Care Team Providers Care Theater Teacher Name Role Phone Clinic, [facility] Primary Care Provider Jillian Bethea MD Unavailable Jillian Bethea MD Unavailable [phone] Kofi Mora OD Unavailable [phone] Kofi Mora OD Unavailable [phone] Jillian Bethea MD Unavailable Encounter Details Date Type Department Care Team (Late st Contact Info) Description 04/15/2019 MyC Medical Advice [facility] Eye [facility] [address] [facility] 9th [place] Clin [address] [place] [phone] Jillian Bethea MD [address] [facility] 493 [place], [place] 815305 Social History Tobacco Use Types Packs/Day Years [...] on filedocumented in this encounter Care Teams Theater Teacher Relationship Specialty Start Date End Date Clinic, [address] [phone] PCP - General 01/19/19 Jillian Bethea MD [address] [phone] Assigned Surgical Provider 01/17/2010/31/20 Jillian Bethea MD [address] 439285 Assigned Surgical Provider 11/22/20 Kofi Mora, OD [address] [place], [place] 523905 Assigned Surgical Provider 11/01/20 Kofi Mora, OD [address] [place], [place] 165505 Optometry 07/07/22 Jillian Bethea MD [address] [place] [address] [phone] Ophthalmology 07/07/22 documented as of this encounter
--- OUTSIDE RECORDS SUMMARY | 2024-01-01 09:57 | XMS_ITS | Encounter Summary ---
Author Organization [place] Address [address] [place] [address]. [place] [address] Care Team Providers Care Registered Nurse Step Down Name Role Phone [facility] Primary Care Provider Jillian Bethea MD Unavailable [phone] Jillian Bethea MD Unavailable Kofi Mora OD Unavailable [phone] Kofi Mora OD Unavailable [phone] Jillian Bethea MD Unavailable Encounter Details Date Type Department Care Team (Late st Contact Info) Description 06/16/2020 MyC Medical Advice [facility] Eye [facility] [address] [facility] 9th [place] [facility] [address] [place] [phone] Jillian Bethea MD 420 [facility] 493 [place], [place] [phone] Social History Tobacco Use Types Packs/Day Years [...] on filedocumented in this encounter Care Teams Registered Nurse Step Down Relationship Specialty Start Date End Date [facility], [address] [address] PCP - General 01/19/19 Jillian Bethea MD [address] [place] [address] [phone] Assigned Surgical Provider 01/17/2010/31/20 Jillian Bethea MD [address] [place] [address] [phone] Assigned Surgical Provider 11/22/20 Kofi Mora, OD [address] [place] [address] Assigned Surgical Provider 11/01/20 Kofi Mora, OD [address] [place], [place] 179385 Optometry 07/07/22 Jillian Bethea MD [address] [place] [address] [phone] Ophthalmology 07/07/22 documented as of this encounter
--- OUTSIDE RECORDS SUMMARY | 2024-01-01 09:57 | XMS_ITS ---
Author Organization [facility] Address [address] [place] [address] Care Team Providers Care Cleaning Supervisor Name Role Phone Unavailable Unavailable Unavailable Surgery Details Not on file Complications Check Surgery Details section. Procedure Estimated Blood Loss Check Surgery Details section. Procedure Findings Check Surgery Details section. Procedure Specimens Taken Check Surgery Details section.
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
--- OUTSIDE RECORDS SUMMARY | 2024-01-01 09:57 | XMS_ITS | Referral Summary ---
Author Organization [facility] Address [address] [place] [address] Care Team Providers Care Subsystems Engineer Name Role Phone Unavailable Primary Care Provider Unavailabl e Source Comments Patient records contain information from all sites at [facility]. For routine questions regarding patient records, call [phone] during business hours, M-F 8:00 AM - 5:00 PM Central Time. Record requests for emergency care only can be directed to [phone] at any time.[facility] Allergies Active Allergy Reactions Criticality Noted Date Comments Levofloxacin Myalgia Low 02/13/2018 Penicillins Itching,Rash Low 09/07/2009 Sandra Anaphylaxis,Itching High 08/02/2012 Other reaction(s): Throat Swelling/Closing Impdqjg-Fjb-Qgp Reductase Inhibitors Myalgia Low 02/04/2013 Simvastatin, Lipitor, [...] from 08/04/2022:Stage IIA(cT3, cN2(f), cM0, G2, ER+, IN+, HER2-) - Unsigned Pathologic stage from 01/24/2023: ypT3, pN3a, cM0, G2, ER+, IN+, HER2- - Unsigned Social History Tobacco Use [...] your living situation today? I have a [facility] place to live 02/14/2023 Sex and Gender Information Value Date Recorded Sex Assigned at Female 02/14/2023 11:13 AM PILE HEADER Gender Identity Female 02/14/2023 11:13 AM PILE HEADER Sexual Orientation Straight 02/14/2023 11 :13 AM PILE HEADER Last Filed Vital Signs Vital Sign Reading Time Taken Comments Blood Pressure 151/93 03/30/2023 12:55 PM PILE HEADER Pulse 109 03/30/2023 12:55 PM PILE HEADER Temperature 36.4 ??C (97.5 ??F) 05/10/2023 10:[address] Respiratory Rate - - Oxygen Saturation - - Inhaled Oxygen Concentration - - Weight 127 kg (279 lb 12.2 oz) 05/10/2023 10:12 AM PILE HEADER Height - - Body Mass Index - - Plan of Treatment Not on file Procedures Procedure Name Priority Date/Time Associated Diagnosis Comments OUTSIDE MG MAMMOGRAM Routine 01/24/2023 9:05 AM CDT from Last 3 Months or Most Recently Relevant to Health Maintenance Results * MM clip placement RT-Outside Mammogram (01/24/2023 9:05 AM CDT) Narrative [facility] - 02/13/2023 9:45 AM PILE HEADER This order has been created and auto-finalized [...]
--- OUTSIDE RECORDS SUMMARY | 2024-01-01 09:57 | XMS_ITS | Clinical Summary ---
Author Organization [facility] Address [address] [place] [address] Care Team Providers Care Spout Liner Name Role Phone Unavailable Primary Care Provider Unavailabl e Source Comments Patient records contain information from all sites at [facility]. For routine questions regarding patient records, call [phone] during business hours, M-F 8:00 AM - 5:00 PM Central Time. Record requests for emergency care only can be directed to [phone] at any time.[facility] Allergies Active Allergy Reactions Criticality Noted Date Comments Levofloxacin Myalgia Low 02/13/2018 Penicillins Itching,Rash Low 09/07/2009 Sandra Anaphylaxis,Itching High 08/02/2012 Other reaction(s): Throat Swelling/Closing Jcnhsrs-Lii-Hqx Reductase Inhibitors Myalgia Low 02/04/2013 Simvastatin, Lipitor, [...] your living situation today? I have a [facility] place to live 02/14/2023 Sex and Gender Information Value Date Recorded Sex Assigned at Female 02/14/2023 11:13 AM FACILITY MANAGER HISTOLOGY Gender Identity Female 02/14/2023 11:13 AM FACILITY MANAGER HISTOLOGY Sexual Orientation Straight 02/14/2023 11 :13 AM FACILITY MANAGER HISTOLOGY Last Filed Vital Signs Vital Sign Reading Time Taken Comments Blood Pressure 151/93 03/30/2023 12:55 PM FACILITY MANAGER HISTOLOGY Pulse 109 03/30/2023 12:55 PM FACILITY MANAGER HISTOLOGY Temperature 36.4 ??C (97.5 ??F) 05/10/2023 10:[address] Respiratory Rate - - Oxygen Saturation - - Inhaled Oxygen Concentration - - Weight 127 kg (279 lb 12.2 oz) 05/10/2023 10:12 AM FACILITY MANAGER HISTOLOGY Height - - Body Mass Index - - Plan of Treatment Health Maintenance Due Date Last Done Comments CT Colonography 1960 Cervical Cancer Screening 1960 Cologuard 1960 Colonoscopy 1960 Colorectal Cancer Screening 1960 FIT 1960 HIV Screening 1960 Hepatitis C Screening 1960 DTaP,Tdap,and Td Vaccines (2 - Td or Tdap) 08/02/2022 08/02/2012, 04/27/2005 Depression Screening (Annual PHQ-2) 03/27/2023 COVID-19 Vaccine ( season) 2023 03/02/2021, 06/06/2020 Influenza Vaccine (#1) 2023 , 12/24/2020, 01/21/2020, [...] CDT) Narrative [facility] - 02/13/2023 9:45 AM FACILITY MANAGER HISTOLOGY This order has been created and auto-finalized [...]
--- OUTSIDE RECORDS SUMMARY | 2024-01-01 09:57 | XMS_ITS ---
Author Organization [facility] Address [address] [place] [address] Care Team Providers Care Instructional Assistant Name Role Phone Unavailable Primary Care Provider Unavailabl e Active Problems Problem Noted Date Diagnosed Date Malignant Neoplasm Of Breast Upper Outer Quadrant Female Right 02/13/2023 Cancer Staging:Clinical stage from 08/04/2022:Stage IIA(cT3, cN2(f), cM0, G2, ER+, IL+, HER2-) - Unsigned Pathologic stage from 01/24/2023: ypT3, pN3a, cM0, G2, ER+, IL+, HER2- - Unsigned Current Oncology Plans No current plan information found. Past Plans No past plan information found. Radiation Treatments * Plan Last Treated On Elapsed Days Fractions Treated Prescribed Fraction Dose Prescribed Total Dose [id number] 05/12/2023 32 8 of 8 220 cGy 1,760 cGy [id number] 05/02/2023 22 17 of 17 220 cGy 3,740 cGy Reference Point Last Treated On Elapsed Days Session Dose Total Dose [id number] 05/12/2023 32 220 cGy 5,500 cGy
--- OUTSIDE RECORDS SUMMARY | 2024-01-01 09:57 | XMS_ITS | Clinical Summary ---
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 Role Phone [facility] Primary Care Provider Jillian Bethea MD Unavailable [phone] Kofi Mora OD Unavailable [phone] Jillian Bethea MD Unavailable [phone] Allergies Active Allergy Reactions Criticality Noted Date [...] Active fluticasone (FLONASE) 50 MCG/ACT nasal spray Barton 1 spray in nostril 02/13/2018 Active albuterol [...] PCV) 12/30/2009 12/30/2008 LUNG CANCER SCREENING 2010 DTAP/TDAP/TD IMMUNIZATION (2 - Td or Tdap) 08/02/2022 08/02/2012, 04/27/2005 PHQ-2 (once per calendar year) 2023 10/06/2021, 11/12/2020, 03/28/2019, Additional history exists YEARLY PREVENTIVE VISIT 07/09/2023 07/08/2022, 01/20 EYE EXAM 07/29/2023 07/28/2022, 05/0 06/2022, 07/28/2022, Additional history exists COVID-19 Vaccine ( season) 2023 03/02/2021, 06/06/2020 INFLUENZA VACCINE (#1) 2023 , 12/24/2020, 01/21/2020, Additional history exists MAMMO SCREENING 07/12/2024 07/12/2022, 06/25, 11/20/2015 RSV VACCINE (1 - 1-dose 75+ series) 2035 ZOSTER IMMUNIZATION Completed 03/24/2019, 9 HPV IMMUNIZATION [...] Recently Relevant to Health Maintenance Care Teams Excelsior Machine Operator Relationship Specialty Start Date End Date [facility], [address] [id number] PCP - General 01/19/19 Jillian Bethea MD [address] [id number] Assigned Surgical Provider 11/22/20 Kofi Mora OD [address] [place] [address] [id number] Optometry 07/07/22 Jillian Bethea MD [address] [place] [address] [id number] Ophthalmology 07/07/22
--- OUTSIDE RECORDS SUMMARY | 2024-01-01 09:58 | XMS_ITS | Continuity of Care Document ---
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 IOM ([employer]). 2010. Dietary reference intakes for [...] [facility], [address], [place], [place], [facility], tel:[phone] No Information 3 Toro Cartwright. [facility] [address], [place], [address], . tel:[phone] Family History Family Member Type Diagnosis Age [...]
--- NOTE | 2024-01-01 10:15 | CRLHL7_ITS ---
For Patients: As a result of the Century Cures Act, medical imaging exams and procedure reports are released immediately into your electronic medical record. You may view this report before your referring provider. If you have questions, please contact your health care provider. Indication: New daily persistent headache, history of breast cancer. Technique: Multisequence multiplanar MRI of the brain prior to and following administration of 20 cc Dotarem gadolinium based intravenous contrast. Comparison: None available. Findings: No evidence of acute ischemia. Few punctate foci of T2 prolongation within the periventricular and subcortical white matter of both cerebral hemispheres. No abnormal susceptibility artifact. No focus of abnormal or suspicious enhancement. The ventricles are normal in size. Flow voids of the larger intracranial arteries are preserved. No discrete T1 hypointense infiltrative calvarial lesion. Evidence of prior cataract surgery and right scleral buckling. The paranasal sinuses and mastoid air cells are predominantly clear. Impression: 1. No acute intracranial abnormality. 2. No evidence of intracranial metastasis. 3. Few scattered foci of T2 prolongation within the supratentorial white matter, nonspecific, but commonly seen in the setting of mild chronic small vessel ischemic changes or sequela of chronic migraine headaches. Dictated by Raciel Motley MD @ 01/02/2024 11:22:09 AM (Electronically Signed)
== END 2024-01-01 09:56 | disposition home or self-care (01) ==
LOC: MRI 09:55
PROVIDERS: PCP Family Medicine; Visit Provider Physician Assistant
DX: G44.52 New daily persistent headache (NDPH) (principal); C50.919 Malignant neoplasm of unspecified site of unspecified female breast; C77.3 Secondary and unspecified malignant neoplasm of axilla and upper limb lymph nodes
CPT/HCPCS: 70553; A9575

== ENCOUNTER 2024-02-07 12:30 | Outpatient (RCR) | payer OTHER, SELFPAY ==
--- NOTE | 2023-08-07 12:58 | ONC.NURNOTE ---
Call to patient to see how she is tolerating Verzenio. Patient states it's going. 1. She reports her generalized achiness has significantly improved since stopping Letrozole. 2. She reports an increase in her fatigue 3. She states sleeping comes and goes. She does feel the CBD gummies are helping. 4. She has had diarrhea since , approximately 2-3 times per day. She is using Imodium appropriately and pushing fluids. 5. She had an episode yesterday while out to dinner with her family. She reports that she has had these similar episodes on and off over the past few years. She was diagnosed with nearscope. She reports that she felt weak, nauseated, clammy and flushed. She did she eventually throw up a few times. She thinks she may have been dehydrated and has since been pushing fluids and electrolytes. Patient woke up feeling a bit better today. Patient has an appointment with her PCP today and will share her episode incident with Dr. Cooper. Patient will continue taking Verzenio 50 mg BID. I instructed her to call if her diarrhea worsens, she has another episode or with any worsening symptoms. Patient verbalizes understanding.
== END 2024-02-07 17:40 | disposition home or self-care (01) ==
PROVIDERS: PCP Family Medicine; Visit Provider Surgery
DX: C50.911 Malignant neoplasm of unspecified site of right female breast (principal); Z51.89 Encounter for other specified aftercare
CPT/HCPCS: 97018; 97110; 97140; 97161; 97164; 97165; 97530; 97535; 99214; 99215; G0463; X5282

== ENCOUNTER 2024-02-12 09:00 | Outpatient (RCR) | payer OTHER, SELFPAY ==
[2023-08-16 08:28] LABS: Basophils Absolute Auto 0.04 K/uL (0.00-0.30); Basophils Percent Auto 0.6 % (0.0-3.0); Eosinophils Absolute Auto 0.12 K/uL (0.00-0.50); Eosinophils Percent Auto 1.9 % (0.0-7.0); Hematocrit 38.8 % (33.0-51.0); Hemoglobin* 12.4 gm/dL (12.0-16.0); Immature Granulocytes Abs Auto 0.02 K/uL (0.00-0.30); Immature Granulocytes Pct Auto 0.3 %; Lymphocytes Percent Auto 19.5 % (20-44); Mean Corpuscular HGB Conc 32 gm/dL (32-36); Mean Corpuscular Hemoglobin 30 pg (26-34); Mean Corpuscular Volume 93 fL (80-100); Monocytes Percent Auto 4.8 % (0.0-11.0); Neutrophils Percent Auto 72.9 % (42.0-72.0); Platelet Count* 313 K/uL (140-440); RDW Coefficient of Variation % 14.7 % (11.5-15.5); Red Blood Count 4.18 m/uL (4.00-5.20); White Blood Count* 6.26 K/uL (4.50-11.00)
[2023-08-16 08:32] LABS: Slide Review Reflex No
[2023-08-16 08:43] LABS: Albumin* 4.8 g/dL (3.3-5.0); Chloride* 102 mmol/L (96-114); Potassium* 3.9 mmol/L (3.6-5.1); Sodium* 137 mmol/L (135-149)
[2023-08-16 08:45] LABS: Estimated Glomerular Filt Rate 63 ml/min
[2023-08-16 08:46] LABS: Alanine Aminotransferase* 30 U/L (4-35); Alkaline Phosphatase* 65 U/L (40-150); Anion Gap 7 mEq/L (7-15); Aspartate Amino Transferase* 25 U/L (12-35); Bilirubin Total* 0.9 mg/dL (0.1-1.5); Blood Urea Nitrogen* 15 mg/dL (7-30); Calcium* 9.6 mg/dL (8.4-10.6); Carbon Dioxide* 28 mmol/L (20-32); Glucose* 121 mg/dL (60-115); Total Protein* 8.8 g/dL (6.0-8.3)
--- NOTE | 2023-08-18 11:02 | ONC.NURNOTE ---
Patient called to report that she was admitted late last night to [facility] for UTI and elevated blood lactate levels. Starting Monday afternoon, she developed frequent urination. As time progressed on , the frequent urination continued in addition to dysuria and chills. Patient presented to urgent care and her labs showed an elevated lactate level. Patient was then to sent to the ER and eventually admitted late night. Patient and her hospital team are wondering if she should continue the Verzenio. CBC w/diff, Hepatic Panel, BMP, vitals and lactate levels reviewed with Debbie Amaya. Patient and her inpatient team informed that from our standpoint, patient can continue taking Verzenio. Patient to keep [facility] with any changes to her condition.
--- NOTE | 2023-08-22 09:50 | ONC.NURNOTE ---
Call to patient in follow up to hospital discharge. Patient states she was discharged home on Monday evening. She has been feeling good. She is on antibiotics until 08/26 and has follow up with her PCP on 08/24.
[2023-09-13 09:48] LABS: Basophils Absolute Auto 0.04 K/uL (0.00-0.30); Basophils Percent Auto 0.9 % (0.0-3.0); Eosinophils Absolute Auto 0.08 K/uL (0.00-0.50); Eosinophils Percent Auto 1.7 % (0.0-7.0); Hematocrit 35.7 % (33.0-51.0); Hemoglobin* 11.7 gm/dL (12.0-16.0); Immature Granulocytes Abs Auto 0.03 K/uL (0.00-0.30); Immature Granulocytes Pct Auto 0.7 %; Lymphocytes Absolute Auto 1.29 K/uL (0.90-2.90); Lymphocytes Percent Auto 28.2 % (20-44); Mean Corpuscular HGB Conc 33 gm/dL (32-36); Mean Corpuscular Hemoglobin 30 pg (26-34); Mean Corpuscular Volume 93 fL (80-100); Monocytes Percent Auto 8.1 % (0.0-11.0); Neutrophils Absolute Auto 2.77 K/uL (1.7-7.0); Neutrophils Percent Auto 60.4 % (42.0-72.0); Platelet Count* 306 K/uL (140-440); RDW Coefficient of Variation % 15.2 % (11.5-15.5); Red Blood Count 3.85 m/uL (4.00-5.20); White Blood Count* 4.58 K/uL (4.50-11.00)
[2023-09-13 09:55] LABS: Slide Review Reflex No
[2023-09-13 10:05] LABS: Albumin* 4.7 g/dL (3.3-5.0); Chloride* 101 mmol/L (96-114)
[2023-09-13 10:06] LABS: Potassium* 4.6 mmol/L (3.6-5.1); Sodium* 135 mmol/L (135-149)
[2023-09-13 10:08] LABS: Alanine Aminotransferase* 33 U/L (4-35); Alkaline Phosphatase* 65 U/L (40-150); Anion Gap 11 mEq/L (7-15); Aspartate Amino Transferase* 33 U/L (12-35); Bilirubin Total* 0.6 mg/dL (0.1-1.5); Blood Urea Nitrogen* 14 mg/dL (7-30); Carbon Dioxide* 23 mmol/L (20-32); Creatinine* 0.9 mg/dL (0.5-1.5); Estimated Glomerular Filt Rate 72 ml/min; Glucose* 117 mg/dL (60-115)
[2023-09-13 10:09] LABS: Calcium* 9.6 mg/dL (8.4-10.6)
--- NOTE | 2023-09-13 13:00 | ONC.NURNOTE ---
Call to patient to review labs results. Patient informed that all lab results are within parameters to continue Verzenio. Patient states she is not terrible. She reports being very busy and has been pushing herself hard the past several weeks. Her neuropathy and joint pain are improved. She continues to have diarrhea about every 3 days and manages with a few Imodium tablets. Patient will continue taking Verzenio 50 mg BID and will have labs and follow up visit 10/10.
[2023-10-11 08:55] LABS: Basophils Absolute Auto 0.04 K/uL (0.00-0.30); Basophils Percent Auto 0.8 % (0.0-3.0); Eosinophils Percent Auto 1.9 % (0.0-7.0); Hematocrit 38.5 % (33.0-51.0); Hemoglobin* 12.5 gm/dL (12.0-16.0); Immature Granulocytes Abs Auto 0.04 K/uL (0.00-0.30); Immature Granulocytes Pct Auto 0.8 %; Lymphocytes Percent Auto 23.3 % (20-44); Mean Corpuscular HGB Conc 33 gm/dL (32-36); Mean Corpuscular Hemoglobin 30 pg (26-34); Mean Corpuscular Volume 93 fL (80-100); Monocytes Percent Auto 7.9 % (0.0-11.0); Neutrophils Absolute Auto 3.37 K/uL (1.7-7.0); Neutrophils Percent Auto 65.3 % (42.0-72.0); Platelet Count* 281 K/uL (140-440); RDW Coefficient of Variation % 15.2 % (11.5-15.5); Red Blood Count 4.13 m/uL (4.00-5.20); White Blood Count* 5.16 K/uL (4.50-11.00)
[2023-10-11 08:58] LABS: Slide Review Reflex No
[2023-10-11 09:11] LABS: Chloride* 101 mmol/L (96-114)
[2023-10-11 09:12] LABS: Albumin* 4.9 g/dL (3.3-5.0); Potassium* 4.2 mmol/L (3.6-5.1); Sodium* 138 mmol/L (135-149)
[2023-10-11 09:15] LABS: Alanine Aminotransferase* 31 U/L (4-35); Alkaline Phosphatase* 65 U/L (40-150); Anion Gap 14 mEq/L (7-15); Aspartate Amino Transferase* 31 U/L (12-35); Bilirubin Total* 0.6 mg/dL (0.1-1.5); Blood Urea Nitrogen* 15 mg/dL (7-30); Carbon Dioxide* 23 mmol/L (20-32); Creatinine* 0.9 mg/dL (0.5-1.5); Estimated Glomerular Filt Rate 72 ml/min
[2023-10-11 09:16] LABS: Calcium* 9.8 mg/dL (8.4-10.6); Glucose* 129 mg/dL (60-115)
[2023-11-08 08:58] LABS: Basophils Absolute Auto 0.04 K/uL (0.00-0.30); Basophils Percent Auto 0.7 % (0.0-3.0); Eosinophils Absolute Auto 0.09 K/uL (0.00-0.50); Eosinophils Percent Auto 1.6 % (0.0-7.0); Hemoglobin* 11.7 gm/dL (12.0-16.0); Immature Granulocytes Abs Auto 0.03 K/uL (0.00-0.30); Immature Granulocytes Pct Auto 0.5 %; Lymphocytes Absolute Auto 1.17 K/uL (0.90-2.90); Lymphocytes Percent Auto 20.5 % (20-44); Mean Corpuscular HGB Conc 33 gm/dL (32-36); Mean Corpuscular Hemoglobin 31 pg (26-34); Mean Corpuscular Volume 95 fL (80-100); Monocytes Percent Auto 6.5 % (0.0-11.0); Neutrophils Percent Auto 70.2 % (42.0-72.0); Platelet Count* 284 K/uL (140-440); RDW Coefficient of Variation % 15.1 % (11.5-15.5); Red Blood Count 3.81 m/uL (4.00-5.20)
[2023-11-08 09:02] LABS: Slide Review Reflex No
[2023-11-08 09:13] LABS: Albumin* 4.4 g/dL (3.3-5.0); Chloride* 100 mmol/L (96-114); Sodium* 134 mmol/L (135-149)
[2023-11-08 09:16] LABS: Alkaline Phosphatase* 64 U/L (40-150); Anion Gap 9 mEq/L (7-15); Aspartate Amino Transferase* 27 U/L (12-35); Bilirubin Total* 0.6 mg/dL (0.1-1.5); Blood Urea Nitrogen* 18 mg/dL (7-30); Carbon Dioxide* 25 mmol/L (20-32); Creatinine* 0.9 mg/dL (0.5-1.5); Estimated Glomerular Filt Rate 72 ml/min; Glucose* 134 mg/dL (60-115); Total Protein* 7.7 g/dL (6.0-8.3)
[2023-11-08 09:17] LABS: Alanine Aminotransferase* 25 U/L (4-35); Calcium* 9.1 mg/dL (8.4-10.6)
--- NOTE | 2023-11-08 13:59 | ONC.NURNOTE ---
Call to patient to discuss lab results. Patient informed that all labs are within parameters to continue Verzenio 50 mg BID. Patient states that overall, she is doing okay. She did note frequent headaches after starting the Tamoxifen 10 mg QOD but this is improving. She is considering switching it to 5 mg daily and I confirmed that this is the dose noted in Dr. Curry's last office note. Patient continues to experience fatigue and goes to bed early most nights. Patient denies questions or concerns.
--- NOTE | 2023-12-11 14:07 | ONC.NURNOTE ---
Addendum entered by Christy Sullivan 12/13/23 14:14: To note, patient had originally requested a 3 month supply. Patient informed [employer] this quantity exceeds what is allowed by plan. New Rx for 28 day supply sent to [facility]. Addendum entered by Christy Sullivan 12/13/23 08:47: KATHY approved through 12/10/2024 Original Note: KATHY Weber submitted to [facility] Clinical Review, pending Auth# [id number]. Records faxed to [phone].
[2023-12-18 09:51] LABS: Basophils Absolute Auto 0.06 K/uL (0.00-0.30); Eosinophils Absolute Auto 0.19 K/uL (0.00-0.50); Eosinophils Percent Auto 3.1 % (0.0-7.0); Hematocrit 38.3 % (33.0-51.0); Hemoglobin* 12.5 gm/dL (12.0-16.0); Immature Granulocytes Abs Auto 0.05 K/uL (0.00-0.30); Immature Granulocytes Pct Auto 0.8 %; Lymphocytes Percent Auto 19.9 % (20-44); Mean Corpuscular HGB Conc 33 gm/dL (32-36); Mean Corpuscular Hemoglobin 31 pg (26-34); Mean Corpuscular Volume 96 fL (80-100); Monocytes Percent Auto 5.1 % (0.0-11.0); Neutrophils Percent Auto 70.1 % (42.0-72.0); Platelet Count* 284 K/uL (140-440); RDW Coefficient of Variation % 14.3 % (11.5-15.5); Red Blood Count 4.01 m/uL (4.00-5.20); White Blood Count* 6.13 K/uL (4.50-11.00)
[2023-12-18 09:53] LABS: Slide Review Reflex No
[2023-12-18 10:09] LABS: Albumin* 4.4 g/dL (3.3-5.0); Chloride* 103 mmol/L (96-114); Potassium* 3.9 mmol/L (3.6-5.1); Sodium* 137 mmol/L (135-149)
[2023-12-18 10:11] LABS: Creatinine* 0.8 mg/dL (0.5-1.5); Estimated Glomerular Filt Rate 83 ml/min
[2023-12-18 10:12] LABS: Alanine Aminotransferase* 26 U/L (4-35); Alkaline Phosphatase* 57 U/L (40-150); Anion Gap 11 mEq/L (7-15); Aspartate Amino Transferase* 34 U/L (12-35); Bilirubin Total* 0.4 mg/dL (0.1-1.5); Blood Urea Nitrogen* 13 mg/dL (7-30); Carbon Dioxide* 23 mmol/L (20-32); Glucose* 143 mg/dL (60-115); Total Protein* 7.6 g/dL (6.0-8.3)
[2023-12-18 10:13] LABS: Calcium* 9.4 mg/dL (8.4-10.6)
--- NOTE | 2024-01-05 09:18 | ONC.NURNOTE ---
Patient informed that Dottie Reeves PA-C has reviewed her MRI. Reiterated that her MRI shows no evidence of cancer. Dottie recommends follow up with PCP on headache management. Patient instructed to increase her Gabapentin to 300 mg in AM and PM and 700 mg at bedtime. Patient states she is trying to get in with an eye doctor to see if they have any suggestions for the ongoing headaches and motion sickness she continues to experience. Patient verbalizes understanding for labs on 01/14 and labs/follow up on 02/11.
[2024-01-15 09:41] LABS: Basophils Absolute Auto 0.05 K/uL (0.00-0.30); Basophils Percent Auto 0.9 % (0.0-3.0); Eosinophils Absolute Auto 0.12 K/uL (0.00-0.50); Eosinophils Percent Auto 2.1 % (0.0-7.0); Hematocrit 38.6 % (33.0-51.0); Hemoglobin* 12.5 gm/dL (12.0-16.0); Immature Granulocytes Abs Auto 0.04 K/uL (0.00-0.30); Immature Granulocytes Pct Auto 0.7 %; Lymphocytes Absolute Auto 1.23 K/uL (0.90-2.90); Lymphocytes Percent Auto 21.2 % (20-44); Mean Corpuscular HGB Conc 32 gm/dL (32-36); Mean Corpuscular Hemoglobin 31 pg (26-34); Mean Corpuscular Volume 96 fL (80-100); Monocytes Percent Auto 6.7 % (0.0-11.0); Neutrophils Absolute Auto 3.97 K/uL (1.7-7.0); Neutrophils Percent Auto 68.4 % (42.0-72.0); Platelet Count* 273 K/uL (140-440); Red Blood Count 4.02 m/uL (4.00-5.20)
[2024-01-15 09:42] LABS: Slide Review Reflex No
[2024-01-15 10:04] LABS: Albumin* 4.4 g/dL (3.3-5.0); Chloride* 99 mmol/L (96-114); Sodium* 136 mmol/L (135-149)
[2024-01-15 10:06] LABS: Anion Gap 11 mEq/L (7-15); Aspartate Amino Transferase* 30 U/L (12-35); Bilirubin Total* 0.3 mg/dL (0.1-1.5); Carbon Dioxide* 26 mmol/L (20-32); Creatinine* 0.8 mg/dL (0.5-1.5); Estimated Glomerular Filt Rate 83 ml/min
[2024-01-15 10:07] LABS: Alanine Aminotransferase* 28 U/L (4-35); Alkaline Phosphatase* 60 U/L (40-150); Blood Urea Nitrogen* 17 mg/dL (7-30); Calcium* 9.5 mg/dL (8.4-10.6); Glucose* 127 mg/dL (60-115); Total Protein* 7.5 g/dL (6.0-8.3)
--- NOTE | 2024-01-15 11:19 | ONC.NURNOTE ---
Call to patient to discuss lab results. Patient informed they are within parameters to continue Verzenio 50 mg BID. Overall, she feels she is doing better. Her headaches are less frequent, her neuropathy is less painful/bothersome and her balance seems better. She continues to have intermittent diarrhea, about twice per week, fatigue and generalized body aches but she considers this her new normal. Patient denies any questions or concerns.
--- NOTE | 2024-01-23 13:14 | ONC.NURNOTE ---
Hot Flashes Pt called reporting worsening of hot flashes. She notes she has manageable hot flashes several times a day and overnight that are relieved by removing covers, cooling off, etc. Recently she has developed increased freq severe hot flashes ~3/wk. She describes being triggered by being in a warm environment. Recently she was at a restaurant and needed to leave the table/go outside side in cool air to relieve severe hot flash. She then had nausea/reflux and was unable to eat her dinner. She felt off throughout the evening until middle of night when up for another mild hot flash. 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 She notes if she's at home she can manage the severe ones by getting right to a fan, removing clothing, but she's greatly concerned with the frequency of these now happening in public. Recommend pt be seen to discuss mitigation strategies/potential medications. Pt agreeable to this plan; alirio Veloz 01/24 with Dottie Reeves PA-C.
--- NOTE | 2024-02-05 14:37 | ONC.NURNOTE ---
Patient called to report that she is having a difficult time with the Oxybutynin. The pharmacy had a very difficult time getting the 2.5 mg tablets and since her dose is 1.25 mg BID, when she tried to split the pills, they would just crumble, making her dosing inconsistent. She has been taking it for a week and denies side effects or relief from her hot flashes. Patient is wondering if we could send an order to increase her dose to 2.5 mg BID. Reviewed with KATHY Bojorquez. Patient informed that Dottie approves of her request. New Rx sent to pharmacy for the 5 mg tablets, take 0.5 tablet BID as the 5 mg tablets are more readily available.
[2024-02-12 09:09] LABS: Basophils Absolute Auto 0.05 K/uL (0.00-0.30); Eosinophils Absolute Auto 0.13 K/uL (0.00-0.50); Eosinophils Percent Auto 2.5 % (0.0-7.0); Hemoglobin* 12.2 gm/dL (12.0-16.0); Immature Granulocytes Abs Auto 0.04 K/uL (0.00-0.30); Immature Granulocytes Pct Auto 0.8 %; Lymphocytes Percent Auto 19.9 % (20-44); Mean Corpuscular HGB Conc 32 gm/dL (32-36); Mean Corpuscular Hemoglobin 31 pg (26-34); Mean Corpuscular Volume 95 fL (80-100); Monocytes Percent Auto 6.6 % (0.0-11.0); Neutrophils Absolute Auto 3.59 K/uL (1.7-7.0); Neutrophils Percent Auto 69.2 % (42.0-72.0); Platelet Count* 258 K/uL (140-440); RDW Coefficient of Variation % 14.2 % (11.5-15.5); Red Blood Count 3.99 m/uL (4.00-5.20); White Blood Count* 5.18 K/uL (4.50-11.00)
[2024-02-12 09:11] LABS: Slide Review Reflex No
[2024-02-12 09:33] LABS: Albumin* 4.1 g/dL (3.3-5.0); Chloride* 102 mmol/L (96-114)
[2024-02-12 09:34] LABS: Sodium* 135 mmol/L (135-149)
[2024-02-12 09:36] LABS: Anion Gap 11 mEq/L (7-15); Bilirubin Total* 0.2 mg/dL (0.1-1.5); Carbon Dioxide* 22 mmol/L (20-32); Creatinine* 0.8 mg/dL (0.5-1.5); Estimated Glomerular Filt Rate 83 ml/min
[2024-02-12 09:37] LABS: Alanine Aminotransferase* 27 U/L (4-35); Alkaline Phosphatase* 59 U/L (40-150); Aspartate Amino Transferase* 30 U/L (12-35); Blood Urea Nitrogen* 14 mg/dL (7-30); Calcium* 9.1 mg/dL (8.4-10.6); Glucose* 193 mg/dL (60-115); Total Protein* 7.1 g/dL (6.0-8.3)
--- NOTE | 2024-02-12 14:32 | ONC.NURNOTE ---
Patient informed that her labs are within parameters to continue Verzenio 50 mg BID. Patient denies any new questions or concerns. Reports some improvement in hot flashes with the increased dose of Oxybutynin. Patient verbalizes understanding for labs and follow up 03/11. Patient will then establish care in [place], [place] at [facility] for the winter.
== END 2024-02-12 23:59 | disposition home or self-care (01) ==
LOC: CCIC 09:00
PROVIDERS: Internal Medicine Hematology & Oncology; PCP Family Medicine; Referring Provider Family Medicine; Visit Provider Physician Assistant
DX: C50.911 Malignant neoplasm of unspecified site of right female breast (principal); Z17.0 Estrogen receptor positive status [ER+]; Z79.810 Long term (current) use of selective estrogen receptor modulators (SERMs)
CPT/HCPCS: 36415; 80053; 85025; 99214; 99215; G0463

== ENCOUNTER 2024-08-29 12:45 | Outpatient (RCR) | payer OTHER, SELFPAY ==
[2024-03-11 09:29] LABS: Basophils Absolute Auto 0.04 K/uL (0.00-0.30); Basophils Percent Auto 0.8 % (0.0-3.0); Eosinophils Absolute Auto 0.12 K/uL (0.00-0.50); Eosinophils Percent Auto 2.4 % (0.0-7.0); Hematocrit 37.9 % (33.0-51.0); Hemoglobin* 12.3 gm/dL (12.0-16.0); Immature Granulocytes Abs Auto 0.04 K/uL (0.00-0.30); Immature Granulocytes Pct Auto 0.8 %; Lymphocytes Absolute Auto 1.33 K/uL (0.90-2.90); Lymphocytes Percent Auto 26.6 % (20-44); Mean Corpuscular HGB Conc 33 gm/dL (32-36); Mean Corpuscular Hemoglobin 30 pg (26-34); Mean Corpuscular Volume 94 fL (80-100); Neutrophils Absolute Auto 3.17 K/uL (1.7-7.0); Neutrophils Percent Auto 63.4 % (42.0-72.0); Platelet Count* 244 K/uL (140-440); RDW Coefficient of Variation % 13.7 % (11.5-15.5); Red Blood Count 4.04 m/uL (4.00-5.20)
[2024-03-11 09:33] LABS: Slide Review Reflex No
[2024-03-11 09:49] LABS: Chloride* 103 mmol/L (96-114)
[2024-03-11 09:50] LABS: Potassium* 4.2 mmol/L (3.6-5.1); Sodium* 134 mmol/L (135-149)
[2024-03-11 09:52] LABS: Alanine Aminotransferase* 31 U/L (4-35); Alkaline Phosphatase* 60 U/L (40-150); Anion Gap 8 mEq/L (7-15); Aspartate Amino Transferase* 33 U/L (12-35); Bilirubin Total* 0.4 mg/dL (0.1-1.5); Blood Urea Nitrogen* 16 mg/dL (7-30); Carbon Dioxide* 23 mmol/L (20-32); Creatinine* 0.8 mg/dL (0.5-1.5); Est. Creatinine Clearance* 53.91; Estimated Glomerular Filt Rate 83 ml/min; Glucose* 125 mg/dL (60-115)
[2024-03-11 09:53] LABS: Calcium* 8.9 mg/dL (8.4-10.6)
--- NOTE | 2024-06-18 09:48 | ONC.NURNOTE ---
Verzenio 50 mg tab (1) PO BID #56 sent in electronically per Dottie Reeves to [facility] per refill request received. Pt returns to [place]; RTC 07/03.
[2024-07-03 14:00] LABS: Basophils Absolute Auto 0.03 K/uL (0.00-0.30); Basophils Percent Auto 0.5 % (0.0-3.0); Eosinophils Absolute Auto 0.09 K/uL (0.00-0.50); Eosinophils Percent Auto 1.4 % (0.0-7.0); Hematocrit 37.1 % (33.0-51.0); Immature Granulocytes Abs Auto 0.03 K/uL (0.00-0.30); Immature Granulocytes Pct Auto 0.5 %; Lymphocytes Absolute Auto 1.56 K/uL (0.90-2.90); Lymphocytes Percent Auto 24.1 % (20-44); Mean Corpuscular HGB Conc 32 gm/dL (32-36); Mean Corpuscular Hemoglobin 31 pg (26-34); Mean Corpuscular Volume 97 fL (80-100); Neutrophils Absolute Auto 4.23 K/uL (1.7-7.0); Neutrophils Percent Auto 65.5 % (42.0-72.0); Platelet Count* 262 K/uL (140-440); RDW Coefficient of Variation % 14.7 % (11.5-15.5); Red Blood Count 3.84 m/uL (4.00-5.20); White Blood Count* 6.46 K/uL (4.50-11.00)
[2024-07-03 14:04] LABS: Slide Review Reflex No
[2024-07-03 14:16] LABS: Albumin* 4.2 g/dL (3.3-5.0); Chloride* 101 mmol/L (96-114); Potassium* 4.6 mmol/L (3.6-5.1); Sodium* 136 mmol/L (135-149)
[2024-07-03 14:19] LABS: Alanine Aminotransferase* 34 U/L (4-35); Alkaline Phosphatase* 60 U/L (40-150); Anion Gap 8 mEq/L (7-15); Aspartate Amino Transferase* 32 U/L (12-35); Bilirubin Total* 0.5 mg/dL (0.1-1.5); Blood Urea Nitrogen* 14 mg/dL (7-30); Calcium* 8.9 mg/dL (8.4-10.6); Carbon Dioxide* 27 mmol/L (20-32); Creatinine* 1.1 mg/dL (0.5-1.5); Est. Creatinine Clearance* 48.37; Estimated Glomerular Filt Rate 56 ml/min; Glucose* 153 mg/dL (60-115); Total Protein* 7.2 g/dL (6.0-8.3)
[2024-08-01 14:22] LABS: Basophils Absolute Auto 0.04 K/uL (0.00-0.30); Basophils Percent Auto 0.6 % (0.0-3.0); Eosinophils Absolute Auto 0.13 K/uL (0.00-0.50); Eosinophils Percent Auto 1.9 % (0.0-7.0); Hematocrit 37.8 % (33.0-51.0); Hemoglobin* 12.2 gm/dL (12.0-16.0); Immature Granulocytes Abs Auto 0.06 K/uL (0.00-0.30); Immature Granulocytes Pct Auto 0.9 %; Lymphocytes Absolute Auto 1.74 K/uL (0.90-2.90); Lymphocytes Percent Auto 24.8 % (20-44); Mean Corpuscular HGB Conc 32 gm/dL (32-36); Mean Corpuscular Hemoglobin 31 pg (26-34); Mean Corpuscular Volume 96 fL (80-100); Monocytes Percent Auto 6.4 % (0.0-11.0); Neutrophils Percent Auto 65.4 % (42.0-72.0); Platelet Count* 297 K/uL (140-440); RDW Coefficient of Variation % 14.8 % (11.5-15.5); Red Blood Count 3.93 m/uL (4.00-5.20); White Blood Count* 7.02 K/uL (4.50-11.00)
[2024-08-01 14:25] LABS: Slide Review Reflex No
[2024-08-01 14:27] LABS: Albumin* 4.1 g/dL (3.3-5.0); Chloride* 100 mmol/L (96-114); Sodium* 136 mmol/L (135-149)
[2024-08-01 14:30] LABS: Alanine Aminotransferase* 41 U/L (4-35); Alkaline Phosphatase* 61 U/L (40-150); Anion Gap 10 mEq/L (7-15); Aspartate Amino Transferase* 50 U/L (12-35); Bilirubin Total* 0.5 mg/dL (0.1-1.5); Blood Urea Nitrogen* 14 mg/dL (7-30); Carbon Dioxide* 26 mmol/L (20-32); Est. Creatinine Clearance* 51.14; Estimated Glomerular Filt Rate 63 ml/min
[2024-08-01 14:31] LABS: Calcium* 8.7 mg/dL (8.4-10.6); Glucose* 175 mg/dL (60-115)
[2024-08-15 13:40] LABS: Albumin* 4.3 g/dL (3.3-5.0)
[2024-08-15 13:43] LABS: Alanine Aminotransferase* 47 U/L (4-35); Alkaline Phosphatase* 58 U/L (40-150); Aspartate Amino Transferase* 60 U/L (12-35); Bilirubin Direct* 0.4 mg/dL (0.0-0.5); Bilirubin Total* 0.6 mg/dL (0.1-1.5); Total Protein* 7.4 g/dL (6.0-8.3)
== END 2024-09-07 23:59 | disposition home or self-care (01) ==
LOC: CCIC 12:45
PROVIDERS: Clinical Nurse Specialist; Internal Medicine Hematology & Oncology; PCP Family Medicine; Referring Provider Family Medicine; Visit Provider Physician Assistant
DX: C50.911 Malignant neoplasm of unspecified site of right female breast (principal); Z17.0 Estrogen receptor positive status [ER+]; C77.3 Secondary and unspecified malignant neoplasm of axilla and upper limb lymph nodes; G62.9 Polyneuropathy, unspecified; R23.2 Flushing; G47.00 Insomnia, unspecified; R79.89 Other specified abnormal findings of blood chemistry; Z90.13 Acquired absence of bilateral breasts and nipples; Z79.810 Long term (current) use of selective estrogen receptor modulators (SERMs)
CPT/HCPCS: 36415; 80053; 80076; 85025; 99215; G0463

== ENCOUNTER 2024-10-29 07:08 | Outpatient (CLI) | payer OTHER, SELFPAY ==
--- NOTE | 2024-10-29 07:15 | CRLHL7_ITS ---
For Patients: As a result of the Century Cures Act, medical imaging exams and procedure reports are released immediately into your electronic medical record. You may view this report before your referring provider. If you have questions, please contact your health care provider. INDICATION: History of breast cancer, evaluate for metastatic disease TECHNIQUE: 1.5 T MRI of the abdomen performed with pre and postcontrast T1 weighted imaging; T2 weighted imaging; in and out of phase imaging; diffusion weighted imaging. 26 mL Dotarem IV COMPARISON: CT chest abdomen and pelvis 03/02/2023 FINDINGS: Lungs: The lung bases are clear. No pleural or pericardial effusion. Liver: Homogeneous liver parenchyma. Severe diffuse hepatic steatosis. No hepatic masses. Punctate right hepatic lobe T2 hyperintensity too small to accurately characterize, but likely a benign cyst. Biliary tree and gallbladder: No intra or extrahepatic biliary dilation. Fluid-filled gallbladder without stones. Spleen: Unremarkable Pancreas: Normal pancreatic parenchyma. No pancreatic masses. No pancreatic duct dilation. Adrenal glands: Unremarkable. Kidneys and ureters: No renal masses or hydronephrosis. Left renal cyst measuring 1.2 cm. Additional scattered punctate T2 hyperintensities, too small to accurately characterize but likely cysts. GI tract: No evidence of obstruction or inflammation. Vasculature: The IVC and aorta are patent. No abdominal aortic aneurysm. Lymph nodes: No lymphadenopathy. Abdominal wall: Unremarkable Bones: Enhancing slightly expansile focus with subtle diffusion abnormality measuring 1.3 x 1.7 cm at the left T9-T10 costovertebral joint (). No appreciable abnormality was present in this location on CT from 2022. Scattered vertebral body osseous hemangiomas. IMPRESSION: 1. Enhancing focus at the left T9-T10 costovertebral joint is suspicious for metastatic disease. Consider further evaluation with PET-CT or nuclear medicine bone scan. 2. Severe diffuse hepatic steatosis. Dictated by Angelita Talavera MD @ 10/31/2024 11:36:56 AM (Electronically Signed)
== END 2024-10-29 07:09 | disposition home or self-care (01) ==
LOC: MRI 07:09
PROVIDERS: PCP Family Medicine; Visit Provider Physician Assistant
DX: C77.3 Secondary and unspecified malignant neoplasm of axilla and upper limb lymph nodes (principal); C50.919 Malignant neoplasm of unspecified site of unspecified female breast; R74.01 Elevation of levels of liver transaminase levels; R16.0 Hepatomegaly, not elsewhere classified; K76.0 Fatty (change of) liver, not elsewhere classified; M89.9 Disorder of bone, unspecified
CPT/HCPCS: 74183; A9575

== ENCOUNTER 2025-01-07 09:00 | Outpatient (RCR) | payer OTHER, SELFPAY | END 2025-01-07 09:55 | disposition home or self-care (01) | PROVIDERS: PCP Family Medicine; Visit Provider Physician Assistant | DX: R60.0 Localized edema (principal); G62.9 Polyneuropathy, unspecified; Z51.89 Encounter for other specified aftercare | CPT/HCPCS: 97110; 97112; 97161 ==

== ENCOUNTER 2025-02-12 11:00 | Outpatient (RCR) | payer OTHER, SELFPAY ==
[2024-09-26 10:54] LABS: Hematocrit* 38.3 % (33.0-51.0); Hemoglobin* 12.5 gm/dL (12.0-16.0); Immature Granulocytes Abs Auto 0.04 K/uL (0.00-0.30); Immature Granulocytes Pct Auto 0.7 %; Lymphocytes Absolute Auto 1.30 K/uL (0.90-2.90); Mean Corpuscular HGB Conc 33 gm/dL (32-36); Mean Corpuscular Hemoglobin 31 pg (26-34); Mean Corpuscular Volume 94 fL (80-100); RDW Coefficient of Variation % 14.1 % (11.5-15.5); Red Blood Count* 4.08 m/uL (4.00-5.20); White Blood Count* 5.83 K/uL (4.50-11.00)
[2024-09-26 10:56] LABS: Albumin* 4.1 g/dL (3.3-5.0); Chloride* 102 mmol/L (96-114); Potassium* 4.3 mmol/L (3.6-5.1); Slide Review Reflex No; Sodium* 135 mmol/L (135-149)
[2024-09-26 10:59] LABS: Alanine Aminotransferase* 38 U/L (4-35); Alkaline Phosphatase* 61 U/L (40-150); Anion Gap 10 mEq/L (7-15); Aspartate Amino Transferase* 56 U/L (12-35); Bilirubin Total* 0.5 mg/dL (0.1-1.5); Blood Urea Nitrogen* 13 mg/dL (7-30); Calcium* 9.4 mg/dL (8.4-10.6); Carbon Dioxide* 23 mmol/L (20-32); Creatinine* 0.9 mg/dL (0.5-1.5); Estimated Glomerular Filt Rate 71 ml/min; Glucose* 131 mg/dL (60-115); Total Protein* 7.2 g/dL (6.0-8.3)
--- NOTE | 2024-10-07 08:00 | ONC.NURNOTE ---
Patient emailed [facility] with the following information: Miguel Harrison. Dottie asked me to think about getting Zometa infusions. I?ve decided I?m not going to do them. Thank you, Naya Benjamin
[2024-10-28 10:19] LABS: Hematocrit* 38.9 % (33.0-51.0); Hemoglobin* 12.6 gm/dL (12.0-16.0); Immature Granulocytes Abs Auto 0.02 K/uL (0.00-0.30); Immature Granulocytes Pct Auto 0.3 %; Lymphocytes Absolute Auto 1.65 K/uL (0.90-2.90); Mean Corpuscular HGB Conc 32 gm/dL (32-36); Mean Corpuscular Hemoglobin 31 pg (26-34); Mean Corpuscular Volume 96 fL (80-100); RDW Coefficient of Variation % 14.4 % (11.5-15.5); Red Blood Count* 4.07 m/uL (4.00-5.20); White Blood Count* 6.46 K/uL (4.50-11.00)
[2024-10-28 10:22] LABS: Slide Review Reflex No
[2024-10-28 10:28] LABS: Albumin* 4.3 g/dL (3.3-5.0); Chloride* 103 mmol/L (96-114); Potassium* 4.7 mmol/L (3.6-5.1); Sodium* 136 mmol/L (135-149)
[2024-10-28 10:31] LABS: Alanine Aminotransferase* 33 U/L (4-35); Alkaline Phosphatase* 69 U/L (40-150); Anion Gap 8 mEq/L (7-15); Aspartate Amino Transferase* 53 U/L (12-35); Bilirubin Total* 0.6 mg/dL (0.1-1.5); Blood Urea Nitrogen* 15 mg/dL (7-30); Calcium* 9.6 mg/dL (8.4-10.6); Carbon Dioxide* 25 mmol/L (20-32); Creatinine* 1.0 mg/dL (0.5-1.5); Est. Creatinine Clearance* 51.14; Estimated Glomerular Filt Rate 63 ml/min; Glucose* 114 mg/dL (60-115); Total Protein* 7.5 g/dL (6.0-8.3)
--- NOTE | 2024-10-28 13:48 | ONC.NURNOTE ---
Message left for patient. Patient informed that her labs are all within parameters to continue Verzenio 50mg BID.
--- NOTE | 2024-11-04 15:40 | ONC.NURNOTE ---
11/07 MRI results reviewed with patient by Dottie Reeves PA-C. Recommendation is for PET/CT to further evaluate. Orders and records faxed to [facility]. Patient scheduled for 11/07. Patient verbalizes understanding of plan.
[2024-11-18 09:35] LABS: Hematocrit* 37.5 % (33.0-51.0); Hemoglobin* 12.3 gm/dL (12.0-16.0); Immature Granulocytes Abs Auto 0.04 K/uL (0.00-0.30); Immature Granulocytes Pct Auto 0.6 %; Lymphocytes Absolute Auto 1.38 K/uL (0.90-2.90); Mean Corpuscular HGB Conc 33 gm/dL (32-36); Mean Corpuscular Hemoglobin 31 pg (26-34); Mean Corpuscular Volume 94 fL (80-100); RDW Coefficient of Variation % 14.2 % (11.5-15.5); Red Blood Count* 3.99 m/uL (4.00-5.20); White Blood Count* 6.16 K/uL (4.50-11.00)
[2024-11-18 09:39] LABS: Slide Review Reflex No
[2024-11-18 09:51] LABS: Albumin* 4.2 g/dL (3.3-5.0); Chloride* 100 mmol/L (96-114); Sodium* 135 mmol/L (135-149)
[2024-11-18 09:52] LABS: Potassium* 4.4 mmol/L (3.6-5.1)
[2024-11-18 09:54] LABS: Alanine Aminotransferase* 33 U/L (4-35); Alkaline Phosphatase* 63 U/L (40-150); Anion Gap 8 mEq/L (7-15); Aspartate Amino Transferase* 58 U/L (12-35); Bilirubin Total* 0.6 mg/dL (0.1-1.5); Blood Urea Nitrogen* 15 mg/dL (7-30); Carbon Dioxide* 27 mmol/L (20-32); Creatinine* 0.9 mg/dL (0.5-1.5); Est. Creatinine Clearance* 53.21; Estimated Glomerular Filt Rate 71 ml/min; Total Protein* 7.4 g/dL (6.0-8.3)
[2024-11-18 09:55] LABS: Calcium* 9.8 mg/dL (8.4-10.6); Glucose* 123 mg/dL (60-115)
[2024-12-17 09:50] LABS: Hematocrit* 37.6 % (33.0-51.0); Hemoglobin* 12.1 gm/dL (12.0-16.0); Immature Granulocytes Abs Auto 0.02 K/uL (0.00-0.30); Immature Granulocytes Pct Auto 0.3 %; Lymphocytes Absolute Auto 1.32 K/uL (0.90-2.90); Mean Corpuscular HGB Conc 32 gm/dL (32-36); Mean Corpuscular Hemoglobin 31 pg (26-34); Mean Corpuscular Volume 95 fL (80-100); RDW Coefficient of Variation % 14.3 % (11.5-15.5); Red Blood Count* 3.94 m/uL (4.00-5.20); White Blood Count* 6.31 K/uL (4.50-11.00)
[2024-12-17 10:00] LABS: Slide Review Reflex No
[2024-12-17 10:02] LABS: Chloride* 101 mmol/L (96-114)
[2024-12-17 10:03] LABS: Albumin* 4.0 g/dL (3.3-5.0); Potassium* 4.5 mmol/L (3.6-5.1); Sodium* 137 mmol/L (135-149)
[2024-12-17 10:05] LABS: Alanine Aminotransferase* 28 U/L (4-35); Aspartate Amino Transferase* 48 U/L (12-35); Blood Urea Nitrogen* 16 mg/dL (7-30); Creatinine* 0.9 mg/dL (0.5-1.5); Est. Creatinine Clearance* 53.21; Estimated Glomerular Filt Rate 71 ml/min
[2024-12-17 10:06] LABS: Alkaline Phosphatase* 68 U/L (40-150); Anion Gap 7 mEq/L (7-15); Bilirubin Total* 0.4 mg/dL (0.1-1.5); Calcium* 9.2 mg/dL (8.4-10.6); Carbon Dioxide* 29 mmol/L (20-32); Glucose* 133 mg/dL (60-115); Total Protein* 7.1 g/dL (6.0-8.3)
[2025-01-15 09:31] LABS: Hematocrit* 35.9 % (33.0-51.0); Hemoglobin* 11.8 gm/dL (12.0-16.0); Immature Granulocytes Abs Auto 0.03 K/uL (0.00-0.30); Immature Granulocytes Pct Auto 0.6 %; Lymphocytes Absolute Auto 1.26 K/uL (0.90-2.90); Mean Corpuscular HGB Conc 33 gm/dL (32-36); Mean Corpuscular Hemoglobin 31 pg (26-34); Mean Corpuscular Volume 95 fL (80-100); RDW Coefficient of Variation % 14.1 % (11.5-15.5); Red Blood Count* 3.79 m/uL (4.00-5.20); White Blood Count* 5.08 K/uL (4.50-11.00)
[2025-01-15 09:36] LABS: Slide Review Reflex No
[2025-01-15 09:46] LABS: Albumin* 3.9 g/dL (3.3-5.0); Chloride* 96 mmol/L (96-114); Sodium* 133 mmol/L (135-149)
[2025-01-15 09:47] LABS: Potassium* 4.5 mmol/L (3.6-5.1)
[2025-01-15 09:49] LABS: Alanine Aminotransferase* 27 U/L (4-35); Alkaline Phosphatase* 65 U/L (40-150); Anion Gap 11 mEq/L (7-15); Aspartate Amino Transferase* 46 U/L (12-35); Bilirubin Total* 0.4 mg/dL (0.1-1.5); Blood Urea Nitrogen* 16 mg/dL (7-30); Carbon Dioxide* 26 mmol/L (20-32); Creatinine* 1.0 mg/dL (0.5-1.5); Est. Creatinine Clearance* 53.21; Estimated Glomerular Filt Rate 63 ml/min; Total Protein* 6.8 g/dL (6.0-8.3)
[2025-01-15 09:50] LABS: Calcium* 8.9 mg/dL (8.4-10.6); Glucose* 162 mg/dL (60-115)
--- NOTE | 2025-02-10 13:26 | ONC.NURNOTE ---
PET/CT results reviewed with Dr. Curry. Patient informed of results and recommendation for an appointment to discuss plan of care. Patient scheduled to see Dr. Curry 02/12. Patient verbalizes understanding.
--- NOTE | 2025-02-18 11:20 | ONC.NURNOTE ---
[facility] called insurance is denying coverage of more then 2 verzenio tabs per day requesting modification to dispense one 100mg tab in the am and one 50 mg tab in the pm insurance is covering the 100mg and the 50 mg disp #14 100mg with 3 refills ( 2 mth supply) disp #28 50 mg with 1 refill (2 mth supply) Kacey Pharmacist [phone]
== END 2025-03-25 23:59 | disposition home or self-care (01) ==
LOC: CCIC 11:00
PROVIDERS: Clinical Nurse Specialist; Physician Assistant; PCP Family Medicine; Referring Provider Family Medicine; Visit Provider Internal Medicine Hematology & Oncology
DX: C50.911 Malignant neoplasm of unspecified site of right female breast (principal); Z17.0 Estrogen receptor positive status [ER+]; C77.3 Secondary and unspecified malignant neoplasm of axilla and upper limb lymph nodes; Z90.13 Acquired absence of bilateral breasts and nipples; Z79.810 Long term (current) use of selective estrogen receptor modulators (SERMs); G47.00 Insomnia, unspecified; G62.9 Polyneuropathy, unspecified; R23.2 Flushing; L59.8 Other specified disorders of the skin and subcutaneous tissue related to radiation
CPT/HCPCS: 36415; 80053; 85025; 99215; G0463